=== PATIENT | female | born 1950 | race Caucasian/White ===

== ENCOUNTER 2023-08-03 07:52 | Outpatient (OUT) | payer OTHER, SELFPAY ==
--- NOTE | 2023-08-03 08:10 | NM_ITS ---
Patient Name: NELL RABAGO MR#: [id number] : 1950 Exam Date: 08/03/2023 Ordering Doctor: DR SHA ROBLEDO M.D. RADIOLOGY REPORT PROCEDURE: NM MANNY PERF SPECT REST STR COMPARISON: None. INDICATIONS: ABNORMAL EKG, PRE PROCEDURE CARDIOVASCULAR EXAM TECHNIQUE: Exam Description: Stress/Rest one day protocol gated SPECT Rest Imagin.9 mCi Tc-99m Cardiolite IV on 08/03/2023 Stress Imaging 29.6 mCi Tc-99m Cardiolite IV on 08/03/2023 Exercise Protocol: 0.4 mg Lexiscan given IV Heart Rate (bpm): Rest: 102 Max: 123 PMHR: 84 Blood Pressure: Rest: 148/82 Max: 162/80 Symptoms: Rest and peak stress ECG findings were normal and the exercise portion of the study was normal per attending physician Dr. Clayton . For more details please see separate cardiac stress test report. FINDINGS: QUALITY OF STUDY: Excellent. PERFUSION DEFECT: None. LOCATION: N/A SIZE: N/A. SEVERITY: N/A. TYPE: N/A. WALL MOTION: Normal. LV SIZE: Normal. 60 mL. TID / TCD: None; 0.8 LVEF: Normal. Calculated EF 76%. SUMMARY: Myocardial perfusion imaging study is NORMAL. CONCLUSION: 1. Normal nuclear medicine myocardial perfusion scan. Dictated by: Spencer Connelly M.D. on 08/04/2023 at 15:40 Approved by: Spencer Connelly M.D. on 08/04/2023 at 15:41
[2023-08-03] MEDS: REGADENOSON 0.4 MG/5 ML SYRINGE IV (10:04)
--- NOTE | 2023-08-03 17:17 | P.STRESS_ITS ---
Stress Test Stress Test Allergies Allergy/AdvReac Type Severity Reaction Status Date / Time lisinopril AdvReac Unknown Unverified 08/03/23 09:32 Requesting physician: SHA ROBLEDO Procedure: Lexiscan Cardiolite stress test General Information: Reason for Stress Test: Abnormal EKG Cardiac History and Risk Factors: Nothing listed Resting 12 - Lead Electrocardiogram: Rate & rhythm: Sinus tachycardia at a rate of 102. [place]: Trend towards left axis deviation T-waves: Flattened in III ST-segments: Slight downsloping in V3 Stress Test: Protocol: Lexiscan protocol was initiated with injection of 0.4mg Lexiscan IV push followed by Cardiolite. Blood pressure: Initial: 148/82, Maximum: 162/80 Rate & rhythm: Patient remained in Sinus rhythm during the exercise and recovery portions of the study.? The maximum heart rate was 123, which was 84% of the maximum predicted heart rate. ST-segments & T-waves: There were no T-wave changes and no ST-segment changes when compared to the baseline EKG. Patient response/symptoms: Patient was asymptomatic. Interpretation: Normal Lexiscan stress test without electrocardiographical evidence of ischemia. Asymptomatic. Cardiolite imaging interpretation will be reported separately. Clinical correlation required.?
== END 2023-08-03 07:53 | disposition home or self-care (01) ==
LOC: NM 07:53
PROVIDERS: PCP Family Medicine; Visit Provider Family Medicine
DX: R94.31 Abnormal electrocardiogram [ECG] [EKG] (principal)
CPT/HCPCS: 78452; 93017; A9500; J2785

== ENCOUNTER 2025-04-19 08:54 | Outpatient (OUT) | payer OTHER, SELFPAY ==
--- OUTSIDE RECORDS SUMMARY | 2025-04-10 12:00 | XMS_ITS | Encounter Summary ---
Author Organization [facility] Healthcare Address [address] [place] [address] Care Team Providers Care House Coordinator Name Role Phone Genna Cavazos MD Primary Care Provider [phone] Yulissa Marcus CHIPPER OPERATOR Unavailable [phone] Genna Cavazos MD Unavailable [phone] Ginette Felipe LPN Unavailable [phone] Reason for Referral * Medications - DeniedSpecialtyDiagnoses / ProceduresReferred By ContactReferred To Contact Diagnoses Bronchitis Wheezing Aishwarya Rizzo NP [address] [place] [address] Phone: tel: fax: Referral IDStatusReasonStart DateExpiration DateVisits RequestedVisits [id number] Reason for Visit * ReasonCommentsSore Throat Encounter Details DateTypeDepartmentCare Team (Latest Contact Info)Owevuoyoutw64/29/2025 1:00 PM EDTOffice Visit [facility] [address] [place] [address] Aishwarya Rizzo NP [address] [place] [address] Bronchitis (Primary Dx); Wheezing Social History Tobacco UseTypesPacks/DayYears UsedDateSmoking Tobacco: NeverSmokeless Tobacco: Never Tobacco Cessation:Counseling Given: Not Answered Alcohol UseStandard Drinks/WeekCommentsNot Currently0 (1 standard drink = 0.6 oz pure alcohol)caffeine intake: 1 cup [id number] Health LiteracyAnswerDate RecordedHow often do you need to have someone help you when you read instructions, pamphlets, or other written material from your doctor or pharmacy? Never03/09/2024Humiliation, Afraid, Rape, and Kick questionnaireAnswerDate RecordedWithin the last year, have you been afraid of your partner or ex-partner?No01/13/2023Within the last year, have you been humiliated or emotionally abused in other ways by your partner or ex-partner?No01/13/2023 Within the last year, have you been kicked, hit, slapped, or otherwise physically hurt by your partner or ex-partner?No01/13/2023Within the last year, have you been raped or forced to have any kind of sexual activity by your part ner or ex-partner?No01/13/2023Social Connection and Isolation PanelAnswerDate RecordedIn a typical week, how many times do you talk on the phone with family, friends, or neighbors?More than three times a week03/09/2024How often do you get together with friends or relatives?Patient dhojdjmk73/27/2024How often do you attend pentecostalism or buddhism services?Patient dijgutwp74/27/2024o you belong to any clubs or organizations such as pentecostalism groups, unions, fraternal or athletic groups, or school groups?No03/09/2024How often do you attend meetings of the clubs or organizations you belong to?Never03/09/2024re you , , , , never , or living with a partner?Lazpxwk8003/09/2024 AUDIT-CAnswerDate RecordedQ1: How often do you have a drink containing alcohol? Monthly or less03/09/2024Q2: How many drinks containing alcohol do you have on a typical day when you are drinking?1 or Q3: How often do you have six or more drinks on one occasion?Never03/09/2024Overall Financial Resource Strain (CARDIA)AnswerDate RecordedHow hard is it for you to pay for the very basics like food, housing, medical care, and heating?Patient yfwhecpy06/27/2024HQ-2 AnswerDate RecordedPatient Health Questionnaire-2 [facility]dahs726[facility] [place] of Occupational Health - Occupational Stress QuestionnaireAnswerDate RecordedDo you feel stress - tense, restless, nervous, or anxious, or unable to sleep at night because yourmind is troubled all the time - these days?Very much 03/09/2024Exercise Vital SignAnswerDate RecordedOn average, how many days per week do you engage in moderate to strenuous exercise (like a brisk walk)?Patient udcaxbgy59/27/2024On average, how many minutes do you engage in exercise at this level?Patient /27/2024Hunger Vital SignAnswerDate RecordedWithin the past 12 months, you worried that your food would run out before you got the money to buymore.Patient qowxpxhf62/27/2024Within the past 12 months, the food you bought just didn't last and you didn't have money to get more.Patient hsmjuvcx48/27/2024RAPARE - TransportationAnswerDate RecordedIn the past 12 months, has lack of transportation kept you from medical appointments or from getting medications?No03/09/2024In the past 12 months, has lack of transportation kept you from meetings, work, or from getting things needed for daily living?03/09/2024Housing Stability Vital SignAnswerDate RecordedIn the last 12 months, was there a time when you were not able to pay the mortgage or rent on time?No01/13/2023Number of Places Lived in the Last YearNot on file 01/13/2023Unstable Housing in the Last YearNot on file01/13/2023Housing Stability Vital SignAnswerDate RecordedIn the last 12 months, was there a time when you were not able to pay the mortgage or rent on time?No03/09/2024Number of Times Moved in the Last YearNot on file03/09/2024t any time in the past 12 months, were you homeless or living in a intermediate (including now)?No03/09/2024 CommentsUnknownSex and Gender InformationValueDate RecordedSex Assigned at QknyyQuijsf13/20/2023 7:48 PM EDTLegal VcsMtubmd78/15/2023 6:54 PM EDTGender XvxoqtofWigney81/20/2023 7:48 PM EDTSexual OrientationNot on filedocumented as of this encounter Last Filed Vital Signs Vital SignReadingTime TakenCommentsBlood Unbipbjr545/7404/10/2025 12:27 PM EDT Scqpi704004/10/2025 12:27 PM JAVQawsfpzdjup51.4 ??C (97.5 ??F)04/10/2025 12:27 PM EDTRespiratory Rate--Oxygen Unxbgahksr52%04/10/2025 12:27 PM EDTInhaled Oxygen Concentration--Zgkpyj64.1 kg (148 lb)04/10/2025 12:27 PM EDTHeight--Body Mass Index27.0707 2:03 PM EDTdocumented in this encounter Progress Notes * Aishwarya Burr, CHIPPER OPERATOR - 04/10/2025 1:00 PM EDT Subjective ?Quick Links Last Note in Specialty Snapshot Edit RFV/CC Edit Screenings Current Meds Patient ID: Karla Sheth is a 75 y.o. female who presents for Sore Throat. URI This is a new problem. The current episode started 1 to 4 weeks ago. The problem has been graduallyworsening. There has been no fever. Associated symptoms include congestion, coughing, a plugged earsensation, rhinorrhea, sinus pain, a sore throat and wheezing. Pertinent negatives include no chestpain. She has tried decongestant for the symptoms. The treatment provided mild relief. History of Present Illness ?Quick Review Review Full History Edit History Meds - Current Medications[1] --- PMH - History of hand surgery Hypertension MRSA infection Osteoporosis Personal history of other medical treatment Objective ?Quick Links Add Vitals Timeline (Adult) Labs Imaging Results Review Trend Vitals ?? Avoid pulling in long tables of results. Comment on relevant results to support your medical decision making. There were no vitals taken for this visit. Review of Systems Constitutional: Positive for fatigue. HENT: Positive for congestion, rhinorrhea, sinus pain and sore throat. Respiratory: Positive for cough and wheezing. Negative for shortness of breath. Cardiovascular: Negative for chest pain and palpitations. Gastrointestinal: Negative. Musculoskeletal: Negative. Skin: Negative. Neurological: Negative. Physical Exam Vitals and nursing note reviewed. Constitutional: Appearance: She is well-developed. HENT: Head: Normocephalic. Right Ear: Hearing normal. Left Ear: Hearing normal. Nose: Congestion and rhinorrhea present. Rhinorrhea is purulent. Mouth/Throat: Mouth: Mucous membranes are moist. Pharynx: Posterior oropharyngeal erythema present. No oropharyngeal exudate. Tonsils: No tonsillar exudate. Cardiovascular: Rate and Rhythm: Normal rate and regular rhythm. Heart sounds: Normal heart sounds. Pulmonary: Effort: Pulmonary effort is normal. Breath sounds: Examination of the right-upper field reveals decreased breath sounds. Examination ofthe left-upper field reveals decreased breath sounds. Examination of the right-lower field reveals wheezing. Examination of the left- lower field reveals wheezing. Decreased breath sounds and wheezingpresent. Abdominal: General: Abdomen is flat. There is no distension. Tenderness: There is no abdominal tenderness. Musculoskeletal: Cervical back: Neck supple. Lymphadenopathy: Cervical: Right cervical: No superficial cervical adenopathy. Left cervical: No superficial cervical adenopathy. Skin: General: Skin is warm. Capillary Refill: Capillary refill takes less than 2 seconds. Neurological: General: No focal deficit present. Mental Status: She is alert and oriented to person, place, and time. Physical Exam ?Quick Links Full Problem List Back Pain Cardiology Chronic Pain GI Headache Hypertension Assessment & Plan Bronchitis Orders: albuterol HFA 90 mcg/act inhaler; Inhale 2 puffs every 4 (four) hours if needed for wheezing amoxicillin-clavulanate (Augmentin) 500-125 MG tablet; Take 1 tablet (500 mg) by mouth in the morning and 1 tablet (500 mg) before bedtime. Do all this for 10 days. benzonatate (Tessalon Perles) 100 MG capsule; Take 1 capsule (100 mg) by mouth 3 (three) times a day as needed for cough for up to 7 days Do not crush or chew. Wheezing Orders: albuterol HFA 90 mcg/act inhaler; Inhale 2 puffs every 4 (four) hours if needed for wheezing Diagnoses and all orders for this visit: Bronchitis - albuterol HFA 90 mcg/act inhaler; Inhale 2 puffs every 4 (four) hours if needed for wheezing - amoxicillin-clavulanate (Augmentin) 500-125 MG tablet; Take 1 tablet (500 mg) by mouth in the morning and 1 tablet (500 mg) before bedtime. Do all this for 10 days. - benzonatate (Tessalon Perles) 100 MG capsule; Take 1 capsule (100 mg) by mouth 3 (three) times a day as needed for cough for up to 7 days Do not crush or chew. Wheezing - albuterol HFA 90 mcg/act inhaler; Inhale 2 puffs every 4 (four) hours if needed for wheezing Assessment & Plan [1] albuterol HFA 90 mcg/act inhaler alendronate (Fosamax) 70 MG tablet Alpha tocopherol (Vitamin E) 200 units capsule busPIRone (Buspar) 5 MG tablet celecoxib (CeleBREX) 200 MG capsule Cinnamon 500 MG tablet coenzyme Q-10 200 MG capsule fluticasone (Flonase) 50 MCG/ACT nasal spray LORazepam (Ativan) 0.5 MG tablet methylPREDNISolone (Medrol Dospak) 4 MG tablets Restasis 0.05 % ophthalmic emulsion sertraline (Zoloft) 100 MG tablet traZODone (Desyrel) 100 MG tablet verapamil (Calan) 80 MG tablet documented in this encounter Plan of Treatment DateTypeDepartmentCare Team (Latest Contact Info)Pmnvgutwrsn34/18/2025 10:00 AM ESTOffice Visit [facility] [address] [place] [address] Jr. Spencer Sandoval, [address] [facility] [address] [place] [address] 01/01/2026 9:45 AM EDTOffice Visit [facility] [address] [place] [address] Tequila Tang MD [address] [place] [address] documented as of this encounter Goals GoalPatient Goal TypeAssociated ProblemsRecent ProgressPatient-Stated?Author Help patient manage antidepressant medication Care PlanPatient on antidepressant monitoring planNoPena, Raqueldocumented as of this encounter Visit Diagnoses Diagnosis Bronchitis- Primary Bronchitis, not specified as acute or chronic Wheezing documented in this encounter Additional Health Concerns Active ProblemsNoted DateDiagnosed DatePatient on antidepressant monitoring plan 4AssessmentNoted TimePHQ-9 Depression Total Score: 9:58 AM EDTdocumented as of this encounter Care Teams Team MemberRelationshipSpecialtyStart DateEnd Genna Cavazos MD [address] [place] [address] PCP - GeneralFamily Medicine11/11/22 Genna Cavazos MD [address] [place] [address] PCP - Medical [place] [employer]06/13/1611 Yulissa Marcus NP [address] [place] [address] Nurse PractitionerFamily Medicine11/11/22 Ginette Fleipe LPN Licensed Practical NurseFamily Ijoisidg31/19/24documented as of this encounter
--- OUTSIDE RECORDS SUMMARY | 2025-04-17 13:00 | XMS_ITS | Encounter Summary ---
Author Organization [facility] Healthcare Address [address] [place] [address] Care Team Providers Care Boiler Attendant Name Role Phone Genna Cavazos MD Primary Care Provider Yulissa Marcus AS400 PROGRAMMER ANALYST Unavailable [phone] Genna Cavazos MD Unavailable [phone] Ginette Felipe LPN Unavailable [phone] Reason for Visit * ReasonCommentsCough Encounter Details DateTypeDepartmentCare Team (Latest Contact Info)Xpgakekibnx10/05/2025 1:00 PM ESTOffice Visit [facility] [address] [place] [address] Aishawrya Rizzo NP [address] [place] [address] Bronchitis Social History Tobacco UseTypesPacks/DayYears UsedDateSmoking Tobacco: NeverSmokeless Tobacco: Never Tobacco Cessation:Counseling Given: Not Answered Alcohol UseStandard Drinks/WeekCommentsNot Currently0 (1 standard drink = 0.6 oz pure alcohol)caffeine intake: 1 cup [id number] Health LiteracyAnswerDate RecordedHow often do you need to have someone help you when you read instructions, pamphlets, or other written material from your doctor or pharmacy? Never03/09/2024Humiliation, Afraid, Rape, and Kick questionnaireAnswerDate RecordedWithin the last year, have you been afraid of your partner or ex-partner?No08/03/2023Within the last year, have you been humiliated [...] you get together with friends or relatives?Patient klpiqfju67/27/2024How often do you attend scientology or yarsani services?Patient anqioxbx62/27/2024o you belong to any clubs or organizations such as scientology groups, unions, fraternal or athletic groups, or school groups?No03/09/2024How often do you attend meetings of the clubs or organizations you belong to?Never03/09/2024re you , , , , never , or living with a partner?Mmhetrl3903/09/2024 AUDIT-CAnswerDate RecordedQ1: How often do you have [...] like food, housing, medical care, and heating?Patient cfbozslc31/27/2024HQ-2 AnswerDate RecordedPatient Health Questionnaire-2 [facility]548[facility] [place] of Occupational Health - Occupational Stress QuestionnaireAnswerDate RecordedDo you feel stress - tense, restless, nervous, or anxious, or unable to sleep at night because yourmind is troubled all the time - these days?Very much 03/09/2024Exercise Vital SignAnswerDate RecordedOn average, how many days per week do you engage in moderate to strenuous exercise (like a brisk walk)?Patient brnkulmp60/27/2024On average, how many minutes do you engage in exercise at this level?Patient krodqfeb89/27/2024Hunger Vital SignAnswerDate RecordedWithin the past 12 months, you worried that your food would run out before you got the money to buymore.Patient hcjmvded32/27/2024Within the past 12 months, the food you bought just didn't last and you didn't have money to get more.Patient vdmsozbx38/27/2024RAPARE - TransportationAnswerDate RecordedIn the past 12 months, has lack of transportation kept you from medical appointments or from getting medications?No03/09/2024In the past 12 months, has lack of transportation kept you from meetings, work, or from getting things needed for daily living?No03/09/2024Housing Stability Vital SignAnswerDate RecordedIn the last 12 [...] were you homeless or living in a snf (including now)?No03/09/2024 CommentsUnknownSex and Gender InformationValueDate RecordedSex Assigned at UzgquRyoywm44/20/2023 7:48 PM EDTLegal VhrEmeyen79/15/2023 6:54 PM EDTGender SrbteeecUgijvi71/20/2023 7:48 PM EDTSexual OrientationNot on filedocumented as of this encounter Last Filed Vital Signs Vital SignReadingTime TakenCommentsBlood Juqadhim640/8011 12:38 PM EST Uakma9790 12:38 PM FDJMwtkuysjsvo70.3 ??C (97.3 ??F)04/17/2025 12:38 PM ESTRespiratory Rate--Oxygen Kfbazvwwvc79%04/17/2025 12:38 PM ESTInhaled Oxygen Concentration--Weight--Height--Body Mass Index--documented in this encounter Progress Notes * Aishwarya Rizzo NP - 04/17/2025 1:00 PM EST Subjective ?Quick Links Last Note in Specialty Snapshot Edit RFV/CC Edit Screenings Current Meds Patient ID: Karla Sheth is a 75 y.o. female who presents for Cough. HPI History of Present Illness The patient presents for evaluation of a persistent cough. She reports experiencing persistent cough She expresses concern about the potential worsening of her condition. Additionally, she notes that her phlegm is clear in color. She has been utilizing Vicksas a part of her treatment regimen. No shortness of breath. No fever or chills. No nausea or vomiting. ?Quick Review Review Full History Edit History [...] for this visit. Review of Systems Constitutional: Negative for chills, fatigue and fever. HENT: Positive for congestion. Negative for ear discharge, ear pain, rhinorrhea and sore throat. Eyes: Negative for pain and redness. Respiratory: Positive for cough. Negative for chest tightness, shortness of breath and wheezing. Cardiovascular: Negative for chest pain and palpitations. Gastrointestinal: Negative for abdominal distention and abdominal pain. Genitourinary: Negative for difficulty urinating and frequency. Musculoskeletal: Negative for arthralgias and gait problem. Skin: Negative. Neurological: Negative for dizziness and numbness. Endocrine: Negative. Allergic/Immunologic: Negative. Physical Exam Vitals reviewed. Cardiovascular: Rate and Rhythm: Normal rate and regular rhythm. Pulses: Normal pulses. Heart sounds: Normal heart sounds. Pulmonary: Effort: Pulmonary effort is normal. Breath sounds: Normal breath sounds. Musculoskeletal: General: Normal range of motion. Skin: General: Skin is warm and dry. Neurological: General: No focal deficit present. Mental Status: She is oriented to person, place, and time. Physical Exam Respiratory: Clear to auscultation, no wheezing, rales or rhonchi ?Quick Links Full Problem List Back Pain Cardiology Chronic Pain GI Headache Hypertension Assessment & Plan Bronchitis Orders: benzonatate (Tessalon Perles) 100 MG capsule; Take 1 capsule (100 mg) by mouth 3 (three) times a day as needed for cough for up to 7 days Do not crush or chew. Other orders Follow Up In Family Medicine; Future Assessment & Plan 1. Cough: - The patient reports soreness around the chest due to frequent coughing. - Lung sounds have improved with no current signs of pneumonia or wheezing. - Advised to continue using the inhaler every 4 hours as needed and to apply Vicks. Recommended to use a cool mist vaporizer in the room and to complete the current course of antibiotics. Encouraged to rest and stay hydrated. - A prescription for Tessalon Perles has been sent to the pharmacy. If the condition deteriorates or if phlegm changes color to green or yellow, the patient should contact the office for further evaluation and possible additional antibiotics. Diagnoses and all orders for this visit: Bronchitis - benzonatate (Tessalon Perles) 100 MG capsule; Take 1 capsule (100 mg) by mouth 3 (three) times a day as needed for cough for up to 7 days Do not crush or chew. Other orders - Follow Up In Family Medicine; Future [1] albuterol HFA 90 mcg/act inhaler Alpha tocopherol (Vitamin E) 200 units capsule busPIRone (Buspar) 5 MG tablet celecoxib (CeleBREX) 200 MG capsule Cinnamon 500 MG tablet coenzyme Q-10 200 MG capsule fluticasone (Flonase) 50 MCG/ACT nasal spray LORazepam (Ativan) 0.5 MG tablet Restasis 0.05 % ophthalmic emulsion sertraline (Zoloft) 100 MG tablet traZODone (Desyrel) 100 MG tablet verapamil (Calan) 80 MG tablet albuterol HFA 90 mcg/act inhaler alendronate (Fosamax) 70 MG tablet amoxicillin-clavulanate (Augmentin) 500-125 MG tablet benzonatate (Tessalon Perles) 100 MG capsule methylPREDNISolone (Medrol Dospak) 4 MG tablets documented in this encounter Plan of Treatment DateTypeDepartmentCare Team (Latest Contact Info)Svrxkedfgam77/18/2025 10:00 AM ESTOffice Visit [facility] [address] [place] [phone] Jr. Spencer Sandoval, [address] [place] [address] 01/01/2026 9:45 AM EDTOffice Visit [facility] [address] [place] [address] Tequila Tang MD [address] [place] [address] documented as of this encounter Goals GoalPatient Goal TypeAssociated ProblemsRecent ProgressPatient-Stated?Author Help patient manage antidepressant medication Care PlanPatient on antidepressant monitoring planNoPena, Raqueldocumented as of this encounter Visit Diagnoses Diagnosis Bronchitis Bronchitis, not specified as acute or chronic documented in this encounter Additional Health Concerns Active ProblemsNoted DateDiagnosed DatePatient on antidepressant monitoring plan 05/22/2024ssessmentNoted TimePHQ-9 Depression Total Score: 7011/20/2024 9:58 AM EDTdocumented as of this encounter Care Teams Team MemberRelationshipSpecialtyStart DateEnd Date Genna Cavazos MD [address] [place] [address] PCP - GeneralFamily Medicine11/11/22 Genna Cavazos MD [address] [place] [address] PCP - Medical [place] [employer]06/13/1611 Yulissa Marcus NP [address] [place] [address] Nurse PractitionerFamily Medicine11/11/22 Ginette Felipe LPN Licensed Practical NurseFamily Bygtmxnw22/19/24documented as of this encounter
--- OUTSIDE RECORDS SUMMARY | 2025-04-17 15:15 | XMS_ITS | Encounter Summary ---
Author Organization [facility] Address [address] [place] [address] Care Team Providers Care Overhead Door Technician Name Role Phone Genna Cavazos MD Primary Care Provider [phone] Yulissa Marcus CLINICAL APPEALS SPECIALIST Unavailable [phone] Genna Cavazos MD Unavailable [phone] Ginette Felipe LPN Unavailable [phone] Encounter Details DateTypeDepartmentCare Team (Latest Contact Info)Taodtetqwzm22/05/2025 3:15 PM ESTOffice Visit [facility] [address] [place] [address] Sensorineural hearing loss (SNHL) of both ears (Primary Dx) Social History Tobacco UseTypesPacks/DayYears UsedDateSmoking Tobacco: NeverSmokeless Tobacco: NeverAlcohol UseStandard Drinks/WeekCommentsNot Currently0 (1 standard drink = 0.6 oz pure alcohol)caffeine intake: 1 cup [id number] Health LiteracyAnswerDate RecordedHow often do you need [...] you get together with friends or relatives?Patient hojzzzfl57/27/2024How often do you attend orthodoxy or zoroastrianism services?Patient fprmkgmy81/27/2024o you belong to any clubs or organizations such as orthodoxy groups, unions, frarighTune or athletic groups, or school groups?No03/09/2024How often do you attend meetings of the clubs or organizations you belong to?Never03/09/2024re you , , , , never , or living with a partner?Knuaqcm2603/09/2024 AUDIT-CAnswerDate RecordedQ1: How often do you have [...] like food, housing, medical care, and heating?Patient jipcroky06/27/2024HQ-2 AnswerDate RecordedPatient Health Questionnaire-2 Izcle452Finst. [facility] [place] of Occupational Health - Occupational Stress QuestionnaireAnswerDate RecordedDo you feel stress - tense, restless, nervous, or anxious, or unable to sleep at night because yourmind is troubled all the time - these days?Very much 03/09/2024Exercise Vital SignAnswerDate RecordedOn average, how many days per week do you engage in moderate to strenuous exercise (like a brisk walk)?Patient lrczxocx78/27/2024On average, how many minutes do you engage in exercise at this level?Patient bmgvqqyt99/27/2024Hunger Vital SignAnswerDate RecordedWithin the past 12 months, you worried that your food would run out before you got the money to buymore.Patient neyaobad09/27/2024Within the past 12 months, the food you bought just didn't last and you didn't have money to get more.Patient btwirbne52/27/2024RAPARE - TransportationAnswerDate RecordedIn the past 12 months, [...] were you homeless or living in a jail (including now)?No03/09/2024 CommentsUnknownSex and Gender InformationValueDate RecordedSex Assigned at DstzkZxnieg47/20/2023 7:48 PM EDTLegal QfjBhaans63/15/2023 6:54 PM EDTGender CnytdhynNcxszd26/20/2023 7:48 PM EDTSexual OrientationNot on filedocumented as of this encounter Progress Notes * Vera Lechuga MA - 04/17/2025 3:15 PM EST Patient was in today for a two week follow up on new hearing aids. Patient notices the benefits andis pleased with the hearing aids. The only complaint that she had is other people complaining that background noise is so loud while she is streaming phone calls. I called [facility] and they suggested shortening the medical instructor wire for better placement of the microphone, overtuning more and reducing forloud sounds. All changes were made. Patient will let us know if the problem persists or is improved. documented in this encounter Plan of Treatment DateTypeDepartmentCare Team (Latest Contact Info)Gydmdkhghmr50/18/2025 10:00 AM ESTOffice Visit [facility] [address] [place] [phone] Jr. Spencer Sandoval, DO [address] [place] [address] 01/01/2026 9:45 AM EDTOffice Visit [facility] [address] [place] [address] Tequila Tang MD [address] [place] [address] documented as of this encounter Goals GoalPatient Goal TypeAssociated ProblemsRecent ProgressPatient-Stated?Author Help patient manage antidepressant medication Care PlanPatient on antidepressant monitoring planGeorgette Cashocumented as of this encounter Visit Diagnoses Diagnosis Sensorineural hearing loss (SNHL) of both ears- Primary documented in this encounter Additional Health Concerns Active ProblemsNoted DateDiagnosed DatePatient on antidepressant monitoring plan 4AssessmentNoted TimePHQ-9 Depression Total Score: 7011/20/2024 9:58 AM EDTdocumented as of this encounter Care Teams Team MemberRelationshipSpecialtyStart DateEnd Date Genna Cavazos MD [address] [place], [place] [phone] PCP - GeneralFamily Medicine11/11/22 Genna Cavazos MD [address] [place], [place] [phone] PCP - Medical [place] [employer]06/13/1611 Yulissa Marcus NP [address] [place] [address] Nurse PractitionerFamily Medicine11/11/22 Ginette Felipe LPN Licensed Practical NurseFamily Bcvwhlvg72/19/24documented as of this encounter
--- OUTSIDE RECORDS SUMMARY | 2025-04-19 08:57 | XMS_ITS | Clinical Summary ---
Author Organization [facility] Address [address] [facility] [place] [address] Care Team Providers Care Compass Operator Name Role Phone Genna Cavazos MD Primary Care Provider [phone] Yulissa Marcus PARTS WASHER Unavailable [phone] Genna Cavazos MD Unavailable [phone] Ginette Felipe LPN Unavailable [phone] Allergies Active AllergyReactionsCriticalityNoted PiwsHpocndwfTaihflbfikNgack55/01/2023 Medications MedicationSigDispense QuantityRefillsLast FilledStart DateEnd DateStatus albuterol HFA 90 mcg/act inhaler Inhale 1 puff every 6 (six) hours if dstfop0211/27/2021ctive Cinnamon 500 MG tablet Take 500 mg by mouth DailyActive coenzyme Q-10 200 MG capsule Take 200 mg by mouth 1 (one) time each day at the same timeActive Alpha tocopherol (Vitamin E) 200 units capsule Take 200 Units by mouth in the morning.Active Restasis 0.05 % ophthalmic emulsion 04/07/2023ctive fluticasone (Flonase) 50 MCG/ACT nasal spray Indications:Nasal congestionAdminister 1 spray into each nostril in the morning and 1 spray before bedtime. 16 g ctive sertraline (Zoloft) 100 MG tablet Indications:AnxietyTake 1.5 tablets (150 mg) by mouth Daily 90 tablet 5Active traZODone (Desyrel) 100 MG tablet Indications:Insomnia, unspecified typeTake 1.5 tablets (150 mg) by mouth at bedtime 135 tablet 5Active busPIRone (Buspar) 5 MG tablet Indications:AnxietyTake 1 tablet (5 mg) by mouth in the morning and 1 tablet (5 mg) before bedtime. 60 tablet 5Active LORazepam (Ativan) 0.5 MG tablet Indications:Anxiety,GriefTake 1 tablet (0.5 mg) by mouth every 8 (eight) hours if needed for anxiety 20 tablet 5Active verapamil (Calan) 80 MG tablet Indications:Benign essential HTNTAKE 1 TABLET BY MOUTH IN THE MORNING 90 tablet 5Active methylPREDNISolone (Medrol Dospak) 4 MG tablets Indications:Right hip painFollow schedule on package instructions 21 tablet 5Active albuterol HFA 90 mcg/act inhaler Indications:Bronchitis,WheezingInhale 2 puffs every 4 (four) hours if needed for wheezing 18 g ctive amoxicillin-clavulanate (Augmentin) 500-125 MG tablet Indications:BronchitisTake 1 tablet (500 mg) by mouth in the morning and 1 tablet (500 mg) before bedtime. Do all this for 10 days. 20 tablet /5Active alendronate (Fosamax) 70 MG tablet Indications:Osteoporosis of lumbar spineTake 1 tablet (70 mg) by mouth every 7 (seven) days Take in the morning with a full glass of water,on an empty stomach, and do not take anything else by mouth or lie down for the next 30 min. 12 tablet 5Active benzonatate (Tessalon Perles) 100 MG capsule Indications:BronchitisTake 1 capsule (100 mg) by mouth 3 (three) times a day as needed for cough for up to 7 days Do not crush or chew. 20 capsule 5Active alendronate (Fosamax) 70 MG tablet Indications:Osteoporosis of lumbar spineTAKE 1 TABLET BY MOUTH EVERY 7 DAYS IN THE MORNING ON AN EMPTY STOMACH WITH a full glass OF water ON AN EMPTY STOMACH and do not take anything else by mouth or lie down for the next 30 mins 12 tablet Discontinued(Reorder) celecoxib (CeleBREX) 200 MG capsule Indications:Iliotibial band syndrome of right sideTake 1 capsule (200 mg) by mouth Daily Take with food 30 capsule Expired benzonatate (Tessalon Perles) 100 MG capsule Indications:BronchitisTake 1 capsule (100 mg) by mouth 3 (three) times a day as needed for cough for up to 7 days Do not crush or chew. 20 capsule Discontinued(Reorder) Active Problems ProblemNoted DateDiagnosed DateLumbosacral spondylosis without myelopathy 06/14/2024Spinal stenosis of lumbar region with neurogenic claudication 04/24/2024cute right hip pain10/27/2023Status post right hip replacement 10/27/20230951Jeylqmo01/01/2023symptomatic microscopic yuihallss60/01/2023MI 28.0-28.9,adult11/11/2022hronic whxbccur37/01/2023History of total right knee dszplxuppuv74/01/5659Cgfrbqhvaos36/01/2023Osteoporosis of lumbar spine11/11/2022 Reactive airway zamtobv8711/11/2022Stricture of female bnulxtj5311/11/2022bnormal /08/2021rimary osteoarthritis of right hip06/30/2020hronic tension- type headache, not /26/2019History of total left knee replacement 10/06/2018Renal /27/2017Finding of above normal blood pressure 01/19/2017Other chronic pain12/15/2016 Resolved Problems ProblemNoted DateDiagnosed DateResolved UkvwXhvmhxv59/29/202108/hronic fatigue obmzctre70/08/2022Slow transit fuyxbagerugv78/26/2020 07/26/2023 Encounters DateTypeDepartmentCare VwzbTgrgmhvuhbb78/05/2025 3:15 PM ESTOffice Visit [facility] [address] [place] [address] Sensorineural hearing loss (SNHL) of both ears (Primary Dx)04/17/2025 1:00 PM ESTOffice Visit [facility] [address] [facility] [place] [phone] Aishwarya Rizzo NP Zemkkpaepp93/05/2025Telephone [facility] [address] [place] [address] Genna Cavazos MD 04/17/2025amboo flowsheet [facility] [address] [place] [phone] Aishwarya Rizzo NP 04/17/20255559Dvbffz72/30/2025Refill [facility] [address] [place] [phone] Genna Cavazos MD Osteoporosis of lumbar spine04/10/2025 1:00 PM EDTOffice Visit [facility] [address] [place] [place] [phone] Aishwarya Rizzo NP Bronchitis (Primary Dx); Jroprldx89/29/2025amboo flowsheet [facility] [address] [place] [phone] Aishwarya Rizzo NP 04/10/20250367Lshayl08/22/2025 10:15 AM EDTClinical Support [facility] [address] [place] [address] Janelle Giang CCC-A Sensorineural hearing loss (SNHL) of both ears (Primary Dx)04/03/2025amboo flowsheet [facility] [address] [place] [address] Janelle Giang CCC-A 03/19/2025 9:00 AM EDTOffice Visit [facility] [address] [place] [phone] Jr. Spencer Sandoval DO Iliotibial band syndrome of right side (Primary Dx)03/19/2025amboo flowsheet [facility] [address] [facility] [address] [place] [phone] Jr. Spencer Sandoval, 03/19/20251674Rlfmos73/25/2025Abstract [facility] [address] [place] [address] Janelle Giang A, CCC-A 02/27/2025 2:00 PM EDTOffice Visit [facility] [address] [place] [phone] Sensorineural hearing loss (SNHL) of both ears (Primary Dx)01/28/2025 9:00 AM EDTClinical Support [facility] [address] [place] [phone] Theresa Giangh A, CCC-A Sensorineural hearing loss (SNHL) of both ears (Primary Dx); Tinnitus, right5Bamboo flowsheet [facility] [address] [place] [address] Janelle Giang A, CCC-A 01/23/2025Patient Outreach [facility] [address] [place] [address] Ginette Felipe LPN 01/22/2025 8:30 AM EDTOffice Visit [facility] [address] [phone] Jr. Spencer Sandoval, Right hip pain (Primary Dx)5Bamboo flowsheet [facility] [address] [place] [address] Jr. Spencer Sandoval, 01/22/2025Travelfrom Last 3 Months Immunizations ImmunizationAdministration DatesNext OxeULM2308/25/2021Influenza, High Dose Seasonal, Preservative Free03/13/2024,03/13/2020,04/13/2016Influenza, High-dose Seasonal, Quadrivalent, Preservative Free03/02/2023,03/13/2021,03/13/2020 Influenza, Bxbsimossar79/13/2020Influenza, seasonal, injectable, preservative free03/13/2018,04/01/2017Influenza, seasonal, intradermal, preservative free 03/09/2012Pfizer Purple Cap SARS-CoV-2 Yoetxbyjftw99/17/2021Pneumococcal Conjugate PCV Pneumococcal Conjugate PCV 4Pneumococcal Polysaccharide OATJ482006/13/20161759Cxno44/03/2023,08/14/2012Zoster, Recombinant 03/29/2022,12/22/2021,12/06/2018,10/06/2018Zoster, live04/16/2015 Family History Medical HistoryRelationNameCommentsHeart diseaseFatherHeart failureFather DiabetesMotherDiabetesOtherHypertensionOtherstomach troublesOtherRelationName StatusCommentsDaughterAlive2 daughtersFatherDeceasedMotherDeceasedOtherSonAlive1 son Social History Tobacco UseTypesPacks/DayYears UsedDateSmoking Tobacco: NeverSmokeless Tobacco: Never Tobacco Cessation:Counseling Given: Not Answered Alcohol UseStandard Drinks/WeekCommentsNot Currently0 (1 standard drink = 0.6 oz pure alcohol)caffeine intake: 1 cup [id number] Health LiteracyAnswerDate RecordedHow often do you need [...] you get together with friends or relatives?Patient lwwwidku22/27/2024How often do you attend catholic or restorationist services?Patient qfujqkqo28/27/2024o you belong to any clubs or organizations such as catholic groups, unions, fraHubub or athletic groups, or school groups?No03/09/2024How often do you attend meetings of the clubs or organizations you belong to?Never03/09/2024re you , , , , never , or living with a partner?Hqlebnw1803/09/2024 AUDIT-CAnswerDate RecordedQ1: How often do you have [...] like food, housing, medical care, and heating?Patient agjcefzd63/27/2024HQ-2 AnswerDate RecordedPatient Health Questionnaire-2 Hiftz836Finst. [facility] [place] of Occupational Health - Occupational Stress QuestionnaireAnswerDate RecordedDo you feel stress - tense, restless, nervous, or anxious, or unable to sleep at night because yourmind is troubled all the time - these days?Very much 03/09/2024Exercise Vital SignAnswerDate RecordedOn average, how many days per week do you engage in moderate to strenuous exercise (like a brisk walk)?Patient wzkigtuo89/27/2024On average, how many minutes do you engage in exercise at this level?Patient lmdgypql17/27/2024Hunger Vital SignAnswerDate RecordedWithin the past 12 months, you worried that your food would run out before you got the money to buymore.Patient jlayhusk93/27/2024Within the past 12 months, the food you bought just didn't last and you didn't have money to get more.Patient zkcajhjq80/27/2024RAPARE - TransportationAnswerDate RecordedIn the past 12 months, [...] were you homeless or living in a fpc (including now)?No03/09/2024 CommentsUnknownSex and Gender InformationValueDate RecordedSex Assigned at RvikhJwiplr71/20/2023 7:48 PM EDTLegal ZkjZtcfhe15/15/2023 6:54 PM EDTGender QmqmmmipOpnzju43/20/2023 7:48 PM EDTSexual OrientationNot on file Last Filed Vital Signs Vital SignReadingTime TakenCommentsBlood Qkdtmqqw501/8011 12:38 PM EST Uvong138404/17/2025 12:38 PM EBSPkrhbvryhgh25.3 ??C (97.3 ??F)04/17/2025 12:38 PM ESTRespiratory Qrdb543007/29/2023 6:54 PM ESTOxygen Qvvlagnzwk11%04/17/2025 12:38 PM ESTInhaled Oxygen Concentration--Ykqfxd87.1 kg (148 lb)04/10/2025 12:27 PM HTYIrfrkt555.5 cm (5' 2 )01/01/2025 2:03 PM EDTBody Mass Index27.0701/01/2025 2:03 PM EDT Plan of Treatment DateTypeDepartmentCare Team (Latest Contact Info)Tkvdzxhjqkc19/18/2025 10:00 AM ESTOffice Visit [facility] [address] [place] [phone] Jr. Spencer Sandoval, [address] [place], [place] [phone] 01/01/2026 9:45 AM EDTOffice Visit [facility] [address] [place] [address] Tequila Tang MD [address] [place] [address] Health MaintenanceDue DateLast DoneCommentsCOVID-19 Vaccine ( season) , 09/15/2021, 03/30/2021, Additional history exists FlcjbcdrbumSlumyrmtqvom83/14/2021, 11/14/2020olorectal Cancer Screening KvbegbgtuwlwYuvwkllqgApozldfmodhx32/08/2024, 03/15/2023, 02/09/2022, Additional history existsPneumococcal Vaccine: 65+ MghleVyapzekiz07/07/2024, 04/13/2017, 03/11/2016Influenza NfhgpgrBsiuiwerf23/17/2025, 03/13/2024, 03/02/2023, Additional history existsCT ColonographyDiscontinuedFIT-DNADiscontinuedFIT DiscontinuedFOBTDiscontinuedSigmoidoscopyDiscontinued Goals GoalPatient Goal TypeAssociated ProblemsRecent ProgressPatient-Stated?Author Help patient manage antidepressant medication Care PlanPatient on antidepressant monitoring planNoPena, Sophia Procedures Procedure NamePriorityDate/TimeAssociated DiagnosisCommentsAUDITORY FUNCTION RGNDXBgdutfd17/18/2025 9:43 AM EDT BI MAMMOGRAM SCREENING TOMOSYNTHESIS PLKFKSLUQMpzmyqf78/08/2024 11:17 AM EDT Screening mammogram for breast cancer NRVPAQLWPKMWekxwzb01/04/2021 from Last 3 Months or Most Recently Relevant to Health Maintenance Results * Auditory function tests (01/28/2025 9:43 AM EDT) Narrative Janelle Giang, [facility] - 01/28/2025 9:43 AM EDT Bilateral Mild to moderate sensorineural hearing loss Authorizing ProviderResult TypeResult StatusDeraphaelmoise Marco A Giang [facility]AAUDIOLOGY SERVICES ORDERABLESFinal Result * Bilateral screening mammogram with tomosynthesis (03/20/2024 11:17 AM EDT) Anatomical RegionLateralityModalityBreastBilateralMammographySpecimen (Source) Anatomical Location / LateralityCollection Method / VolumeCollection Time Received Time03/21/2024 11:55 AM EDT Impressions 03/21/2024 12:03 PM EDT Impression: No specific evidence of malignancy seen in either breast. Breast Density: There are scattered areas of fibroglandular density BiRads: BIRADS 2 - Benign Recommended follow-up: Routine Screening Mamm ELECTRONICALLY SIGNED BY: Derrick Ngo M.D. Narrative 03/21/2024 12:03 PM EDT Examination: BI MAMMOGRAM SCREENING TOMOSYNTHESIS BILATERAL Clinical History: screening Technique: Screening digital mammography study of both breasts was performed with 2-D and 3-D tomosynthesis imaging. Study was compared to the prior exam dated 03/15/2023. Right breast ultrasound study dated 02/09/2022 was also available for comparison. Findings: There is no evidence of interval dominant spiculated mass, grouped microcalcifications, or skin thickening which would be suggestive of malignancy. Likely small cyst in the medial aspect of the right breast when correlated with the ultrasound study, decreased in size compared to the prior mammogram study. A few benign-appearing calcifications are seen on the right. Axillary lymph nodes are noted bilaterally. Procedure Note Derrick Ngo MD - 03/21/2024 Examination: BI MAMMOGRAM SCREENING TOMOSYNTHESIS BILATERAL Clinical History: screening Technique: Screening digital mammography study of both breasts wasperformed with 2-D and 3-D tomosynthesis imaging. Study was compared tothe prior exam dated 03/15/2023. Right breast ultrasound study dated02/09/2022 was also available for comparison. Findings: There is no evidence of interval dominant spiculated mass,grouped microcalcifications, or skin thickening which would be suggestiveof malignancy. Likely small cyst in the medial aspect of the right breast when correlatedwith the ultrasound study, decreased in size compared to the priormammogram study. A few benign-appearing calcifications are seen on theright. Axillary lymph nodes are noted bilaterally. IMPRESSION: Impression: No specific evidence of malignancy seen in either breast. Breast Density: There are scattered areas of fibroglandular density BiRads: BIRADS 2 - Benign Recommended follow-up: Routine Screening Mamm ELECTRONICALLY SIGNED BY: Derrick Ngo M.D. Authorizing ProviderResult TypeResult StatusSageorgie Elias NPIMG BI PROCEDURES Final Result * Colonoscopy (11/14/2020)Anatomical RegionLateralityModalityEndoscopySpecimen (Source)Anatomical Location / LateralityCollection Method / VolumeCollection TimeReceived Time11/14/2020 Narrative 11/14/2020 12:00 AM EDT PERFORMED AT [facility] LOCATION:[place] [address] Procedure Note CONVERSION, GENERIC - 10/28/2022 PERFORMED AT [facility] LOCATION:[place] [address] Authorizing ProviderResult TypeResult StatusGenna Cavazos MDENDOSCOPY PROCEDURE ORDERABLESFinal Result from Last 3 Months or Most Recently Relevant to Health Maintenance Additional Health Concerns Active ProblemsNoted DateDiagnosed DatePatient on antidepressant monitoring plan 05/22/2024 Insurance Care Teams Team MemberRelationshipSpecialtyStart Date Genna Cavazos MD [address] [place] [address] PCP - GeneralFamily Medicine11/11/22 Genna Cavazos MD [address] [place], [place] [phone] PCP - Medical [place] [employer]06/13/1611 Yulissa Marcus NP [address] [place] [address] Nurse PractitionerFamily Medicine11/11/22 Ginette Felipe LPN Licensed Practical Nursemily Pfregfrt28/19/24
--- OUTSIDE RECORDS SUMMARY | 2025-04-19 08:57 | XMS_ITS | Encounter Summary ---
Author Organization [facility] Address [address] [place] [address] Care Team Providers Care Juvenile Correctional Officer Name Role Phone Genna Cavazos MD Primary Care Provider [phone] Yulissa Marcus SHRIMP PEELING MACHINE OPERATOR Unavailable [phone] Genna Cavazos MD Unavailable [phone] Ginette Felipe LPN Unavailable [phone] Encounter Details DateTypeDepartmentCare Team (Latest Contact Info)Hxcmktdziiz75/29/2025Travel Social History Tobacco UseTypesPacks/DayYears UsedDateSmoking Tobacco: NeverSmokeless Tobacco: NeverAlcohol UseStandard Drinks/WeekCommentsNot Currently0 (1 standard drink = 0.6 oz pure alcohol)caffeine intake: 1 cup [id number] Health LiteracyAnswerDate RecordedHow often do you need [...] you get together with friends or relatives?Patient /27/2024How often do you attend jehovah's witness or tenriism services?Patient huguolsu31/27/2024o you belong to any clubs or organizations such as jehovah's witness groups, unions, fraSodaHead or athletic groups, or school groups?No03/09/2024How often do you attend meetings of the clubs or organizations you belong to?Never03/09/2024re you , , , , never , or living with a partner?Kosdeoh4503/09/2024 AUDIT-CAnswerDate RecordedQ1: How often do you have [...] like food, housing, medical care, and heating?Patient sbkqaxoy33/27/2024HQ-2 AnswerDate RecordedPatient Health Questionnaire-2 Btwgd089[facility] [place] [facility] - Occupational Stress QuestionnaireAnswerDate RecordedDo you feel stress - tense, restless, nervous, or anxious, or unable to sleep at night because yourmind is troubled all the time - these days?Very much 03/09/2024Exercise Vital SignAnswerDate RecordedOn average, how many days per week do you engage in moderate to strenuous exercise (like a brisk walk)?Patient uouovdcn43/27/2024On average, how many minutes do you engage in exercise at this level?Patient woyqhkuh04/27/2024Hunger Vital SignAnswerDate RecordedWithin the past 12 months, you worried that your food would run out before you got the money to buymore.Patient thypcuye51/27/2024Within the past 12 months, the food you bought just didn't last and you didn't have money to get more.Patient rtxwnagb33/27/2024RAPARE - TransportationAnswerDate RecordedIn the past 12 months, [...] were you homeless or living in a care home (including now)?No03/09/2024 CommentsUnknownSex and Gender InformationValueDate RecordedSex Assigned at SvhqyGxxcki73/20/2023 7:48 PM EDTLegal ZzpJqoahx25/15/2023 6:54 PM EDTGender JnxoydluYipykt95/20/2023 7:48 PM EDTSexual OrientationNot on filedocumented as of this encounter Plan of Treatment DateTypeDepartmentCare Team (Latest Contact Info)Rkjqoudwsgp86/18/2025 10:00 AM ESTOffice Visit [facility] [address] [place] [address] Jr. Spencer Sandoval, DO [address] [place] [address] 01/01/2026 9:45 AM EDTOffice Visit [facility] [address] [place] [address] Tequila Tang MD [address] [address] documented as of this encounter Goals GoalPatient Goal TypeAssociated ProblemsRecent ProgressPatient-Stated?Author Help patient manage antidepressant medication Care PlanPatient on antidepressant monitoring planNoPena, Raqueldocumented as of this encounter Visit Diagnoses Not on filedocumented in this encounter Additional Health Concerns Active ProblemsNoted DateDiagnosed DatePatient on antidepressant monitoring plan 4AssessmentNoted TimePHQ-9 Depression Total Score: 7011/20/2024 9:58 AM EDTdocumented as of this encounter Care Teams Team MemberRelationshipSpecialtyStart DateEnd Genna Cavazos MD [address] [place] [address] PCP - GeneralFamily Medicine11/11/22 Genna Cavazos MD [address] [place] [address] PCP - Medical [place] [employer]06/13/1611 Yulissa Marcus NP [address] [place] [address] Nurse PractitionerFamily Medicine11/11/22 Ginette Felipe LPN Licensed Practical NurseFamily Orwjerog00/19/24documented as of this encounter
--- OUTSIDE RECORDS SUMMARY | 2025-04-19 08:57 | XMS_ITS | Encounter Summary ---
Author Organization [facility] Address [address] [place] [address] Care Team Providers Care Unemployment Inspector Name Role Phone Genna Cavazos MD Primary Care Provider [phone] Yulissa Marcus LIFE SCIENCE TEACHER Unavailable [phone] Genna Cavazos MD Unavailable [phone] Ginette Felipe LPN Unavailable [phone] Encounter Details DateTypeDepartmentCare Team (Latest Contact Info)Svyeqrrhxaz34/29/2025amboo flowsheet [facility] [address] [place] [address] Aishwarya Rizzo NP [address] [place], [place] [id number] Social History Tobacco UseTypesPacks/DayYears UsedDateSmoking Tobacco: NeverSmokeless Tobacco: NeverAlcohol UseStandard Drinks/WeekCommentsNot Currently0 (1 standard drink = 0.6 oz pure alcohol)caffeine intake: 1 cup [id number] Health LiteracyAnswerDate RecordedHow often do you need [...] you get together with friends or relatives?Patient vpaayodd36/27/2024How often do you attend yazidi or advent services?Patient amfsovou79/27/2024o you belong to any clubs or organizations such as yazidi groups, unions, fraternal or athletic groups, or school groups?No03/09/2024How often do you attend meetings of the clubs or organizations you belong to?Never03/09/2024re you , , , , never , or living with a partner?Yoxzukh5903/09/2024 AUDIT-CAnswerDate RecordedQ1: How often do you have [...] like food, housing, medical care, and heating?Patient bgjmedph54/27/2024HQ-2 AnswerDate RecordedPatient Health Questionnaire-2 Fpktx316[facility] [place] of Occupational Health - Occupational Stress QuestionnaireAnswerDate RecordedDo you feel stress - tense, restless, nervous, or anxious, or unable to sleep at night because yourmind is troubled all the time - these days?Very much 03/09/2024Exercise Vital SignAnswerDate RecordedOn average, how many days per week do you engage in moderate to strenuous exercise (like a brisk walk)?Patient /27/2024On average, how many minutes do you engage in exercise at this level?Patient fmireukj58/27/2024Hunger Vital SignAnswerDate RecordedWithin the past 12 months, you worried that your food would run out before you got the money to buymore.Patient etodpmds92/27/2024Within the past 12 months, the food you bought just didn't last and you didn't have money to get more.Patient cmdvlled80/27/2024RAPARE - TransportationAnswerDate RecordedIn the past 12 months, [...] were you homeless or living in a alf (including now)?No03/09/2024 CommentsUnknownSex and Gender InformationValueDate RecordedSex Assigned at CtbbpBxoyiu88/20/2023 7:48 PM EDTLegal BdwTdqfim21/15/2023 6:54 PM EDTGender DlfhshfaLxtccu01/20/2023 7:48 PM EDTSexual OrientationNot on filedocumented as of this encounter Plan of Treatment DateTypeDepartmentCare Team (Latest Contact Info)Aqauywiikdb71/18/2025 10:00 AM ESTOffice Visit [facility] [address] [facility] [place] [address] Jr. Spencer Sandoval, DO [address] [place] [address] 01/01/2026 9:45 AM EDTOffice Visit [facility] [address] [place] [address] Tequila Tang MD [address] [place] [address] documented as of this encounter Goals GoalPatient [...] Team MemberRelationshipSpecialtyStart DateEnd Genna Cavazos MD [address] [place] [address] PCP - GeneralFamily Medicine11/11/22 Genna Cavazos MD [address] [place] [address] PCP - Medical [place] [employer]06/13/1611 Yulissa Marcus NP [address] [place] [address] Nurse PractitionerFamily Medicine11/11/22 Ginette Felipe LPN Licensed Practical NurseFamily Psbezjyw52/19/24documented as of this encounter
--- OUTSIDE RECORDS SUMMARY | 2025-04-19 08:57 | XMS_ITS | Encounter Summary ---
Author Organization [facility] Address [address] [place] [address] Care Team Providers Care Proof Clerk Name Role Phone Genna Robledo MD Primary Care Provider [phone] Yulissa Marcus HOSPICE DIRECTOR Unavailable [phone] Genna Robledo MD Unavailable [phone] Ginette Felipe LPN Unavailable [phone] Encounter Details DateTypeDepartmentCare Team (Latest Contact Info)Jigjjatpcvy04/22/2024Clinisync Result Encounter [facility] External Department Unsolicited Genna Robledo MD [address] [place] [address] Social History Tobacco UseTypesPacks/DayYears UsedDateSmoking Tobacco: NeverSmokeless Tobacco: NeverAlcohol UseStandard Drinks/WeekCommentsYes0 (1 standard drink = 0.6 oz pure alcohol)3-4 drinks, monthly or less. caffeine intake: 2-3 cups per day and 1 cup of tea [id number] Health LiteracyAnswerDate RecordedHow often do you need to have someone help you when you read instructions, pamphlets, or other written material from your doctor or pharmacy?Never03/09/2024Humiliation, Afraid, Rape, and Kick questionnaireAnswerDate RecordedWithin the last year, have you been afraid of your partner or ex-partner?No01/13/2023Within the last year, have you been humiliated or emotionally abused in other ways by your partner or ex-partner?No01/13/2023Within the last year, have you been kicked, hit, slapped, or otherwise physically hurt by your partner or ex-partner?No01/13/2023Within the last year, have you been raped or forced to have any kind of sexual activity by your partner or ex-partner?No01/13/2023Social Connection and Isolation Panel AnswerDate RecordedIn a typical week, how many times do you talk on the phone with family, friends, or neighbors?More than three times a week03/09/2024How often do you get together with friends or relatives?Patient srroorqg46/27/2024 How often do you attend yazidi or congregation services?Patient vcznotqf09/27/2024 Do you belong to any clubs or organizations such as yazidi groups, unions, fraWir3s or athletic groups, or school groups?No03/09/2024How often do you attend meetings of the clubs or organizations you belong to?Never03/09/2024re you , , , , never , or living with a partner?Fomrszn5503/09/2024UDIT-CAnswerDate RecordedQ1: How often do you have a drink containing alcohol?Monthly or less03/09/2024Q2: How many drinks containing alcohol do you have on a typical day when you are drinking?1 or Q3: How often do you have six or more drinks on one occasion?Never03/09/2024Overall Financial Resource Strain (CARDIA)AnswerDate RecordedHow hard is it for you to pay for the very basics like food, housing, medical care, and heating?Patient /27/2024HQ-2AnswerDate RecordedPatient Health Questionnaire-2 Score0 11/20/2024[facility] [place] of Occupational Health - Occupational Stress QuestionnaireAnswerDate RecordedDo you feel stress - tense, restless, nervous, or anxious, or unable to sleep at night because yourmind is troubled all the time - these days?Very much03/09/2024Exercise Vital SignAnswerDate RecordedOn average, how many days per week do you engage in moderate to strenuous exercise (like a brisk walk)?Patient ghfvyxho70/27/2024On average, how many minutes do you engage in exercise at this level?Patient ohacwmzk84/27/2024Hunger Vital Sign AnswerDate RecordedWithin the past 12 months, you worried that your food would run out before you got the money to buymore.Patient /27/2024Within the past 12 months, the food you bought just didn't last and you didn't have money to get more.Patient kiyesjmv90/27/2024RAPARE - TransportationAnswerDate RecordedIn the past 12 months, [...] time?No01/13/2023Number of Places Lived in the Last Year Not on file01/13/2023Unstable Housing in the Last YearNot on file01/13/2023 Housing Stability Vital SignAnswerDate RecordedIn the last 12 months, was there a time when you were not able to pay the mortgage or rent on time?No03/09/2024 Number of Times Moved in the Last YearNot on file03/09/2024t any time in the past 12 months, were you homeless or living in a fci (including now)?No 03/09/2024CommentsUnknownSex and Gender InformationValueDate RecordedSex Assigned at AgrmjZtncur92/20/2023 7:48 PM EDTLegal GhjIizcnr46/15/2023 6:54 PM EDTGender GzdftsuiXayijd01/20/2023 7:48 PM EDTSexual OrientationNot on file documented as of this encounter Functional Status * AUDIT-C ScoreAnswerDate of AuhajzlszwDngbqr656/27/2024 8:42 AM Jb, Generic * Q1: How often do you have a drink containing alcohol?AnswerDate of Assessment AuthorMonthly or less03/09/2024 8:42 AM Jb Generic * Q2: How many drinks containing alcohol do you have on a typical day when you are drinking?AnswerDate of AssessmentAuthor1 or 8:42 AM GORDO Mays, Generic * Q3: How often do you have six or more drinks on one occasion?AnswerDate of WbssyjehziStfdrpZxjfi50/27/2024 8:42 AM Jb Generic * Over the past 2 weeks, how often have you been bothered by any of the following problems?QuestionAnswerDate of AssessmentAuthorLittle interest or pleasure in doing thingsNot at all11/20/2024 9:58 AM Lois Dinh MA Feeling down, depressed, or hopelessNot at all11/20/2024 9:58 AM Lois Dinh MAPatient Health Questionnaire-2 Lzyme544 9:58 AM Lois Dinh MA * QuestionAnswerDate of AssessmentAuthorTrouble falling or staying asleep, or sleeping too muchNearly every day11/20/2024 9:58 AM Lois Dinh MA Feeling tired or having little energySeveral days11/20/2024 9:58 AM Lois Neumann MAPoor appetite or overeatingSeveral days11/20/2024 9:58 AM Lois Dinh MAFeeling bad about yourself - or that you are a failure or have let yourself or your family downNot at all11/20/2024 9:58 AM Lois Neumann MATrouble concentrating on things, such as reading the newspaper or watching televisionSeveral days11/20/2024 9:58 AM Lois Dinh MAMoving or speaking so slowly that other people could have noticed? Or the opposite - being so fidgety or restless that you have been moving around a lot more than usual.Several days11/20/2024 9:58 AM Lois Dinh MAThoughts that you would be better off or hurting yourself in some wayNot at all11/20/2024 9:58 AM EDTWilliams, Lois, MAPatient Health Questionnaire-9 Qokqz88611/20/2024 9:58 AM Lois Dinh MA * If you checked off any problems on this questionnaire so far,QuestionAnswer Date of AssessmentAuthorHow difficult have these problems made it for you to do your work, take care of things at home, or get along with other people?Not difficult at all11/20/2024 9:58 AM Lois Dinh MA * Over the last 2 weeks, how often have you been bothered by any of the following problems?QuestionAnswerDate of AssessmentAuthorFeeling nervous, anxious, or on otue128 9:00 AM Lois Dinh MANot being able to stop or control mluoidcs948/10/2025 9:00 AM Lois Dinh MAWorrying too much about different guksht124 9:00 AM Lois Dinh MA Trouble gvxbgonb802/10/2025 9:00 AM Lois Dinh MABeing so restless that it is hard to sit 9:00 AM Lois Dinh MA Becoming easily annoyed or maqsmxmzt921/10/2025 9:00 AM Lois Dinh MAFeeling afraid as if something awful might ydsoaj466 9:00 AM Lois Neumann MAGAD-7 Total Alppf3583/10/2025 9:00 AM Lois Dinh MA documented as of this encounter Plan of Treatment DateTypeDepartmentCare Team (Latest Contact Info)Ncvliyodwjn06/18/2025 10:00 AM ESTOffice Visit [facility] [address] [address] Jr. Spencer Sandoval, DO [address] [place] [address] 01/01/2026 9:45 AM EDTOffice Visit [facility] [address] [place] [address] Tequila Tang MD [address] [place] [address] documented as of this encounter Procedures Procedure NamePriorityDate/TimeAssociated DiagnosisCommentsNM FARHANA PERF SPECT REST STR08/04/2023 3:41 PM EST documented in this encounter Results * NM FARHANA PERF SPECT REST STR (08/04/2023 3:41 PM EST)Anatomical RegionLaterality ModalityOtherSpecimen (Source)Anatomical Location / LateralityCollection Method / VolumeCollection TimeReceived Time08/04/2023 3:41 PM EST Narrative 08/04/2023 3:42 PM EST [facility] ?[address] ? [place] [address] ?Nuclear Medicine Report ? Signed ? Patient: NELL RABAGO ?MR#: [id number] ?? : 1950 ?Acct:[id number] ?? Age/Sex: 73 / F ?ADM Date: 08/03/23 ?? Loc: NM ? Attending Dr: GENNA ROBLEDO ? Ordering Physician: GENNA ROBLEDO ?? Date of Service: 08/03/23 ?? Procedure(s): NM farhana perf SPECT rest ?? str ?? Accession Number(s): [id number] ? cc: GENNA ROBLEDO ? Patient Name: ? NELL RABAGO ? MR#: [id number] ? : 1950 ? Exam Date: 08/03/2023 ?? Ordering Doctor: DR GENNA ROBLEDO M.D. ? RADIOLOGY REPORT ? PROCEDURE: ? NM FARHANA PERF SPECT REST ?? STR ? COMPARISON: ? None. ? INDICATIONS: ? ABNORMAL EKG, PRE PROCEDURE CARDIOVASCULAR EXAM ? TECHNIQUE: ? Exam Description: ? Stress/Rest one day protocol gated SPECT ?? Rest Imaging: ?9.9 mCi Tc-99m Cardiolite IV on 08/03/2023 ?? Stress Imaging ? 29.6 mCi Tc-99m Cardiolite IV on 08/03/2023 ?? Exercise Protocol: ? 0.4 mg Lexiscan given IV ? Heart Rate (bpm): ? Rest: 102 ? Max: 123 ?PMHR: 84 ?? Blood Pressure: ? Rest: 148/82 ?Max: 162/80 ?? Symptoms: ? Rest and peak stress ECG findings were normal and the exercise portion of the ?? study was normal per attending physician Dr. Clayton . For more details please ?? see separate cardiac stress test report. ?? FINDINGS: ? QUALITY OF STUDY: ? Excellent. ?? PERFUSION DEFECT: ? None. ?LOCATION: ? N/A ?SIZE: ? N/A. ?SEVERITY: ?N/A. ?TYPE: ?N/A. ?? WALL MOTION: ? Normal. ?? LV SIZE: ? Normal. 60 mL. ?? TID / TCD: ? None; ??0.8 ?? LVEF: ? Normal. Calculated EF 76%. ? SUMMARY: ? Myocardial perfusion imaging study is NORMAL. ? CONCLUSION: ? 1. Normal nuclear medicine myocardial perfusion scan. ? Dictated by: Spencer Connelly M.D. on 08/04/2023 at 15:40 ? Approved by: Spencer Connelyl M.D. on 08/04/2023 at 15:41 ? Dictated By: ?Spencer Connelly M.D. ? Signed By: ?08/04/23 1542 ? DD/ 1541 ? TD/TT: ? Case Planner: Procedure Note Radiology, Radiologist, MD - 08/04/2023 [place] [address] Nuclear Medicine Report Signed Patient: NELL RABAGO LMR#: [id number] : 9Acct:[id number] Age/Sex: 73 / FADM Date: 08/03/23 Loc: [place] Attending Dr: GENNA ROBLEDO Ordering Physician: GENNA ROBLEDO Date of Service: 08/03/23 Procedure(s): NM farhana perf SPECT rest str Accession Number(s): [id number] cc: GNENA ROBLEDO Patient Name: NELL RABAGO MR#: [id number] : 1950 Exam Date: 08/03/2023 Ordering Doctor: DR GENNA ROBLEDO M.D. RADIOLOGY REPORT PROCEDURE: NM FARHANA PERF SPECT REST STR COMPARISON: None. INDICATIONS: ABNORMAL EKG, PRE PROCEDURE CARDIOVASCULAR EXAM TECHNIQUE: Exam Description: Stress/Rest one day protocol gated SPECT Rest Imagin.9 mCi Tc-99m Cardiolite IV on 08/03/2023 Stress Imaging 29.6 mCi Tc-99m Cardiolite IV on 08/03/2023 Exercise Protocol: 0.4 mg Lexiscan given IV Heart Rate (bpm): Rest: 102 Max: 123 PMHR: 84 Blood Pressure: Rest: 148/82 Max: 162/80 Symptoms: Rest and peak stress ECG findings were normal and the exercise portion ofthe study was normal per attending physician Dr. Clayton . For more detailsplease see separate cardiac stress test report. FINDINGS: QUALITY OF STUDY: Excellent. PERFUSION DEFECT: None. LOCATION: N/A SIZE: N/A. SEVERITY: N/A. TYPE: N/A. WALL MOTION: Normal. LV SIZE: Normal. 60 mL. TID / TCD: None; 0.8 LVEF: Normal. Calculated EF 76%. SUMMARY: Myocardial perfusion imaging study is NORMAL. CONCLUSION: 1. Normal nuclear medicine myocardial perfusion scan. Dictated by: Spencer Connelly M.D. on 08/04/2023 at 15:40 Approved by: Spencer Connelly M.D. on 08/04/2023 at 15:41 Dictated By: Spencer Connelly M.D. Signed By:08/04/23 1542 DD/ 1541 TD/TT: Case Planner: Authorizing ProviderResult TypeResult StatusJestephanie Robledo MDCLINISYNC IMAGING Final Result documented in this encounter Visit Diagnoses Not on filedocumented in this encounter Care Teams Team MemberRelationshipSpecialtyStart DateEnd Date Genna Robledo MD [address] [place] [address] PCP - GeneralFamily Medicine11/11/22 Genna Robledo MD [address] [place] [address] PCP - Medical [place] [employer]06/13/1611 Yulissa Marcus NP [address] [place] [address] Nurse PractitionerFamily Medicine11/11/22 Ginette Felipe LPN Licensed Practical NurseFamily Jhhkuifx59/19/24documented as of this encounter
--- OUTSIDE RECORDS SUMMARY | 2025-04-19 08:57 | XMS_ITS | Encounter Summary ---
Author Organization [facility] Healthcare Address [address] [place] [address] Care Team Providers Care Paperback Machine Operator Name Role Phone Genna Cavazos MD Primary Care Provider Yulissa Marcus ACCOUNT FINANCIAL MANAGER Unavailable [phone] Genna Cavazos MD Unavailable [phone] Ginette Felipe LPN Unavailable [phone] Encounter Details DateTypeDepartmentCare Team (Latest Contact Info)Jdtsgrawvvn81/30/2025Refill [facility] Family Medicine [address] [place] [address] Genna Cavazos MD [address] [place] [address] Osteoporosis of lumbar spine Social History Tobacco UseTypesPacks/DayYears UsedDateSmoking Tobacco: NeverSmokeless Tobacco: NeverAlcohol UseStandard Drinks/WeekCommentsNot Currently0 (1 standard drink = 0.6 oz pure alcohol)caffeine intake: 1 cup [id number] Health LiteracyAnswerDate RecordedHow often do you need [...] or relatives?Patient /27/2024How often do you attend faith or quaker services?Patient zepmwvgj16/27/2024o you belong to any clubs or organizations such as faith groups, unions, fraternal or athletic groups, or school groups?No03/09/2024How often do you attend meetings of the clubs or organizations you belong to?Never03/09/2024re you , , , , never , or living with a partner?Kmamuoy0003/09/2024 AUDIT-CAnswerDate RecordedQ1: How often do you have [...] like food, housing, medical care, and heating?Patient jjqplfny70/27/2024HQ-2 AnswerDate RecordedPatient Health Questionnaire-2 Lpjjn810Fincentral [facility] medical center [place] of Occupational Health - Occupational Stress QuestionnaireAnswerDate RecordedDo you feel stress - tense, restless, nervous, or anxious, or unable to sleep at night because yourmind is troubled all the time - these days?Very much 03/09/2024Exercise Vital SignAnswerDate RecordedOn average, how many days per week do you engage in moderate to strenuous exercise (like a brisk walk)?Patient acaspoun10/27/2024On average, how many minutes do you engage in exercise at this level?Patient zvomvasx12/27/2024Hunger Vital SignAnswerDate RecordedWithin the past 12 months, you worried that your food would run out before you got the money to buymore.Patient jkpbcitl85/27/2024Within the past 12 months, the food you bought just didn't last and you didn't have money to get more.Patient ahxivreh19/27/2024RAPARE - TransportationAnswerDate RecordedIn the past 12 months, [...] were you homeless or living in a skilled nursing (including now)?No03/09/2024 CommentsUnknownSex and Gender InformationValueDate RecordedSex Assigned at RdimdThexjm70/20/2023 7:48 PM EDTLegal QtcJejvwd19/15/2023 6:54 PM EDTGender BvwpbxaxTrdykz45/20/2023 7:48 PM EDTSexual OrientationNot on filedocumented as of this encounter Plan of Treatment DateTypeDepartmentCare Team (Latest Contact Info)Ysaxqyehsht19/18/2025 10:00 AM ESTOffice Visit [facility] [address] [facility] [place] [address] Jr. Spencer Sandoval, DO [address] [place] [address] 01/01/2026 9:45 AM EDTOffice Visit [facility] [address] [place] [address] Tequila Tang MD [address] [place] [address] documented as of this encounter Goals GoalPatient Goal TypeAssociated ProblemsRecent ProgressPatient-Stated?Author Help patient manage antidepressant medication Care PlanPatient on antidepressant monitoring planNoBenjia, Raqueldocumented as of this encounter Visit Diagnoses Diagnosis Osteoporosis of lumbar spine documented in this encounter Additional Health Concerns Active ProblemsNoted DateDiagnosed DatePatient on antidepressant monitoring plan 4AssessmentNoted TimePHQ-9 Depression Total Score: 7011/20/2024 9:58 AM EDTdocumented as of this encounter Care Teams Team MemberRelationshipSpecialtyStart DateEnd Genna Cavazos MD [address] [place] [address] PCP - GeneralFamily Medicine11/11/22 Genna Cavazos MD [address] [place] [address] PCP - Medical [place] [employer]06/13/1611 Yulissa Marcus NP [address] [place] [address] Nurse PractitionerFamily Medicine11/11/22 Ginette Felipe LPN Licensed Practical NurseFamily Actfehhh88/19/24documented as of this encounter
--- OUTSIDE RECORDS SUMMARY | 2025-04-19 08:57 | XMS_ITS | Encounter Summary ---
Author Organization [facility] Address [address] [facility] [place] [address] Care Team Providers Care Television Audio Engineer Name Role Phone Genna Cavazos MD Primary Care Provider [phone] Yulissa Marcus AWNING MAKER AND INSTALLER Unavailable [phone] Genna Cavazos MD Unavailable Ginette Felipe LPN Unavailable [phone] Encounter Details DateTypeDepartmentCare Team (Latest Contact Info)Rebepkvxzzs34/05/2025Travel Social History Tobacco UseTypesPacks/DayYears UsedDateSmoking Tobacco: NeverSmokeless Tobacco: NeverAlcohol UseStandard Drinks/WeekCommentsNot Currently0 (1 standard drink = 0.6 oz pure alcohol)caffeine intake: 1 cup [id number] Health LiteracyAnswerDate RecordedHow often do you need [...] or relatives?Patient /27/2024How often do you attend hoahaoism or holiness services?Patient nhcexllq57/27/2024o you belong to any clubs or organizations such as hoahaoism groups, unions, fraADOMIC (formerly [employer]) or athletic groups, or school groups?No03/09/2024How often do you attend meetings of the clubs or organizations you belong to?Never03/09/2024re you , , , , never , or living with a partner?Btxgptd0503/09/2024 AUDIT-CAnswerDate RecordedQ1: How often do you have [...] like food, housing, medical care, and heating?Patient nwpzvemh89/27/2024HQ-2 AnswerDate RecordedPatient Health Questionnaire-2 Xjjtq996Finbear [facility] [place] of Occupational Health - Occupational Stress QuestionnaireAnswerDate RecordedDo you feel stress - tense, restless, nervous, or anxious, or unable to sleep at night because yourmind is troubled all the time - these days?Very much 03/09/2024Exercise Vital SignAnswerDate RecordedOn average, how many days per week do you engage in moderate to strenuous exercise (like a brisk walk)?Patient ybjyiaks08/27/2024On average, how many minutes do you engage in exercise at this level?Patient efhzhegf17/27/2024Hunger Vital SignAnswerDate RecordedWithin the past 12 months, you worried that your food would run out before you got the money to buymore.Patient lcqevjqc09/27/2024Within the past 12 months, the food you bought just didn't last and you didn't have money to get more.Patient uprrpepq02/27/2024RAPARE - TransportationAnswerDate RecordedIn the past 12 months, [...] were you homeless or living in a assisted (including now)?No03/09/2024 CommentsUnknownSex and Gender InformationValueDate RecordedSex Assigned at AsnkvNrxwul90/20/2023 7:48 PM EDTLegal VwlQcfalg67/15/2023 6:54 PM EDTGender XlplnujbZykjmi95/20/2023 7:48 PM EDTSexual OrientationNot on filedocumented as of this encounter Plan of Treatment DateTypeDepartmentCare Team (Latest Contact Info)Cpwjpzzoypa21/18/2025 10:00 AM ESTOffice Visit [facility] [address] [place] [address] Jr. Spencer Sandoval, DO [address] [place] [address] 01/01/2026 9:45 AM EDTOffice Visit [facility] [address] [place] [address] Tequila Tang MD [address] [address] documented as of this encounter Goals GoalPatient [...] Team MemberRelationshipSpecialtyStart DateEnd Genna Cavazos MD [address] [place] [address] PCP - GeneralFamily Medicine11/11/22 Genna Cavazos MD [address] [place] [address] PCP - Medical [place] [employer]06/13/1611 Yulissa Marcus NP [address] [place] [address] Nurse PractitionerFamily Medicine11/11/22 Ginette Felipe LPN Licensed Practical NurseFamily Ggkvmpqt86/19/24documented as of this encounter
--- OUTSIDE RECORDS SUMMARY | 2025-04-19 08:57 | XMS_ITS | Encounter Summary ---
Author Organization [facility] Address [address] [place] [address] Care Team Providers Care Paint Supervisor Name Role Phone Genna Cavazos MD Primary Care Provider [phone] Yulissa Marcus METAL POLISHER AND BUFFER APPRENTICE Unavailable [phone] Genna Cavazos MD Unavailable [phone] Ginette Felipe LPN Unavailable [phone] Encounter Details DateTypeDepartmentCare Team (Latest Contact Info)Tcuireokmew04/05/2025amboo flowsheet [facility] Family Medicine [address] [place] [address] Aishwarya Rizzo NP [address] [place], [place] [address] Social History Tobacco UseTypesPacks/DayYears UsedDateSmoking Tobacco: NeverSmokeless Tobacco: NeverAlcohol UseStandard Drinks/WeekCommentsNot Currently0 (1 standard drink = 0.6 oz pure alcohol)caffeine intake: 1 cup [id number] Health LiteracyAnswerDate RecordedHow often do you need [...] you get together with friends or relatives?Patient comavxmd22/27/2024How often do you attend pentecostalism or mandaen services?Patient djciweol77/27/2024o you belong to any clubs or organizations such as pentecostalism groups, unions, fraternal or athletic groups, or school groups?No03/09/2024How often do you attend meetings of the clubs or organizations you belong to?Never03/09/2024re you , , , , never , or living with a partner?Zxmchqf8003/09/2024 AUDIT-CAnswerDate RecordedQ1: How often do you have [...] like food, housing, medical care, and heating?Patient qkicshhl40/27/2024HQ-2 AnswerDate RecordedPatient Health Questionnaire-2 Vuxds914Finsalt [facility] [place] of Occupational Health - Occupational Stress QuestionnaireAnswerDate RecordedDo you feel stress - tense, restless, nervous, or anxious, or unable to sleep at night because yourmind is troubled all the time - these days?Very much 03/09/2024Exercise Vital SignAnswerDate RecordedOn average, how many days per week do you engage in moderate to strenuous exercise (like a brisk walk)?Patient woshqpxj32/27/2024On average, how many minutes do you engage in exercise at this level?Patient tvbenspr84/27/2024Hunger Vital SignAnswerDate RecordedWithin the past 12 months, you worried that your food would run out before you got the money to buymore.Patient /27/2024Within the past 12 months, the food you bought just didn't last and you didn't have money to get more.Patient vszduucq45/27/2024RAPARE - TransportationAnswerDate RecordedIn the past 12 months, [...] homeless or living in a fci (including now)?No03/09/2024 CommentsUnknownSex and Gender InformationValueDate RecordedSex Assigned at TrjziBopbvj49/20/2023 7:48 PM EDTLegal HkeHqpaqy56/15/2023 6:54 PM EDTGender HckuxfliEcfzvb90/20/2023 7:48 PM EDTSexual OrientationNot on filedocumented as of this encounter Plan of Treatment DateTypeDepartmentCare Team (Latest Contact Info)Flbwzchopcv43/18/2025 10:00 AM ESTOffice Visit [facility] [address] [facility] [place] [address] Jr. Spencer Sandoval, DO [address] [place] [address] 01/01/2026 9:45 AM EDTOffice Visit [facility] [address] [place] [address] Tequila Tang MD [address] [place] [address] documented as of this encounter Goals GoalPatient [...] Team MemberRelationshipSpecialtyStart DateEnd Genna Cavazos MD [address] [place] [address] PCP - GeneralFamily Medicine11/11/22 Genna Cavazos MD [address] [place] [address] PCP - Medical [place] [employer]06/13/1611 Yulissa Marcus NP [address] [place] [address] Nurse PractitionerFamily Medicine11/11/22 Ginette Felipe LPN Licensed Practical NurseFamily Ymbdpmai17/19/24documented as of this encounter
--- OUTSIDE RECORDS SUMMARY | 2025-04-19 08:57 | XMS_ITS | Clinical Summary ---
Author Organization [facility] Address [address] [place] [address] Phone Care Team Providers Care Panel Machine Tender Name Role Phone Genna Cavazos MD Primary Care Provider [phone] Social History Tobacco UseTypesPacks/DayYears UsedDateSmoking Tobacco: Never Assessed CommentsUnknownSex and Gender InformationValueDate RecordedSex Assigned at Not on fileLegal RgkLiiryc64/25/2022 12:16 PM ESTGender IdentityNot on file Sexual OrientationNot on file Last Filed Vital Signs Vital SignReadingTime TakenCommentsBlood Fcdprjfe233/8107 6:43 PM EDT Czgsw738101/09/2018 6:43 PM EDTTemperature--Respiratory Rate--Oxygen Hcwtrqegfj68% 01/09/2018 6:43 PM EDTInhaled Oxygen Concentration--[place]91.2 kg (156 lb 15.5 oz)01/09/2018 3:50 PM CYRKuzjdk352.4 cm (5' 1.97 )01/09/2018 3:50 PM EDTBody Mass Index28.7401/09/2018 3:50 PM EDT Plan of Treatment Not on file Medical Devices ImplantedTypeAreaManufacturerDevice IdentifierShelf Expiration DateModel / Serial / LotCement, Bone, Simplex P, Radiopaque, Full Dose, 40 Gm Case [id number] Implanted:Qty: 1 on 01/09/2018 by Michael Anaya [employer] 04/12/[id number] / / [id number]:Converted from Care Acute. Please see archived information for full log information.Plate, Tibial Triath Janis Shiv Fxd Bplt # 2 Case [id number] Implanted:Qty: 1 on 01/09/2018 by Michael Anaya MDGiggzo [id number] / / [id number]:Converted from Care Acute. Please see archived information for full log information.Insert, Tibia Triath #2 Ps 9mm Case [id number] Implanted:Qty: 1 on 01/09/2018 by Michael Anaya MDJoKreyonic [id number] / / [id number]:Converted from Care Acute. Please see archived information for full log information.Fem Comp, Triath Shiv Ps # 3 Left Case [id number] Implanted:Qty: 1 on 01/09/2018 by Michael Anaya MDGiggzo [id number] / / [id number]:Converted from Care Acute. Please see archived information for full log information.Patella, Asymm Triath 32mm X 10mm Case [id number] Implanted:Qty: 1 on 01/09/2018 by Michael Anaya MDGiggzo [id number] / / [id number]:Converted from Care Acute. Please see archived information for full log information. Care Teams Team MemberRelationshipSpecialtyStart DateEnd Date Genna Cavazos MD [address] [place] [address] [facility] - General12/01/09
--- OUTSIDE RECORDS SUMMARY | 2025-04-19 08:57 | XMS_ITS | Clinical Summary ---
Author Organization [employer] tem Address [id number] [place] [address] Care Team Providers Care Clinical Team Lead Name Role Phone Genna Cavazos MD Primary Care Provider [phone] Allergies Active AllergyReactionsCriticalityNoted FnhpGpvrblqaRirlhoiqidWfvdc76/23/2024 Medications MedicationSigDispense QuantityRefillsLast FilledStart DateEnd DateStatus verapamiL (CALAN) 80 mg tablet Take 1 tablet (80 mg total) by mouth in the morning. pt states she takes this for headaches.Active multivitamin capsule Take 1 capsule by mouth in the morning.Active vitamin E 200 units capsule Take 1 capsule (200 Units total) by mouth in the morning.Active alendronate (FOSAMAX) 70 mg tablet Indications:postmenopausal osteoporosisTake 1 tablet (70 mg total) by mouth every 7 days Indications: decreased bone mass following menopause.05/07/2022 Active albuterol (PROVENTIL HFA;VENTOLIN HFA) 90 mcg/actuation inhaler Inhale 2 puffs every 6 (six) hours as needed for wheezing.Active cinnamon bark (CINNAMON) 500 mg capsule Take 1 capsule (500 mg total) by mouth in the morning.Active coenzyme Q10 30 mg capsule Take 1 capsule (30 mg total) by mouth in the morning.Active estradioL (ESTRACE) 0.01 % (0.1 mg/gram) vaginal cream Insert 2 g into the vagina in the morning.Active fluticasone propionate (FLONASE) 50 mcg/actuation nasal spray Administer 1 spray into each nostril as needed.Active iron ps complex/B12/folic acid (POLY-IRON 150 FORTE ORAL) Take by mouth in the morning.Active omeprazole (PriLOSEC) 40 mg capsule Take 1 capsule (40 mg total) by mouth in the morning and 1 capsule (40 mg total) before bedtime.Active cycloSPORINE (RESTASIS) 0.05 % ophthalmic emulsion 1 drop in the morning and 1 drop before bedtime.Active LORazepam (ATIVAN) 0.5 mg tablet Take 1 tablet (0.5 mg total) by mouth every 8 (eight) hours as needed.03/30/2024 Active sertraline (ZOLOFT) 100 mg tablet Take 1 tablet (100 mg total) by mouth in the morning.tive Active Problems ProblemNoted DateDiagnosed DateDisorder of dpofnc8103/12/2025Lumbosacral spondylosis without ytxahrvcuu32/02/2025Spinal stenosis of lumbar region with neurogenic ferujnxerlca74/12/2024cute right hip pain10/25/2023 Encounters DateTypeDepartmentCare QedzAutyvinyiic92/17/2025 10:49 AM EDT - 03/29/2025 10:57 AM [facility]TSurgery [facility] [address] [place] [address] Dionicio Ramos MD INJECTION BLOCK SACROILIAC JOINT [95362 (CPT??)]03/29/2025 10:13 AM EDT - 03/29/2025 11:59 PM EDTHospital Encounter [facility] [address] [place] [address] Dionicio Ramos MD Discharge Disposition: Home03/29/2025 8:55 AM EDT - 03/29/2025 10:12 AM EDT Hospital Encounter [facility] [address] [facility] [place] [address] Dionicio Ramos MD Disorder of sacrum Discharge Disposition: Home03/12/2025 9:15 AM EDTOffice Visit [facility] [address] [place] [place] [address] Mihcael Bruno PA Disorder of sacrum (Primary Dx)03/11/20253861Eibyix60/29/2025 9:32 AM EDT - 02/08/2025 9:43 AM EDTSurgery [facility] [address] [place] [address] Dionicio Ramos MD RADIOFREQUENCY ABLATION SPINAL: right L 45, 5 [87534 (CPT??)]02/08/2025 9:18 AM EDTAnesthesia Event [facility] [address] [address] Jt Rosenberg, Jose A Kumar, AUTOMATION ARCHITECT-PHOTOGRAPH RETOUCHER 02/08/2025 9:13 AM EDT - 02/08/2025 11:59 PM EDTHospital Encounter [facility] [address] [place] [address] Dionicio Ramos MD Lumbosacral spondylosis without myelopathy Discharge Disposition: Home02/08/2025 8:39 AM EDT - 02/08/2025 9:12 AM EDT Hospital Encounter [facility] [address] [address] Dionicio Rmaos MD Discharge Disposition: Home02/05/2025Telephone [facility] [address] [place] [address] Cindy Mcknight RN 01/17/2025 8:15 AM EDTOffice Visit [facility] [address] [place] [address] Michael Bruno PA Lumbosacral spondylosis without myelopathy (Primary Dx)01/17/2025Travelfrom Last 3 Months Family History Medical HistoryRelationNameCommentsHypertensionFatherDiabetesMotherHypertension MotherBreast cancerNeg HxRelationNameStatusCommentsFatherDeceasedMaternal GrandfatherDeceasedMaternal GrandmotherDeceasedMotherDeceasedPaternal GrandfatherDeceasedPaternal GrandmotherDeceased Social History Tobacco UseTypesPacks/DayYears UsedDateSmoking Tobacco: NeverSmokeless Tobacco: Never Tobacco Cessation:Counseling Given: Not Answered Alcohol UseStandard Drinks/WeekCommentsYes0 (1 standard drink = 0.6 oz pure alcohol)[facility] UtilitiesAnswerDate RecordedIn the past 12 months has the [employer], gas, oil, or water [employer] threatened to shut off services in your home?No4PRAPARE - TransportationAnswerDate RecordedIn the past 12 months, has lack of transportation kept you from medical appointments or from getting medications?No10/25/2023In the past 12 months, has lack of transportation kept you from meetings, work, or from getting things needed for daily living?No10/25/2023Housing InstabilityAnswerDate RecordedAre you worried or concerned that in the next two months you may not have stable housing that you own, rent or stay in as a part of a household?No4ChildcareAnswer Date UyvlazskPimbeokqoAygawyx61/12/2019EmploymentAnswerDate RecordedEmployment Tirwjgl6811/22/2018Hunger ScreeningAnswerDate RecordedWithin the past 12 months we worried whether our food would run out before we got money to buy more.Never True03/12/2025Within the past 12 months the food we bought just didn't last and we didn't have money to get more.Never True03/12/2025Purpose - LifeAnswerDate RecordedPurpose and direction in gqpxKzlrqmu44/11/2021CommentsNoSex and Gender InformationValueDate RecordedSex Assigned at BirthNot on fileLegal Sex Castar9001/16/2015 11:33 AM EDTGender IdentityNot on fileSexual OrientationNot on file Last Filed Vital Signs Vital SignReadingTime TakenCommentsBlood Nqfwgbhn732/6603/29/2025 10:55 AM EDT Suncm409603/29/2025 10:55 AM CUXGbiemxmdxnx15.2 ??C (97.2 ??F)03/29/2025 10:35 AM EDTRespiratory Gpup8659 10:55 AM EDTOxygen Gdmlwmbuoq99%03/29/2025 10:55 AM EDTInhaled Oxygen Concentration--Tfwgja59.6 kg (149 lb)03/12/2025 9:21 AM EDT Nlzxpn642.1 cm (5' 5 )03/12/2025 9:21 AM EDTBody Mass Index24.7903/12/2025 9:21 AM EDT Plan of Treatment DateTypeDepartmentCare Team (Latest Contact Info)Donhhneggka80/13/2025 2:15 PM ESTOffice Visit [facility] [address] [place] [phone] Michael Bruno, PA [address] [facility], 2nd [address] [place], [place] [address] 05/06/2025 1:45 PM ESTAppointment [facility] [address] [place] [address] Health MaintenanceDue DateLast DoneCommentsDepression Olgjxdasq35/28/1961Fall Risk Gpkiieoaw72/28/2014RSV ( or age 60+ yrs) (1 - 1-dose 75+ series) 2024OVID-19 Vaccine ( season)/02/2023, 11/24/2022, 03/02/2022, Additional history existsInfluenza Wqigxlv50/06/2023, 03/02/2023, 03/13/2021, Additional history existsTobacco Tfjhayaoh29/17/2026 03/29/2025DTaP,Tdap and Td Vaccines (4 - Td or Tdap), 08/25/2021, 08/14/20129205ZhobdymcvzcQyrnlpxgfdrh97/14/2021, 11/24/2020, 11/14/2020, Additional history existsZoster (Shingles) ByadilsIzfvvbguw30/17/2022, 12/22/2021, 12/06/2018, Additional history exists Medical Devices ImplantedTypeAreaManufacturerDevice IdentifierShelf Expiration DateModel / Serial / LotAcetabular Shell Sector 52mm Od Implanted:Qty: 1 on 10/25/2023 by Spencer Sandoval Jr., DO at [facility] ImplantRight: [facility] [id number]/28/2034 [id number] / N/A / [id number] Fem 150mm 12mm Crl Amt Ti - Sna - [id number] Implanted:Qty: 1 on 10/25/2023 by Spencer Sandoval Jr., DO at [facility] ImplantRight: Hip MDAIILDYFOZO36/28/2034 [id number] / NA / [id number] Actb 52mm 36mm Altrx Hip - Sna - [id number] Implanted:Qty: 1 on 10/25/2023 by Spencer Sandoval Jr., DO at [facility] ImplantRight: Hip MNBXIRXNVAHF01/31/2029 [id number] / NA / [id number] Fem 36mm -2mm 05/26 Tpr - Sna - [id number] Implanted:Qty: 1 on 10/25/2023 by Spencer Sandoval Jr., DO at [facility] ImplantRight: [facility] [id number]/28/2029 [id number] / NA / [id number] Hip Mop All Sz Construct Rpl 92681 - [id number] Implanted:Qty: 1 on 10/25/2023 by Spencer Sandoval Jr., DO at [facility] ImplantRight: HipJJ [id number] / / Screw Hip Canc Cnn Gription 30mm - Sn/A - [id number] Implanted:Qty: 1 on 10/25/2023 [facility] HipJJ [id number]/31/2033 [id number] / N/A / [id number] Procedures Procedure NamePriorityDate/TimeAssociated DiagnosisCommentsFL FLUOROSCOPY UP TO 1 WVBWZqtayne43/17/2025 10:54 AM EDT Disorder of sacrum [place] INJECTION,SACROILIAC JOINT03/29/2025 10:49 AM EDT Disorder of sacrum [place] FLUOROSCOPY UP TO 1 IZCQFxxexcm18/29/2025 9:25 AM EDT Lumbosacral spondylosis without myelopathy [place] DSTR NROLYTC AGNT PARVERTEB FCT SNGL LMBR/BSZOUU6902/08/2025 9:16 AM EDT Lumbosacral spondylosis without myelopathy Special Needs [employer]OVATION XLEMKSRZCKZLlthonz35/14/2021 8:14 AM EDT from Last 3 Months or Most Recently Relevant to Health Maintenance Results * Fluoroscopy less than one hour (03/29/2025 10:54 AM EDT) Only the most recent of2 resultswithin the time period is included. Specimen (Source)Anatomical Location / LateralityCollection Method / Volume Collection TimeReceived Time Narrative SYSTEMGENERATED, DOCUMENTATION - 03/29/2025 10:54 AM EDT No Reading Required. This procedure does not require a formal dictation. Non-Radiologist provider performed procedures can be reviewed under Post-Op, Procedure or Progress notes. For full report details, please reach out to your physician. ??Effective 10/28/2020 this image will be visible to you in [employer]. Authorizing ProviderResult TypeResult StatusDionicio Ramos MDIMPratik FLUOROSCOPY ORDERABLESFinal Result * Colonoscopy Report (11/24/2020 8:14 AM EDT)Specimen (Source)Anatomical Location / LateralityCollection Method / VolumeCollection TimeReceived Time Narrative SYSTEMGENERATED, DOCUMENTATION - 11/24/2020 8:14 AM EDT This order has been auto-finalized for image and report archival in PACs. *For full report details, please reach out to your physician. ??Effective 10/28/20 this image will be visible to you in MyChart.* Authorizing ProviderResult TypeResult StatusMichael E Grillis DOIMG OR IMG ORDERABLESFinal Result from Last 3 Months or Most Recently Relevant to Health Maintenance [place] [address] Advance Directives * Full Code (Latest Code Status on File) Date ActivatedDate InactivatedComments10/25/2023 2:41 PM10/26/2023 12:55 PM Care Teams Team MemberRelationshipSpecialtyStart DateEnd Date Genna Cavazos MD [address] [place] [address] PCP - [facility]Great [facility] Systemly Medicine02/12/22
--- OUTSIDE RECORDS SUMMARY | 2025-04-19 08:57 | XMS_ITS | Encounter Summary ---
Author Organization [facility] Healthcare Address [address] [place] [address] Care Team Providers Care Patrol Mother Name Role Phone Genna Cavazos MD Primary Care Provider [phone] Yulissa Marcus FURNITURE MOVER HELPER Unavailable [phone] Genna Cavazos MD Unavailable [phone] Ginette Felipe LPN Unavailable [phone] Encounter Details DateTypeDepartmentCare Team (Latest Contact Info)Uonzvswddrl44/05/2025Telephone [facility] Medicine [address] [place] [address] Genna Cavazos MD [address] [place] [address] Social History Tobacco UseTypesPacks/DayYears UsedDateSmoking Tobacco: NeverSmokeless Tobacco: NeverAlcohol UseStandard Drinks/WeekCommentsNot Currently0 (1 standard drink = 0.6 oz pure alcohol)caffeine intake: 1 cup adrflQ1178 Health LiteracyAnswerDate RecordedHow often do you need [...] you get together with friends or relatives?Patient oebsvqsb25/27/2024How often do you attend holiness or baptism services?Patient owjolyas12/27/2024o you belong to any clubs or organizations such as holiness groups, unions, fraQR Wild or athletic groups, or school groups?No03/09/2024How often do you attend meetings of the clubs or organizations you belong to?Never03/09/2024re you , , , , never , or living with a partner?Ghbqfdl4503/09/2024 AUDIT-CAnswerDate RecordedQ1: How often do you have [...] like food, housing, medical care, and heating?Patient kqbshyoe33/27/2024HQ-2 AnswerDate RecordedPatient Health Questionnaire-2 Nqyoi361[facility] [place] [facility] Occup[facility] - Occupational Stress QuestionnaireAnswerDate RecordedDo you feel stress - tense, restless, nervous, or anxious, or unable to sleep at night because yourmind is troubled all the time - these days?Very much 03/09/2024Exercise Vital SignAnswerDate RecordedOn average, how many days per week do you engage in moderate to strenuous exercise (like a brisk walk)?Patient quoridvb23/27/2024On average, how many minutes do you engage in exercise at this level?Patient pfahkcuw35/27/2024Hunger Vital SignAnswerDate RecordedWithin the past 12 months, you worried that your food would run out before you got the money to buymore.Patient /27/2024Within the past 12 months, the food you bought just didn't last and you didn't have money to get more.Patient gihzmfmz91/27/2024RAPARE - TransportationAnswerDate RecordedIn the past 12 months, [...] CommentsUnknownSex and Gender InformationValueDate RecordedSex Assigned at XrwwgYuwwse15/20/2023 7:48 PM EDTLegal PbzLqidmn48/15/2023 6:54 PM EDTGender CaborpzcVaibhd83/20/2023 7:48 PM EDTSexual OrientationNot on filedocumented as of this encounter Miscellaneous Notes * Telephone Encounter - Belkis Correia MA - 04/18/2025 12:25 PM EST Ordered, faxed, and patient notified via [employer]. * Addendum Note - Belkis Correia MA - 04/18/2025 12:23 PM ESTAddended by: BELKIS CORREIA on: 04/18/2025 12:23 PM Modules accepted: Orders * Telephone Encounter - Belkis Correia MA - 04/17/2025 3:13 PM EST Ok to order mammogram? * Telephone Encounter - Andre Veronica - 04/17/2025 1:52 PM EST [facility] Scheduling called - needs an order for Karla;s yearly mammogram faxed over please. documented in this encounter Plan of Treatment DateTypeDepartmentCare Team (Latest Contact Info)Saekuiyemvy57/18/2025 10:00 AM ESTOffice Visit [facility] [address] [place] [address] Jr. Spencer Sandoval DO [address] [facility] [address] [place] [address] 01/01/2026 9:45 AM EDTOffice Visit [facility] [address] [place] [address] Tequila Tang MD [address] [place] [address] NameTypePriorityAssociated DiagnosesOrder ScheduleBilateral screening mammogram with tomosynthesisImagingRoutine Screening mammogram for breast cancer Expected: 04/18/2025, Expires: 06/18/2026documented as of this encounter Goals GoalPatient Goal TypeAssociated ProblemsRecent ProgressPatient-Stated?Author Help patient manage antidepressant medication Care PlanPatient on antidepressant monitoring planNoPena, Raqueldocumented as of this encounter Visit Diagnoses Diagnosis Screening mammogram for breast cancer- Primary documented in this encounter Additional Health Concerns Active ProblemsNoted DateDiagnosed DatePatient on antidepressant monitoring plan 05/22/2024ssessmentNoted TimePHQ-9 Depression Total Score: 7011/20/2024 9:58 AM EDTdocumented as of this encounter Care Teams Team MemberRelationshipSpecialtyStart DateEnd Date Genna Cavazos MD [address] [place] [address] PCP - GeneralFamily Medicine11/11/22 Genna Cavazos MD [address] [place] [address] PCP - Medical [employer]06/13/1611 Yulissa Marcus NP [address] [place] [address] Nurse PractitionerFamily Medicine11/11/22 Ginette Felipe LPN Licensed Practical NurseFamily Nbohjjaj94/19/24documented as of this encounter
--- OUTSIDE RECORDS SUMMARY | 2025-04-19 08:57 | XMS_ITS | Clinical Summary ---
Author Organization [facility] Address [address], [address] [place] [address] Care Team Providers Care Software Quality Specialist Name Role Phone Genna Alfaro MD Primary Care Pr ovider Social History Tobacco UseTypesPacks/DayYears UsedDateSmoking Tobacco: Never Assessed CommentsUnknownSex and Gender InformationValueDate RecordedSex Assigned at Not on fileLegal YnlSjyvak73/10/2013 5:09 PM ESTGender IdentityNot on fileSexual OrientationNot on file Plan of Treatment Not on file Insurance Care Teams Team MemberRelationshipSpecialtyStart DateEnd Date Genna Alfaro MD PCP - GeneralFamily Medicine11/12/16
--- OUTSIDE RECORDS SUMMARY | 2025-04-19 08:59 | XMS_ITS | CCD ---
Author Organization [facility] ion [facility] Care Team Providers Care Fruit Rancher Name Role Phone JEFFERSON DORAN Unavailable Unavailable GENNA CALVO Unavailable Un available Cathy Anaya Unavailable Unavailable Genna Theodore Unavailable Unavailable Haleigh Shanks Unavailable Unavailable Genna Robledo Unavailable Unavailable Genna Robledo Unavailable Unavailable Unavailable David Rosenberg Unavailable Unavailable Unavailable MEENA, DR DALTON Primary Care Unavailable DONTE, DR PARRIS Driscoll Admitting Unavailable DONTE, DR PARRIS Driscoll Attending Unavailable DONTE, DR PARRIS Driscoll Consulting Unavailable JAIME, DR ELLISON Admitting Unavailable JAIME, DR ELLISON Attending Unavailable MEENA, DR DALTON Primary Care Unavailable JAIME, DR ELLISON Consulting Unavailable ZIEBMEEK, DR CRISTINA Driscoll Consulting Unavailable RENNY, JULIETTE Admitting Unavailable JULIETTE LAWSON Attending Unavailable MEENA, DR DALTON Primary Care Unavailable RENNY, JULIETTE Consulting Unavailable GENNA ROBLEDO Primary Care Physician [phone] MIK Pierre Attending Provider [phone] Wanda Pierre Unavailable Genna Robledo MD Primary Care Provider Renny HOUSER, Juliette A Unavailable Genna Robledo MD Unavailable Genna Robledo MD Unavailable Ginette Felipe LPN Unavailable Genna Robledo MD Primary Care Provider Scot Sandoval DO Attending Provider Scot Sandoval Jr Attending Unavailable Scot Sandoval Jr Admitting Unavailable Renny DIGITAL BUSINESS ANALYST, Juliette Marco A Unavailable CATHY ROBERSON Attending Unavailable GENNA ROBLEDO Referring Unavailable GENNA ROBLEDO Primary Care Unavailable DIONICIO RAMOS Attending Unavailable DIONICIO RAMOS Referring Unavailable GENNA ROBLEDO Primary Care Unavailable DIONICIO RAMOS Admitting Unavailable DIONICIO RAMOS Attending Unavailable GENNA ROBLEDO Referring Unavailable GENNA ROBLEDO Primary Care Unavailable CATHY ROBERSON Attending Unavailable EGNNA ROBLEDO Referring Unavailable GENNA ROBLEDO Primary Care Unavailable DIONICIO RAMOS Attending Unavailable DIONICIO RAMOS Referring Unavailable GENNA ROBLEDO Primary Care Unavailable DIONICIO RAMOS Admitting Unavailable DIONICIO RAMOS Attending Unavailable GENNA ROBLEDO Referring Unavailable GENNA ROBLEDO Primary Care Unavailable CATHY ROBERSON Attending Unavailable GENNA ROBLEDO Referring Unavailable GENNA ROBLEDO Primary Care Unavailable DIONICIO RAMOS Admitting Unavailable DIONICIO RAMOS Attending Unavailable GENNA ROBLEDO Referring Unavailable GENNA ROBLEDO Primary Care Unavailable DIONICOI RAMOS Attending Unavailable DIONICIO RAMOS Referring Unavailable GENNA ROBLEDO Primary Care Unavailable CATHY ROBERSON Attending Unavailable GENNA ROBLEDO Referring Unavailable GENNA ROBLEDO Primary Care Unavailable DIONICIO RAMOS Admitting Unavailable DIONICIO RAMOS Attending Unavailable GENNA ROBLEDO Referring Unavailable GENNA ROBLEDO Primary Care Unavailable DIONICIO RAMOS Attending Unavailable DIONICIO RAMOS Referring Unavailable GENNA ROBLEDO Primary Care Unavailable CATHY ROBERSON Attending Unavailable GENNA ROBLEDO Referring Unavailable GENNA ROBLEDO Primary Care Unavailable DIONICIO RAMOS Attending Unavailable DIONICIO RAMOS Referring Unavailable GENNA ROBLEDO Primary Care Unavailable DIONICIO RAMOS Admitting Unavailable DIONICIO RAMOS Attending Unavailable GENNA ROBLEDO Referring Unavailable GENNA ROBLEDO Primary Care Unavailable GENNA ROBLEDO Primary Care Physician [phone] Regino PUCKETT Attending Unavailable RAMAKRISHNA ROWELL Attending Unavailable HACKFEMI, JULIETTE Strickland Attending Unavailab RAMAKRISHNA Londono Attending Unavailable MEENA, GENNA Attending Unavailable RAMAKRISHNA ROWELL Attending Unavailable CATHY MORA Attending Unavailable CATHY MORA Referring Unavailable MEENA, GENNA Attending Unavailable MEENA, GENNA Attending Unavailable MORGAN, CATHY Garcia Attending Unavailable PETBAYLEE GUPTA Attending Unavailable MEENA, GENNA Attending Unavailable JR. JAIME, SCOT Tijerina Attending Unavaila meet DEAN, JANELLE Strickland Attending Unavailable MEENA, GENNA Attending Unavailable MEENA, GENNA Attending Unavailable CATHY MORA Attending Unavailable CATHY MORA Referring Unavailable HAOC, JULIETTE Strickland Attending Unavailab michelle LAWSON, JULIETTE Strickland Attending Unavailab michelle LAWSON, JULIETTE Strickland Referring Unavailab michelle SANDOVAL JR., SCOT Tijerina Attending Unavaila meet SANDOVAL JR., SCOT Tijerina Referring Unavaila meet MORA, CATHY Garcia Attending Unavailable GENNA ROBLEDO Referring Unavailable JR. JAIME, SCOT Tijerina Attending Unavaila meet DEAN, JANELLE Strickland Attending Unavailable ANUJ, AISHWARYA Strickland Attending Unavailab michelle RIZZO, AISHWARYA Strickland Attending Unavailab le Allergies Allergy ClassificationReported Allergen(s)Allergy TypeDate of OnsetReaction(s) Facility (3 sources)Amino Acids; Translations: [LISINOPRIL]Drug Poacddf87-74-5186[facility] (20 sources)LisinoprilAllergy to ghyxnsffg98-33-9393[facility] (7 sources)Lisinopril; Translations: [lisinopril]Drug Jpmevgi52-78-7835Oqeya, Cough (finding)[facility] (1 source)No Known Medication Allergies; Translations: [No Known Medication Allergies]Propensity to adverse reactions (disorder)[facility] Repository Medications Current Medications MedicationDrug Class(es)DatesSig (Normalized)Sig (Original)acetaminophen 325 mg / HYDROcodone bitartrate 5 mg oral tablet (1 source)Opioid AgonistStart: 07-18-2024 End: 49-02-9938kxli 1 tablet by mouth every six hours for painHYDROcodone- acetaminophen ([place]) 5-325 MG tablet Indications: Cyst of joint of left hand Take 1 tablet by mouth every 6 (six) hours if needed for severe pain for up to 3 days 12 tablet 07/18/2024 07/21/2024 [id number] 200 actuat albuterol 0.09 mg/actuat metered dose inhaler (20 sources)beta2-Adrenergic AgonistStart: 04-10-2025 End: 40-95-1567pcua 2 puff(s) by inhalation every four hours for wheezing albuterol HFA 90 mcg/act inhaler Indications: Bronchitis , Wheezing Inhale 2 puffs every 4 (four) hours if needed for wheezing 18 g 04/10/2025 04/10/2026 ActiveStart: 90-71-6780thht 1 puff(s) by inhalation every six hoursalbuterol HFA 90 mcg/act inhaler Inhale 1 puff every 6 (six) hours if needed 11/27/2021 Active take 2 puff(s) by inhalation every six hours as needed for wheezingalbuterol (PROVENTIL HFA;VENTOLIN HFA) 90 mcg/actuation inhaler Inhale 2 puffs every 6 (six) hours as needed for wheezing. Activealendronic acid 70 mg oral tablet (20 sources)BisphosphonateStart: 10-24-2024 End: 44-95-2906ayzq 1 tablet by mouth in the morningalendronate (Fosamax) 70 MG tablet Indications: Osteoporosis of lumbar spine Take 1 tablet (70 mg) by mouth every 7 (seven) days Take in the morning with a full glass of water, on an empty stomach, and do not take anything else by mouth or lie down for the next 30 min. 12 tablet 1 04/11/2025 ActiveStart: 05-07-2022 End: 02-91-8501ixkc 1 tablet by mouth in the morningalendronate (Fosamax) 70 MG tablet Indications: Osteoporosis of lumbar spine TAKE 1 TABLET BY MOUTHEVERY 7 DAYS IN THE MORNING ON AN EMPTY STOMACH WITH a full glass OF water ON AN EMPTY STOMACH and do not take anything else by mouth or lie down for the next 30 mins 12 tablet 1 10/24/2024 ActiveStart: 04-16-2022 End: 67-92-3177wfpg 1 tablet by mouth every week 30 minutes before breakfast alendronate (Fosamax) 70 MG tablet Indications: Osteoporosis of lumbar spine (CMS/HCC) take 1 tablet by mouth every week 30 MINUTES before breakfast with PLAIN WATER 12 tablet 1 08/22/2023 04/13/2024iscontinued (Reorder)Start: 85-83-6676Nblbykdxbiz Sodium 70 MG Oral Tablet Quantity: 4 Refills: 0 Ordered: 03-Nov-2017 DO Start : 03-Nov-2017 ActiveStart: 40-81-1678Wetvfzlkvzr Sodium 70 MG Oral Tablet Quantity: 4 Refills: 0 DO Start : 03-Nov-2017 Activeamoxicillin 500 mg / clavulanate 125 mg oral tablet (16 sources)Penicillin-class AntibacterialStart: 49-86-1866bgzxilxfzon- clavulanate 500 mg-125 mg Tab 1 tab(s), Refill(s) 0 Start Date: 04/15/25 Status: OrderedMedication Dispense Status: Completed Total Allowed Fills: 1 Fills Dispensed: 0Start: 04-10-2025 End: 55-24-2517pfkc 1 tablet by mouth in the morningamoxicillin-clavulanate (Augmentin) 500-125 MG tablet Indications: Bronchitis Take 1 tablet (500 mg) by mouth in the morning and 1 tablet (500 mg) before bedtime. Do all this for 10 days. 20 tablet 04/10/2025 04/20/2025 ActiveStart: 05-31-2024 End: 74-25-9218xfmk 1 tablet by mouth in the morningamoxicillin-clavulanate (Augmentin) 500-125 MG tablet Indications: Acute non-recurrent pansinusitisTake 1 tablet (500 mg) by mouth in the morning and 1 tablet (500 mg) before bedtime. Do all this for 7 days. 14 tablet 05/31/2024 06/07/2024 Activebenzonatate 100 mg oral capsule (14 sources)Non-narcotic AntitussiveStart: 04-10-2025 End: 20-19-0131hmbc 1 capsule by mouth three times daily as needed for cough benzonatate (Tessalon Perles) 100 MG capsule Indications: Bronchitis Take 1 capsule (100 mg) by mouth 3 (three) times a day as needed for cough for up to 7 days Do not crush or chew. 20 capsule 04/17/2025 04/24/2025 ActiveStart: 06-01-2024 End: 68-06-5371cmoz 1 capsule by mouth three times daily as needed for cough benzonatate (Tessalon Perles) 100 MG capsule Indications: Acute cough Take 1 capsule (100 mg) by mouth 3 (three) times a day as needed for cough for up to 7 days Do not crush or chew. 20 capsule 06/01/2024 06/08/2024 ActivebusPIRone hydrochloride 5 mg oral tablet (20 sources)Start: 10-19-2024 End: 41-00-3287bcnv 1 tablet by mouth in the morningbusPIRone (Buspar) 5 MG tablet Indications: Anxiety Take 1 tablet (5 mg) by mouth in the morning and 1 tablet (5 mg) before bedtime. 60 tablet 1 11/20/2024 Activecelecoxib 200 mg oral capsule (20 sources)Nonsteroidal Anti-inflammatory DrugStart: 03-19-2025 End: 04-49-7568qeoo 1 capsule by mouth once daily at mealtimecelecoxib (CeleBREX) 200 MG capsule Indications: Iliotibial band syndrome of right side Take 1 capsule (200 mg) by mouth Daily Take with food 30 capsule 03/19/2025 04/18/2025 ActiveStart: 10-10-2024 End: 72-11-6538ivct 1 capsule by mouth once daily at mealtimecelecoxib (CeleBREX) 200 MG capsule Indications: Lumbar radiculopathy, right Take 1 capsule (200 mg) by mouth Daily Take with food 30 capsule 11/23/2024 12/23/2024 ActiveCetirizine (1 source)Histamine-1 Receptor AntagonistCetirizine HCl Activecinnamon bark 500 mg oral capsule (6 sources)take 1 capsule by mouth in the morningcinnamon bark (CINNAMON) 500 mg capsule Take 1 capsule (500 mg total) by mouth in the morning. Activecinnamon preparation 500 mg oral tablet (20 sources)Non-Standardized Food Allergenic Extracttake 1 tablet by mouth once dailyCinnamon 500 MG tablet Take 500 mg by mouth Daily Activetake 1 tablet by mouth in the morningCinnamon 500 MG tablet Take 500 mg by mouth in the morning. Activetake 1 tablet by mouth in the morningCinnamon 500 MG tablet Take 500 mg by mouth in the morning. 0 ActiveCinnamon ActiveCitracal Plus (2 sources)Citracal Plus ActivecycloSPORINE 0.5 mg/ml ophthalmic suspension (20 sources)Calcineurin Inhibitor ImmunosuppressantStart: 84-72-1916Pxyyjmsj 0.05 % ophthalmic emulsion 04/07/2023 ActiveStart: 79-18-4788hiey 1 drop(s) into the eye(s) every twelve hoursRestasis 1 drop(s), Eye-Both, q12hr, Refill(s) 0 Start Date: 03/14/19 Status: Ordered Medication Dispense Status: Completed Total Allowed Fills: 1 Fills Dispensed: 0Start: 07-70-1309sgtw 1 drop(s) into the eye(s) every twelve hoursRestasis 1 drop(s), Eye-Both, q12hr, Refill(s) 0 Start Date: 03/14/19 Status: OrderedStart: 63-09-5379Ejppvcjg 0.05 % Ophthalmic Emulsion Quantity: 180 Refills: 0 Ordered: 01-Feb-2016 DO Start : 01-Feb-2016 ActiveStart: 69-93-8236Gpeztuba 0.05 % Ophthalmic Emulsion Quantity: 180 Refills: 0 DO Start : 01-Feb-2016 ActivecycloSPORINE (RESTASIS) 0.05 % ophthalmic emulsion (6 sources)take 1 drop(s) into the eye(s) in the morningcycloSPORINE (RESTASIS) 0.05 % ophthalmic emulsion 1 drop in the morning and 1 drop before bedtime. Activedextromethorphan hydrobromide 30 mg / pyrilamine maleate 30 mg oral tablet (20 sources)Uncompetitive E-oahxye-W-aspartate Receptor Antagonist, Sigma-1 AgonistStart: 06-02-2024 End: 65-70-4841zaig 1 tablet by mouth every six hours as needed for cough and coughDextromethorphan-Pyrilamine (Kensal DMT) 30-30 MG tablet Indications: Cough, unspecified type Take 1 tablet by mouth every 6 (six) hours if needed (cough) 20 tablet 06/02/2024 08/14/2024 Discontinued(Therapy completed) Disability Placard (9 sources)Start: 04-16-2022 End: 29-23-1291Bhijbpvcpe Placard DISABILITY PLACARD NEEDED FOR PERMANENT LIFETIME ORTHOPAEDIC DISABILITY. Quantity: 1 Refills: 0 Ordered: 16-Apr-2022 Cathy Anaya MD Start : 16-Apr-2022 End : 13-Oct-2036 ActiveStart: 03-30-2022 Disability Placard DISABILITY PLACARD NEEDED FOR PERMANENT LIFETIME ORTHOPAEDIC DISABILITY. Quantity: 1 Refills: 0 Ordered: 30-Mar-2022 Cathy Anaya MD Start : 30-Mar-2022 ActiveStart: 33-45-6500Sqjokmsehy Placard Disability Placard 5 years Quantity: 1 Refills: 0 Ordered: 27-Mar-2022 Haleigh Shanks PA-C Start : 23-Oct-2019 ActiveStart: 34-76-4508Alxzeyjjvp Placard valid 06/13/2017 thru 2022. DX M17.0 Quantity: 1 Refills: 0 Ordered: 23-Oct-2019 Cathy Anaya MD Start : 23-Oct-2019 Activeestradiol 0.1 mg/ml vaginal cream (20 sources)EstrogenStart: 04-15-2025 End: 83-65-4046Wlaldll 0.1 mg/g Cream 1 gram, Vaginal, MonFri for 90 day(s), 26 gm, Refill(s) 3, 0.5gm 2x/week, [facility], 157, cm, 04/15/25 9:59:00 EST, Height/Length Dosing, 67, kg, 04/15/25 9:59:00 EST, Weight Dosing Start Date: 04/15/25 Stop Date: 04/10/26 Status: Ordered Medication Disp ense Status: Completed Quantity: 26.0 Unit: g Total Allowed Fills: 4 Fills Dispensed: 0Start: 57-31-6064Fztumhl 0.1 mg/g Cream 1 gram, Vaginal, MonFri, 42.5 gram, Refill(s) 5, 0.5gm 2x/week, [facility], 157, cm, 04/18/23 9:19:00 EST, Height/Length Dosing, 71.3, kg, 04/18/23 9:19:00 EST, Weight Dosing Start Date: 04/18/23 Status: OrderedStart: 04-16-2022 End: 80-87-5338rcejbuynj (Estrace) 0.1 MG/GM vaginal cream Insert 1 g into the vagina in the morning. 04/16/2022 04/13/2024 Discontinued (Med list cleanup) Start: 35-11-6697Nwtuvyq 0.1 mg/g Cream 1 gram, Vaginal, MonFri, 42.5 gram, Refill(s) 4, 0.5gm 2x/week, [facility], 157, cm, 04/16/22 9:01:00 EDT, Height/Length Dosing, 71, kg, 04/16/22 9:01:00EDT, Weight Dosing Start Date: 04/16/22 Status: OrderedStart: 70-48-5845Kiehwla 0.1 MG/GM Vaginal Cream Quantity: 42 Refills: 0 Ordered: 11-Jul-2015 DO Start : 01-Ahs-6060Xexwtl estradioL (ESTRACE) 0.01 % (0.1 mg/gram) vaginal cream Insert 2 g into the vagina in the morning. ActiveEstrace 0.1 MG/GM as directed Vaginal twice a week ActiveFLUoxetine (1 source)Serotonin Reuptake InhibitorFluoxetine Activefluticasone propionate 0.05 mg/actuat metered dose nasal spray (20 sources)CorticosteroidStart: 09-10-2022 End: 68-19-4631idrn 1 spray(s) nasal route in the morningfluticasone (Flonase) 50 MCG/ACT nasal spray Indications: Nasal congestion Administer 1 spray into e ach nostril in the morning and 1 spray before bedtime. 16 g 1 06/01/2024 Active fluticasone propionate (FLONASE) 50 mcg/actuation nasal spray Administer 1 spray into each nostril as needed. Activefolic acid 1 mg / polysaccharide iron complex 150 mg / vitamin b12 0.025 mg oral capsule (4 sources)Vitamin D21Mrflb: 07-18-2023 End: 99-80-4620jihu 1 tablet by mouth in the morningIron Polysacch Axtou-L90-CU (Poly-Iron 150 Forte) 150-0.025-1 MG capsule Indications: Preop examination , Arthritis of right hip Take 1 tablet by mouth in the morning. 30 capsule 1 07/18/2023 08/17/2023 Activeiron ps complex/B12/folic acid (POLY-IRON 150 FORTE ORAL) (6 sources)iron ps complex/B12/folic acid (POLY-IRON 150 FORTE ORAL) Take by mouth in the morning. Activeiron ps complex/B12/folic acid (POLY-IRON 150 FORTE ORAL) Take by mouth daily. ActiveLORazepam 0.5 mg oral tablet (20 sources)BenzodiazepineStart: 03-02-2024 End: 69-33-9390gkcx 1 tablet by mouth every eight hours for anxietyLORazepam (Ativan) 0.5 MG tablet Indications: Anxiety , Grief Take 1 tablet (0.5 mg) by mouth every8 (eight) hours if needed for anxiety 20 tablet 11/20/2024 Active Start: 02-27-2024 End: 49-71-8920earl 1 tablet by mouth twice daily as needed for anxietyLORazepam (Ativan) 0.5 MG tablet Indications: Anxiety , Grief (CMS/HCC) Take 1 tablet (0.5 mg) by mouth 2 (two) times a day as needed for anxiety for up to 3 days 6 tablet 02/27/2024 03/02/2024 Discontinued (Reorder)methylPREDNISolone (20 sources)CorticosteroidStart: 92-43-8236ltxaycPSBWKPAtepld (Medrol Dospak) 4 MG tablets Indications: Right hip pain Follow schedule on package instructions 21 tablet 01/22/2025 ActiveStart: 04-03-2024 End: 50-37-3023lwbtfrNIKGRFAofdpc acetate (DEPO-Medrol) injection 40 mgStart: 04-03-2024 End: 73-25-627623 mg, Intra-articular, Once PRN Procedure, Starting on Tue04/03/24 at 1159, For 1 doseStart: 02-15-2024 End: 92-28-0369mnyllwIMMTCDXjhnup (Medrol Dospak) 4 MG tablets Indications: S/P total right hip arthroplasty Follow schedule on package instructions 21 tablet 02/15/2024 03/13/2024 Discontinued (Therapy completed)Start: 02-15-2024 methylPREDNISolone (Medrol Dospak) 4 MG tablets Indications: S/P total right hip arthroplasty Follow schedule on package instructions 21 tablet 02/15/2024 Active Start: 02-09-2024 End: 50-67-2272fwkqjaVRJTLLAyouux (Medrol Dospak) 4 MG tablets Indications: S/P total right hip arthroplasty Follow schedule on package instructions 21 tablet 02/09/2024 02/15/2024 Discontinued (Reorder)Start: 48-43-9706rjaahyXJDHWAElesqx (Medrol Dospak) 4 MG tablets Indications: S/P total right hip arthroplasty Follow schedule on package instructions 21 tablet 02/09/2024 ActiveStart: 11-80-7693zmubthLDQMTKYszydi 4 MG Oral Tablet Therapy Pack Take as directed Quantity: 1 Refills: 0 Cathy Anaya Start : 17-Aug-2018 Active 21 Tablet Pack Multi Vitamin Daily (2 sources)Multi Vitamin Daily ActiveMulti Vitamin+ (4 sources)Start: 37-33-0876Meykz Vitamin+ Daily, Refill(s) 0 Start Date: 03/14/19 Status: Ordered Medication Dispense Status: Completed Total Allowed Fills: 1 Fills Dispensed: 0Start: 14-44-5086Nvglj Vitamin+ Daily, Refill(s) 0 Start Date: 03/14/19 Status: Orderedmultivitamin capsule (6 sources)take 1 capsule by mouth in the morningmultivitamin capsule Take 1 capsule by mouth in the morning. ActivepredniSONE 20 mg oral tablet (7 sources)Start: 10-10-2024 End: 32-63-9118xyuu 2 tablets by mouth once daily, then take 1 tablet by mouth once daily at mealtimepredniSONE (Deltasone) 20 MG tablet Indications: Right hip pain , Iliotibial band syndrome of rightside Take 2 tablets (40 mg) by mouth Daily for 5 days, THEN 1 tablet (20 mg) Daily for 5 days. Takewith food. 15 tablet 10/10/2024 10/20/2024 Activesertraline 100 mg oral tablet (20 sources)Serotonin Reuptake InhibitorStart: 08-14-2024 End: 85-74-7018vxvu 1.5 tablets by mouth once dailysertraline (Zoloft) 100 MG tablet Indications: Anxiety Take 1.5 tablets (150 mg) by mouth Daily 90 tablet 1 11/20/2024 ActiveStart: 04-19-2024 End: 11-25-8180yteu 1 tablet by mouth in the morningsertraline (ZOLOFT) 100 mg tablet Take 1 tablet (100 mg total) by mouth in the morning. 04/19/2024 1 06/19/2024 ActiveStart: 03-13-2024 End: 04-04-3006qacy 1 tablet by mouth once dailysertraline (Zoloft) 50 MG tablet Indications: Anxiety Take 1 tablet (50 mg) by mouth Daily 30 tablet 1 03/13/2024 04/19/2024 DiscontinuedtraZODone hydrochloride 100 mg oral tablet (20 sources)Serotonin Reuptake InhibitorStart: 08-14-2024 End: 63-99-2659jbrr 1.5 tablets by mouth at bedtimetraZODone (Desyrel) 100 MG tablet Indications: Insomnia, unspecified type Take 1.5 tablets (150 mg)by mouth at bedtime 135 tablet 11/20/2024 ActiveStart: 04-19-2024 End: 54-84-8715pmrg 1 tablet by mouth at bedtimetraZODone (Desyrel) 100 MG tablet Indications: Insomnia, unspecified type Take 1 tablet (100 mg) bymouth at bedtime 30 tablet 1 07/05/2024 08/14/2024 Discontinued (Reorder)Start: 03-13-2024 End: 46-55-1289ayyd 1 tablet by mouth at bedtimetraZODone (Desyrel) 50 MG tablet Indications: Anxiety Take 1 tablet (50 mg) by mouth at bedtime 30 tablet 03/13/2024 04/19/2024 Discontinuedubidecarenone 200 mg oral capsule (20 sources)take 1 capsule by mouth once dailycoenzyme Q-10 200 MG capsule Take 200 mg by mouth 1 (one) time each day at the same time Activetake 1 capsule by mouth once in the morningcoenzyme Q10 30 mg capsule Take 1 capsule (30 mg total) by mouth in the morning. Activeverapamil hydrochloride 80 mg oral tablet (20 sources)Calcium Channel BlockerStart: 79-51-4789uihl 1 tablet by mouth in the morningverapamil (Calan) 80 MG tablet Indications: Benign essential HTN TAKE 1 TABLET BY MOUTH IN THE MORNING 90 tablet 1 12/21/2024 ActiveStart: 10-27-2017 End: 66-06-9148cxle 1 tablet by mouth in the morningverapamil (Calan) 80 MG tablet Indications: Benign essential HTN TAKE 1 TABLET BY MOUTH IN THE MORNING 90 tablet 1 12/21/2024 ActiveVerapamil HCl Activevitamin B12 (2 sources)Vitamin Z10Kmxhyqr B 12 Activedl-alpha tocopheryl acetate 200 unt oral capsule (20 sources)take 1 capsule by mouth in the morningAlpha tocopherol (Vitamin E) 200 units capsule Take 200 Units by mouth in the morning. Activetake 1 capsule by mouth in the morningvitamin E 200 units capsule Take 1 capsule (200 Units total) by mouth in the morning. ActiveVitamin E Active Completed/Discontinued Medications MedicationDrug Class(es)DatesSig (Normalized)Sig (Original)acetaminophen 325 mg / oxyCODONE hydrochloride 5 mg oral tablet (8 sources)Opioid AgonistStart: 00-20-2063ptuDCCAOP-Acetaminophen 5-325 MG Oral Tablet Quantity: 56 Refills: 0 Ordered: 10-Jan-2018 DO Start : 10-Jan-2018 Activeamoxicillin 500 mg oral tablet (8 sources)Penicillin-class AntibacterialStart: 74-08-7704Bcpvcpachhk 500 MG Oral Tablet TAKE 4 TABLETS 1 HOUR BEFORE DENTAL APPOINTMENT. Quantity: 12 Refills: 1 Ordered: 25-Aug-2022 Haleigh Shanks PA-C Start : 19-Apr-2018 Activeaspirin 81 mg delayed release oral tablet (8 sources)Platelet Aggregation Inhibitor, Nonsteroidal Anti-inflammatory Drug Start: 15-48-0195ueep 1 tablet by mouth twice dailyRA Aspirin EC 81 MG Oral Tablet Delayed Release take 1 tablet by mouth twice a day for 28 DAYS Quantity: 56 Refills: 0 Ordered: 10-Jan-2018 DO Start : 09-Jan-2018 Activechlorhexidine gluconate 40 mg/ml medicated liquid soap (8 sources)Start: 19-46-8969Gdresmbub 4 % External Liquid Use as directed for preoperative shower. Quantity: 1 Refills: 0 Ordered: 27-Dec-2017 Genna Liz Start : 27-Dec-2017 ActiveStart: 04-17-1347Ojttvbzxv 4 % External Liquid Use as directed for preoperative shower. Quantity: 1 Refills: 0 Genna Nichols Start : 27-Dec-2017 Active 118 ML Bottleciprofloxacin 500 mg oral tablet (1 source)Quinolone AntimicrobialStart: 31-28-1821Rrgnz 500 mg Tab 500 mg = 1 tab(s), Oral, As Directed, Take one tab the day before the procedure. Then take the 2nd tab after the procedure has been completed., # 2 tab(s), Refills(s) 0, Pharmacy: [id number], 157, cm, 04/15/25 9:59:00 EST, Height/Length Dosing, 67, kg, 04/15/25 9:59:00 EST, Weight Dosing Start Date: 04/15/25 Status: Ordered Medication Dispense Status: Completed Quantity: 2.0 Unit: tab(s) Total Allowed Fills: 1 Fills Dispensed: 0cyclobenzaprine hydrochloride 5 mg oral tablet (8 sources)Muscle RelaxantStart: 70-28-8150Hwmfuhzxkjjuryp HCl - 5 MG Oral Tablet Quantity: 10 Refills: 0 Ordered: 03-Jan-2018 DO Start : 03-Jan-2018 ActiveStart: 98-02-0613Uqrdbuvlhvlxksc HCl - 5 MG Oral Tablet Quantity: 10 Refills: 0 DO Start : 03-Jan-2018 Activecyproheptadine hydrochloride 4 mg oral tablet (8 sources)Start: 88-13-1563Mqmqdemwswqiev HCl - 4 MG Oral Tablet Quantity: 60 Refills: 0 Ordered: 20-Jan-2016 DO Start : 20-Jan-2016 ActiveStart: 01-20-2016 Cyproheptadine HCl - 4 MG Oral Tablet Quantity: 60 Refills: 0 DO Start : 20-Jan-2016 Activedenosumab 60 mg/ml injectable solution (8 sources)RANK Ligand InhibitorStart: 84-47-7457Azujfl 60 MG/ML Subcutaneous Solution Quantity: 1 Refills: 0 Ordered: 19-Aug-2015 DO Start : 19-Aug-2015 Active docusate sodium 100 mg oral capsule (8 sources)Start: 59-31-1149vjfw 1 capsule by mouth twice daily for constipation RA Col-Rite 100 MG Oral Capsule take 1 capsule by mouth twice a day for constipation Quantity: 60 Refills: 0 Ordered: 10-Jan-2018 DO Start : 09-Jan-2018 ActivelevoFLOXacin 500 mg oral tablet (8 sources)Quinolone AntimicrobialStart: 02-58-5127cpxkIUCMunkd 500 MG Oral Tablet Quantity: 7 Refills: 0 Ordered: 22-Jan-2016 DO Start : 22-Jan-2016 Active Start: 93-78-0228nfcjVSNIrmnn 500 MG Oral Tablet Quantity: 7 Refills: 0 DO Start : 22-Jan-2016 Activeloratadine 10 mg oral tablet (8 sources)Start: 93-25-0620RW Loratadine 10 MG Oral Tablet Quantity: 30 Refills: 0 Ordered: 23-Dec-2015 DO Start : 92-Izq-2951IoctawSmdcq: 28-18-2119LD Loratadine 10 MG Oral Tablet Quantity: 30 Refills: 0 DO Start : 23-Dec-2015 ActivemethylPREDNISolone 4 MG Oral Tablet Therapy Pack (6 sources)Start: 78-09-0226zpozlrUSLBWNMwmmvc 4 MG Oral Tablet Therapy Pack Take as directed Quantity: 1 Refills: 0 Ordered: 17-Aug-2018 Cathy Anaya MD Start : 17-Aug-2018 Activemupirocin 0.02 mg/mg topical ointment (8 sources)RNA Synthetase Inhibitor AntibacterialStart: 82-46-2975Xnwbyzbwb 2 % External Ointment Apply intranasal twice daily for three days prior to surgery. Quantity: 1 Refills: 0 Ordered: 27-Dec-2017 Genna Liz Start : 27-Dec-2017 ActiveStart: 72-09-8287Dqgzvpnim 2 % External Ointment Apply intranasal twice daily for three days prior to surgery. Quantity: 1 Refills: 0 Genna Liz Start : 27-Dec-2017 Active 22 GM Tubeomeprazole 40 mg delayed release oral capsule (20 sources)Proton Pump InhibitorStart: 11-25-2021 End: 80-09-4828iivt 1 capsule by mouth in the morningomeprazole (PriLOSEC) [address] capsule Take 40 mg by mouth in the morning and 40 mg in the evening.Take before meals. 11/25/2021 03/13/2024 Discontinued (Therapy completed)ondansetron 4 mg disintegrating oral tablet (8 sources)Serotonin-3 Receptor AntagonistStart: 83-21-4338Htktthfpjwr 4 MG Oral Tablet Disintegrating Quantity: 45 Refills: 0 Ordered: 10-Jan-2018 DO Start : 10-Jan-2018 ActiveStart: 74-06-9293Ankwejfdfff 4 MG Oral Tablet Disintegrating Quantity: 45 Refills: 0 DO Start : 10-Jan-2018 ActiveToradol 30 mg/ml (1 source)Start: 51-80-5824Avgqghz 30 mg/ml May, 60 mgtraMADol hydrochloride 50 mg oral tablet (8 sources)Opioid AgonistStart: 87-07-2366sszm 1 tablet by mouth every six hours as needed for paintraMADol HCl - 50 MG Oral Tablet TAKE 1 TABLET EVERY 6 HOURS NEEDED FOR BREAKTHROUGH PAIN. Quantity: 28 Refills: 0 Ordered: 02-Feb-2018 Haeligh Shanks PA-C Start : 02-Feb-2018 Active Problems Active Problems Problem ClassificationProblemDateDocumented DateEpisodic/ChronicAbdominal pain (4 sources)Flank pain; Translations: [Unspecified abdominal pain]Episodic Adjustment disorders (13 sources)Grief finding; Translations: [Adjustment disorder with depressed mood]83-23-9720JncfkguHgwofpm disorders (20 sources)Anxiety; Translations: [Anxiety disorder, unspecified]Onset: 250393-69-4279QhlinxoGrqgww (20 sources)Reactive airway disease; Translations: [Unspecified asthma, uncomplicated]Onset: 115007-05-3390UjstwigNknjqcw obstructive pulmonary disease and bronchiectasis (6 sources)Bronchitis; Translations: [Bronchitis, not specified as acute or chronic]62-19-4434IpgqfgbgQpaekrwrw hypertension (20 sources)Benign essential hypertension; Translations: [Essential (primary) hypertension]Onset: 182682-00-5128CnbrrsiPdoyxwas; including migraine (20 sources)Chronic tension-type headache; Translations: [Chronic tension-type headache, not intractable]Onset: 695348-56-2786YuxntjaSxbvzgcrukupw and screening for infectious disease (5 sources)Encounter for immunization; Translations: [Patient encounter status] Onset: 585764-12-9325HtyfepzxUsqloxp and fatigue (20 sources)Chronic fatigue syndrome; Translations: [Chronic fatigue syndrome] Onset: 01-08-2021 Resolved: 506849-25-5813QcgkwjuPuvsjdknqcbelo (20 sources)Osteoarthritis of left knee joint; Translations: [Osteoarthrosis, localized, primary, lower leg]Onset: 83-30-0395HgeymkvJkzqrcilwste (20 sources)Osteoporosis; Translations: [Age-related osteoporosis without current pathological fracture]Onset: 302591-46-2959NwazjziLkfxe aftercare (6 sources)Patient encounter status; Translations: [Aftercare following joint replacement]ChronicOther aftercare (6 sources)Surgical follow-up; Translations: [Encounter for follow-up examination after completed treatment for conditions other than malignant neoplasm]58-57-9233SevlgjefImesj and unspecified benign neoplasm (2 sources)Skin lesion; Translations: [Hemangioma of skin and subcutaneous tissue]84-76-2590XhwwhgplWqmaa connective tissue disease (20 sources)History of left total knee replacement; Translations: [Presence of left artificial knee joint]Onset: 236947-44-3110OrtccouIumam connective tissue disease (20 sources)History of right total knee replacement; Translations: [Presence of right artificial knee joint]Onset: 299411-73-0986LjzzezeQsuhf connective tissue disease (20 sources)History of repair of hip joint; Translations: [Presence of right artificial hip joint]Onset: 432764-39-0169UfnjsguDatxg connective tissue disease (6 sources)History of total hip arthroplasty; Translations: [Presence of right artificial hip joint]91-91-9687GtpwguqTicub connective tissue disease (4 sources)History of total replacement of right hip joint; Translations: [Presence of right artificial hip joint]98-77-9129RvntdsfXjfrq connective tissue disease (6 sources)Trochanteric bursitis of right hip; Translations: [Trochanteric bursitis, right hip]39-17-7755RqcfwioxPsknt connective tissue disease (4 sources)Pain in left thumb; Translations: [Pain in left finger(s)]05-22-2024 EpisodicOther connective tissue disease (4 sources)Mass of hand; Translations: [Other specified soft tissue disorders] 99-45-7897KdrxxqliYosvr connective tissue disease (1 source)Ganglion, left hand; Translations: [Ganglion, left hand]Onset: 42-83-9748FsljizpiMtxfr connective tissue disease (4 sources)Iliotibial band friction syndrome of right knee; Translations: [Iliotibial band syndrome, right leg]08-75-3411OskljnjdLpylx ear and sense organ disorders (6 sources)Sensorineural hearing loss, bilateral; Translations: [Sensorineural hearing loss, bilateral]61-52-5824YvenchqJlgwo ear and sense organ disorders (1 source)Tinnitus of right ear; Translations: [Tinnitus, right ear]01-28-2025 EpisodicOther gastrointestinal disorders (2 sources)Constipation; Translations: [Constipation, unspecified]EpisodicOther gastrointestinal disorders (2 sources)Disorder of intestine; Translations: [Disease of intestine, unspecified]Onset: 58-69-9107EmynppfdPxwup gastrointestinal disorders (4 sources)Bowel -80-0901IyymjxoxSqugw lower respiratory disease (3 sources)Cough; Translations: [Cough, unspecified type]87-36-2801GjiszfrsPnfge lower respiratory disease (1 source)Cough; Translations: [Acute cough]62-17-9881FyiyvayoJvjtw lower respiratory disease (4 sources)Wheezing; Translations: [Wheezing]95-05-2292KukynnczErckw nervous system disorders (20 sources)Chronic pain; Translations: [Other chronic pain]Onset: 12-15-2016 52-26-4356KvvwavuFsjcv non-traumatic joint disorders (6 sources)Pain in right knee; Translations: [Right knee pain]EpisodicOther non- traumatic joint disorders (9 sources)Other specified joint disorders, left hand; Translations: [Other specified disorders of joint, hand]16-57-4565TdiwhgzjDzvpz nutritional; endocrine; and metabolic disorders (4 sources)Body mass index 25-29 - itrvdhpxee46-49-9042RdjngptgQqokm skin disorders (2 sources)Lentiginosis; Translations: [Other melanin hyperpigmentation] 74-14-1341MhbjyjamCnryv skin disorders (2 sources)Seborrheic keratosis; Translations: [Other seborrheic keratosis] 91-67-8416IwwzbkyfHmtwr skin disorders (2 sources)Milia; Translations: [Epidermal cyst]99-63-2221RjtrjsqbDonzy skin disorders (2 sources)Actinic keratosis; Translations: [Actinic keratosis]01-01-2025 EpisodicOther skin disorders (2 sources)Papule of skin; Translations: [Other skin changes]57-87-9829Kwhixjay Other upper respiratory disease (1 source)Nasal congestion; Translations: [Nasal congestion]40-11-3194Ezdkxlab Other upper respiratory infections (4 sources)Viral upper respiratory tract infection; Translations: [Acute upper respiratory infection, unspecified]90-09-0032KiqgfrsaGalckmwx codes; unclassified (20 sources)Hypersomnia; Translations: [Hypersomnia, unspecified]Onset: 139813-03-2191GkzpzhaDqeqgatk codes; unclassified (6 sources)Antibiotic prophylaxis indicated; Translations: [Antibiotic prophylaxis for dental procedure indicated due to prior joint replacement] EpisodicResidual codes; unclassified (6 sources)Insomnia; Translations: [Insomnia, unspecified]40-15-9675Gsbkxulb Residual codes; unclassified (2 sources)Flushing; Translations: [Flushing]75-40-0145YdamjgguLobzogfyghp; intervertebral disc disorders; other back problems (20 sources)Lumbosacral spondylosis without myelopathy; Translations: [Spondylosis without myelopathy or radiculopathy, lumbosacral region]Onset: 281679-85-9025RmjbsxdVpthoxevnuog (2 sources)CONTACT W/AND (SUSP) EXPOS COVID-19; Translations: [CONTACT W/AND (SUSP) EXPOS COVID-19]Onset: 24-75-5431Yzzcbmnmpuas (1 source)COUGH, UNSPECIFIED; Translations: [COUGH, UNSPECIFIED]Onset: 77-29-5083Vkmvrhpinpwb (4 sources)Asymptomatic microscopic wetsdssun25-93-3185Uckgvhzahaxj (20 sources)Patient on antidepressant monitoring planOnset: 904880-78-5675 Unclassified (1 source)Spinal stenosis of lumbar region with neurogenic claudication [M48.062]Onset: 71-22-3553Aiytcjv tract infections (20 sources)Chronic cystitis; Translations: [Other chronic cystitis without hematuria]Onset: 65-93-4878TxettznWlqmb infection (1 source)COVID-19; Translations: [COVID-19]Onset: 06-24-2021 Past or Other Problems Problem ClassificationProblemDateDocumented DateEpisodic/ChronicCalculus of urinary tract (20 sources)Kidney stone; Translations: [Calculus of kidney]Onset: 05-09-2017 64-00-3963CnqgflofE Codes: Fall (1 source)Fall on same level from slipping, tripping and stumbling with subsequent striking against unspecified object, initial encounter; Translations: [FALL SAME LVL SLIP STRK UNS OBJ INT]Onset: 78-09-8431VsuxthfiYufoowjekjddp symptoms and ill-defined conditions (20 sources)Microscopic hematuria; Translations: [Asymptomatic microscopic hematuria]Onset: 01-71-4405EspqoszuBkqa disorders (20 sources)Mood disordersOnset: 03-13-2024 Resolved: Open wounds of head; neck; and trunk (4 sources)Laceration without foreign body of other part of head, initial encounter; Translations: [LAC W/O FBOTH PART HEAD INIT ENC]Onset: 08-25-2021 EpisodicOsteoarthritis (2 sources)Osteoarthritis of left knee joint; Translations: [Primary osteoarthritis of left knee]Other circulatory disease (20 sources)Elevated blood pressure; Translations: [Elevated blood-pressure reading, without diagnosis of hypertension]Onset: 169567-39-8333Mfpbkzig Other diseases of bladder and urethra (20 sources)Urethral stricture; Translations: [Unspecified urethral stricture, female]Onset: 80-76-1148RutigqowGtkev gastrointestinal disorders (1 source)Constipation, unspecifiedOnset: 07-27-2021 Resolved: 99-18-2994SgsmlfshXeqey gastrointestinal disorders (20 sources)Slow transit constipation; Translations: [Slow transit constipation] Onset: 02-06-2020 Resolved: 477560-78-6063FqyerjopSmgqi non-traumatic joint disorders (20 sources)Hip pain; Translations: [Pain in joint, pelvic region and thigh] Onset: 648168-89-9307BrrsczlyUqoxa non-traumatic joint disorders (2 sources)Knee pain; Translations: [Right knee pain]EpisodicOther nutritional; endocrine; and metabolic disorders (20 sources)Overweight in adulthood with body mass index of 25 or more but less than 30; Translations: [Body mass index (BMI) 28.0-28.9, adult]Onset: 11-11-2022 54-64-5300OjeortskRjhoz screening for suspected conditions (not mental disorders or infectious disease) (20 sources)Mammography abnormal; Translations: [Other abnormal and inconclusive findings on diagnostic imagingof breast]Onset: 837926-12-7123Mltvqqkr Residual codes; unclassified (20 sources)Amnesia; Translations: [Other amnesia]Onset: 01-08-2021 Resolved: 132740-31-4613PxrwxprsVtmucxfz codes; unclassified (2 sources)Antibiotic prophylaxis indicated; Translations: [Antibiotic prophylaxis for dental procedure indicated due to prior joint replacement] Spondylosis; intervertebral disc disorders; other back problems (20 sources)Cervicalgia; Translations: [Backache]Onset: EpisodicUnclassified (2 sources)Patient encounter status; Translations: [Aftercare following left knee joint replacement surgery]Unclassified (1 source)CONTACT W/AND (SUSP) EXPOS COVID-19; Translations: [CONTACT W/AND (SUSP) EXPOS COVID-19]Onset: 45-39-5877Sqspuldiascz (1 source)Low back pain, unspecified M54.50Unclassified (2 sources)Cyst of joint of left sgzd45-96-9703RJZRQQC: Highlighted row has not occurred!Residual codes; unclassified (10 sources)DiseaseEpisodic Results Test NameValueInterpretationReference RangeFacilityAmbulatory Visit Summaryon 42-35-2380Cimujhbngs Visit SummaryAmbulatory Visit Summary KARLA RABAGO :1950 Visit Date:04/15/2025 Ambulatory Visit Instructions Your Diagnosis Chronic cystitis Asymptomatic microscopic hematuria Tests Performed US Renal -- Results Pending -- Please visit your patient portal for your results or contact your primary care physician. Your Care Team Attending Physician - ITALO RENTERIA, Regino Driscoll Primary Care Physician - MEENA RENTERIA, GENNA Christie This Is Your Medications List ciprofloxacin (Cipro 500 mg Tab) estradiol topical (Estrace 0.1 mg/g Cream) Contact prescribing physician if questions or concerns alendronate (Fosamax 70 mg Tab) amoxicillin-clavulanate (amoxicillin-clavulanate 500 mg-125 mg Tab) cycloSPORINE ophthalmic (Restasis) multivitamin (Multi Vitamin+) verapamil (verapamil 80 mg Tab) Procedures Performed Cystourethroscopy with dilation of urethral stricture (10/15/2013), Knee replacement (2009), section, Knee replacement, Rotator cuff repair. Discharge Vitals Temperature (Temporal Artery) 37 ???C Heart Rate (Peripheral) 71 Respiratory Rate 16 Blood Pressure 130/70 Height 157 cm Height 62 in Weight 67 kg Weight 147.71 lb BMI 27.18 What to do next You Need to Schedule the Following Appointments Follow Up with ITALO RENTERIA, NIKOLAS Kelly When: Where: [facility] [address], [place] [address]- Medications What How Much When Instructions New ciprofloxacin (Cipro 500 mg Tab) 1 Tablets By Mouth As Directed Take one tab the day before theprocedure. Then take the 2nd tab after the procedure has been completed. Pickup at [facility] Changed estradiol topical (Estrace 0.1 mg/ g Cream) 1 Gram Vaginal Tuesday & Tuesday Duration: 90Days 0.5gm 2x/ week Pickup at [facility] Unchanged alendronate (Fosamax 70 mg Tab) By Mouth Every week Contact prescribing physician if questions or concerns Unchanged amoxicillin-clavulanate (amoxicillin-clavulanate 500 mg-125 mg Tab) 1 Tablets Contact prescribing physician if questions or concerns Unchanged cycloSPORINE ophthalmic (Restasis) 1 Drops Both eyes Every 12 hours Contact prescribing physician if questions or concerns Unchanged multivitamin (Multi Vitamin+) Every day Contact prescribing physician if questions or concerns Unchanged verapamil (verapamil 80 mg Tab) 1 Tablets By Mouth Every day Contact prescribing physician if questions or concerns Pharmacy Information [facility] [address] [facility] [place] [phone] [facility]: [address] [place] [id number] [phone] Allergies lisinopril (Cough) Problems Ongoing - Any problem that you are currently receiving treatment for. Asymptomatic microscopic hematuria BMI 28.0-28.9,adult Bowel trouble Chronic cystitis Stricture of female urethra Historical - Any problem that you are no longer receiving treatment for. Back pain Microscopic hematuria Osteoporosis Urinary frequency Urinary urgency Patient Survey You may receive a survey via text or e-mail asking about your office visit. Please share your experience with us by completing your survey. We appreciate your feedback and thank you for choosing us for your care. Education Materials Cystoscopy Cystoscopy is a procedure that is used to help diagnose and sometimes treat conditions that affect the lower urinary tract. The lower urinary tract includes the bladder and the urethra. The urethra is the tube that drains urine from the bladder. Cystoscopy is done using a thin, tube-shaped instrument with a light and camera at the end (cystoscope). The cystoscope may be hard or flexible, depending on the goal of the procedure. The cystoscope is inserted through the urethra, into the bladder. Cystoscopy may be recommended if you have: ??? Urinary tract infections that keep coming back. ??? Blood in the urine (hematuria). ??? An inability to control when you urinate (urinary incontinence) or an overactive bladder. ??? Unusual cells found in a urine sample. ??? A blockage in the urethra, such as a urinary stone. ??? Painful urination. ??? An abnormality in the bladder found during an intravenous pyelogram (IVP) or CT scan. Cystoscopy may also be done to remove a sample of tissue to be examined under a microscope (biopsy). Tell a health care provider about: ??? Any allergies you have. ??? All medicines you are taking, including vitamins, herbs, eye drops, creams, and vicd-avv-mrbrlce medicines. ??? Any problems you or family members have had with anesthetic medicines. ??? Any blood disorders you have. ??? Any surgeries you have had. ??? Any medical conditions you have. ??? Whether you are or may be . What are the risks? Generally, this is a safe procedure. However, problems may occur, including: ??? (more content not included)...[facility] Office/Clinic Noteon 62-54-4080Pcolrfn Office/Clinic NoteUrology Office/Clinic Note Chief Complaint 2 year f/u HPI Staff Pt is a 75 year old female here for a 2 year follow up Previous DX: chronic cystitis, stricture of female urethra, asymptomatic microscopic hematuria, bowel trouble *estrace cream 0.5 gm 2x weekly S/P cysto/UD 10/2013 Pt denies all urinary concerns at this time. History of Present Illness Tests reviewed: UA I have reviewed the previous health record information and history for this patient from Dr. Puckett. I have reviewed and verified the staff HPI to be accurate for this encounter. Review of Systems PHQ Score Initial Depression Screen Score: 0 SCORE ROS - Provider Constitutional: denies weight loss, denies hot flashes. Eyes: denies eye problems. Gastrointestinal: denies nausea, denies vomiting. Cardiovascular: denies chest pain or angina. Integumentary: no dryness Musculoskeletal: denies musculoskeletal symptoms. ENMT: denies otolaryngeal symptoms. Respiratory: no shortness of breath. Heme/Lymph: denies easy bleeding tendency, denies easy bruising tendency. Psychiatric: no confusion, no anxiety. Genitourinary: See HPI. Physical Exam Vitals & Measurements T: 37 ???C(Temporal Artery) HR: 71(Peripheral) RR: 16 BP: 130/70 HT: 157 cm HT: 62 in WT: 67 kg WT: 147.71 lb BMI: 27.18 General Appearance: alert, no distress, well nourished, well developed adult. Assessment/Plan 1. Chronic cystitis (N30.20: Other chronic cystitis without hematuria) Hx of. Using Estrace cream, around a blueberry size, 2/wk, applying vaginally. Recommended cont estrogen cream as No UTIs since prior OV. Recently started on Augmentin for cold. -Cont estrace cream, refill sent to [facility] 2. Asymptomatic microscopic hematuria (R31.21: Asymptomatic microscopic hematuria) UA shows moderate blood wo signs of infection. Denies gross hematuria. Hx of cysto/UD, CT in 2013 (per [facility]). Since it has been over a decade. Recommended repeating hematuria workup with cysto forlower tract visualization and UMA for upper urinary tract evaluation. Pt agreeable. Does not feel she will need dilated. -Schedule UMA -Will schedule cysto, possible UD. The risks and benefits for cystoscopy have been discussed. The risks include bleeding, infection, and irritation of the bladder and urinary channel, among others. The patient, after being informed of procedural details and after questions have been answered, wishes to proceed. Full informed consent has been obtained. Will order Local anesthesia. Prophylactic abxsent to DM. Follow-up With When Contact Information ITALO RENTERIA, Regino Driscoll, URL [facility] [address], [place] [address]- Additional Instructions: -Schedule UMA -Will schedule cysto, possible UD Patient Education Cystoscopy I, Rita Mercer, personally scribed for Dr. Puckett on 04/15/2025 10:14:03. . Documentation recorded by the scribe, Rita Mercer, accurately reflects the services(s) I performed and decisions made by me. Authenticated by Dr. Puckett on 04/15/2025 10:15:43. Problem List/Past Medical History Ongoing Asymptomatic microscopic hematuria BMI 28.0-28.9,adult Bowel trouble Chronic cystitis Stricture of female urethra Historical Back pain Microscopic hematuria Osteoporosis Urinary frequency Urinary urgency Procedure/Surgical History Cystourethroscopy with dilation of urethral stricture (10/15/2013), Knee replacement (2009), section, Knee replacement, Rotator cuff repair. Medications amoxicillin-clavulanate 500 mg-125 mg Tab, 1 tab(s) Estrace 0.1 mg/g Cream, 1 gm, Vaginal, MonFri, 5 refills Fosamax 70 mg Tab, Oral, qWeek Multi Vitamin+, Daily Restasis, 1 drop(s), Eye-Both, q12hr verapamil 80 mg Tab, 80 mg= 1 tab(s), Oral, Daily Allergies lisinopril (Cough) Social History Alcohol Never., 04/14/2025 Substance Abuse - Denies Substance Abuse, 03/14/2019 Never., 04/14/2025 Tobacco - Denies Tobacco Use, 03/23/2019 Never (less than 100 in lifetime) Tobacco Use:., 04/14/2025 Never (less than 100 in lifetime) Tobacco Use:., 03/14/2019 Family History Dementia: Mother. Diabetes mellitus type 2: Mother. Heart failure: Father. Immunizations Vaccine Date Status SARS-CoV-2 (COVID-19) mRNA BNT-162b2 vax 08/28/2020 Recorded SARS-CoV-2 (COVID-19) mRNA BNT-162b2 vax 08/07/2020 Recorded influenza virus vaccine, inactivated 03/25/2020 Recorded Lab Results Ambulatory Point of Care Results Bilirubin Urine Dipstick: Negative (04/15/25 09:52:00) Blood Urine Dipstick: 2+ Moderate (04/15/25 09:52:00) Glucose Urine Dipstick: Negative (04/15/25 09:52:00) Ketones Urine Dipstick: Trace - 5 mg/dl (04/15/25 09:52:00) Leukocytes Urine Dipstick: Negative (04/15/25 09:52:00) Nitrite Urine Dipstick: Negative (04/15/25 09:52:00) Protein Urine Dipstick: Negative (04/15/25 09:52:00) Specific Loop Urine Dipstick: >=1.030 (04/15/25 09:52: (more content not included)...[facility] HospitalComment on above:Result Comment: Electronically Signed By: Regino PUCKETT MD\.br\Date and Time Signed: 04/15/25 10:15 EST\.br\Electronically Co-Signed By: Rita Mercer\.br\Date and Time Co-Signed: 04/15/25 10:14 ESTAuditory function testson 01-28-2025 Bilateral Mild to moderate sensorineural hearing loss [facility] Panel Informationon [id number] HealthcareXR Hip - right 3 Viewson [id number] Result: AP and Lateral Right hip: AP and lateral of right hip showed acceptable position and alignment of right total hip arthroplasty. There was no evidence of loosening of the acetabular cup or femoral stem. Femoral head was well centered in the acetabular liner without evidence of asymmetric or accelerated wear. There was no gross evidence of fracture and/or dislocation. Impression: Unremarkable right total hip arthroplasty. [facility] HealthcareRadiology Study observation (narrative)[facility] HospitalUrinalysis macro (dipstick) panel (U)on [id number], UA NegativeNegative - 4(70) +++ mg/dLNOKS HealthcareBlood, UAPositiveNegative - 50 Asher/mcLNOKS HealthcareClarity, UAClearNOMS HealthcareColor, UAYellowNOMS HealthcareGlucose, UANegativeNegative - 2000(110) ++++ mg/dLMOUNTAINSTAR HEALTHCARE Healthcare Interpretation and review of laboratory resultsAbnormalNOMS HealthcareKetones, UANegativeNegative - 160(16) ++++ mg/dLNOMS HealthcareLeukocytes, UAPositive Negative - 500+++ Chester/mcLNOMS HealthcareNitrite, UANegativeNegative - Positive NOMS HealthcarepH, UA75 - 9NOMS HealthcareProtein, UAPositiveNegative - 2000(20) ++++ mg/dLNOMS HealthcareSpec Grav, UA1.011 - 1.03NOMS HealthcareUrobilinogen, UA1.00.2 - 12 mg/dLNOMS HealthcareNOMS HealthcareLon 07-19-2024 Specimen: [id number] Received: 07/20/24 Status: RICK Chase Num: [id number] Spec Type: Surgical Subm Dr: Scot Sandoval Jr, DO Tissues: A Skin Cyst (GANGLION CYST) Procedures: Inder MCCARTHY/Brendan L3 Age/ Patient Sex Location Account Attending Physician Karla Rabago 74/Alon ALVARADO [id number] Scot Sandoval Jr, DO SPEC NUM: [id number] RECD: 07/20/24 STATUS: RICK CHASE NUM: [id number] RAVEN: 07/19/[address]: Scot Sandoval Jr, DO ENTERED: 07/20/[address] [facility] [address]: SPEC TYPE: Surgical DEPT: S ORDERED: HE, Gross/Micro L3 ORDERED: HE, Gross/Micro L3 Pathological Diagnosis Ganglion cyst/mass, left thumb: ? Ganglion cyst. Clinical Information Ganglion cyst/mass left thumb carpometacarpal Gross Description A. Received in formalin labeled with the patient's name, date of and ganglion cyst mass left thumb carpometacarpal is a 0.7 x 0.6 x 0.2 cm pale-penny membranous tissue fragment. The specimen is bisected and entirely submitted in A1. TW CPT Codes 74109 Specimen: [id number] Received: 07/20/24 Status: RICK Chsae Num: [id number] Spec Type: Surgical Subm Dr: Scot Sandoval Jr, DO Tissues: A Skin Cyst (GANGLION CYST) Procedures: HE, Gross/Micro L3 Patient: Karla Rabago [id number] (Continued) Signed (signature on file) Scot Garsia MD 07/23/24 1606 NormalThe [facility]hrmc Physician GroupXR Finger - left 2 Viewson 38-44-1231Xlqqfwu Result: Multiple views of left thumb showed significant degenerative erosive arthritis to the CMC joint of the left thumb with near complete obliteration of the normal anatomy. There was no acute bony process including but not limited to fracture and/or dislocation. Impression: Severe degenerative joint disease CMC joint left thumbKindred Hospital - GreensboroRadiology Study observation (narrative)[facility] HospitalXR CHEST 2 VIEWS on 34-82-9616UT CHEST 2 VIEWSExam: XR CHEST 2 VIEWS Reason for study: Cough for two weeks Comparison: None FINDINGS: Cardiomediastinal silhouette is normal. There are coarse thickened bronchial markings in the perihilar region bilaterally. No consolidation or pleural effusion. Osseous thorax is grossly intact. IMPRESSION: Perihilar bronchitis. Dictated on: 06/15/2024 7:52 AM This report has been electronically signed and approved by the interpreting Radiologist.NormalNot AvailableLaboratory - Microbiology and Antimicrobial susceptibilityon 59-25-3931ZTMH-CoV-2 (COVID-19) RNA AIDAN+probe Ql (Unsp spec) NegativeKindred Hospital Panel Informationon 42-58-9585IJW ANegativeNOMS HealthcareFLU BNegativeNOKS HealthcareInterpretation and review of laboratory resultsNormalEdgerton Hospital and Health Services Panel Informationon 04-03-2024 GUANAKO Carrera 04/03/2024 12:12 PM L Inj/Asp: R greater trochanteric bursa on 04/03/2024 11:59 AM Indications: pain Details: 21 G needle, lateral approach Medications: 40 mg methylPREDNISolone acetate 40 MG/ML Outcome: tolerated well, no immediate complications UTILIZING ASEPTIC TECHNIQUE PT GIVEN INJECTION IN RIGHT HIP BURSA NEUROVASC INTACT S/P INJ, TOLERATED WELL Procedure, treatment alternatives, risks and benefits explained, specific risks discussed. Consent was given by the patient. Patient was prepped and draped in the usual sterile fashion. [facility] - GreensboroRadiology Study observation (narrative)[facility] Hip - right 3 Viewson [id number] Result: AP and Lateral Right hip: AP and lateral of right hip showed acceptable position and alignment of right total hip arthroplasty. There was no evidence of loosening of the acetabular cup or femoral stem. Femoral head was well centered in the acetabular liner without evidence of asymmetric or accelerated wear. There was no gross evidence of fracture and/or dislocation. Mild degenerative changes to SI joint and visualized portion of lower lumbar spine Impression: Unremarkable right total hip arthroplasty. [facility] Lumbar spine 2 or 3 Viewson [id number] HealthcareImaging Result: AP and Lateral Lumbar spine: Minimal degenerative changes with preserved disc spaces through lumbar vertebrae. Mod sclerotic changes at facet joint L4 and L5. Preservation of lumbar lordosis and alignment. No acute fracture. Impression: minimal degenerative changes lumbar spineSt. Joseph's [facility] [place] MANNY PERF SPECT REST STRon 63-43-6762[place] [id number] Nuclear Medicine Report Signed Patient: KARLA RABAGO MR#: [id number] : 1950 Acct:[id number] Age/Sex: 73 / F ADM Date: 08/03/23 Loc: [place] Attending Dr: GENNA ROBLEDO Ordering Physician: GENNA ROBLEDO Date of Service: 08/03/23 Procedure(s): NM manny perf SPECT rest str Accession Number(s): [id number] cc: GENNA ROBLEDO Patient Name: KARLA RABAGO MR#: [id number] : 1950 Exam Date: 08/03/2023 Ordering Doctor: DR GENNA ROBLEDO M.D. RADIOLOGY REPORT PROCEDURE: NM MANNY PERF SPECT REST STR COMPARISON: None. INDICATIONS: [...] normal and the exercise portion of the study was normal per attending physician Dr. Clayton . For more details please see separate cardiac stress test report. FINDINGS: QUALITY OF STUDY: Excellent. PERFUSION DEFECT: None. LOCATION: N/A SIZE: N/A. SEVERITY: N/A. TYPE: N/A. WALL MOTION: Normal. LV SIZE: Normal. 60 mL. TID / TCD: None; 0.8 LVEF: Normal. Calculated EF 76%. SUMMARY: Myocardial perfusion imaging study is NORMAL. CONCLUSION: 1. Normal nuclear medicine myocardial perfusion scan. Dictated by: Cristina Spear M.D. on 08/04/2023 at 15:40 Approved by: Cristina Spear M.D. on 08/04/2023 at 15:41 Dictated By: Cristina Spear M.D. Signed By: 08/04/23 1542 DD/ 1541 TD/TT: Crystallography Teacher:TBHRadiology, Radiologist, - 08/04/2023 [place] [address] Nuclear Medicine Report Signed Patient: KARLA RABAGO MR#: [id number] : 1950 Acct:[id number] Age/Sex: 73 / F ADM Date: 08/03/23 Loc: [place] Attending Dr: GENNA ROBLEDO Ordering Physician: GENNA ROBLEDO Date of Service: 08/03/23 Procedure(s): NM manny perf SPECT rest str Accession Number(s): [id number] cc: GENNA ROBLEDO Patient Name: KARLA RABAGO MR#: [id number] : 1950 Exam Date: 08/03/2023 Ordering Doctor: DR GENNA ROBLEDO M.D. RADIOLOGY REPORT PROCEDURE: NM MANNY PERF SPECT REST STR COMPARISON: None. INDICATIONS: [...] normal and the exercise portion of the study was normal per attending physician Dr. Clayton . For more details please see separate cardiac stress test report. FINDINGS: QUALITY OF STUDY: Excellent. PERFUSION DEFECT: None. LOCATION: N/A SIZE: N/A. SEVERITY: N/A. TYPE: N/A. WALL MOTION: Normal. LV SIZE: Normal. 60 mL. TID / TCD: None; 0.8 LVEF: Normal. Calculated EF 76%. SUMMARY: Myocardial perfusion imaging study is NORMAL. CONCLUSION: 1. Normal nuclear medicine myocardial perfusion scan. Dictated by: Cristina Spear M.D. on 08/04/2023 at 15:40 Approved by: Cristina Spear M.D. on 08/04/2023 at 15:41 Dictated By: Cristina Spear M.D. Signed By: 08/04/23 1542 DD/ 1541 TD/TT: Crystallography Teacher: MAYO Flower HospitalRadiology Study observation (narrative)[facility] MANNY PERF SPECT REST STROrdered By: Radiologist Radiology on 62-97-6385EMNTBates County Memorial Hospital Work Phone: PT Coag (Bld) [Time]on 14-34-6508AHI Coag (PPP) [Relative time]1.0 {INR}0.8 - 1.1NOMS HealthcareComment on above:PERFORMED AT [address] [place], [place] [address]RL Coag (PPP) [Time]11.9 sNOMS HealthcareComment on above:NEW REFERENCE RANGEBates County Memorial Hospital Urinalysis - AUTOMATEDon 17-38-1719Mtitwkbykt (U)clearStageBloc [employer] Other Bilirubin Ql (U)Expedit.usStageBloc [employer] Other Color (U)yellowLeachville [employer] Other Glucose Ql (U)Expedit.usLeachville [employer] Other Hemoglobin Ql (U)moderateLeachville [employer] Other Ketones Ql (U)Expedit.usLeachville [employer] Other Leukocyte esterase Test strip Ql (U)Expedit.usStageBloc [employer] Other Nitrite Ql (U)Expedit.usLeachville [employer] Other pH (U)5.5 [pH][place] [employer] Other Protein Ql (U)Expedit.usStageBloc [employer] Other Specific gravity (U) [Rel density]1.025Nocedar county memorial hospital [employer] Other Urobilinogen (U) [Mass/Vol]0.2 mg/dLLeachville [employer] Other Urinalysis - AUTOMATEDLeachville [employer] Other XR Tookitaki 52-06-0056RQ [facility] [employer] Other XR [facility] [employer] Other XR RenéSim [facility] [place]eg[place] Other xr [place] [address]Ejxsp [employer] Other xr KUBXRay [facility] [place]eg[place] Other xr KUBSUniversity of Missouri Health Care [employer] Other xr KUBPatient: Karla Rabago MR#: [id number] [employer] Other xr GFX28Srelm [employer] Other xr KUBDOB: 1950 Acct:[id number] [employer] Other xr KUBAge/Sex: 73 / F ADM Date: 05/14/23[place] [employer] Other xr KUBLoc: XDUCLY Room: Type: [facility] [employer] Other xr KUBAttending Dr: Wanda Pierre [facility] [employer] Other xr KUBCopies to: Wanda Pierre [employer] Other xr KUBOrdering Provider: Wanda Pierre Joosy Other xr KUBDate of Service: 05/14/23[place] [employer] Other xr KUBAccession #: ([id number]) XR/XR KUB: Flank pain [place] [employer] Other xr KUBKUB:[email or web address] Other xr KUBCOMPARISON: 09/20/2018[place] [employer] Other xr KUBCLINICAL DATA: Low back pain and urinary tract symptoms.[email or web address] Other xr KUBSupine view of the abdomen and pelvis was obtained. There is air within the stomach. There is [employer] Other xr KUBand stool within the colon. No dilated small bowel is identified. The kidneys are partiallyNocedar county memorial hospital [employer] Other xr KUBobscured. There are no obvious radiopaque renal or ureteral stones. There are stable pelvicSaint Louis University Health Science CenterInfobionics Other xr KUBcalcifications, possibly vascular. There are degenerative changes at the spine, SI joints and hips.[email or web address] Other xr KUBORDER #: [id number] XR/XR KUSaint Mary's Health Center [employer] Other xr KUBIMPRESSION:[email or web address] Other xr KUBNO ACUTE FINDINGS.[email or web address] Other xr KUBImpression dictated by: Rosalva Zuniga M.D.05/14/2023 12:51 PMNdeaconess incarnate word health system [employer] Other xr KUBDictation Location: [id number]-[place]-91[place]waah [employer] Other xr KUBTranscribed By: MADYSON 05/14/23 [facility] HospitalOcuCure Therapeutics Other xr KUBDictated By: Rosalva Zuniga MD 05/14/23 1249 [email or web address] Other xr KUBSigned By:[email or web address] Other xr KUB107/15/22 [facility] Memorial HospitalOcuCure Therapeutics Other xr HIP RT INJon 48-14-4454YF HIP RT INJEXAMINATION: XR HIP RT INJ HISTORY: Osteoarthritis COMPARISON: No relevant comparison available. FLUOROSCOPY TIME: Fluoro time measures 0.5 minutes and 4 images were obtained. TECHNIQUE: A joint injection was performed in the usual sterile manner after obtaining informed consent. Standard level fluoroscopic mode of operation utilized. FINDINGS: JOINT: Right hip. NEEDLE: 22 gauge, 3.5 spinal needle. MEDICATION: 2cc buffered 1% lidocaine for subcutaneous anesthesia 2cc Omnipaque-300 iodinated contrast to visualize the joint space Mixture of Kenalog 40 mg, 0.5% Bupivacaine 2 mL and Omnipaque 300 7mL was injected into the joint space. TECHNIQUE: Anterior approach with prior localization of the femoral artery. A single stick was successful in gaining access to the joint space. CLINICAL: Decreased right hip pain following the injection (7/10 preinjection; 4/10 post injection). COMPLICATIONS: None. OTHER: Negative. IMPRESSION: 1. Successful right hip injection with decrease in patient's pain following the injection. Electronically authenticated by: CRISTINA SPEAR Date: 2022-03-29 15:04[facility] Private HospitalXR Foot Complete Left*on 91-94-7590QT Foot Complete Left* HISTORY: Heel pain x 1 week FINDINGS: Mild hallux valgus status post bunionectomy. No acute fracture or active erosive changes. No cortical or stress fracture. Mild 1st MTP arthritis. Small plantar calcaneal spur. Unremarkable subtalar joint and Bohler's angle given suboptimal positioning. IMPRESSION: 1. Small plantar calcaneal spur, no fracture. Report reported and signed by Marcus Sheth on 03/16/2022 1442NormalNorthonorhealth scottsdale shea medical centern [facility] SpecialistDiagnostic Mammogram, Unilateral Right w/Carrillo (3D)on 83-99-3880Xnznfmkszz Mammogram, Unilateral Right w/Carrillo (3D)COMPARISON: Dating back to February 03, 2022. TECHNIQUE: 2D and 3D Tomosynthesis of the right breast was performed. FINDINGS: On these spot compression views well circumscribed equal density masses consistent with the several cysts identified on ultrasound persists. Well defined margins, no significant parenchymal distortion. IMPRESSION: BI-RADS 2- Benign Mammogram EXAM: RIGHT BREAST ULTRASOUND FINDINGS: Sonographic evaluation of the right breast performed on the same day of right breast mammogram and previous mammogram of February 03, 2022. Three simple cysts likely account for the mammogram findings, two located 6.0 cm from the nipple, 11-12 o'clock, 5 x 5 x 4 mm, 8 x 7 x 3 mm. One is located within the periareolar region, 12 o'clock, 1.0 cm from the nipple 14 x 17 x 9 mm. No suspicious nodule or mass. IMPRESSION: BI-RADS 2- Benign Board Certified Radiologist. Accredited by the ACR and FDA. MAMMOGRAPHY IS VERY IMPORTANT TO YOUR HEALTH. THE CURRENT [employer] AND N[employer] COMPREHENSIVE CANC[employer] NETWORK GUIDELINES RECOMMENDS ANNUAL MAMMOGRAPHY BEGINNING AT AGE 40 THIS FACILITY USES A REMINDER SYSTEM TO ENSURE ALL PATIENTS RECEIVE REMINDER NOTIFICATIONS AT THE APPROPRIATE TIME BASED ON THE RECOMMENDATIONS OF THIS EXAM. Report reported and signed by Marcus Sheth on 02/09/2022 1117NormalUcla Medical Center, Santa Monican Waterbury HospitalUS Breast Limited, Righton 85-68-9310IY Breast Limited, RightPlease see right breast mammography report. Report reported and signed by Marcus Sheth on 02/09/2022 1118NormalOhiohealth Pickerington Methodist HospitalXR Bone Density (DEXA)on 04-42-4566TI Bone Density (DEXA) EXAM: Dual Femur Bone Density FINDINGS: Dual Femur bone density obtained with a [employer] whole body system: DqfyaoLJQThbbr-InxsnXdq-Cfyjmpf Total(g/cm2)(%)T-Score(%)Z-Score Mean0.84580-8.22371.7 Impression: The mean BMD and corresponding T-score indicated above indicate Low Bone Mass (Osteopenia) and places the patient at a mild to moderate increased risk for fracture. There may be a future risk of developing osteoporosis. EXAM: AP Spine Bone Density FINDINGS: AP Spine bone density obtained with a [employer] whole body system: HcedbhTIZXvvvy-AsnsxKgl-Acvtmsu Total(g/cm2)(%)T-Score(%)Z-Score L1-L40.15369-1.485-1.1 Impression: The mean BMD and corresponding T-score indicated above indicate Osteoporosis and thus places the patient at a significantly increased risk for fracture. Comment: The T-score is the primary focus of the interpretation of a patient???s bone mineral density measurement. The T-score is the number of standard deviations an individual is above or below the mean value for a young female having normal bone mass. The WHO defines osteoporosis based on the T-score value??? +1.0 to ???0.9: Normal bone mass -1.0 to -2.5: Osteopenia and thus may be at future risk of fracture -2.6 to ???5: Osteoporosis and ???at significantly increased risk of fracture??? A Z-Score of -2.0 or lower is defined as ???below the expected range for age??? and a Z-Score above -2.0 is ???within the expected range for age.??? Osteoporosis cannot be diagnosed in men under the age of 50 on the basis of BMD alone. Per 2019 ISCD guidelines, Z-Scores (not T-Scores) are preferred when reporting data in premenopausal females and males less than 50 years of age. Report reported and signed by Marcus Sheth on 02/09/2022 1012NoKettering Health Behavioral Medical CenterCREENING MAMMOGRAM W/CARRILLO, BILATERAL*on 02-03-2022 SCREENING MAMMOGRAM W/CARRILLO, BILATERAL*COMPARISON: December 17, 2020 (mammogram), December 18, 2020 (right breast ultrasound) TECHNIQUE: 2D and 3D Tomosynthesis of the right and left breasts was performed. FINDINGS: Breast composition demonstrates scattered fibroglandular densities. LEFT BREAST: Stable, unremarkable. Less conspicuous central nodular fibroglandular tissue, presumed prior cyst formation. No suspicious microcalcifications, asymmetry, architectural distortion, or associated features are present. RIGHT BREAST: Increased size central inner breast equal density mass, 1.5 x 1.5 cm mid depth 5.5 cm from the nipple, probable increased size of cyst aggregate seen on the prior right breast ultrasound. Recommend ultrasound to confirm this finding. New 5 x 12 mm upper outer quadrant focal asymmetry, 6 cm from the nipple. No additional suspicious microcalcifications or mass. No significant axillary lymphadenopathy. IMPRESSION: BIRADS 0: Additional imaging evaluation needed. Recommend breast ultrasound central, upper outer quadrants mid depth for further characterization, probable cyst formation, and spot compression views if benign cyst formation does not account for these findings. Board Certified Radiologist. Accredited by the ACR and FDA. MAMMOGRAPHY IS VERY IMPORTANT TO YOUR HEALTH. THE CURRENT [employer] AND N[employer] COMPREHENSIVE CANCER NETWORK GUIDELINES RECOMMENDS ANNUAL MAMMOGRAPHY BEGINNING AT AGE 40 THIS FACILITY USES A REMINDER SYSTEM TO ENSURE ALL PATIENTS RECEIVE REMINDER NOTIFICATIONS AT THE APPROPRIATE TIME BASED ON THE RECOMMENDATIONS OF THIS EXAM. Report reported and signed by Marcus Sheth on 02/03/2022 1059NoParkview Health Montpelier HospitalBILATERAL KNEE; 1 OR 2 VIEWSon 29-87-3793CPXECREGP KNEE; 1 OR 2 VIEWSMRN: [id number] Patient Name: KARLA RABAGO STUDY: Bilateral knees, 3 views each. INDICATION: AP LAT STD MERCHANT M25.561: Right knee pain M17.12: Primary osteoarthritis of left knee. COMPARISON: Right knee radiographs 02/12/2016 and left knee radiographs 05/31/2019. ACCESSION NUMBER(S): [id number] ORDERING CLINICIAN: CATHY ANAYA FINDINGS: Status post bilateral total knee arthroplasties. Hardware is intact without perihardware fractures or lucencies. No acute fracture or malalignment. No significant knee joint effusion bilaterally. IMPRESSION: 1. Bilateral total knee arthroplasties without hardware complication. Electronically signed by: Yg GRAVESFormerly Southeastern Regional Medical CenterInitial Visit (Orthopaedic Surgery)on 05-65-4997Wvkruik Visit (Orthopaedic Surgery)Diagnoses/Problems Assessed Aftercare following left knee joint replacement surgery (V54.81,V43.65) (Z47.1,Z96.652) Provider Impressions Patient comes in the office today. She is here for follow-up evaluation of her left knee. I replaced her left knee 4 years ago. Right knee was replaced 12 years ago. Patient has chronic complaints ofvague pain over her knees. She seems to be having more spinal stenosis symptoms currently. Her legsget tired and fatigue when she walks. She has to stop doing what she is doing when this occurs. Knee exam demonstrates full extension flexion 115-120. Both knees are normally aligned ligament stability intact. X-rays demonstrate well-positioned well fixed components no signs of any problems whatsoever. I have previously recommended topical analgesics or anti-inflammatories. Patient states that she has done this without benefit. We recommended pain management which she has not done. She would like to get into pain management locally. She should talk to her primary care physician about someone for her to see. I offered to get an MRI of her back. I will defer to whoever she sees from pain management. Chief Complaint NPV BILAT KNEE PAIN Active Problems Problems Aftercare following left knee joint replacement surgery (V54.81,V43.65) (Z47.1,Z96.652) Antibiotic prophylaxis for dental procedure indicated due to prior joint replacement Left hip pain (719.45) (M25.552) Primary osteoarthritis of left knee (715.16) (M17.12) Right hip pain (719.45) (M25.551) Right knee pain (719.46) (M25.561) Family History Multiple Family Members Family history of diabetes mellitus (V18.0) (Z83.3) Family history of hypertension (V17.49) (Z82.49) Social History Problems Never a smoker Occasional alcohol use Allergies No Known Drug Allergies Recorded By: Faiza Kidd; 10/27/2017 2:01:49 PM Current Meds Medication NameInstruction Alendronate Sodium 70 MG Oral Tablet Amoxicillin 500 MG Oral TabletTAKE 4 TABLETS 1 HOUR BEFORE DENTAL APPOINTMENT. Cyclobenzaprine HCl - 5 MG Oral Tablet Cyproheptadine HCl - 4 MG Oral Tablet Disability Placardvalid 06/13/2017 thru 2022. DX M17.0 Estrace 0.1 MG/GM Vaginal Cream Hibiclens 4 % External LiquidUse as directed for preoperative shower. levoFLOXacin 500 MG Oral Tablet methylPREDNISolone 4 MG Oral Tablet Therapy PackTake as directed Mupirocin 2 % External OintmentApply intranasal twice daily for three days prior to surgery. Ondansetron 4 MG Oral Tablet Disintegrating oxyCODONE-Acetaminophen 5-325 MG Oral Tablet Prolia 60 MG/ML Subcutaneous Solution RA Aspirin EC 81 MG Oral Tablet Delayed Releasetake 1 tablet by mouth twice a day for 28 DAYS RA Col-Rite 100 MG Oral Capsuletake 1 capsule by mouth twice a day for constipation RA Loratadine 10 MG Oral Tablet Restasis 0.05 % Ophthalmic Emulsion traMADol HCl - 50 MG Oral TabletTAKE 1 TABLET EVERY 6 HOURS NEEDED FOR BREAKTHROUGH PAIN. Verapamil HCl - 80 MG Oral TabletTake 1 tablet daily Signatures Electronically signed by : Cathy Anaya MD; Nov 11 2021 12:45PM EST (Author) [facility] TouchworksXR Chest 2 Views*on 92-34-0870QB Chest 2 Views*HISTORY: Dry cough FINDINGS: No acute cardiac or pulmonary disease is identified. Small hilar calcifications are present suggesting old granulomatous disease. No worrisome mass lesions or infiltrates are seen. No pulmonary edema or pneumothorax is present. Cardiac silhouette size is normal. Skeletal structures are unremarkable. Mild thoracolumbar scoliosis. IMPRESSION: No acute disease. Report reported and signed by Marcus Sheth on 11/11/2021 1546NormalNorthonorhealth scottsdale shea medical centern [place] [facility] SpecialistXray Bilateral Knee, 1 or 2 viewson 67-63-4529TT Knee - bilateral 2 EdyhxUfnpzeRU-Unsucgbifbaw-Csqbgt 210 Work Phone: [phone]-75 PCR (CVDWESTBOROUGH BEH[facility])on 31-27-5288XCPC-CoV-2 (COVID- 19) RNA AIDAN+probe Ql (Unsp spec)DetectedCritically abnormalNOT DETECTEDThe Martin Memorial HospitalComment on above:Result Comment: This test is not yet approved or cleared by the [place] FDA. When there are no FDA-approved or cleared tests available, and other criteria are met, FDA can make tests available under an emergency access mechanism called an Emergency Use Authorization (EUA). The EUA for this test is supported by the [place] of Health and Human Service's (HHS's) declaration that circumstances exist to justify the emergency use of in vitro diagnostics for the detection and/or diagnosis of the virus that causes COVID-19. This EUA will remain in effect (meaning this test can be used) for the duration of the COVID-19 declaration justifying emergency of IVDs, unless it is terminated or revoked by FDA (after which the test may no longer be used). Performed By: #### CVDTB #### [facility] [address] [place] [address] Dr. Devyn Ramon 50-40-0862ZN Knee 3 viewsInterpreted by: LUCIANO GARCIA11/18/18 09:06MRN: [id number] Name: RABAOG KARLA STUDY: KNEE, 3 VIEWS; 11/16/2018 2:31 pm INDICATION:pain. COMPARISON:February 16, 2018 ORDERING CLINICIAN:CATHY ANAYA FINDINGS:Left total knee arthroplasty without fracture, malalignment, orsuspicious lucency. IMPRESSION:Satisfactory appearance left total knee arthroplasty.Electronically signed by: LUCIANO GARCIA 11/18/18 09:90QesylsXK-Rnclvlsthpaa-Kohtii Work Phone: XR Knee 3 viewsPlease click on the link to view the study ivplniNbqwqaSZ-Hjectaychhwn-Keujpfrg Work Phone: XR CERVICAL SPINE LIMITEDon [id number] CERVICAL SPINE LIMITEDRadiology exam is complete. No Radiologist dictation. Please follow up with ordering provider. Final resultNoSelect Medical Specialty Hospital - [facility] Vital Signs Date TimeVital SignValuePerforming BrxjsbwkhKoxuaizm31-37-1816 12:38-0500Body oaixyqplztf68.3 [degF]Aishwarya Rizzo DIGITAL BUSINESS ANALYST Work Phone: 1(057)[address] [place] [address]-05-2025 12:38-0500Diastolic blood uvxzmoym57 mm[Hg]Aishwarya Rizzo DIGITAL BUSINESS ANALYST Work Phone: 1(341)[address] [place] [address]-05-2025 12:38-0500Heart rate81 /min Aishwarya Rizzo DIGITAL BUSINESS ANALYST Work Phone: 1(879)[address] [place] [address]-05-2025 12:38-5778SlS8% (BldA) [Mass fraction]96 %Aishwarya Rizzo DIGITAL BUSINESS ANALYST Work Phone: 1(867)[address] [place] [address]-05-2025 12:38-0500Systolic blood xavitwmg199 mm[Hg]Aishwarya Rizzo DIGITAL BUSINESS ANALYST Work Phone: 1(542)[facility] [place] [address]-29-2025 12:27-0400Body mass index (BMI) [Ratio]27.07 kg/n4Aeozpsmsalina CastellanosBurr DIGITAL BUSINESS ANALYST Work Phone: 1(239)[facility] [place] [address]-29-2025 12:27-0400Body temperature 97.5 [degF]Aishwarya Burr DIGITAL BUSINESS ANALYST Work Phone: 1(550)[address] [place] [address]-29-2025 12:27-0400Body krsbtu15.13 kgChsalina MercadoBurr DIGITAL BUSINESS ANALYST Work Phone: 1(101)[facility] [place] [address]-29-2025 12:27-0400Diastolic blood iqsczghy89 mm[Hg]Aishwarya Burr DIGITAL BUSINESS ANALYST Work Phone: 1(048)[facility] [place] [address]-29-2025 12:27-0400Heart rate74 /min Aishwarya Burr DIGITAL BUSINESS ANALYST Work Phone: 1(439)[facility] [place] [address]-29-2025 12:27-9282JiZ2% (BldA) [Mass fraction]98 %Aishwarya Mercadozpatrick DIGITAL BUSINESS ANALYST Work Phone: [facility] HospitalBmcamygbpe53-32-9387 12:27-0400Systolic blood vrrkmpus439 mm[Hg]Aishwarya Mercadozpatrick DIGITAL BUSINESS ANALYST Work Phone: [facility] HospitalWkobukavgi09-33-4719 09:21-0400Body .1 cmMatthew Nienberg PA Work Phone: [facility]09-30-2025 09:21-0400Body mass index (BMI) [Ratio]24.79 kg/q7Dnvghbf Nienberg PA Work Phone: [facility] [employer] Osdwad30-43-0827 09:21-0400Body zhapqa60.59 kgMatthew Nienberg PA Work Phone: [facility]09-30-2025 09:21-0400Diastolic blood mevtfrjm46 mm[Hg]Cathy Roberson PA Work Phone: [facility]09-30-2025 09:21-0400Heart rate 70 /minMatthew Nienberg PA Work Phone: [facility] [employer] Jskhdq29-48-6039 09:21-0400 Respiratory rate14 /minMatthew Nienberg PA Work Phone: [facility]09-30-2025 09:21-2636FcU7% (BldA) [Mass fraction]98 %Cathy Roberson PA Work Phone: [facility]09-30-2025 09:21-0400Systolic blood kzrznisv320 mm[Hg]Cathy Roberson PA Work Phone: [facility]08-07-2025 08:17-0400Body vufdsd637.1 cmMatthew Nienberg PA Work Phone: [facility]08-07-2025 08:17-0400Body mass index (BMI) [Ratio]24.46 kg/m4Lyngenf Nienberg PA Work Phone: [facility]08-07-2025 08:17-0400Body mnviyr34.68 kgMatthew Nienberg PA Work Phone: [facility]08-07-2025 08:17-0400Diastolic blood voyrqnax90 mm[Hg]Cathy Roberson PA Work Phone: [facility]08-07-2025 08:17-0400Heart rate 84 /minMatthew Nienberg PA Work Phone: [facility]08-07-2025 08:17-0400 Respiratory rate18 /minMatthew Nienberg PA Work Phone: [facility]08-07-2025 08:17-4376NlW6% (BldA) [Mass fraction]99 %Cathy Roberson PA Work Phone: [facility]08-07-2025 08:17-0400Systolic blood qmbvhazo112 mm[Hg]Cathy Roberson PA Work Phone: [facility]07-22-2025 14:03-0400Body .5 cmGenna Robledo MD Work Phone: [facility] HospitalXasbsdkydp59-92-4727 14:03-0400Body mass index (BMI) [Ratio]27.47 kg/r7ZmxboshjGenna Robledo MD Work Phone: [facility] HospitalIqacwamobz67-53-4063 14:03-0400Body jvpdqi91.13 kgGenna Robledo MD Work Phone: [facility] HospitalHfbtpjerui88-76-2423 14:03-0400Diastolic blood gmlobpxq56 mm[Hg]Genna Robledo MD Work Phone: [facility] HospitalOnojadhamt18-14-1979 14:03-0400Heart rate79 /min Genna Robledo MD Work Phone: [facility] HospitalNwnjxdnugb36-76-1275 14:03-0143HaL0% (BldA) [Mass fraction]97 %Genna Rboledo MD Work Phone: [facility] HospitalVdfgetvpcv88-46-8695 14:03-0400Systolic blood mm[Hg]Genna Robledo MD Work Phone: [facility] HospitalLqfdjcqwvx14-82-4340 07:55-0400Body mass index (BMI) [Ratio]25.13 kg/c6Kdtyubb Nienberg PA Work Phone: [facility]06-26-2025 07:55-0400Body lricyc42.49 kgMatthew Nienberg PA Work Phone: [facility]06-26-2025 07:55-0400Diastolic blood dsuksbpq25 mm[Hg]Cathy Roberson PA Work Phone: [facility]06-26-2025 07:55-0400Heart rate 84 /minMatthew Nienberg PA Work Phone: [phone]06-26-2025 07:55-0400 Respiratory rate16 /minMatthew Nienberg PA Work Phone: [facility]06-26-2025 07:55-0598RyO4% (BldA) [Mass fraction]98 %Cathy Roberson PA Work Phone: [facility]06-26-2025 07:55-0400Systolic blood odjnhepe709 mm[Hg]Cathy Roberson PA Work Phone: [facility]06-10-2025 09:55-0400Body dcoeno131.5 cmGenna Robledo MD Work Phone: [facility] HospitalFzstmytstk67-96-9629 09:55-0400Body mass index (BMI) [Ratio]27.69 kg/t8KrtpxkygGenna Robledo MD Work Phone: [facility] HospitalSmogjdfhcl28-76-4120 09:55-0400Body sivaru53.67 kgGenna Robledo MD Work Phone: [facility] HospitalGabakhfhqq21-52-4064 09:55-0400Diastolic blood islsitfo48 mm[Hg]Genna Robledo MD Work Phone: 1(436)[address]06-10-2025 09:55-0400Heart rate67 /min Genna Robledo MD Work Phone: 1(187)[address] [place], [place] 7301806-10-2025 09:55-1441QkR1% (BldA) [Mass fraction]97 %Genna Robledo MD Work Phone: 1(369)[address] [place], [place] 7301806-10-2025 09:55-0400Systolic blood aaltnxhb430 mm[Hg]Genna Robledo MD Work Phone: 1(019)[address] [place], [place] 7301805-09-2025 09:49-0400Body zokorm670.5 cmGenna Robledo MD Work Phone: 1(649)[address] [place], [place] 7301805-09-2025 09:49-0400Body mass index (BMI) [Ratio]28.31 kg/u5AllnxwjqGenna Robledo MD Work Phone: 1(639)[address] [place], [place] 7301805-09-2025 09:49-0400Body congzk97.22 kgGenna Robledo MD Work Phone: 1(343)[facility] [place], [place] [address]Kznzdzpgya06-72-6401 09:49-0400Diastolic blood cutqqyzo21 mm[Hg]Genna Robledo MD Work Phone: 1(726)[address] [place], [place] 7301805-09-2025 09:49-0400Heart rate69 /min Genna Robledo MD Work Phone: 1(899)[facility] [place], [place] [address]Meldpqgglr34-88-2924 09:49-5895QcC4% (BldA) [Mass fraction]96 %Genan Robledo MD Work Phone: 1(544)[address] [place], [place] 7301805-09-2025 09:49-0400Systolic blood zntsviuj460 mm[Hg]Genna Robledo MD Work Phone: 1(634)[address] [place], [place] 7301803-28-2025 08:51-0400Body mass index (BMI) [Ratio]28.06 kg/q0IhnfzjkpGenna Robledo MD Work Phone: 1(803)[address] [place], [place] 7301803-28-2025 08:51-0400Body temperature 97.3 [degF]Genna Robledo MD Work Phone: 1(834)987-[address] [place], [place] [address]Bltxdspdnx71-02-6071 08:51-0400Body aagghl42.58 kgGenna Robledo MD Work Phone: 1(456)899-13[facility] HospitalPcrbpfftsr47-98-9498 08:51-0400Diastolic blood ueyuniyf20 mm[Hg]Genna Robledo MD Work Phone: 1(321)456-[address] [place] [address]-28-2025 08:51-0400Heart rate67 /min Genna Robledo MD Work Phone: 1(710)[address] [place] [address]-28-2025 08:51-5643IiM6% (BldA) [Mass fraction]98 %Genna Robledo MD Work Phone: 1(294)757-[address] [place], [place] [address]Qgpvygdqye18-11-9677 08:51-0400Systolic blood krdhtwba549 mm[Hg]Genna Robledo MD Work Phone: 1(841)554-[address] [place], [place] [address]Ciklnzgpec29-60-9029 12:52-0500Body mass index (BMI) [Ratio]27.84 kg/d9JotlrjutJuliette Lawson DIGITAL BUSINESS ANALYST Work Phone: 1(031)[address] [place], [place] [address]Iqctoyjzsz79-88-0428 12:52-0500Body temperature 96.91 [degF]Juliette Laswon DIGITAL BUSINESS ANALYST Work Phone: 1(095)244-76[facility] HospitalCcvwqsctaw41-44-0023 12:52-0500Body yhvcun59.04 kgJuliette Lawson DIGITAL BUSINESS ANALYST Work Phone: 1(088)132-[address] [place] [address]-04-2025 12:52-0500Diastolic blood lbnbrvfa68 mm[Hg]Juliette Lawson DIGITAL BUSINESS ANALYST Work Phone: 1(041)434-[address] [place], [place] [address]Sbrynbgkdq34-98-8551 12:52-0500Heart rate79 /min Juliette Lawson DIGITAL BUSINESS ANALYST Work Phone: 1(834)567-51[facility] HospitalHwkjoifbeu43-63-8321 12:52-7493UjS4% (BldA) [Mass fraction]97 %Juliette Lawson DIGITAL BUSINESS ANALYST Work Phone: [facility] HospitalUlylarmiel58-81-0191 12:52-0500Systolic blood otrtevmd774 mm[Hg]Juliette Hyltonoc DIGITAL BUSINESS ANALYST Work Phone: [facility] HospitalPcoqdnnsik80-53-6952 11:57-0500Body hyzqjm544.1 cmMatthew Nienberg PA Work Phone: [facility]01-02-2025 11:57-0500Body mass index (BMI) [Ratio]25.96 kg/y0Yjuabmy Nienberg PA Work Phone: [facility]01-02-2025 11:57-0500Body .76 kgMatthew Nienberg PA Work Phone: [facility]01-02-2025 11:57-0500Diastolic blood ggviqdsf45 mm[Hg]Cathy Roberson PA Work Phone: [facility]01-02-2025 11:57-0500Heart rate 78 /minMatthew Nienberg PA Work Phone: [facility]01-02-2025 11:57-0500 Respiratory rate18 /minMatthew Nienberg PA Work Phone: [facility]01-02-2025 11:57-1206XhN1% (BldA) [Mass fraction]100 %Cathy Roberson PA Work Phone: [facility]01-02-2025 11:57-0500Systolic blood xlgdlfep662 mm[Hg]Cathy Roberson PA Work Phone: [facility]12-19-2024 13:04-0500Body nnzvor110.5 Brendajl Renny DIGITAL BUSINESS ANALYST Work Phone: [facility] HospitalCogewpltkf82-53-9956 13:04-0500Body mass index (BMI) [Ratio]29.26 kg/m5QjirecnnJuliette Lawson DIGITAL BUSINESS ANALYST Work Phone: [facility] HospitalQvlhondsko96-69-1606 13:04-0500Body sbtxom09.58 kgJuliette Lawson DIGITAL BUSINESS ANALYST Work Phone: [place] [address]Gghfzcchuz86-80-9927 13:04-0500Diastolic blood geugrhjy06 mm[Hg]Juliette Lawson DIGITAL BUSINESS ANALYST Work Phone: [place] [address]Hhvtafugep94-56-3178 13:04-0500Heart rate86 /min Julitete Lawson DIGITAL BUSINESS ANALYST Work Phone: [place] [address]Wwsshfqckk41-19-2943 13:04-5536ZzQ0% (BldA) [Mass fraction]97 %Juliette Lawson DIGITAL BUSINESS ANALYST Work Phone: [place] [address]Vaeemfyipe50-12-2203 13:04-0500Systolic blood tuhicakn226 mm[Hg]Juliette Lawson DIGITAL BUSINESS ANALYST Work Phone: [place] [address]Xvwnwegtrj50-54-8929 18:54-0500Body nmhsha964.5 Amandaatricjl Lawson DIGITAL BUSINESS ANALYST Work Phone: [place] [address]Zlzqqecqjm58-48-8745 18:54-0500Body mass index (BMI) [Ratio]29.26 kg/j9DesjkidqJuliette Lawson DIGITAL BUSINESS ANALYST Work Phone: [place] [address]Ewiuhaamyr14-80-3329 18:54-0500Body lmdapp25.58 kgJuliette Lawson DIGITAL BUSINESS ANALYST Work Phone: [place] [address]Jfgabnsizy18-01-4207 18:54-0500Diastolic blood iniasoeb14 mm[Hg]Juliette Lawson DIGITAL BUSINESS ANALYST Work Phone: [place] [address]Ylymyzofub12-87-7161 18:54-0500Heart rate78 /min Juliette Lawson DIGITAL BUSINESS ANALYST Work Phone: [place] [address]Ztkwjjsnvb52-34-4734 18:54-0500Respiratory rate18 /minJuliette Lawson DIGITAL BUSINESS ANALYST Work Phone: [place] [address]Eysubodqaq95-41-8891 18:54-1189EwJ2% (BldA) [Mass fraction]98 %Juliette Lawson DIGITAL BUSINESS ANALYST Work Phone: 1(419)355-[address] [place], [place] [address]Kfwpufhmvc85-60-4170 18:54-0500Systolic blood rrdecuth953 mm[Hg]Juliette Lawson MIK Work Phone: 1(628)571-[address] [place] [address]-26-2024 14:27-0500Body vcevam482.5 cmGenna Robledo MD Work Phone: 1(171)253-[address] [place] [address]-26-2024 14:27-0500Body mass index (BMI) [Ratio]29.52 kg/e6LyigwekoGenna Robledo MD Work Phone: 1(472)610-[address] [place] [address]-26-2024 14:27-0500Body .21 kgGenna Robledo MD Work Phone: 1(145)103[place] [address]-26-2024 14:27-0500Diastolic blood syvtgfkp37 mm[Hg]Genna Robledo MD Work Phone: 1(931)296-[address] [place] [address]-26-2024 14:27-0500Heart rate74 /min Genna Robledo MD Work Phone: 1(052)[address] [place] [address]-26-2024 14:27-1922LjN3% (BldA) [Mass fraction]94 %Genna Robledo MD Work Phone: 1(269)[address] [place] [address]-26-2024 14:27-0500Systolic blood cplfwuxy354 mm[Hg]Genna Robledo MD Work Phone: 1(253)005-[address] [place] [address]-07-2024 13:19-0500Body kirepp178.5 Na Robledo MD Work Phone: 1(328)900[place] [address]-07-2024 13:19-0500Body mass index (BMI) [Ratio]29.63 kg/b9JboqsytiGenna Robledo MD Work Phone: 1(866)[address] [place] [address]-07-2024 13:19-0500Body duvegy51.48 kgGenna Robledo MD Work Phone: 1(289)422[place] [address]-07-2024 13:19-0500Diastolic blood zuswawuz20 mm[Hg]Genna Robledo MD Work Phone: 1(580)912-[address] [place], [place] [address]Dauxtkqgdd23-29-4905 13:19-0500Heart rate70 /min Genna Robledo MD Work Phone: 1(543)[address] [place], [place] 7301811-07-2024 13:19-6140YcN5% (BldA) [Mass fraction]98 %Genna Robledo MD Work Phone: 1(426)[address] [place], [place] 7301811-07-2024 13:19-0500Systolic blood rmisbhkm618 mm[Hg]Genna Robledo MD Work Phone: 1(083)[address] [place], [place] 7301810-01-2024 15:31-0400Body mass index (BMI) [Ratio]29.89 kg/l2GlvlzgfmGenna Robledo MD Work Phone: 1(136)[address] [place], [place] 7301810-01-2024 15:31-0400Body temperature 97.11 [degF]Genna Robledo MD Work Phone: 1(072)[address] [place], [place] 7301810-01-2024 15:31-0400Body ohbqed47.12 kgGenna Robledo MD Work Phone: 1(983)[address] [place], [place] 7301810-01-2024 15:31-0400Diastolic blood jlndwcoa73 mm[Hg]Genna Robledo MD Work Phone: 1(550)[address] [place], [place] 7301810-01-2024 15:31-0400Heart rate83 /min Genna Robledo MD Work Phone: 1(183)[address] [place], [place] 7301810-01-2024 15:31-4945WbN3% (BldA) [Mass fraction]99 %Genna Robledo MD Work Phone: 1(291)[address] [place], [place] 7301810-01-2024 15:31-0400Systolic blood ugbkqtfq490 mm[Hg]Genna Robledo MD Work Phone: 1(601)[address] [place], [place] 7301802-13-2024 11:32-0500Body .8 cmGenna Robledo MD Work Phone: 1(036)[address] [place], [place] 7301802-13-2024 11:32-0500Body mass index (BMI) [Ratio]29.23 kg/r7MbozsureGenna Robledo MD Work Phone: [facility] HospitalGzpqcwecre04-11-4064 11:32-0500Body qimdzw61.66 kgGenna Robledo MD Work Phone: [facility] HospitalVgtpxfyafp50-31-6742 11:32-0500Diastolic blood wdisaqgt13 mm[Hg]Genna Robledo MD Work Phone: [facility] HospitalJhacdruqha15-01-0513 11:32-0500Heart rate80 /min Genna Robledo MD Work Phone: [facility] HospitalNruaxqqkle87-99-3845 11:32-7721BiJ8% (BldA) [Mass fraction]95 %Genna Robledo MD Work Phone: [facility] HospitalIwqokrdkom11-66-3773 11:32-0500Systolic blood rukeovqa886 mm[Hg]Genna Robledo MD Work Phone: [facility] HospitalVcksfiimpz57-35-7538 11:40-0500Body .75 cmPeggy Pierre Other [email or web address] Other 12-02-2023 11:40-0500Body mass index (BMI) [Ratio] 28.79 kg/o0Fxlhd Pierre Other [email or web address] Other 12-02-2023 11:40-0500Body dbevzdxcdex65.9 [degF]Wanda Pierre Other [email or web address] Other 12-02-2023 11:40-0500Body ejadtl51.58 kgPeggy Pierre Other [email or web address] Other 12-02-2023 11:40-0500Diastolic blood wsoouiug24 mm[Hg] Wanda Pierre Other [email or web address] Other 12-02-2023 11:40-0500Respiratory rate18 /minPeggy Pierre Other [email or web address] Other 12-02-2023 11:40-0709EoE3% (BldA) [Mass fraction]98 % Wanda Pierre Other [employer] Other 12-02-2023 11:40-0500Systolic blood wfkuyjvk071 mm[Hg] Wanda Pierre Other [employer] Other 11-06-2023 09:09-0500Blood Pressure LocationPaSaySwap [facility]11-06-2023 09:09-0500Diastolic blood mm[Hg]Regino PUCKETT [facility]11-06-2023 09:09-0500Heart rate74 /minPaCompass Quality [employer].k Law[employer] [facility]11-06-2023 09:09-0500Respiratory rate16 /minPatrick PUCKETT [facility]11-06-2023 09:09-0500Systolic blood qtchtijs444 mm[Hg]Regino PUCKETT [facility]11-04-2022 08:48-0400Blood Pressure LocationPaSaySwap [facility]11-04-2022 08:48-0400Diastolic blood hzqkaclo21 mm[Hg]Regino PUCKETT [facility]11-04-2022 08:48-0400Heart rate68 /Rafia PUCKETT [facility]11-04-2022 08:48-0400Respiratory rate16 /Rafia PUCKETT [facility]11-04-2022 08:48-0400Systolic blood opchnsou928 mm[Hg]Regino PUCKETT [facility]02-14-2022 14:30-0500Body yoaooq955.75 cmCirlandaon Marygabrielay Other [email or web address] Other 02-14-2022 14:30-0500Body mass index (BMI) [Ratio] 28.25 kg/d7Knydrfo Ditty Other [email or web address] Other 02-14-2022 14:30-0500Body cwscbo79.22 kgCameron Ditty Other [email or web address] Other 02-14-2022 14:30-0500Diastolic blood mm[Hg] David Ditty Other [email or web address] Other 02-14-2022 14:30-0500Systolic blood chsdmsho727 mm[Hg] David Ditty Other [email or web address] Other Encounters Encounter DateEncounter TypeCare ProviderFacilityStart: 04-17-2025 End: 71-53-9300Hrfbuqb encounter procedureNoms [facility] - [facility] Pitts AudiologyComment on above:Sensorineural hearing loss (SNHL) of both ears (Primary Dx)Start: 04-17-2025 End: 05-35-6369vairjwxqqgMCXVR OLSENNot AvailableStart: 04-17-2025 End: 07-93-0418Voglqk flowsalanaChsalina Rizzo DIGITAL BUSINESS ANALYST Work Phone: [facility] MedicineStart: 04-17-2025 End: 39-73-2401Buocdw flowsheetChsalina Rizzo DIGITAL BUSINESS ANALYST Work Phone: [facility] MedicineStart: 04-17-2025 End: 34-90-5258Noxslbbjo encounterGenna Robledo MD Work Phone: [facility] MedicineStart: 04-17-2025 End: 01-55-1227Ygsnhn outpatient visit 15 minutesChrismikaela Rizzo DIGITAL BUSINESS ANALYST Work Phone: [facility] MedicineComment on above: BronchitisStart: 04-17-2025 End: 35-50-2560hfjqwmmepoNQMMOEC A PAWLIKOWSKINot AvailableStart: 04-15-2025 End: 89-26-7823tpraqfdxsdBfptnyw R WATERSFacility:EU BellevueStart: 04-15-2025 End: 63-83-9085Kfizipz encounter procedurePaann PUCKETT [facility] start: 04-11-2025 End: 30-13-4786VkxfavSpczdmvu Hohman MD Work Phone: [facility] MedicineComment on above: Osteoporosis of lumbar spineStart: 04-10-2025 End: 58-73-3615Nsiuvf flowsheetChrismikaela Burr DIGITAL BUSINESS ANALYST Work Phone: [facility] MedicineStart: 04-10-2025 End: 50-37-6721Gzpmzt flowsheetChrismikaela Burr DIGITAL BUSINESS ANALYST Work Phone: [facility] MedicineStart: 04-10-2025 End: 01-37-2704Blwhly outpatient visit 25 minutesChsalina Burr NP Work Phone: noMission Valley Medical CenterComment on above: Bronchitis (Primary Dx); WheezingStart: 04-10-2025 End: 95-14-2151cmgglfywevOBTIQKW A BILLYOLANDAot AvailableStart: 04-03-2025 End: 36-28-7147Oylwiw flowsheetDeswedish medical center ballard Marco A [facility]-A Work Phone: noms [facility] AudiologyStart: 04-03-2025 End: 84-55-4856Shrzfw flowsheetPal[facility]ades [facility] Marco A [facility]-A Work Phone: noms [facility] AudiologyStart: 04-03-2025 End: 93-34-6130Jlnbegfk SupportDeswedish medical center ballard Marco A [facility]-A Work Phone: noms [facility] AudiologyComment on above:Sensorineural hearing loss (SNHL) of both ears (Primary Dx)Start: 03-29-2025 End: 96-25-7364hlhigreahySFRPAIC Lee RAMOSProMedica Mariposa HospitalStart: 03-19-2025 End: 02-77-4463Zzvenz flowsheetJr. Scot Sandoval DO Work Phone: [facility]opaedicsStart: 03-19-2025 End: 83-73-2467Iwswit flowsheetJr. Scot Sandoval DO Work Phone: no[facility] OrthopaedicsStart: 03-19-2025 End: 56-90-2181Wvuisk outpatient visit 25 minutesJr. Scot Sandoval DO Work Phone: noms [facility] OrthopaedicsComment on above:Iliotibial band syndrome of right side (Primary Dx)Start: 03-19-2025 End: 63-51-0403skanmasokaNK., SCOT SANDOVALNot AvailableStart: 03-12-2025 End: 34-69-9781Yzgdmb outpatient visit 25 minutesMabrianna MUJICA Work Phone: [facility] - Pain Management ClinicComment on above:Disorder of sacrum (Primary Dx)Start: 03-12-2025 End: 65-69-6099tvjuegvbjcATHOQBR S NICONSTANCESouthwest General Health Center HospitalStart: 02-27-2025 End: 26-83-9712Ucrcpqf encounter procedureNoms Aud Audiology Aid - [facility] AudiologyComment on above:Sensorineural hearing loss (SNHL) of both ears (Primary Dx)Start: 02-27-2025 End: 38-05-7064joobeluistXMLIH OLSENNot AvailableStart: 02-08-2025 End: 73-78-4825lgidszsbhdBUBOTIC Lee [facility] WAURIKAQIANSouthwest General Health Center HospitalStart: 02-05-2025 End: 78-85-8494Lqzqijxkk encounterSRegency [facility] - Pain Management ClinicStart: 01-28-2025 End: 92-76-9387Irrnoa flowsheetPalisades Medical Center Marco A [facility]-A Work Phone: [facility] Hong AudiologyStart: 01-28-2025 End: 77-16-8264Ugmkmw flowsheetAtlantiCare Regional [facility]-A Work Phone: noMS Hong AudiologyStart: 01-28-2025 End: 69-60-3889Jqziohru SupportDeswedish medical center ballard Marco A [facility]-A Work Phone: [facility] Hong AudiologyComment on above:Sensorineural hearing loss (SNHL) of both ears (Primary Dx); Tinnitus, rightStart: 01-22-2025 End: 24-92-3818Gvclxq flowsheetJr. Scot Sandoval DO Work Phone: NOAnt[facility] Hospital OrthopaedicsStart: 01-22-2025 End: 71-65-1178Dcyvrc flowsheetJr. Scot Sandoval DO Work Phone: NOAntelope [facility] Hospital OrthopaedicsStart: 01-22-2025 End: 34-33-7300Yepyao outpatient visit 25 minutesJr. Scot Sandoval DO Work Phone: NO[facility] OrthopaedicsComment on above:Right hip pain (Primary Dx)Start: 01-22-2025 End: 13-01-0243zcenuxslumPH., SCOT SANDOVALNot AvailableStart: 01-17-2025 End: 29-72-1591Uqnumr outpatient visit 25 minutesCl[facility] Shanique MUJICA Work Phone: [facility] ClinicComment on above:Lumbosacral spondylosis without myelopathy (Primary Dx) Start: 01-17-2025 End: 46-32-9938kelqclqmfyACHLQUY S NICONSTANCESouth[facility] HospitalStart: 01-08-2025 End: 80-61-1681Hdysyhpvi Natanael Robledo MD Work Phone: [facility] MedicineStart: 01-04-2025 End: 10-49-0422lxcrohasdcFIRWTNM E [facility] HospitalStart: 01-01-2025 End: 74-38-4336Yumnew flowsheetEmálvaro Tang MD Work Phone: [facility] DERMStart: 01-01-2025 End: 05-14-8125Fgdyza flowsheetEmálvaro Tang MD Work Phone: [facility] DERMStart: 01-01-2025 End: 43-09-1194ysfyoqefudEUNETXXW HOHMANNot AvailableStart: 01-01-2025 End: 10-75-6918[place] outpatient visit 15 minutesEmálvaro Tang MD Work Phone: [facility] DERMComment on above:Seborrheic keratosis (Primary Dx); Lentigines; Milia; Angioma of skin; Actinic keratosis; Inflammatory papuleHot flashes (Primary Dx)Start: 01-01-2025 End: 79-03-8061nwkqphmzhjVUUEP A PETITTINot AvailableStart: 12-06-2024 End: 86-67-3260Xzcqmr outpatient visit 15 minutesCathy MUJICA Work Phone: [facility] ClinicComment on above:Lumbosacral spondylosis without myelopathy (Primary Dx) Start: 12-06-2024 End: 59-91-6609eelyqokoqgUEBZZBN S NISac[facility] HospitalStart: 11-23-2024 End: 01-48-1458Zwjkvpleh encounterCathy MUJICA Work Phone: [facility] FB ORTHOPAEDICSComment on above:CelebrexStart: 11-21-2024 End: 70-11-8378M[place] outpatient visit 15 minutesCathy MUJICA Work Phone: noms FB ORTHOPAEDICSComment on above:History of total hip replacement, right (Primary Dx); Right hip painStart: 11-21-2024 End: 98-79-0553bzxqzpivnnKMMSNUG J MEYERNot AvailableStart: 11-20-2024 End: 08-67-4374Bnhita flowsSudeep Robledo MD Work Phone: noms FNR FMStart: 11-20-2024 End: 37-58-1897Yepdwe Rashid Robledo MD Work Phone: noMS FNR FMStart: 11-20-2024 End: 01-84-1534Rpmezxrwf encounterGenna Robledo MD Work Phone: NOMS FNR FMStart: 11-20-2024 End: 99-65-5248Fijxgh outpatient visit 15 minutesGenna Robledo MD Work Phone: noms FNR FMComment on above:Anxiety; Insomnia, unspecified type; Grief (CMS/HCC)Start: 11-20-2024 End: 59-07-7461bpewmkhozzZEBJLHYF HOHMANNot AvailableStart: 10-24-2024 End: 75-97-8251Dumlrropb encounterGenna Robledo MD Work Phone: NOBZ FNR FMStart: 10-19-2024 End: 25-90-3167Bcsbkk flowsSudeep Robledo MD Work Phone: NOEX FNR FMStart: 10-19-2024 End: 07-63-4635Iateho flowsSudeep Robledo MD Work Phone: NOVJ FNR FMStart: 10-19-2024 End: 57-15-9774Ukuccskcw encounterGenna Robledo MD Work Phone: noms FNR FMStart: 10-19-2024 End: 86-71-8778Hgmxby outpatient visit 15 minutesGenna Robledo MD Work Phone: noms FNR FMComment on above:Anxiety (Primary Dx); Grief (CMS/HCC)Start: 10-19-2024 End: 63-28-8535hwialuedlbJJOQGJIL HOHMANNot AvailableStart: 10-15-2024 End: 68-51-2167IycedlGqgslowk Hohman MD Work Phone: noms FNR FMComment on above:Anxiety; Grief (CMS/HCC)Start: 10-10-2024 End: 22-72-2344Rzvmsp Bela MUJICA Work Phone: noms FB ORTHOPAEDICSStart: 10-10-2024 End: 91-22-5911Kwvnnq Bela MUJICA Work Phone: noms FB ORTHOPAEDICSStart: 10-10-2024 End: 24-38-6211Sewsxg outpatient visit 25 minutesMattson MUJICA Work Phone: noms FB ORTHOPAEDICSComment on above:History of total hip replacement, right (Primary Dx); Right hip pain; Iliotibial band syndrome of right sideStart: 10-10-2024 End: 13-41-2760doyvxuwtzfGOOTBTJ J MEYERNot AvailableStart: 09-20-2024 End: 48-38-6269Kxqdwf flowsPattie Rowell DIGITAL BUSINESS ANALYST Work Phone: NOMS FB ORTHOPAEDICSStart: 09-20-2024 End: 87-21-2830Gquajq flowsPattie Rowell DIGITAL BUSINESS ANALYST Work Phone: NOMS FB ORTHOPAEDICSStart: 09-20-2024 End: 83-56-5070Gcmvjl follow up visit related to original Pepe Rowell DIGITAL BUSINESS ANALYST Work Phone: NOMS FB ORTHOPAEDICSComment on above:Status post orthopedic surgery, follow-up exam (Primary Dx); Arthritis of carpometacarpal (CMC) joint of left thumbStart: 09-20-2024 End: 39-46-5021dafrhtrraeGFCFR Doretha OLSENNot AvailableStart: 09-07-2024 End: 80-05-7331Jghflv Rashid Robledo MD Work Phone: NOMS FNR FMStart: 09-07-2024 End: 64-69-2840Msyoyw Rashid Robledo MD Work Phone: NOMS FNR FMStart: 09-07-2024 End: 90-81-0452Bjznxr outpatient visit 15 minutesGenna Robledo MD Work Phone: NOMS FNR FMComment on above:Flank pain (Primary Dx) Start: 09-07-2024 End: 61-62-3099bbkvwnngvyEEGDNKNT HOHMANNot AvailableStart: 09-06-2024 End: 67-74-2528Jrwfzt follow up visit related to original Pepe Rowell DIGITAL BUSINESS ANALYST Work Phone: NOMS FB ORTHOPAEDICSComment on above:Status post orthopedic surgery, follow-up exam (Primary Dx); Cyst of joint of left handStart: 09-06-2024 End: 99-49-6409ydgkvxfvvyRHPEC T OLSENNot AvailableStart: 08-16-2024 End: 38-13-1952Rruqwwako encounterPatricia Marco A Lawson DIGITAL BUSINESS ANALYST Work Phone: NOMS FNR FMStart: 08-14-2024 End: 77-87-3189Nbljtx flowsheetJuliette Lawson DIGITAL BUSINESS ANALYST Work Phone: NOMS FNR FMStart: 08-14-2024 End: 72-45-3975Pfbxlc flowsheetGuanakotricjl Lawson DIGITAL BUSINESS ANALYST Work Phone: NOYY FNR FMStart: 08-14-2024 End: 10-18-7151Bzsqoheov encounterGenna Robledo MD Work Phone: NOGR FNR FMStart: 08-14-2024 End: 68-49-1899Ospjcw outpatient visit 25 minutesPasheila Lawson DIGITAL BUSINESS ANALYST Work Phone: NOYQ FNR FMComment on above:Generalized anxiety disorder (CMS/HCC) (Primary Dx); Anxiety; Benign hypertension (CMS/HCC)Start: 08-14-2024 End: 42-88-3165usannoahxkWAQMBTTR A HACKENBURGNot AvailableStart: 08-02-2024 End: 11-20-3141Pbztrd flowsPattie Rowell DIGITAL BUSINESS ANALYST Work Phone: NOLF FB ORTHOPAEDICSStart: 08-02-2024 End: 02-99-3469Mvlqbt Bahman Rowell DIGITAL BUSINESS ANALYST Work Phone: NOMS FB ORTHOPAEDICSStart: 08-02-2024 End: 35-49-5384yyawrdppphKZAXP T OLSENNot AvailableStart: 08-02-2024 End: 75-94-8932Fxrzyz follow up visit related to original Pepe Rowell DIGITAL BUSINESS ANALYST Work Phone: NOLD FB ORTHOPAEDICSComment on above:Status post orthopedic surgery, follow-up exam (Primary Dx); Cyst of joint of left handStart: 07-19-2024 End: 33-26-2542zishnvnwmbRbfxjq Stepanic [facility] Work Phone: Start: 07-19-2024 End: 05-32-6990Lcgkifka ReferredGeorge Stepanic DO Work Phone: [facility] [place] Work Phone: Start: 07-18-2024 End: 59-64-1532UzybzyVvgfu T Olsen NP Work Phone: noms FB ORTHOPAEDICSComment on above:Cyst of joint of left hand (Primary Dx)Start: 07-12-2024 End: 70-98-2124IicmqnVzbxbjbl Hohman MD Work Phone: noms FNR FMComment on above:Osteoporosis of lumbar spine (CMS/HCC)Start: 07-06-2024 End: 30-07-3575jikfkaxolsRCSJEEO E HOGANProMedica Children's Hospital of San Diegotart: 07-05-2024 End: 79-95-2767OaqximTzepsxyd Hohman MD Work Phone: noms FNR FMComment on above:Insomnia, unspecified type; AnxietyStart: 07-04-2024 End: 02-80-3535BdqvxuIxmkkeds Hohman MD Work Phone: noms FNR FMComment on above:AnxietyBenign essential HTN (CMS/HCC)Start: 06-26-2024 End: 24-24-3267nfkmfpilwaDGODPCE J MEYERNot AvailableStart: 06-26-2024 End: 13-48-8880Bgswovh encounter procedureMabrianna MUJICA Work Phone: noms FB ORTHOPAEDICSComment on above:Pre-op examination (Primary Dx); Cyst of joint of left handStart: 06-26-2024 End: 90-11-4565Qrgckdrqktwru examination doneMabrianna MUJICA Work Phone: [facility] Work Phone: Start: 06-26-2024 End: 65-20-6368Phltcm flowsheetCathy MUJICA Work Phone: noms FB ORTHOPAEDICSStart: 06-26-2024 End: 42-94-4855Drfkqe flowsheetCathy MUJICA Work Phone: noms FB ORTHOPAEDICSStart: 06-19-2024 End: 44-54-5895Odieyh flowsheetJr. Scot Tijerina Jaime DO Work Phone: noms FB ORTHOPAEDICSStart: 06-19-2024 End: 88-93-0541Fxtwnc flowsheetJr. Scot Sandoval DO Work Phone: noms FB ORTHOPAEDICSStart: 06-19-2024 End: 41-91-5022rcpatdwvmeKG., SCOT SANDOVALNot AvailableStart: 06-19-2024 End: 91-83-2581Cjvxzn outpatient visit 25 minutesJr. Scot Morrissaida DO Work Phone: noms FB ORTHOPAEDICSComment on above:Mass of soft tissue of hand (Primary Dx); Pain of left thumbStart: 06-14-2024 End: 08-18-8147Xxweps outpatient visit 15 minutesOhbrianna MUJICA Work Phone: [facility] ClinicComment on above:Lumbosacral spondylosis without myelopathy (Primary Dx) Start: 06-14-2024 End: 93-99-8816fronmlrajiPTVSZNQ S NIENBERGSelect Medical TriHealth Rehabilitation Hospitaltart: 06-11-2024 End: 33-77-9463Ikiesvyev encounterCathy MUJICA Work Phone: noms CI ORTHOPAEDICSComment on above:Anxiety; Grief (CMS/HCC)Start: 06-02-2024 End: 22-74-6054Tqxboi OnlyJuliette Lawson NP Work Phone: NORK FNR FMComment on above:Cough, unspecified type (Primary Dx)Start: 06-01-2024 End: 73-25-0686Murmmcdjg encounterGenna Robledo MD Work Phone: noms FNR FMComment on above:Acute cough (Primary Dx) Nasal congestion (Primary Dx)Start: 05-31-2024 End: 54-26-5626Bfzxda outpatient visit 15 minutesPatricia A Habrooklynenburg DIGITAL BUSINESS ANALYST Work Phone: noms FNR FMComment on above:Acute non-recurrent pansinusitis (Primary Dx); Grief (CMS/HCC)Start: 05-31-2024 End: 11-24-3978mywetdnwaeWRFJRICF A HABROOKLYNENBURGNot AvailableStart: 05-28-2024 End: 86-10-2445Fdcfko outpatient visit 15 minutesPatricia A [place] DIGITAL BUSINESS ANALYST Work Phone: noms FNR FMComment on above:Viral URI (Primary Dx); Cough, unspecified typeStart: 05-28-2024 End: 95-05-9669ihzwhzxtfpOUVUVPYM A HABROOKLYNENBURGNot AvailableStart: 05-28-2024 End: 09-67-8949Jnykfs flowsheetPatricia A Habrooklynenburg DIGITAL BUSINESS ANALYST Work Phone: noms FNR FMStart: 05-28-2024 End: 43-30-3890Egujuq flowsheetPatricia A Habrooklynenburg DIGITAL BUSINESS ANALYST Work Phone: noms FNR FMStart: 05-25-2024 End: 71-32-8668hpaguujfneUDXHUXD E HOGANProMedica Mariposa HospitalStart: 05-22-2024 End: 38-41-9140Wlruhy flowsParish MUJICA Work Phone: noms FB ORTHOPAEDICSStart: 05-22-2024 End: 37-03-1810Uqvzda flowsParish MUJICA Work Phone: noms FB ORTHOPAEDICSStart: 05-22-2024 End: 97-84-7211Ksputx outpatient visit 15 minutesCathy MUJICA Work Phone: noms FB ORTHOPAEDICSComment on above:Pain of left thumb (Primary Dx); Mass of soft tissue of handStart: 05-22-2024 End: 12-67-2998DbermkCxkurdjq Hohman MD Work Phone: NOMS FNR FMComment on above:Insomnia, unspecified type Start: 05-08-2024 End: 86-00-4743Blhrxl outpatient visit 10 minutesGenna Robledo MD Work Phone: NOXN FNR FMComment on above:Cyst of joint of left hand (Primary Dx)Start: 05-08-2024 End: 92-43-6698zcmzzljdyqFGVCNSRF HOHMANNot AvailableStart: 05-08-2024 End: 31-17-5753Nwovmglorrie Robledo MD Work Phone: NOHW FNR FMStart: 05-08-2024 End: 98-32-4278Nptyqslorrie Robledo MD Work Phone: NODI FNR FMStart: 04-24-2024 End: 87-84-7191akrwftatcgMMUCAYABrentwood Hospital HospitalStart: 04-19-2024 End: 93-74-7358Fepgmjlorrie Robledo MD Work Phone: noms FNR FMStart: 04-19-2024 End: 13-06-9124Oucjoglorrie Robledo MD Work Phone: noms FNR FMStart: 04-19-2024 End: 23-83-8317Pthdhmm encounter statusGenna Robledo MD Work Phone: noms HealthcareStart: 04-19-2024 End: 17-37-6031Zuqojfpt preventive med est patient 65yrs& olderGenna Robledo MD Work Phone: NONS FNR FMComment on above:Wellness examination (Primary Dx); Encounter for immunization; Chronic tension-type headache, not intractable; Benign hypertension (CMS/HCC); Anxiety; History of total left knee replacement; History of total right knee replacement; Status post right hip replacement; Insomnia, unspecified typeStart: 04-19-2024 End: 76-74-1725vgqsngdppyZWSTPVKX HOHMANNot AvailableStart: 04-13-2024 End: 73-85-3142Oyupmr outpatient visit 15 minutesCathy MUJICA Work Phone: noms FB ORTHOPAEDICSComment on above:Lumbar radiculopathy, right (Primary Dx)Start: 04-12-2024 End: 13-80-6368Vgajulqpq encounterCathy MUJICA Work Phone: noms CI ORTHOPAEDICSStart: 04-06-2024 End: 13-81-0428GzjjidTltumfg A Burr DIGITAL BUSINESS ANALYST Work Phone: noms FNR FMComment on above:Benign essential HTN (CMS/HCC)Start: 04-03-2024 End: 41-28-4189Udvcuy flowsParish MUJICA Work Phone: noms FB ORTHOPAEDICSStart: 04-03-2024 End: 67-76-1414Lfeumv Bela MUJICA Work Phone: noms FB ORTHOPAEDICSStart: 04-03-2024 End: 58-47-6978Punmgs outpatient visit 25 minutesImanibrianna MUJICA Work Phone: noms FB ORTHOPAEDICSComment on above:S/P total right hip arthroplasty (Primary Dx); Acute right hip pain; Lumbar radiculopathy, right; Trochanteric bursitis of right hipStart: 03-30-2024 End: 47-31-5395Fpskfnwbn encounterGenna Robledo MD Work Phone: NOUR FNR FMComment on above:Anxiety; Grief (CMS/HCC)Start: 03-13-2024 End: 62-26-4571Pqogna outpatient visit 25 minutesGenna Robledo MD Work Phone: NOMW FNR FMComment on above:Encounter for immunization (Primary Dx); Anxiety; Grief (CMS/HCC)Start: 03-13-2024 End: 18-14-3533Qqfabe flowsSudeep Robledo MD Work Phone: NONB FNR FMStart: 03-13-2024 End: 03-26-7018Yxtbra flowsSudeep Robledo MD Work Phone: NOMS FNR FMStart: 03-08-2024 End: 70-62-3515Pigrlrepj encounterGenna Robledo MD Work Phone: NOMG FNR FMStart: 03-07-2024 End: 21-90-8003Drtguxywa encounterGenna Robledo MD Work Phone: NOMS FNR FMStart: 03-06-2024 End: 25-02-0317Oomnbpvym encounterGenna Robledo MD Work Phone: NOYL FNR FMComment on above:Anxiety; Grief (CMS/HCC)Start: 03-02-2024 End: 52-04-4794KpkpriRtjnaczb Hohman MD Work Phone: NOMS FNR FMComment on above:Anxiety; Grief (CMS/HCC)Start: 02-27-2024 End: 55-75-9360Ewxuaskxj encounterGenna Robledo MD Work Phone: NOHS FNR FMStart: 02-15-2024 End: 11-05-8310Kahhkc flowsPattie Rowell NP Work Phone: NOMS FB ORTHOPAEDICSStart: 02-15-2024 End: 98-25-5427Xnicdh Bahman Rowell NP Work Phone: NOMS FB ORTHOPAEDICSStart: 02-15-2024 End: 31-48-2918Kislwn outpatient visit 15 minutesRamakrishna Rowell NP Work Phone: NOMS FB ORTHOPAEDICSComment on above:Trochanteric bursitis of right hip (Primary Dx); S/P total right hip arthroplastyStart: 02-09-2024 End: 58-18-5699Bavzhp flowsheetCathy MUJICA Work Phone: noms SWS ORTHOStart: 02-09-2024 End: 01-64-9733Wjzaoe flowsParish MUJICA Work Phone: noms SWS ORTHOStart: 02-09-2024 End: 61-36-4589Jhfgcu outpatient visit 25 minutesCathy MUJICA Work Phone: noms SWS ORTHOComment on above:S/P total right hip arthroplasty (Primary Dx)Start: 08-04-2023 End: 51-00-7665Himwweicm Result EncounterGenna Robledo MD Work Phone: noms External Department UnsolicitedStart: 08-04-2023 End: 19-36-3403Wybscaeto Result EncounterGenna Robledo MD Work Phone: noms External Department UnsolicitedStart: 07-26-2023 Bamboo Rashid Robledo MD Work Phone: noms FNR FMStart: 18-85-9482Eebyki Rashid Robledo MD Work Phone: noms FNR FMStart: 07-26-2023 End: 13-86-9582Dlwhhe outpatient visit 25 minutesGenna oRbledo MD Work Phone: noms FNR FMComment on above:Primary osteoarthritis of right hip (Primary Dx); Abnormal EKG; Preoperative clearanceStart: 07-26-2023 End: 95-53-7784Spthierwkmjb stateGenna Robledo MD Work Phone: noms HealthcareStart: 59-38-6675Vdfuzhjc Result EncounterMabrianna MUJICA Work Phone: noms External Department UnsolicitedStart: 07-22-2023 External Result EncounterMabrianna MUJICA Work Phone: noms External Department UnsolicitedStart: 05-16-2023 End: 51-89-5357Rqjbikf encounter procedurePaann PUCKETT [facility] start: 92-60-3549Rvmpxg outpatient visit 25 minutes Wanda HartFPG Urgent Care ClydeStart: 05-14-2023 End: 59-54-0613Sxhrucw encounter procedureNP Wanda Pierre Work Phone: [facility] [place] Work Phone: Start: 05-14-2023 End: 53-39-5083ojsgokutxlWS Wanda Pierre Work Phone: [facility] Work Phone: Start: 05-14-2023 End: 27-99-2210Mlnutkic ReferredNP Wanda Pierre Work Phone: [facility] [place] Work Phone: Start: 04-18-2023 End: 36-47-7776Dyhvnsg encounter procedureRegino PUCKETT [facility] start: 44-39-1991Eeqio Denilson MUJICA Work Phone: [facility] ORTHOPAEDICSStart: 13-57-7753SBFFIAfagnpsj R Hohman Work Phone: [phone]-Dczsjvbkeacb-[address] Work Phone: Start: 04-16-2022 End: 47-55-0395Llycfqz encounter procedureRegino PUCKETT [facility] start: 70-39-1683ZVRFXSnxiodvj R Hohman Work Phone: [phone]-Tlnwzeyumwtx-[address] Work Phone: Start: 03-29-2022 End: 00-32-0245thcengpsptCO SCOT STEPANICFacility:B6Vafyk: 54-02-6859SZFIG Jennifer R Meena Work Phone: [phone]-Pjkvxasalgga-[address] Work Phone: Start: 77-90-7228Rqila ShaunaGenna Robledo Work Phone: [phone]-Bvazsevgcxrl-[address] Work Phone: Start: 73-20-7441Rujxcu outpatient visit 15 minutes Genna Yamila Robledo Work Phone: [phone]-Poozkkyjqhkp-[address] Work Phone: Start: 53-95-9192TFLIGUbqhyzyl R Hohman Work Phone: [phone]-Jobukxcapkbd-[facility] Work Phone: Start: 08-25-2021 End: 82-26-8242pekvbqabfeYT GENNA JOANNEMELCHORQIANFacility:I6Owjjh: 07-27-2021 End: 84-43-7605cuhxkizmqfBpmbocs Marygabrielatootie Other [facility] [employer] Other Start: 86-46-4733NQJY visit [facility] patientDavid Rosenberg [facility] GastroenterologyStart: 06-18-2021 End: 58-65-1331cmvliocskrTSZLFMLX RENNYFacility:U2Bbosi: 00-58-6051Viperxk encounter procedureMatthew XfggtCY-Mrdvhtdxvote-Lyinobra Work Phone: Start: 63-03-0962Voqeyio encounter procedureMatthew BwwhqQP-Wzsdtuqrlegl-Bzrozfcp Work Phone: Start: 21-90-0837Xizoxtg encounter procedureMatthew HpuziCH-Wiqzrgdkvbng-Conarqxk Work Phone: Start: 70-64-8807Cfoeakd encounter procedureMatthew UjxeoRH-Goudrdfyedbw-Ditbmslx Work Phone: Start: 70-36-1436Kanmkzg encounter procedureMatthew WusefZJ-Dvhfpaggdobq-Ovbryams Work Phone: Start: 12-17-2016 End: 99-86-4491HsugcrdrebFBSWQY [facility]ha [facility] Procedures DateProcedureProcedure DetailPerforming ClinicianStart: 68-51-8789FZXAKGBD FUNCTION TESTSDearthur Dean CCC-A Work Phone: start: 22-65-4057DCQENLGAJFO SKIN LESIONEmálvaro Tang MD Work Phone: Start: 84-16-2505Hipiz hip unilateral with pelvis 2-3 viewsMabrianna MUJICA Work Phone: Start: 26-81-7988Chesg dip stick/tablet rgnt non-auto w/o micrscpGenna Robledo MD Work Phone: Start: 09-11-5524Jhdmr fingr minimum 2 viewsJr. Scot Tijerina Stepanic DO Work Phone: Start: 99-71-5263LYLPVR COVID-19/FLUPatricia Marco A Lawson DIGITAL BUSINESS ANALYST Work Phone: Start: 79-13-6279Ujmgzkckckclgw aspir&/inj major jt/bursa w/o usCathy MUJICA Work Phone: Start: 04-03-2024 End: 25-26-7674Mjwji spine lumbosacral 2/3 viewsMabrianna MUJICA Work Phone: Start: 19-97-0038DmqoedpbutxHowoeyrk Hohman MD Work Phone: Start: 71-61-2598AA MANNY PERF SPECT REST STRGenna Robledo MD Work Phone: Start: 55-94-2469Wumkmqdcfzh timeMabrianna MUJICA Work Phone: Start: 95-79-8372Scrawkcpqf radiography of abdomen [facility] Work Phone: Start: 93-08-6797BoxkqzkgqqcYvmbhru Meyer PA Work Phone: Start: 46-36-7615JriutjppygjPcneerhy Hohman MD Work Phone: Start: 47-12-8685ViwboxixdjoJxvuqwf Meyer PA Work Phone: Start: 75-52-0632Cdqis spine cervical 2 or 3 views JEFFERSON BUCIOTIStart: 83-85-8449Nexvjqqefexdqrygu with dilation of urethral stricturePatrick PUCKETT Start: 46-71-5342Cnyoaudnrcxc of kneePatrick PUCKETT arthroplasty of kneePatrick PUCKETT Cesarean sectionPatrick PUCKETT Repair of musculotendinous cuff of shoulderPatrick PUCKETT Plan of Treatment DateCare ActivityDetailAuthorStart: 82-73-7728IKdO,Tdap and Td Vaccines (4 - Td or Tdap)DTaP,Tdap and Td Vaccines (4 - Td or Tdap)[facility] SystemStart: 95-14-4555KGtF/Tdap/Td Vaccines (4 - Td or Tdap)DTaP/Tdap/Td Vaccines (4 - Td or Tdap)[facility] HealthcareStart: 15-63-4471Tctkemxzh for malignant neoplasm of colon [facility] HealthcareStart: 13-46-8489Eoabmqpkq for malignant neoplasm of colonNOMS HealthcareStart: 48-91-8296Huzpffn ScreeningTobacco ScreeningProMedica Health SystemStart: 37-25-9885Gmzigsa ScreeningTobacco ScreeningProMedica Health System Start: 33-74-4822Gsoueoq ScreeningTobacco ScreeningProMedica Health SystemStart: 01-01-2026 End: 02-15-3210Wpmatfv encounter procedureNOMS SWS DERMStart: 11-83-4948Mndpptl ScreeningTobacco ScreeningProMedica Health SystemStart: 48-47-5358Xibtdds ScreeningTobacco ScreeningProMedica Health SystemStart: 04-30-2025 End: 21-53-2303Aejnwpy encounter delhkkvcr73/18/2025 10:00 AM EST [facility] [address] [facility] [place] [phone] Jr. Scot Sandoval, DO [address] [place] [address] [facility] OrthopaedicsStart: 04-25-2025 End: 43-31-4492Wgerquf encounter eccstfvgw44/13/2025 2:15 PM EST Office Visit [facility] [address] [place] [phone] Cathy Roberson PA [address] [place] [address] [facility] ClinicStart: 04-17-2025 End: 31-50-2581Upnfdmd encounter /05/2025 3:15 PM EST Office Visit [facility] [address] [place] [phone] [facility]iologyStart: 04-17-2025 End: 49-54-6024Zygxfpzb SupportNOMS [place] AudiologyComment on above:Arrived Start: 04-10-2025 End: 66-66-7302Djxnqpm encounter mjcevshcf93/29/2025 1:00 PM EDT Office Visit [facility] [address] [place] [phone] Aishwarya Burr NP [address] [place] [address] ArrivedNOMission Valley Medical CenterComment on above: ArrivedStart: 04-03-2025 End: 65-41-0099Vmqrgkx encounter procedureNOMS Pitts AudiologyComment on above: ArrivedStart: 03-29-2025 End: 60-67-6735Svtcxuykl to same day surgery szftfi8203/29/2025 10:49 AM EDT - 03/29/2025 10:56 AM EDT Surgery [facility] [address] [place] [address] Dionicio Ramos MD [address] [place] [address] INJECTION BLOCK NERVE SACROILIAC [51497 (CPT )][facility] Pain ProceduresComment on above:INJECTION BLOCK NERVE SACROILIAC [04072 (CPT )]Start: 03-29-2025 End: 44-94-5987Focpfc si joint arthrgrphy&/anes/steroid w/imaINJECTION BLOCK NERVE SACROILIAC Disorder of sacrum 03/29/2025 10:49 AM EDTFREMONT PAINStart: 77-45-2001Xjihspqthy hospital visit by dsxihvnps52/17/2025 10:49 AM EDT Hospital Encounter [facility] [address] [place] [address] Dionicio Ramos MD [address] [place] [phone] [facility] Pain ProceduresStart: 29-60-4875Spcmckxkr for malignant neoplasm of breastMaogramMOUNTAINSTAR HEALTHCARE HealthcareStart: 03-20-2025 End: 04-86-6515Fhbmpnln Kltbnsx6503/20/2025 11:00 AM EDT Clinical Support [facility] [place] [facility] [address] [place] [phone] Janelle Dean, [facility] [address] [place] [address] [facility] [place] AudiologyStart: 03-19-2025 End: 78-26-2789Ujzgbrx encounter procedureNOAntelope Memorial Hospital OrthopaedicsComment on above:ArrivedStart: 03-12-2025 End: 23-00-2000Ykjqoqz encounter gariebnws94/30/2025 9:15 AM EDT Office Visit [facility] [address] [place] [phone] Cathy Roberson PA [address] [place] [address] [facility] ClinicStart: 02-27-2025 End: 07-55-3589Poxakgo encounter adnipddzy56/17/2025 2:00 PM EDT Office Visit [facility] [address] [place] [address] [phone] [place] AudiologyStart: 55-20-7547ILKPE-19 Vaccine ( season)COVID-19 Vaccine ( season)[facility] HealthcareStart: 02-11-2025 COVID-19 Vaccine ( season)COVID-19 Vaccine ( season) [facility] SystemStart: 90-16-7243Yxdhlyzsl vaccinationSentara Albemarle Medical Centertart: 02-08-2025 End: 08-27-9390Cdhwgnpql to same day surgery [facility] - Pain ProceduresComment on above:RADIOFREQUENCY ABLATION SPINAL: right L45 51rfa [91154 (CPT )]RADIOFREQUENCY ABLATION SPINAL: right L 4/5, 5/1 [60636 (CPT )]Start: 02-08-2025 End: 01-34-6238Mxzn nrolytc agnt parverteb fct sngl lmbr/sacralRADIOFREQUENCY ABLATION SPINAL Lumbosacral spondylosis without myelopathy 02/08/2025 12:00 PM [facility]TF[place] PAINStart: 58-87-2093Rpqafkhfve hospital visit by qkeczlldr49/29/2025 12:00 PM EDT Hospital Encounter [facility] - Pain Procedures [address] [place] [address] Dionicio Ramos MD [address] [place] [address] [facility] - Pain ProceduresStart: 01-28-2025 End: 06-22-0068Sttvspym SupportNOMS CI AUDComment on above:ArrivedStart: 01-22-2025 End: 81-62-7034Qahsxfa encounter procedureNOMS FB ORTHOPAEDICSComment on above: ArrivedStart: 01-17-2025 End: 22-85-6047Kpfcogi encounter cowdzxbrz48/07/2025 8:15 AM EDT Office Visit [facility] [address] [place] [id number] Cathy Roberson PA [address] [place], [place] [id number] [facility] - Pain Management ClinicStart: 01-04-2025 End: 56-23-0060Weoziftgr to same day surgery bynlkk0401/04/2025 8:07 AM EDT - 01/04/2025 8:14 AM EDT Surgery [facility] - Pain P rocedures [address] [place] [id number] Dionicio Ramos MD [address] [place] [address] INJECTION BLOCK NERVE MEDIAL BRANCH: right L 4/5, 5/1 [60176 (CPT )][facility] - Pain ProceduresComment on above:INJECTION BLOCK NERVE MEDIAL BRANCH: right L 4/5, 5/1 [32127 (CPT )]Start: 01-04-2025 End: 86-96-2278Xsj dx/ther agt pvrt facet jt lmbr/sac 1 levelINJECTION BLOCK NERVE MEDIAL BRANCH Lumbosacral spondylosis without myelopathy 01/04/2025 8:07 AM EDTFREMONT PAINStart: 12-53-5064Pqfeszxbli hospital visit by physician 01/04/2025 8:07 AM EDT Hospital Encounter [facility] [address] [place] [address] Dionicio Ramos MD [address] [place] [address] [facility] ProceduresStart: 01-02-2025 End: 85-27-0656Inixbhm encounter /23/2025 1:45 PM EDT Office Visit [facility] [address] [place] [address] Cathy Mora PA [address] [place] [address] [facility]OPAEDICSStart: 01-01-2025 End: 02-15-0430Budwz metabolic 1998 panel - Serum or PlasmaBasic metabolic panel Lab Routine Hot flashes Expected: 01/01/2025 (Approximate), Expires: 01/01/2026 [facility] HealthcareComment on above:Expected: 01/01/2025 (Approximate), Expires: 01/01/2026Start: 01-01-2025 End: 42-25-2777AVW panel - Blood by Automated countCBC Lab Routine Hot flashes Expected: 01/01/2025 (Approximate), Expires: 01/01/2026NOMS HealthcareComment on above:Expected: 01/01/2025 (Approximate), Expires: 01/01/2026Start: 01-01-2025 End: 96-40-0447Kduagrsesxf sedimentation rateSedimentation rate, automated Lab Routine Hot flashes Expected: 01/01/2025 (Approximate), Expires: 01/01/2026NOMS HealthcareComment on above:Expected: 01/01/2025 (Approximate), Expires: 01/01/2026Start: 01-01-2025 End: 13-74-4988III W/REFLEX TO FT4TSH W/REFLEX TO FT4 Lab Routine Hot flashes Expected: 01/01/2025 (Approximate), Expires: 01/01/2026[facility] Work Phone: Comment on above:Expected: 01/01/2025 (Approximate), Expires: 01/01/2026Start: 01-01-2025 End: 14-78-4766Hokzhfv encounter procedureNOMS SWS DERMComment on above:Arrived Start: 12-25-2024 End: 95-47-3912Mjmuevv encounter vzqjemgjc80/15/2025 8:35 AM EDT Office Visit [facility] [address] [place] [address] Baylee Tang MD [address] [place], [place] [address] [facility] DERMStart: 11-21-2024 End: 02-75-2158Xetvhkr encounter gaotpeptn47/11/2025 8:00 AM EDT Office Visit [facility] [address] [place] [address] Cathy Mora PA [address] [facility] [address] [place] [address] [facility]OPAEDICSStart: 11-20-2024 End: 85-48-4721Ofoxhzt encounter procedureNOMS FNR FMComment on above:Arrived Start: 10-19-2024 End: 40-07-6931Bltuuhm encounter iurvkbufz06/09/2025 10:00 AM EDT Office Visit [facility] [address] [place] [address] Genna Robledo MD [address] [facility] [place], [place] [address] ArrivedNOMS FNR FMComment on above:ArrivedStart: 10-10-2024 End: 00-42-1539Gffpagu encounter rzabvyhpn51/30/2025 8:15 AM EDT Office Visit [facility] [address] [facility] [place] [address] Cathy Mora PA [address] [facility] [address] [place] [address] Acute right hip pain (Primary Dx); History of total hip replacement, rightNOMS FB ORTHOPAEDICSComment on above:Acute right hip pain (Primary Dx); History of total hip replacement, rightStart: 09-20-2024 End: 71-33-3668Lardhtw encounter procedureNOMS FB ORTHOPAEDICSComment on above: ArrivedStart: 09-07-2024 End: 33-93-3460Kusxfwle identified in Urine by CultureUrine culture (clean catch) Microbiology Routine Flank pain Expected: 09/07/2024 (Approximate), Expi res: 09/07/2025[facility] Work Phone: Comment on above:Expected: 09/07/2024 (Approximate), Expires: 09/07/2025Start: 09-07-2024 End: 77-67-3737Tpitxej encounter procedureNOMS FNR FMComment on above:Arrived Start: 08-14-2024 End: 98-09-5647Kpeglcb encounter tqoimiqjf46/04/2025 1:00 PM EST Office Visit [facility] [address] [place] [address] [phone] Lawson NP [address] [place], [place] [address] ArrivedNOMS FNR FMComment on above:ArrivedStart: 08-02-2024 End: 76-59-5117Bxmfybc encounter mwpyefttb84/20/2025 9:45 AM EST Office Visit [facility] [address] [place] [address] Ramakrishna Rowell NP [address] [facility] [place], [place] [address] [facility] ORTHOPAEDICSStart: 07-24-2024 End: 22-92-1221Ddtiyan encounter procedureC[facility] ClinicStart: 07-06-2024 End: 85-65-9659Kqycjbeiy to same day surgery nsbnyw7407/06/2024 8:53 AM EST - 07/06/2024 8:59 AM EST Surgery [facility] P rocedures [address] [place] [address] Dionicio Ramos MD [address] [facility] [place] [address] INJECTION BLOCK NERVE MEDIAL BRANCH: right L45 51 [04296 (CPT )][facility] ProceduresComment on above:INJECTION BLOCK NERVE MEDIAL BRANCH: right L45 51 [75632 (CPT )]Start: 07-06-2024 End: 76-89-3865Ikg dx/ther agt pvrt facet jt lmbr/sac 1 levelINJECTION BLOCK NERVE MEDIAL BRANCH Lumbosacral spondylosis without myelopathy 07/06/2024 8:53 AM ESTFREMONT PAINStart: 08-19-8200Ujxqefhail hospital visit by physician 07/06/2024 8:53 AM EST Hospital Encounter [facility] [address] [place] [address] Dionicio Ramos MD [address] [place] [address] [facility] ProceduresStart: 06-19-2024 End: 00-79-4907Jaxvcla encounter utgqqpbko68/07/2025 9:00 AM EST Office Visit [facility] [address] [place] [address] Jr. Scot Sandoval, DO [address] [address] [facility] FB ORTHOPAEDICSStart: 05-28-2024 End: 25-69-6052Npydutl encounter jzzrkybxz97/16/2024 7:00 PM EST Office Visit [facility] [address] [place] [address] [phone] Lawson NP [address] [place], [place] [address] ArrivedNOKS FNR FMComment on above:ArrivedStart: 05-22-2024 End: 43-99-9707Wnaahzm encounter asiffongm58/10/2024 8:30 AM EST Office Visit [facility] [address] [place] [address] Cathy Mora PA [address] [facility] [address] [place] [address] Lumbar radiculopathy, rightNOMS FB ORTHOPAEDICSComment on above:Lumbar radiculopathy, rightStart: 04-24-2024 End: 98-47-2135Ffibauj encounter uhspzihac40/12/2024 9:30 AM EST Office Visit [facility] [address] [place] [address] Cathy Mora PA [address] [facility] [address] [place] [address] [facility] ORTHOPAEDICSStart: 04-19-2024 End: 50-35-1817Iawecxfbyykzo metabolic 2000 panel - Serum or PlasmaComprehensive metabolic panel Lab Routine Wellness examination Benign hypertension (CMS/HCC) Expected: 04/19/2024 (Approximate), Expires: 04/19/2025NOKS HealthcareComment on above:Expected: 04/19/2024 (Approximate), Expires: 04/19/2025Start: 04-19-2024 End: 78-55-0021Mmmwu 1996 panel - Serum or PlasmaLipid panel Lab Routine Wellness examination Benign hypertension (CMS/HCC) Expected: 04/19/2024 (Serge roximate), Expires: 04/19/2025[facility] Work Phone: Comment on above:Expected: 04/19/2024 (Approximate), Expires: 04/19/2025Start: 04-19-2024 End: 99-11-1818Xcmgndr encounter jqljbjfha39/07/2024 1:30 PM EST Office Visit [facility] [address] [place] [address] Genna Robledo MD [address] [place] [address] ArrivedNOMS FNR FMComment on above:ArrivedStart: 04-17-2024 End: 88-36-4829Vrhlkje encounter ofrefcqcz28/05/2024 2:00 PM EST Office Visit [facility] [address] [place] [address] Genna Robledo MD [address] [place] [address] [facility] FNR FMStart: 04-13-2024 End: 74-86-5062Djcvsis encounter tzjvojipr34/01/2024 10:30 AM EDT Office Visit [facility] [address] [place] [address] Cathy Mora, GUANAKO [address] [facility] [address] [place] [address] [facility] FB ORTHOPAEDICSStart: 04-12-2024 End: 34-02-1408Onqbdgydnjei / ancillary services /31/2024 8:30 AM EDT Ancillary Procedure [facility] [address] [facility] [address] [place] [address] [facility] FNR MRStart: 04-11-2024 End: 83-61-7960Yxviqwp encounter ckgdknguq06/30/2024 9:45 AM EDT Office Visit [facility] [address] [place] [address] Cathy Mora PA [address] [facility] [address] [place] [address] [facility] FB ORTHOPAEDICSStart: 04-03-2024 End: 40-21-3293OV Lumbar spine WO contrastMR lumbar spine wo contrast Imaging Routine Lumbar radiculopathy, right Expected: 04/03/2024 (Approximate), Expires: 10/02/2024[facility] Work Phone: Comment on above:Expected: 04/03/2024 (Approximate), Expires: 10/02/2024Start: 04-03-2024 End: 71-45-2025Rsyyfnm encounter procedureNOMS FB ORTHOPAEDICSComment on above: S/P total right hip arthroplasty (Primary Dx)Start: 03-20-2024 End: 95-14-6915Ddzlycubrvyy / ancillary services ixpgxcvtnn39/08/2024 11:00 AM EDT [facility] [address] [address] XKWJ [facility] IMAGINGStart: 03-16-2024 End: 51-67-9063Qimueoq encounter zytqgsvzh89/04/2024 11:00 AM EDT Office Visit [facility] [address] [place] [address] Genna Robledo MD [address] [place] [address] [facility] FNR FMStart: 23-25-7535Vmzttbugh for malignant neoplasm of breast MammogramNOKS HealthcareStart: 03-13-2024 End: 85-90-8869Pazhxtm encounter procedureNOMS FNR FMComment on above:Arrived Start: 02-15-2024 End: 05-58-6567Nqakgce encounter procedureNOMS FB ORTHOPAEDICSComment on above: ArrivedStart: 41-43-5964OWIFD-19 Vaccine ( season)COVID-19 Vaccine ( season)[facility] SystemStart: 97-89-6069Eflyikhxp vaccination Influenza Vaccine (#1)[facility] HealthcareStart: 12-22-2023 End: 51-85-0463Kvfvofs encounter xlyaalqrc22/11/2024 8:35 AM EDT Office Visit [facility] [address] [place] [address] Baylee Tang MD [address] [place] [address] [facility] SWS DERMStart: 08-19-2023 End: 80-66-3368Wviawbz encounter zqzimtaft18/08/2024 10:00 AM EST Office Visit [facility] [address] [place] [address] Cathy Mora PA [address] [place] [address] [facility] CI ORTHOPAEDICSStart: 08-05-2023 End: 08-53-1387Tbvddyh encounter cgrzjzqtu87/23/2024 11:15 AM EST Procedure Visit [facility] EXT DEP Jr. Scot Sandoval, DO [address] [place] [address] [facility] EXT DEPStart: 08-01-2023 End: 40-27-5828cgpenbifsx45/19/2024 4:30 PM EST Evaluation [facility] [address] [place] [address] Thuan King, PT [address] [place] [address] [facility] CI PTStart: 07-26-2023 End: 89-31-8256SP Heart Perfusion W single state of exerciseStress test with myocardial perfusion Cardiac Nuclear Medicine Routine Abnormal EKG Expected: 07/26/2023 (Approximate), Expires: 07/26/2025[facility] Work Phone: Comment on above:Expected: 07/26/2023 (Approximate), Expires: 07/26/2025Start: 07-26-2023 End: 65-08-0603Fbcyokw encounter procedureNOMS FNR FMComment on above:Arrived Start: 07-18-2023 End: 05-74-4349Nrmtcty encounter dnmhqhreu74/05/2024 10:00 AM EST Consult [facility] [address] [facility] [address] [place] [address] Cathy Mora PA [address] [facility] [address] [place] [address] [facility] CI ORTHOPAEDICSStart: 73-17-9063Ehzfdsxl identified in Urine by CultureFostoria City Hospitaltart: 11-11-2021 NPV, Provider: Cathy Anaya, Status: Pen, Time: 11:00 AMNPV, Provider: Cathy Anaya, Status: Pen, Time: 11:00 EKUZ-Zwgjjtvtwvto-Siupsiv 5107 Work Phone: Start: 26-37-0816Kzco Risk ScreeningFall Risk ScreeningProMorrow County Hospitaltart: 66-70-0989Yaalvdflfx ScreeningDepression ScreeningKettering Health Hamilton SystemStart: 64-37-0792Hhnhguffs for malignant neoplasm of colonBates County Memorial Hospital Immunizations Immunization DateImmunizationNotesCare YgyhrfudFmovvbxe99-10-8279Jgyvbgclezmm Conjugate PCV 20Genna Robledo MD Work Phone: [facility] HospitalHjlgokqlzs67-33-3520zedrjaotq, high dose seasonal, preservative-freeGenna Robledo MD Work Phone: [facility] HospitalZsrtwhabxi38-51-3117hxjhixrsy virus vaccine, unspecified formulationCathy MUJICA Work Phone: [facility] HospitalTucljc79-56-1206Qmkdbtjls, High-dose Seasonal, Quadrivalent, Preservative FreeCathy MUJICA Work Phone: [facility] HospitalKudqnkjhrf64-53-8490niensukbw virus vaccine, unspecified formulationCathy MUJICA Work Phone: [facility] HospitalGfpnrzzcwk08-99-0291osdheqt toxoid, reduced diphtheria toxoid, and acellular pertussis vaccine, adsorbedMabrianna MUJICA Work Phone: [facility] HospitalLghvjtkkzk49-16-6297adzyja vaccine recombinant Cathy MUJICA Work Phone: [facility] HospitalHxidfeylrd87-03-6601jrfssm vaccine recombinant Cathy MUJICA Work Phone: [facility] HospitalFdtdxejzvo59-73-1429Gyshkbywv 30 MCG/0.3ML Intramuscular SuspensionGenna Robledo Work Phone: [phone]-Qezlqkdgqfim-[address] Work Phone: [phone], tetanus toxoids and pertussis vaccineJejarredifer Yamila Robledo Work Phone: mg676-5218TF-Yurggooqdxuc-[address] Work Phone: [phone]-CguRFlsf COVID-19 Vacc 30 MCG/0.3ML Intramuscular SuspensionJestephanie Robledo Work Phone: mg130-6838DU-Ezqpwjdypcch-[address] Work Phone: [phone]cxkc High-Dose Quadrivalent 0.7 ML Intramuscular Suspension Prefilled SyringeJestephanie Robledo Work Phone: [phone]-Dosqpuotmvrj-[address] Work Phone: [phone]-AzfGRjrq COVID-19 Vacc 30 MCG/0.3ML Intramuscular SuspensionGenna Robledo Work Phone: [facility]03-17-2021Pfizer Purple Cap SARS-CoV-2 VaccinationMabrianna MUJICA Work Phone: [facility] HospitalQqttgiaewe10-23-0101Sdhxrm-JliNOcef COVID-19 Vacc 30 MCG/0.3ML Intramuscular SuspensionCeliifer Yamila Robledo Work Phone: [facility]10-13-2020influenza virus vaccine, unspecified formulationPaann PUCKETT [facility]10-01-2020influenza, high dose seasonal, preservative-freeCeliifer R Meena Work Phone: mg893-6523YB-Apcpsaksnxlh-[address] Work Phone: [phone]oeqtzlle, High-dose Seasonal, Quadrivalent, Preservative FreeMattson Morgan MUJICA Work Phone: [facility] HospitalVjyjirvpso75-49-3254psqjlx vaccine recombinant Genna Robledo Work Phone: [facility] HospitalUcgfcrxrwr16-80-6998ostgnf vaccine recombinant Genna Yamila Robledo Work Phone: [facility] HospitalUgbjfluxxd92-78-4412dyrouqxre, seasonal, injectable, preservative freeCeliifer R Meena Work Phone: NG-Bzyhdvehlzjs-[address] Work Phone: [phone]ejpdasgl polysaccharide vaccine, 23 valentGenna R Meena Work Phone: [facility] HospitalZcpobpmdss78-63-0448etmlxgzoe, seasonal, injectable, preservative freeCeliifer R Meena Work Phone: QB-Nkkzwgkbkmax-[address] Work Phone: [phone]afmwps, high dose seasonal, preservative-freeCeliifer R Meena Work Phone: XM-Joalowgopsub-[address] Work Phone: [phone]tafqylasz conjugate vaccine, 13 valent Genna Robledo Work Phone: MY-Dzgkjdxqlxoq-[address] Work Phone: [phone]xdhfy vaccine, liveCeliifer R Meena Work Phone: BD-Zruxsrebevnr-[address] Work Phone: [phone]ggwrd toxoid, reduced diphtheria toxoid, and acellular pertussis vaccine, adsorbedCeliifer R Meena Work Phone: [facility] HospitalVaonwaejsu10-54-8067mevhbyra influenza, intradermal, preservative Mendez MUJICA Work Phone: [facility] Payers DatePayer CategoryPayerPolicy [id number] 2025Self-pay [id number] Health InsuranceMEDICAL MUTUAL [id number] Managed Care Other (unspecified)[employer] [id number] 81-31-1025Lnymgws7514517 .1.626047.3.579.2.19605-48-9314Pjnvgpg0964587 .1.342248.3.57[id number] 2.16.840.1.500862.3.579.2.[id number] 2.16.840.1.097248.3.579.2.258898-01-6937Pvbrzwy642261612 2.16.840.1.858530.3.579.2.725929-34-0765Qgbxkfl844493841 2.16.840.1.787560.3.579.2.690743-77-2303Eynjrdv288091983 2.16.840.1.860062.3.579.2.821246-68-4614Gsppcpm345932017 2.16.840.1.143667.3.579.2.111128-55-2155Ahmvijo381966602 2.16840.1.772943.3.579.2.639627-75-7173Xuaoyub155366782 2.16.840.1.015615.3.579.2.614746-82-6495Dqlmllg837743174 2.16.840.1.224520.3.579.2.801266-99-5053Zudynfz721793377 2.16.840.1.541198.3.579.2.999266-74-7593Igwwwex101115785 2.16.840.1.212512.3.579.2.070091-54-4953Ybkdbgn436144885 2.16.840.1.252676.3.579.2.229415-73-8324Lpffmbx460357669 2.16.840.1.532665.3.579.2.792656-31-6356Tonadme25960909 2.16.840.1.935309.3.579.2.316881-30-6555Bckspdu54342490 2.16840.1.390124.3.579.2.634479-55-0071Tnikcrp77165352 2.16840.1.748874.3.579.2.151156-70-7778Ulbzmsa05001600 2.16.840.1.475303.3.579.2.22947-14-4680Kemwycw65492257 2.16840.1.210822.3.579.2.706184-81-0296Phojann35571769 2.16840.1.042953.3.579.2.540687-19-8788Ehyspla36468993 2.16840.1.268450.3.579.2.037719-06-2205Pajhgzb14854925 2.840.1.305524.3.579.2.657127-89-2684Tgewpcp15621105 2.16840.1.422166.3.579.2.526188-91-5548Jchwhig94275482 2.840.1.015273.3.579.2.102284-02-5668Fmdnkht10457655 2.840.1.051629.3.579.2.952522-20-6400Xehhrcf56595387 2.16840.1.812286.3.579.2.652339-75-3079Ukpqifv76909799 2.16840.1.917441.3.579.2.209825-96-6663Iksbszp36003306 2.16840.1.061395.3.579.2.922014-75-8235Agckqrn06061473 2.16840.1.837286.3.579.2.829763-39-8172Axetbfu48836756 2.16.840.1.566750.3.579.2.796108-04-9751Esppfer5079168 2.16.840.1.903616.3.579.2.473943-86-7265Edbckgc9518261 2.16.840.1.251872.3.579.2.630632-16-0296Obymzrq2084869 2.16.840.1.384647.3.579.2.669750-45-9161Zvhnhes2727709 2.16.840.1.109538.3.579.2.165232-48-2585Mmlqzzz3886136 2.16.840.1.677305.3.579.2.365946-39-3928Cpbmpvf1220850 2.16.840.1.378501.3.579.2.621105-95-5601Rdtzcir6002758 2.16.840.1.818546.3.579.2.257819-02-1783Erbatan7786652 2.16.840.1.514217.3.579.2.319209-57-0173Ugbfqin7715493 2.16.840.1.309765.3.579.2.638952-56-7075Paphqnh6902065 2.16.840.1.043980.3.579.2.789994-59-4768Kfwhjqb9887983 2.16.840.1.391453.3.579.2.281983-03-3767Rqdfppw5188023 2.16.840.1.072842.3.579.2.908304-00-6537Hhtuslz2711496 2.16.840.1.353482.3.579.2.559462-52-7007Iitojml1046992 2.16.840.1.132289.3.579.2.355575-91-4563Fyibuhj6006752 2.0.1.670072.3.579.2.706274-74-2869Eoakowt7117367 2.840.1.156191.3.579.2.537914-30-5256Hxghmtw6585164 2.0.1.157965.3.579.2.2591Kstyagy50085198 2.840.1.292037.3.579.2.531 Social History DateTypeDetailFacilityStart: 01-13-2023 End: 16-18-6951Jkedjvfjxg alcohol useOccasional alcohol useNOMS HealthcareStart: 01-13-2023 End: 47-64-9834Pmo Assigned At Centervilletart: 03-28-2020 End: 41-40-1999Jcsnnxk smoking statusNever smoked tobacco (finding)[facility] Centertart: 32-97-8850Wqrecoz smoking statusNeverAvita Health System Bucyrus [facility] CenterStart: 07-26-3882Fma Assigned At [facility] Hospitaltart: 05-17-2022 End: 18-71-9924Mbwojnx use and exposureSmokeless tobacco non-userNOMS Healthcare Start: 11-19-2022 End: 37-10-1738Ansiqsd intakeCurrent drinker of alcohol (finding)[facility] Within the last year, have you been afraid of your partner or ex-partner?NoNOMS HealthcareAre you now , , , , never or living with a partner?MarriedNOMS HealthcareHow often to you have a drink containing alcohol?Monthly or lessNOMS HealthcareHow many standard drinks containing alcohol do you have on a typical day?1 or 2NOMS HealthcareHow often do you have 6 or more drinks on 1 occasion?NeverNOMS HealthcareDo you feel stress - tense, restless, nervous, or anxious, or unable to sleep at night because yourmind is troubled all the time - these days [OSQ]To some extentNOKS Healthcare(I/We) worried whether (my/our) food would run out before (I/we) got money to buy more.Never trueNOMS HealthcareStart: 84-00-6240Mydprzc Comment3-4 drinks, monthly or less. caffeine intake: 2-3 cups per day.[facility] HealthcareStart: 08-84-7877Rgvizp identityIdentifies as female gender (finding)[facility] Start: 11-04-2022 End: 81-87-6394Dlcadcyr to SARS-CoV-2 (event)Not sureNOMS HealthcareStart: 57-85-2306Jtqzehc Comment3-4 drinks, monthly or less. caffeine intake: 2-3 cups per day and 1 cup of tea dailyNOMS HealthcareAre you now , , , , never or living with a partner?WidowedNOMS HealthcareDo you feel stress - tense, restless, nervous, or anxious, or unable to sleep at night because yourmind is troubled all the time - these days [OSQ] Very muchNOMS HealthcareStart: 49-40-2188Bfrocel Comment3-4 drinks, monthly or less. caffeine intake: 1 cup dailyNOKS HealthcareStart: 81-07-7547Upvfjjn Commentcaffeine intake: 1 cup dailyNOKS HealthcareStart: 28-38-0692Pzqufbi CommentsocialFayette County Memorial Hospital SystemStart: 54-58-7101Ehc assigned at birthNot on fileKettering Health Hamilton SystemStart: 01-16-2015 End: 01-67-8118GriBhefzv (finding)[facility] SystemStart: 08-14-2024 End: 25-22-0582Xjnnaigif beverage intakeEx-drinker (finding)[facility] Start: 55-49-5673Zfnbwbv Commentcaffeine intake: 1 cup dailyNOKS Healthcare Sexual OrientationExecutive [facility]rology of [facility] NEGATED: Highlighted row--CV-Paovfzhmdnhe-Swtllkhh Work Phone: Medical Equipment Procedure CodeEquipment CodeEquipment Original TextEquipment IdentifierDates Acetabular Shell Sector 52mm [id number]: 88-05-8213Obeu Fem 150mm 12mm Crl Amt Ti - Sna - [id number]: 32-08-3066Hgpuk Actb 52mm 36mm Altrx Hip - Sna - [id number]: 35-39-4035Kclt Fem 36mm -2mm 05/26 Tpr - Sna - [id number]: 87-12-7408Dpxxrvx Hip Mop All Sz Construct Rpl 50720 - [id number]: 77-19-6089Cdisv Hip Canc Cnn Gription 30mm - Sn/A - [id number])[id number])N/A, [id number] FDAStart: 10-25-2023 Goals DatePatient GoalDesired Activity/StatePersonal health goal Functional Status OyojAbjnokhahbKaagmaShwhahow03-69-7807Uwxynse Health Questionnaire 2 item (PHQ- 2) [Reported][facility] HospitalHpyonvlxiq53-15-2675UEV-7 quick depression assessment panel [Reported.PHQ][facility] HospitalQojrugxmct24-25-7887Einliignicx anxiety disorder 7 item (ADAMA-7)[facility] HospitalHzawvasacu40-30-2486Sgelyem Health Questionnaire 2 item (PHQ-2) [Reported][facility] HospitalVwtmzpgdob58-62-6447HVE-4 quick depression assessment panel [Reported.PHQ][facility] HospitalXgxinkxgbh45-86-3799Ibyxfnlrtnv anxiety disorder 7 item (ADAMA-7)[facility] HospitalFkulhitoyf51-68-8837EZQ-8 quick depression assessment panel [Reported.PHQ][facility] HospitalUyxdihqhln48-23-6707Hfklcojjcwh anxiety disorder 7 item (ADAMA-7)[facility] HospitalYomnuwqqbt51-81-3874Vglij score [AUDIT-C]1 03/09/2024 8:42 AM EDT Tabatha GenericNOMS Vjfywveqgv82-74-2666Xhg often do you have a drink containing alcohol?Monthly or less 03/09/2024 8:42 AM EDT Mycaddist, Generic Monthly or lessNOSt. Louis VA Medical CenterKkwvwtiekq78-85-5951Eqi many standard drinks containing alcohol do you have on a typical day?1 or 2 03/09/2024 8:42 AM EDT Mychart, Generic 1 or 2NOMS Sxgtmisnth28-02-9470Esg often do you have 6 or more drinks on 1 occasion?Never 03/09/2024 8:42 AM EDT Mychart, Generic NeverBates [facility] Hospital 41-71-6598Jqxoowu Health Questionnaire 2 item (PHQ-2) [Reported][facility] 06-99-4955Exzvbozmav StatusN/AExecutive [facility]rology of [facility]11-04-2022Functional StatusN/AExecutive Urology of Berger HospitalNEGATED: Highlighted rowFunctional performanceFunctional status health issues are not documented Disease LO-Borqbifxuheb-Wbhugkix Work Phone: Mental Status DateAssessmentResultFacilityNEGATED: Highlighted rowCognitive function [Interpretation]Cognitive status health issues are not documented Disease GQ-Vtvrvmdctxjj-Sqhsqrzw Work Phone: Clinical Notes 07-27-2021 to 04-17-2025 Note Date & WwtmCvpzHcpauata19-99-6805 History of Present illness Narrative* Vera Lechuga MA - 04/17/2025 3:15 PM EST Patient was in today for a two week follow up on new hearing aids. Patient notices the benefits andis pleased with the hearing aids. The only complaint that she had is other people complaining that background noise is so loud while she is streaming phone calls. I called raeann and they suggested shortening the lcsw wire for better placement of the microphone, overtuning more and reducing forloud sounds. All changes were made. Patient will let us know if the problem persists or is improved. documented in this encounterBates County Memorial [id number] Telephone encounter Note* Telephone Encounter - Belkis Salmon MA - 04/17/2025 3:13 PM EST Ok to order mammogram? [facility] [id number] Miscellaneous Notes* Telephone Encounter - Belkis Salmon MA - 04/17/2025 3:13 PM EST Ok to order mammogram? * Telephone Encounter - Andre Veronica - 04/17/2025 1:52 PM EST [facility] Scheduling called - needs an order for Carmen yearly mammogram faxed over please. documented in this encounterBates County Memorial [id number] Telephone encounter Note* Telephone Encounter - Andre Veronica - 04/17/2025 1:52 PM EST [facility] Scheduling called - needs an order for Carmen yearly mammogram faxed over please. [facility] [id number] History of Present illness Narrative* Aishwarya Rizzo NP - 04/17/2025 1:00 PM EST Subjective ?Quick Links Last Note in Specialty Snapshot Edit RFV/CC Edit Screenings Current Meds Patient ID: Karla Rabago is a 75 y.o. female who presents [...] Dospak) 4 MG tablets documented in this encounterBates County Memorial [id number] Hospital Discharge instructions Patient Education 04/15/2025 10:13:37 Cystoscopy Cystoscopy Cystoscopy is a procedure that is used to help diagnose and sometimes treat conditions that affect the lower urinary tract. The lower urinary tract includes the bladder and the urethra. The urethra is the tube that drains urine from the bladder. Cystoscopy is done using a thin, tube-shaped instrument with a light and camera at the end (cystoscope). The cystoscope may be hard or flexible, depending on the goal of the procedure. The cystoscope is inserted through the urethra, into the bladder. Cystoscopy may be recommended if you have: Urinary tract infections that keep coming back. Blood in the urine (hematuria). An inability to control when you urinate (urinary incontinence) or an overactive bladder. Unusual cells found in a urine sample. A blockage in the urethra, such as a urinary stone. Painful urination. An abnormality in the bladder found during an intravenous pyelogram (IVP) or CT scan. Cystoscopy may also be done to remove a sample of tissue to be examined under a microscope (biopsy). Tell a health care provider about: Any allergies you have. All medicines you are taking, including vitamins, herbs, eye drops, creams, and xfmf-bhp-rhoshnz medicines. Any problems you or family members have had with anesthetic medicines. Any blood disorders you have. Any surgeries you have had. Any medical conditions you have. Whether you are or may be . What are the risks? Generally, this is a safe procedure. However, problems may occur, including: Infection. Bleeding. Allergic reactions to medicines. Damage to other structures or organs. What happens before the procedure? Medicines Ask your health care provider about: Changing or stopping your regular medicines. This is especially important if you are taking diabetes medicines or blood thinners. Taking medicines such as aspirin and ibuprofen. These medicines can thin your blood. Do not take these medicines unless your health care provider tells you to take them. Taking hkru-qhd-cufpsfh medicines, vitamins, herbs, and supplements. Tests You may have an exam or testing, such as: X-rays of the bladder, urethra, or kidneys. CT scan of the abdomen or pelvis. Urine tests to check for signs of infection. General instructions Follow instructions from your health care provider about eating or drinking restrictions. Ask your health care provider what steps will be taken to help prevent infection. These steps may include: ?Washing skin with a germ-killing soap. ?Taking antibiotic medicine. Plan to have a responsible adult take you home from the hospital or clinic. What happens during the procedure? You will be given one or more of the following: ?A medicine to help you relax (sedative). ?A medicine to numb the area (local anesthetic). The area around the opening of your urethra will be cleaned. The cystoscope will be passed through your urethra into your bladder. Germ-free (sterile) fluid will flow through the cystoscope to fill your bladder. The fluid will stretch your bladder so that your health care provider can clearly examine your bladder thurman. Your doctor will look at the urethra and bladder. Your doctor may take a biopsy or remove stones. The cystoscope will be removed, and your bladder will be emptied. The procedure may vary among health care providers and hospitals. What can I expect after the procedure? After the procedure, it is common to have: Some soreness or pain in your abdomen and urethra. Urinary symptoms. These include: ?Mild pain or burning when you urinate. Pain should stop within a few minutes after you urinate. This may last for up to 1 week. ?A small amount of blood in your urine for several days. ?Feeling like you need to urinate but producing only a small amount of urine. Follow these instructions at home: Medicines Take tfcq-got-ccunwtn and prescription medicines only as told by your health care provider. If you were prescribed an antibiotic medicine, take it as told by your health care provider. Do notstop taking the antibiotic even if you start to feel better. General instructions Return to your normal activities as told by your health care provider. Ask your health care provider what activities are safe for you. If you were given a sedative during the procedure, it can affect you for several hours. Do not drive or operate machinery until your health care provider says that it is safe. Watch for any blood in your urine. If the amount of blood in your urine increases, call your healthcare provider. Follow instructions from your health care provider about eating or drinking restrictions. If a tissue sample was removed for testing (biopsy) during your procedure, it is up to you to get your test results. Ask your health care provider, or the department that is doing the test, when yourresults will be ready. Drink enough fluid to keep your urine pale yellow. Keep all follow-up visits. This is important. Contact a health care provider if: You have pain that gets worse or does not get better with medicine, especially pain when you urinate. You have trouble urinating. You have more blood in your urine. Get help right away if: You have blood clots in your urine. You have abdominal pain. You have a fever or chills. You are unable to urinate. Summary Cystoscopy is a procedure that is used to help diagnose and sometimes treat conditions that affect the lower urinary tract. Cystoscopy is done using a thin, tube-shaped instrument with a light and camera at the end. After the procedure, it is common to have some soreness or pain in your abdomen and urethra. Watch for any blood in your urine. If the amount of blood in your urine increases, call your healthcare provider. If you were prescribed an antibiotic medicine, take it as told by your health care provider. Do notstop taking the antibiotic even if you start to feel better. This information is not intended to replace advice given to you by your health care provider. Make sure you discuss any questions you have with your health care provider. Document Revised: 02/10/2022 Document Reviewed: 01/09/2021 [employer] Patient Education 2023 [employer]IQ. Follow Up Care 06/19/2024 15:33:44 With:ITALO RENTERIA, Regino Driscoll, URL Address: [facility] [address], [place] [address]- When: Unknown [facility] NotePatient Education Urology Cystoscopy Cystoscopy is a procedure that is used to help diagnose and sometimes treat conditions that affect the lower urinary tract. The lower urinary tract includes the bladder and the urethra. The urethra is the tube that drains urine from the bladder. Cystoscopy is done using a thin, tube-shaped instrument with a light and camera at the end (cystoscope). The cystoscope may be hard or flexible, depending on the goal of the procedure. The cystoscope is inserted through the urethra, into the bladder. Cystoscopy may be recommended if you have: ??? Urinary tract infections that keep coming back. ??? Blood in the urine (hematuria). ??? An inability to control when you urinate (urinary incontinence) or an overactive bladder. ??? Unusual cells found in a urine sample. ??? A blockage in the urethra, such as a urinary stone. ??? Painful urination. ??? An abnormality in the bladder found during an intravenous pyelogram (IVP) or CT scan. Cystoscopy may also be done to remove a sample of tissue to be examined under a microscope (biopsy). Tell a health care provider about: ??? Any allergies you have. ??? All medicines you are taking, including vitamins, herbs, eye drops, creams, and ncru-xnx-mwgyflx medicines. ??? Any problems you or family members have had with anesthetic medicines. ??? Any blood disorders you have. ??? Any surgeries you have had. ??? Any medical conditions you have. ??? Whether you are or may be . What are the risks? Generally, this is a safe procedure. However, problems may occur, including: ??? Infection. ??? Bleeding. ??? Allergic reactions to medicines. ??? Damage to other structures or organs. What happens before the procedure? Medicines Ask your health care provider about: ??? Changing or stopping your regular medicines. This is especially important if you are taking diabetes medicines or blood thinners. ??? Taking medicines such as aspirin and ibuprofen. These medicines can thin your blood. Do not take these medicines unless your health care provider tells you to take them. ??? Taking qtso-gjs-fyyemxb medicines, vitamins, herbs, and supplements. Tests You may have an exam or testing, such as: ??? X-rays of the bladder, urethra, or kidneys. ??? CT scan of the abdomen or pelvis. ??? Urine tests to check for signs of infection. General instructions ??? Follow instructions from your health care provider about eating or drinking restrictions. ??? Ask your health care provider what steps will be taken to help prevent infection. These steps may include: ? Washing skin with a germ-killing soap. ? Taking antibiotic medicine. ??? Plan to have a responsible adult take you home from the hospital or clinic. What happens during the procedure? You will be given one or more of the following: ? A medicine to help you relax (sedative). ? A medicine to numb the area (local anesthetic). ??? The area around the opening of your urethra will be cleaned. ??? The cystoscope will be passed through your urethra into your bladder. ??? Germ-free (sterile) fluid will flow through the cystoscope to fill your bladder. The fluid willstretch your bladder so that your health care provider can clearly examine your bladder thurman. ??? Your doctor will look at the urethra and bladder. Your doctor may take a biopsy or remove stones. ??? The cystoscope will be removed, and your bladder will be emptied. The procedure may vary among health care providers and hospitals. What can I expect after the procedure? After the procedure, it is common to have: ??? Some soreness or pain in your abdomen and urethra. ??? Urinary symptoms. These include: ? Mild pain or burning when you urinate. Pain should stop within a few minutes after you urinate. This may last for up to 1 week. ? A small amount of blood in your urine for several days. ? Feeling like you need to urinate but producing only a small amount of urine. Follow these instructions at home: Medicines ??? Take jspv-kqd-fthtvfa and prescription medicines only as told by your health care provider. ??? If you were prescribed an antibiotic medicine, take it as told by your health care provider. Donot stop taking the antibiotic even if you start to feel better. General instructions ??? Return to your normal activities as told by your health care provider. Ask your health care provider what activities are safe for you. ??? If you were given a sedative during the procedure, it can affect you for several hours. Do not drive or operate machinery until your health care provider says that it is safe. ??? Watch for any blood in your urine. If the amount of blood in your urine increases, call your health care provider. ??? Follow instructions from your health care provider about eating or drinking restrictions. ??? If a tissue sample was removed for testing (biopsy) during your (more content not included)...[facility]10-22-2025 History of Present illness Narrative* Janelle Dean CCC-Marco A - 04/03/2025 10:15 AM EDT Hearing Aid Fitting: Pt is here today for new hearing aid fitting. She was fit with [employer] Infinio 70-R ROLAND aids, size 2M receivers and small vented domes. Pt is an experienced user. Fit is good with no audible feedback. Pt is able to insert and remove the aid without difficulty. Pt taught basic function of customer solutions specialist and rocker switch. Pt has several additional programs that can be accessed only through the [employer] serge. Pt also taught how to perform basic cleaning/maintenance including changing filters and domes. Aids paired to phone and streaming verified with a phone call. Pt was also shown basic features of the University Teacher's serge. Pt is pleased and will return in 2-3 weeks for follow up documented in this encounterBates County Memorial [id number] History of Present illness Narrative* Jr. Scot Sandoval DO - 03/19/2025 9:00 AM EDT HISTORY OF PRESENT ILLNESS: EST PT Karla Rabago is an 74 y.o. @ female. EST PT RECHECK S/P (R) WINNIE 10/25/23 (~1YR 3MO)- S/P MDP 01/22/25; SLIGHT TEMP RELIEF PT HAD RADIOFREQUENCY ABLATION 02/08/25 PER PAIN MANAGEMENT; GOOD TEMP RELIEF - F/U APPT 03/29/25 XRAY RT HIP EPIC 10/10/24 MRI L-SPINE 04/12/24 EPIC XRAY RT HIP/LUMBAR SPINE 04/03/24, 01/22/25 XRAYS, 12/06/23 IN EPIC MDP 02/09/2024, 02/15/24, 01/22/25 NO BONE SCAN NO RECENT LABS FINISHED PHYSICAL THERAPY @ [facility] [place] PREDNISONE 10/10/24 CELEBREX 10/10/24 PAIN MANAGEMENT [facility] RIGHT L4/L5/5/1 FACET INJ 01/04/25, RADIOFREQUENCY ABLATION 02/08/25 PAIN IS LATERAL HIP- PAIN CAN BE AT REST- SYMPTOMS ARE WORSE WITH WB- INCREASE PAIN WITH LIFTING- GOOD ROM- DENIES WAKE HS- +TYLENOL ALLERGIES: Allergies Allergen Reactions Lisinopril Cough HOME MEDICATIONS: Current Outpatient Medications Medication Instructions albuterol HFA 90 mcg/act inhaler 1 puff, Every 6 hours PRN alendronate (Fosamax) 70 MG tablet TAKE 1 TABLET BY MOUTH EVERY 7 DAYS IN THE MORNING ON AN EMPTY STOMACH WITH a full glass OF water ON AN EMPTY STOMACH and do not take anything else by mouth or lie down for the next 30 mins Alpha tocopherol (VITAMIN E) 200 Units, Daily RT busPIRone (BUSPAR) 5 mg, Oral, 2 times daily celecoxib (CELEBREX) 200 mg, Oral, Daily, Take with food Cinnamon 500 mg, Daily coenzyme Q-10 200 mg, Every 24 hours fluticasone (Flonase) 50 MCG/ACT nasal spray 1 spray, Each Nostril, 2 times daily LORazepam (ATIVAN) 0.5 mg, Oral, Every 8 hours PRN methylPREDNISolone (Medrol Dospak) 4 MG tablets Follow schedule on package instructions Restasis 0.05 % ophthalmic emulsion sertraline (ZOLOFT) 150 mg, Oral, Daily traZODone (DESYREL) 150 mg, Oral, Nightly verapamil (CALAN) 80 mg, Oral, Every morning PHYSICAL EXAM: Hip Musculoskeletal Exam Gait Gait is normal. Limp: right Inspection Leg length disparity: no discrepancy Right Erythema: none Ecchymosis: none Edema: none Deformity: none Previous incision: anterolateral Incision: well-healed Palpation Right Right hip palpation is normal. Increased warmth: none Tenderness: present (denies pain to hip bursa today.) Greater trochanteric region pain: mild Range of Motion Right Right hip range of motion is within functional limits. Active ROM: normal and no pain. Passive ROM: normal and no pain. Strength Right Right hip strength is normal. Extension: 5/5. Flexion: 5/5. Internal rotation: 5/5. External rotation: 5/5. Adduction: 5/5. Abduction: 5/5. Strength additional comments: No focal weakness SLR is negaitve today seated. Constant Mild discomfort in L5 dermatome. Denies calf pain Neg clonus. Neurovascular Right Right hip neurovascular exam is normal. Pulses - PT: normal Posterior tibial: 2+ Special Tests Right Log roll test: negative General Constitutional: appears stated age Labored breathing: no Psychiatric: normal mood and affect Neurological: alert and oriented x3 Skin: intact Lymphadenopathy: none Vitals: There is no height or weight on file to calculate BMI. Tobacco Use: Low Risk (03/19/2025) Patient History Smoking Tobacco Use: Never Smokeless Tobacco Use: Never Passive Exposure: Not on file Alcohol Use: Not At Risk (03/09/2024) AUDIT-C Frequency of Alcohol Consumption: Monthly or less Average Number of Drinks: 1 or 2 Frequency of Binge Drinking: Never IMAGING: Procedures No orders of the defined types were placed in this encounter. ASSESSMENT: ICD-10-CM 1. Iliotibial band syndrome of right side M76.31 celecoxib (CeleBREX) 200 MG capsule PLAN: We have discussed her case today. We will defer a cortisone injection at this time secondary to recent hip replacement within the last year. We have recommended a prescription for Celebrex sig 1 by mouth daily for a month and we'll see her back in 6 weeks. She will continue with pain management in the interim. If her symptoms persist or worsen we may recommend a cortisone injection at that time. Questions answered in laymen terms at the bedside. The diagnosis, home exercise plan and any ongoing restrictions/ recommendations reviewed. If unable to be reached in office, I recommend evaluation at nearest Emergency Room if any symptoms worsened or new symptoms develop for requiring urgent evaluation. documented in this encounterBates County Memorial [id number] History of Present illness Narrative* Aishwarya Strickland Leno, DIGITAL BUSINESS ANALYST - 04/10/2025 1:00 PM EDT Subjective ?Quick Links Last Note in Specialty Snapshot Edit RFV/CC Edit Screenings Current Meds Patient ID: Karla Rabago is a 75 y.o. female who presents [...] (Calan) 80 MG tablet documented in this encounterBates County Memorial [id number] History of Present illness Narrative* Aishwarya Burr NP - 04/10/2025 1:00 PM EDT Subjective ?Quick Links Last Note in Specialty Snapshot Edit RFV/CC Edit Screenings Current Meds Patient ID: Karla Rabago is a 75 y.o. female who presents [...] (Calan) 80 MG tablet documented in this [facility]09-30-2025 History of Present illness Narrative* GUANAKO Joe - 03/12/2025 9:15 AM EDT [facility] [address] [place] [address] Patient: Karla Rabago Sex: female : 1950 Age: 74 y.o. PCP: Genna Robledo MD 03/12/2025 Karla Rabago is here for a(n) post procedure follow up 02/08/2025 right L4/5 L5/1 radiofrequency ablation with less than 50% relief. Patient continues to have pain to right hip that intermittently radiates down lateral aspect of RLE into foot. Date of onset of pain: October 2023 , pain has lasted greater than 3 months. Pain scale before treatment: 10/10 Pre-op pain score: 8/10 Post-op pain score: 0/10 Percentage and duration of relief after treatment: see above Pain scale after treatment: 11/20 Chief Complaint Patient presents with Back Pain HPI: PT after right hip replacement [facility] [place]/Hip 05/25/24 Right L5, S1 with 50% relief for 1 week and then back to baseline. right 4/4 L5/S1 medial branch block 07/06/2024 with 80% relief that lasted 2 months. 01/04/2025 Right L 4/5, 5/1 Medial Brach Block with 100% relief x 1 hour and 90% relief for the restof the day. 0% relief today. Pre-op pain score: 6/10 Post-op pain score: 2/10 2 hour post-op pain score: 2/10 4 hour post-op pain score: 1/10 for 24 hours Back Pain The current episode started more than 1 year ago (after right hip replacement October 2023). The problem occurs constantly. The problem has been gradually improving (right hip) since onset. The pain is present in the lumbar spine, gluteal and sacro-iliac (right side back and right hip). The quality of the pain is described as aching (constant). Radiates to: right hip down RLE laterally to foot at times. The pain is at a severity of 6/10 (up to 10/10 after work). The pain is moderate. The pain is The same all the time. Exacerbated by: twisting, transitioning, walking, stairs, bending. Stiffness ispresent: sitting to standing. Associated symptoms include leg pain (RLE to foot) and weakness (RLE). Pertinent negatives include no bladder incontinence, bowel incontinence, fever, numbness or tingling. Risk factors include sedentary lifestyle and lack of exercise. Treatments tried: PT, ice, salonpas, biofreeze, Ibuprofen, tylenol with mild relief. Hip Pain The incident occurred more than 1 week ago. There was no injury mechanism (pain started after righthip replacement october 2023). The pain is present in the right hip, right leg, right thigh, right knee, right ankle, right heel and right foot. The quality of the pain is described as aching (constant).The pain is at a severity of 6/10 (up to 10/10). The pain is moderate. The pain has been Worsening since onset. Pertinent negatives include no numbness or tingling. Associated symptoms comments: . She reports no foreign bodies present. The symptoms are aggravated by movement. Treatments tried: PT, ice, salonpas, biofreeze, Ibuprofen, tylenol with mild relief. The treatment provided mild relief. The effect of pain on patient's ADLS: Moderate Impairment. Past Medical History: Diagnosis Date Arthritis DJD right hip Chronic pain disorder HL (hearing loss) Hypertension Low back pain MRSA (methicillin resistant Staphylococcus aureus) Osteoporosis Urinary frequency Visual impairment Past Surgical History: Procedure Laterality Date SECTION COLONOSCOPY COLONOSCOPY N/A 11/24/2020 Performed by Obi Menendez DO at [facility] ESOPHAGOGASTRODUODENOSCOPY N/A 11/24/2020 Performed by Obi Menendez DO [facility] INJECTION BLOCK NERVE MEDIAL BRANCH: right L 4/5, 5/1 Right 01/04/2025 Performed by Dionicio Ramos MD at [facility] INJECTION BLOCK NERVE MEDIAL BRANCH: right L 4/5, 5/1 Right 07/06/2024 Performed by Dionicio Ramos MD [facility] INJECTION SPINE TRANSFORAMINAL: right L 5,1 Nroot Right 05/25/2024 Performed by Dionicio Ramos MD at [facility] JOINT REPLACEMENT Bilateral knees KNEE SURGERY RADIOFREQUENCY ABLATION SPINAL: right L 4/5, 5/1 Right 02/08/2025 Performed by Dionicio Ramos MD at [facility] REPLACEMENT TOTAL JOINT HIP Right 10/25/2023 Performed by Scot Sandoval Jr., DO at [facility] ROTATOR CUFF REPAIR Left Lateral Allergies Allergen Reactions Lisinopril Cough Family History Problem Relation Age of Onset Hypertension Mother Diabetes Mother Hypertension Father Breast cancer Neg Hx Social History Socioeconomic History Marital status: Spouse name: Not on file Number of children: Not on file Years of education: Not on file Highest education level: Not on file Occupational History Not on file Tobacco Use Smoking status: Never Smokeless tobacco: Never Vaping Use Vaping status: Never Used Substance and Sexual Activity Alcohol use: Yes Comment: socially Drug use: No Sexual activity: Defer Partners: Male Other Topics Concern Not on file Social History Narrative Not on file Social Drivers of Health Financial Resource Strain: Patient Declined (03/09/2024) [facility] Overall Financial Resource Strain (CARDIA) Difficulty of Paying Living Expenses: Patient declined Food Insecurity: No Food Insecurity (03/12/2025) Hunger Screening Food Insecurity - Worry: Never True Food Insecurity - Inability: Never True Transportation Needs: No Transportation Needs (03/09/2024) Received from [facility] PRAPARE - Transportation Lack of Transportation (Medical): No Lack of Transportation (Non-Medical): No Physical Activity: Patient Declined (03/09/2024) Received from [facility] Exercise Vital Sign Days of Exercise per Week: Patient declined Minutes of Exercise per Session: Patient declined Stress: Stress Concern Present (03/09/2024) Received from [facility] [employer] - Occupational Stress Questionnaire Feeling of Stress : Very much Social Connections: Unknown (03/09/2024) Received from [facility] Social Connection and Isolation Panel [NHANES] Frequency of Communication with Friends and Family: More than three times a week Frequency of Social Gatherings with Friends and Family: Patient declined Attends Shinto Services: Patient declined Active Member of Clubs or Organizations: No Attends Club or Organization Meetings: Never Marital Status: Interpersonal Safety: Not At Risk (10/25/2023) Humiliation, Afraid, Rape, and Kick questionnaire Fear of Current or Ex-Partner: No Emotionally Abused: No Physically Abused: No Sexually Abused: No Housing Instability: Unknown (03/09/2024) Received from [facility] Housing Stability Vital Sign Unable to Pay for Housing in the Last Year: No Number of Times Moved in the Last Year: Not on file Homeless in the Last Year: No Review of Systems Constitutional: Negative for fever. HENT: Negative. Respiratory: Negative for cough and shortness of breath. Cardiovascular: Negative. Gastrointestinal: Negative for bowel incontinence, constipation and diarrhea. Genitourinary: Negative. Negative for bladder incontinence. Musculoskeletal: Positive for back pain. Right hip pain Skin: Negative. Neurological: Positive for weakness (RLE). Negative for tingling and numbness. Psychiatric/Behavioral: Negative. Vital Signs: BP 125/62 Pulse 70 Resp 14 Ht 165.1 cm (5' 5 ) Wt 67.6 kg (149 lb) SpO2 98% BMI 24.79 kg/m Physical Exam: GENERAL - Healthy patient that appears stated age. HEENT - Normocephalic / Atraumatic, Extraoccular movements intact, trachea midline, thyroid within normal limits. CV - pulse regular, Warm extremities with appropriate color of nailbeds. RESP - No obvious wheezing, No Shortness of Breath, No overexertion response to exam maneuvers. COORDINATION - remains intact. PSYCH - Alert and Oriented x4, Attentive and appropriate, constitutionally normal, displays normal mood and affect per situation, answered questions appropriately during examination, demonstrated appropriate attention during discussion, demonstrated appropriate cognitive reasoning and understandingof the medical condition by asking appropriate questions regarding the diagnosis and risks/benefits/alternatives of treatment modalities. No obvious deficits in memory, reasoning, or intellect. Lumbar: SKIN - No rashes or bruising in the area of the patient s pain. LYMPH NODES - demonstrate no obvious enlargement. EXTREMITIES - Lower extremities are warm, with minimal edema and palpable pulses. No significant tenderness to palpation noted in the lumbar spine and paraspinal musculature. Mild pain is elicited with flexion, extension, and lateral rotation of the lumbar spine. Range of motion is not diminished with these motions. Facet palpation is negative for significant pain and facet loading maneuvers elicit only mild pain that is not concordant with the patient s normal pain complaints. STRENGTH - noted to be 5 out of 5 all muscle groups bilateral lower extremities including muscles involving hip flexion and abduction, knee flexion and extension, as well as foot dorsiflexion and plantarflexion. No notable atrophy, fasciculations or spasm. SENSORY - No notable sensory deficits in the bilateral lower extremities to touch or pinprick in all dermatomal distributions. Straight Leg Raise is negative bilaterally. Gait is normal. Tenderness to palpation is noted over the Right SacroIliac Joint: Fabere sign (Regino's Test) is significantly positive, as is compression and distraction of the sacroiliac joints, which is consistent with some of the patient's normal pain. Assessment/Treatment Plan: Karla was seen today for back pain. Diagnoses and all orders for this visit: Disorder of sacrum - Case request operating room: INJECTION BLOCK NERVE SACROILIAC RIGHT Sacroiliac Joint Injection - under fluoroscopy with the use of contrast dye (unless contraindicated) It is hopeful that the described procedure will provide symptomatic pain relief. It is felt to be medically necessary noting that the patient has tried and failed more conservative modalities of therapy and this is the next most appropriate step. The procedure was described in detail to the patientas well as the potential benefits of pain reduction alongside risks of the procedure and alternatives. Risks were described as including, but not limited to bleeding, infection, nerve damage, spinal cord injury, paralysis, stroke, dural puncture headache, and medication reaction. The patient expressed understanding regarding the risks and benefits and wishes to proceed. SI injections should provide information to confirm that the noted SI Joint arthropathy is the patient's most significant pain generator. Follow up 2 weeks after procedure. The medications I have prescribed have been reviewed for medication interactions/contraindications and/or for upcoming procedures: continue current medication regimen without any changes. DISCUSSION: Treatment options discussed with patient and all questions answered to patient's satisfaction. Discussed the rules and regulations surrounding prescription of opioids and compliance at length. Failure to follow the rules and regulation will result in tapering and discontinuation of medications if applicable. Prescribed medication that requires intensive monitoring for toxicity: We do not currently prescribe any controlled substance from this practice. The spine model was demonstrated and MRI was reviewed and used to explain the condition. OARRS: Reviewed. Follow up 2 weeks after procedure. Scribe Statement: IKeiko RN, scribed for and in the presence of GUANAKO JOE who performed the above service. Keiko Mcpherson RN 03/12/25 [id number] GUANAKO Joe 03/12/25 [id number] documented in this encounterSumma Health Wadsworth - Rittman Medical CenterCitiLogics [id number] Instructions* Patient Instructions* Keiko Mcpherson RN - 03/12/2025 9:15 AM EDT Facet Injection / Medial Branch Block (MBB) / Sacroiliac (SI) Joint Injection / Cluneal NB A facet injection, sacroiliac joint injection, and cluneal nerve block (NB) are injections of localanesthetic and steroid into a joint in the spine. A medial branch block is similar, but the medication is placed outside the joint space near the nerve that supplies the joint called the medial branch (steroid may or may not be used). You may require multiple injections depending upon how many joints are involved. How Long Will This Procedure Last? The extent and duration of pain relief may depend on the amount of inflammation and how many areas are involved. Other coexisting factors may be responsible for your pain. If your pain goes away for a short time, but then returns, you may be a candidate for radiofrequency ablation (RFA). Activity Be active. Attempt activities and movements that typically cause pain to see if it feels better while doing them. We will give you a pain diary. Please fill this out as directed by your nurse in pre-op. This will help your doctor determine the effectiveness of the injection, and how to proceed. Bring the pain diary with you to your follow-up appointment. Medications You should not take your pain medications for 4-6 hours before or after the injection in order to properly diagnose if the injection provides adequate relief. Resume your routine medications after your procedure. You may resume blood thinners per your regular schedule after the procedure. If you received sedation: If you received sedation for your procedure, you may feel sleepy or not yourself for several hours today. For the next 24 hours avoid activities that requires alertness or coordination. This includes: Driving or operating heavy machinery Using power tools Consuming alcohol Do not make important or complex decisions or sign legal documents in the next 24 hours. Other Instructions: If you feel severe pain at the injection site with swelling and redness, increased leg weakness, a fever of 101 or higher, headache (or worsening headache), changes in vision or urinary retention: Please call the office at , or have someone take you to the nearest emergency room. Tellthe emergency room staff that you recently had a spine injection. A doctor must evaluate you for bleeding and injection complications. If you lose control over bowel, bladder, or legs: Go to the nearest emergency room. documented in this encounterOhio[facility]09-17-2025 History of Present illness Narrative* Vera Lechuga MA - 02/27/2025 2:00 PM EDT Patient was in today to discuss hearing aid options. Patient is a current hearing aid wearer and has Phonak ROLAND hearing aids from 5 to 7 years ago. Patient did ask about custom aids but decided she would stick with the ROLAND style that she has currently. Patient was told that according to my check she does not have hearing aid benefits. Patient states that she is a member of [employer] and has a benefit. Patient does not have a card as this is a [employer] benefit. I advised patient that itis probably a reimbursement plan and we will collect the amount due on the day of fitting. Patient would like to proceed with Phonak Infinio Advanced hearing aids in [facility] (P4) with size 2 receivers. Patient is aware of the $5200 due at fitting. Patient was scheduled for a fitting in several weeks and she was also scheduled for a two week follow up. Cosigned by EMILE Izquierdo at 02/27/2025 4:17 PM EDT documented in this encounterBates County Memorial [id number] Miscellaneous Notes* Telephone Encounter - Cindy Mcknight RN - 02/05/2025 9:09 AM EDT Patient called c/o leg pain being worse, has utilized tylenol 1 time yesterday and some heat. Educated on OTC medications and to read labels and utilized tylenol and motrin as well as topical OTC since we are seeing her Tuesday for procedure (RFA lumbar). Instructed to call if pain gets worse or changes, and that I would call her if provider has other instructions. * Telephone Encounter - GUANAKO Joe - 02/05/2025 9:09 AM EDT Nothing further documented in this encounterOhioHealth Berger Hospital08-26-2025 Telephone encounter Note* Telephone Encounter - Cindy Mcknight RN - 02/05/2025 9:09 AM EDT Patient called c/o leg pain being worse, has utilized tylenol 1 time yesterday and some heat. Educated on OTC medications and to read labels and utilized tylenol and motrin as well as topical OTC since we are seeing her Tuesday for procedure (RFA lumbar). Instructed to call if pain gets worse or changes, and that I would call her if provider has other instructions. [facility]08-26-[facility] Telephone encounter Note* Telephone Encounter - GUANAKO Joe - 02/05/2025 9:09 AM EDT Nothing further [facility]08-18-[facility] History of Present illness Narrative* EMILE Izquierdo - 01/28/2025 9:00 AM EDT History: Pt was referred to Audiology because of hearing loss. Pt reports history of bilateral hearing loss and was fit in 2018 with hearing aids from [employer] (Phonak RICs). She also reports right tinnitus. Ptdenies excessive noise exposure, otalgia, and frequent ear infections. Otoscopic Exam: Right Ear: Cerumen Left Ear: Ear canal clear and TM intact Pure Tone Audiometry Right Ear: Mild to moderate sensorineural hearing loss Left Ear: Mild to moderate sensorineural hearing loss Speech Audiometry Right SRT = 40 dB and word discrimination score at 65 dBHL (masked) = 92% Left SRT = 35 dB and word discrimination score at 65 dBHL (masked) = 92% Tympanometry Right Ear: Type A tympanogram Left Ear: Type A tympanogram Impressions: Bilateral mild to moderate sensorineural hearing loss, slightly worse in the right ear. Pt's current aids are 7 years old. Pt is good candidate for new aids and made an appointment for a hearing aid discussion. Pt may have hearing aid benefits through her insurance but she plans to retire in February. She is aware we may be unable to fit her in time to use her insurance. documented in this encounterBates County Memorial [id number] History of Present illness Narrative* Jr. Scot Sandoval DO - 01/22/2025 8:30 AM EDT Images from the original note were not included. HISTORY OF PRESENT ILLNESS: EST PT Karla Rabago is an 74 y.o. @ female. EST PT; MOST RECENT VISIT WITH [facility]- S/P (R) WINNIE 10/25/23 (~1YR 3MO)- S/P PAIN MANAGEMENT [facility]; RIGHTL4/L5/5/1 FACET INJ 01/04/25; GOOD RELIEF ~2WKS- PT IS SCHEDULED FOR RADIOFREQUENCY ABLATION 02/08/25 XRAY RT HIP EPIC 10/10/24 MRI L-SPINE 04/12/24 EPIC XRAY RT HIP/LUMBAR SPINE 04/03/24 XRAYS, 12/06/23 IN EPIC MDP 02/09/2024, 02/15/24 NO BONE SCAN NO RECENT LABS FINISHED PHYSICAL THERAPY @ [facility] PREDNISONE 10/10/24 CELEBREX 10/10/24 PAIN MANAGEMENT [facility] RIGHT L4/L5/5/1 FACET INJ 01/04/25 PAIN LATERAL HIP- PT IS CONSTANT- SYMPTOMS WORSE WITH WB ACTIVITY- GOOD ROM- DENIES [facility] HS- +TYLENOL ALLERGIES: Allergies Allergen Reactions Lisinopril Cough HOME MEDICATIONS: Current Outpatient Medications Medication Instructions albuterol HFA 90 mcg/act inhaler 1 puff, Every 6 hours PRN alendronate (Fosamax) 70 MG tablet TAKE 1 TABLET BY MOUTH EVERY 7 DAYS IN THE MORNING ON AN EMPTY STOMACH WITH a full glass OF water ON AN EMPTY STOMACH and do not take anything else by mouth or lie down for the next 30 mins Alpha tocopherol (VITAMIN E) 200 Units, Daily RT busPIRone (BUSPAR) 5 mg, Oral, 2 times daily Cinnamon 500 mg, Daily coenzyme Q-10 200 mg, Every 24 hours fluticasone (Flonase) 50 MCG/ACT nasal spray 1 spray, Each Nostril, 2 times daily LORazepam (ATIVAN) 0.5 mg, Oral, Every 8 hours PRN methylPREDNISolone (Medrol Dospak) 4 MG tablets Follow schedule on package instructions Restasis 0.05 % ophthalmic emulsion sertraline (ZOLOFT) 150 mg, Oral, Daily traZODone (DESYREL) 150 mg, Oral, Nightly verapamil (CALAN) 80 mg, Oral, Every morning PHYSICAL EXAM: Hip Musculoskeletal Exam Gait Gait is normal. Limp: right Inspection Leg length disparity: no discrepancy Right Erythema: none Ecchymosis: none Edema: none Deformity: none Previous incision: anterolateral Incision: well-healed Palpation Right Right hip palpation is normal. Increased warmth: none Tenderness: none (denies pain to hip bursa today.) Range of Motion Right Right hip range of motion is within functional limits. Active ROM: normal and no pain. Passive ROM: normal and no pain. Strength Right Right hip strength is normal. Extension: 5/5. Flexion: 5/5. Internal rotation: 5/5. External rotation: 5/5. Adduction: 5/5. Abduction: 5/5. Strength additional comments: No focal weakness SLR is negaitve today seated. Constant Mild discomfort in L5 dermatome. Denies calf pain Neg clonus. Neurovascular Right Right hip neurovascular exam is normal. Pulses - PT: normal Posterior tibial: 2+ Special Tests Right Log roll test: negative General Constitutional: appears stated age Labored breathing: no Psychiatric: normal mood and affect Neurological: alert and oriented x3 Skin: intact Lymphadenopathy: none Vitals: There is no height or weight on file to calculate BMI. Tobacco Use: Low Risk (01/22/2025) Patient History Smoking Tobacco Use: Never Smokeless Tobacco Use: Never Passive Exposure: Not on file Alcohol Use: Not At Risk (03/09/2024) AUDIT-C Frequency of Alcohol Consumption: Monthly or less Average Number of Drinks: 1 or 2 Frequency of Binge Drinking: Never IMAGING: Procedures No orders of the defined types were placed in this encounter. ASSESSMENT: ICD-10-CM 1. Right hip pain M25.551 methylPREDNISolone (Medrol Dospak) 4 MG tablets PLAN: We have discussed her symptoms, physical exam, and x-rays today at length. We have recommended a Medrol Dosepak for chronic inflammation iliotibial band/greater trochanteric bursa. We'll see her backin 8 weeks. If her symptoms persist or worsen we may recommend a cortisone injection. She will continue with pain management in the interim. Questions answered in laymen terms at the bedside. The diagnosis, home exercise plan and any ongoing restrictions/ recommendations reviewed. If unable to be reached in office, I recommend evaluation at nearest Emergency Room if any symptoms worsened or new symptoms develop for requiring urgent evaluation. documented in this encounterBates County Memorial [id number] History of Present illness Narrative* GUANAKO Joe - 01/17/2025 8:15 AM EDT [facility] [address] [place] [address] Patient: Karla Rabago Sex: female : 1950 Age: 74 y.o. PCP: Genna Robledo MD 01/17/2025 Karla Rabago is here for a(n) post procedure follow up 01/04/2025 Right L 4/5, 5/1 Medial Brach Block with 100% relief x 1 hour and 90% relief for the rest of the day. 0% relief today. . Date of onset of pain: 2023 , pain has lasted greater than 3 months. Pain scale before treatment: 9/10 Pre-op pain score: 6/10 Post-op pain score: 2/10 2 hour post-op pain score: 2/10 4 hour post-op pain score: 1/10 Percentage and duration of relief after treatment: 100% relief x 1 hour, 90% relief x 1 day and 0%relief currently Pain scale after treatment: 12/20 Chief Complaint Patient presents with Back Pain HPI: PT after right hip replacement [facility] in [place] Back/Hip 05/25/24 Right L5, S1 with 50% relief for 1 week and then back to baseline. right 4/4 L5/S1 medial branch block 07/06/2024 with 80% relief that lasted 2 months. 01/04/2025 Right L 4/5, 5/1 Medial Brach Block with 100% relief x 1 hour and 90% relief for the restof the day. 0% relief today. Pre-op pain score: 6/10 Post-op pain score: 2/10 2 hour post-op pain score: 2/10 4 hour post-op pain score: 1/10 for 24 hours Back Pain The current episode started more than 1 year ago (after right hip replacement October 2023). The problem occurs constantly. The problem is unchanged (right hip). The pain is present in the lumbar spine, gluteal and sacro-iliac (right side back and right hip). The quality of the pain is described as aching (constant). Radiates to: right hip down RLE laterally to foot at times. The pain is at a severity of 10/10 (pain can reach 10/10). The pain is severe. The pain is The same all the time. Exacerbated by: twisting, transitioning, walking, stairs, bending. Stiffness is present: sitting to standing. Associated symptoms include leg pain (RLE to foot) and weakness (RLE). Pertinent negatives include no bladder incontinence, bowel incontinence, fever, numbness or tingling. Risk factors include sedentary lifestyle and lack of exercise. Treatments tried: PT, ice, salonpas, biofreeze, Ibuprofen, tylenol with mild relief. Hip Pain The incident occurred more than 1 week ago. There was no injury mechanism (pain started after righthip replacement october 2023). The pain is present in the right hip, right leg, right thigh, right knee, right ankle, right heel and right foot. The quality of the pain is described as aching (constant).The pain is at a severity of 9/10. The pain is severe. The pain has been Worsening since onset. Pertinent negatives include no numbness or tingling. Associated symptoms comments: Intermittent right groin pain . She reports no foreign bodies present. The symptoms are aggravated by movement. Treatments tried: PT, ice, salonpas, biofreeze, Ibuprofen, tylenol with mild relief. The treatment provided mild relief. The effect of pain on patient's ADLS: Moderate Impairment. Past Medical History: Diagnosis Date Arthritis DJD right hip Chronic pain disorder HL (hearing loss) Hypertension Low back pain MRSA (methicillin resistant Staphylococcus aureus) Osteoporosis Urinary frequency Visual impairment Past Surgical History: Procedure Laterality Date SECTION COLONOSCOPY COLONOSCOPY N/A 11/24/2020 Performed by Obi Menendez DO at [facility] ESOPHAGOGASTRODUODENOSCOPY N/A 11/24/2020 Performed by Obi Menendez DO at [facility] INJECTION BLOCK NERVE MEDIAL BRANCH: right L 4/5, 5/1 Right 01/04/2025 Performed by Dionicio Ramos MD at [facility] INJECTION BLOCK NERVE MEDIAL BRANCH: right L 4/5, 5/1 Right 07/06/2024 Performed by Dionicio Ramos MD at [facility] INJECTION SPINE TRANSFORAMINAL: right L 5,1 Nroot Right 05/25/2024 Performed by Dionicio Ramos MD at [facility] JOINT REPLACEMENT Bilateral knees KNEE SURGERY REPLACEMENT TOTAL JOINT HIP Right 10/25/2023 Performed by Scot Sandoval Jr., DO at [facility] ROTATOR CUFF REPAIR Left Lateral Allergies Allergen Reactions Lisinopril Cough Family History Problem Relation Age of Onset Hypertension Mother Diabetes Mother Hypertension Father Breast cancer Neg Hx Social History Socioeconomic History Marital status: Spouse name: Not on file Number of children: Not on file Years of education: Not on file Highest education level: Not on file Occupational History Not on file Tobacco Use Smoking status: Never Smokeless tobacco: Never Vaping Use Vaping status: Never Used Substance and Sexual Activity Alcohol use: Yes Comment: socially Drug use: No Sexual activity: Defer Partners: Male Other Topics Concern Not on file Social History Narrative Not on file Social Drivers of Health Financial Resource Strain: Patient Declined (03/09/2024) Received from [facility] Overall Financial Resource Strain (CARDIA) Difficulty of Paying Living Expenses: Patient declined Food Insecurity: No Food Insecurity (01/17/2025) Hunger Screening Food Insecurity - Worry: Never True Food Insecurity - Inability: Never True Transportation Needs: No Transportation Needs (03/09/2024) Received from [facility] PRAPARE - Transportation Lack of Transportation (Medical): No Lack of Transportation (Non-Medical): No Physical Activity: Patient Declined (03/09/2024) Received from [facility] Exercise Vital Sign Days of Exercise per Week: Patient declined Minutes of Exercise per Session: Patient declined Stress: Stress Concern Present (03/09/2024) Received from [facility] [employer] - Occupational Stress Questionnaire Feeling of Stress : Very much Social Connections: Unknown (03/09/2024) Received from [facility] Social Connection and Isolation Panel [NHANES] Frequency of Communication with Friends and Family: More than three times a week Frequency of Social Gatherings with Friends and Family: Patient declined Attends Shinto Services: Patient declined Active Member of Clubs or Organizations: No Attends Club or Organization Meetings: Never Marital Status: Interpersonal Safety: Not At Risk (10/25/2023) Humiliation, Afraid, Rape, and Kick questionnaire Fear of Current or Ex-Partner: No Emotionally Abused: No Physically Abused: No Sexually Abused: No Housing Instability: Unknown (03/09/2024) Received from [facility] Housing Stability Vital Sign Unable to Pay for Housing in the Last Year: No Number of Times Moved in the Last Year: Not on file Homeless in the Last Year: No Review of Systems Constitutional: Negative. Negative for fever. HENT: Negative. Eyes: Negative. Respiratory: Negative. Cardiovascular: Negative. Gastrointestinal: Negative. Negative for bowel incontinence. Endocrine: Negative. Genitourinary: Negative. Negative for bladder incontinence. Musculoskeletal: Positive for back pain. Skin: Negative. Neurological: Positive for weakness (RLE). Negative for tingling and numbness. Vital Signs: BP 129/73 (BP Site: Left Arm, BP Postition: Sitting) Pulse 84 Resp 18 Ht 165.1 cm (5' 5 ) Wt 66.7 kg (147 lb) SpO2 99% BMI 24.46 kg/m Physical Exam: GENERAL - Healthy patient that appears stated age. HEENT - Normocephalic / Atraumatic, Extraoccular movements intact, trachea midline, thyroid within normal limits. CV - pulse regular, Warm extremities with appropriate color of nailbeds. RESP - No obvious wheezing, No Shortness of Breath, No overexertion response to exam maneuvers. COORDINATION - remains intact. PSYCH - Alert and Oriented x4, Attentive and appropriate, constitutionally normal, displays normal mood and affect per situation, answered questions appropriately during examination, demonstrated appropriate attention during discussion, demonstrated appropriate cognitive reasoning and understandingof the medical condition by asking appropriate questions regarding the diagnosis and risks/benefits/alternatives of treatment modalities. No obvious deficits in memory, reasoning, or intellect. Lumbar: SKIN - No rashes or bruising in the area of the patient s pain. LYMPH NODES - demonstrate no obvious enlargement. EXTREMITIES - Lower extremities are warm, with minimal edema and palpable pulses. Tenderness to palpation noted in the right lumbar spine and paraspinal musculature. Pain is elicited with flexion, extension, and lateral rotation of the right lumbar spine. Range of motion is diminished with these motions due to pain. Facet palpation is noted to be painful and facet loading maneuvers elicit pain that is concordant with the patient s normal pain complaints. Some muscle spasm is noted in the overlying musculature. STRENGTH - noted to be 5 out of 5 all muscle groups bilateral lower extremities including muscles involving hip flexion and abduction, knee flexion and extension, as well as foot dorsiflexion and plantarflexion. No notable atrophy, fasciculations or spasm. SENSORY - No notable sensory deficits in the bilateral lower extremities to touch or pinprick in all dermatomal distributions. Straight Leg Raise is negative bilaterally. Gait is normal. Assessment/Treatment Plan: Karla was seen today for back pain. Diagnoses and all orders for this visit: Lumbosacral spondylosis without myelopathy - Case request operating room: RADIOFREQUENCY ABLATION SPINAL: right L45 51rfa Right L4/5, 5/1 Facet Radiofrequency Ablation - under fluoroscopy It is hopeful that the described procedure will provide symptomatic pain relief. It is felt to be medically necessary noting that the patient has tried and failed more conservative modalities of therapy and this is the next most appropriate step. The procedure was described in detail to the patientas well as the potential benefits of pain reduction alongside risks of the procedure and alternatives. Risks were described as including, but not limited to bleeding, infection, nerve damage, spinal cord injury, paralysis, stroke, dural puncture headache, and medication reaction. The patient expressed understanding regarding the risks and benefits and wishes to proceed. The patient has undergone diagnostic injections targeting the above mentioned facet joints. There was significant improvement in the patient s pain and functionality for the duration of the local anesthetic (approximately 2 hours) with return of the original symptoms after that time. For this reason, it is felt that the patient is a good candidate to undergo thermal Radio Frequency Lesioning of the Medial Branch Nerves at 80 degrees celsius for 90 seconds. This will effectively denervate the arthritic facet joints previously targeted with the diagnostic injection. It is noted that the procedure often requires 3-4 weeks to provide benefit, but the benefit usually lasts for approximately 1 year and can then be repeated if necessary. Patients undergoing this procedure often have mild post-procedural pain for 3-4 days which is generally relieved with application of heat and over the counterpain relievers. Follow up 2 weeks after procedure The medications prescribed have been reviewed for medication interactions/contraindications and/or for upcoming procedures: continue current medication regimen without any changes. DISCUSSION: Treatment options discussed with patient and all questions answered to patient's satisfaction. Discussed the rules and regulations surrounding prescription of opioids and compliance at length. Failure to follow the rules and regulation will result in tapering and discontinuation of medications if applicable. Prescribed medication that requires intensive monitoring for toxicity We do not currently prescribeany controlled substance from this practice. The spine model was demonstrated and MRI was reviewed and used to explain the condition. OARRS: Reviewed. Scribe Statement: Colleen Robles CNA, scribed for and in the presence of GUANAKO JOE who performed the above service. Colleen Foley CNA 01/17/25 0851 GUANAKO Joe 01/17/25 0900 documented in this encounterOhio[facility]08-07-2025 Instructions* Patient Instructions* Colleen STEF Foley - 01/17/2025 8:15 AM EDT Radiofrequency Ablation (RFA) Radiofrequency ablation (or RFA) is a procedure used to reduce pain. An electrical current producedby a radio wave is used to heat up a small area of nerve tissue, thereby decreasing pain signals from that specific area. Which Conditions Are Treated With Radiofrequency Ablation? RFA can be used to help patients with chronic (long-lasting) back and neck pain and pain related tothe degeneration of joints from arthritis. How Long Does Pain Relief from Radiofrequency Ablation Last? The degree of pain relief varies, depending on the cause and location of the pain. Pain relief fromRFA can last from six to 12 months and in some cases, relief can last for years. More than 70% of patients treated with RFA experience pain relief. Is Radiofrequency Ablation Safe? RFA has proven to be a safe and effective way to treat some forms of pain. It also is generally well-tolerated, with very few associated complications. There is a slight risk of infection and bleeding at the insertion site. Your doctor can advise you about your particular risk. Can I Resume My Normal Activities After Radiofrequency Ablation? You will have a few restrictions immediately following radiofrequency ablation: If you had sedation, do not drive or operate machinery for at least 24 hours after the procedure. You may resume your normal diet and prescribed medications (including blood thinners) when you get home. Do not engage in any strenuous activity for the first 24 hours after the procedure. You may remove any bandages in the evening before going to bed. You may experience the following effects after RFA: Extremity numbness: If you have any leg numbness, walk only with assistance. This should only last a few hours and is due to the local anesthesia given during the procedure. Mild back discomfort: This may occur when the local anesthetic wears off and usually lasts two or three days. Apply heat to the area the day of the procedure and the day after the procedure. You may also use your usual pain medications and NSAID medications such as ibuprofen, naproxen, Aleve, Motrin, etc. if you are able. Expectations: Results will be gradual. It may take 3-4 weeks for full relief. If you feel severe pain at the injection site with swelling and redness, increased leg weakness, a fever of 101 or higher, headache (or worsening headache), changes in vision or urinary retention: Please call the office at , or have someone take you to the nearest emergency room. Tellthe emergency room staff that you just had RFA. A doctor must evaluate you for bleeding and injection complications. If you lose control over bowel, bladder, or legs: Go to the nearest emergency room. If you are diabetic, the steroids used in this procedure can increase your blood sugar. If your blood sugar is 250mg/dL or higher, contact your primary care physician, or the doctor who manages your diabetes, to discuss how to get it back to normal. documented in this encounterOhioHealth [facility] Hospital07-29-2025 Telephone encounter Note* Telephone Encounter - Andre Veronica - 01/08/2025 4:30 PM EDT Karla thought it was discussed at her appt that her Buspar changed from dosage she was given - as well as Trazadone Was it to change to 1 tab at bedtime? Also making sure the Zoloft is correct - Please give her a call at [phone] [facility] [id number] Miscellaneous Notes* Telephone Encounter - Andre Veronica - 01/08/2025 4:30 PM EDT Karla thought it was discussed at her appt that her Buspar changed from dosage she was given - as well as Trazadone Was it to change to 1 tab at bedtime? Also making sure the Zoloft is correct - Please give her a call at [phone] documented in this encounterBates County [facility] [id number] Miscellaneous Notes* Telephone Encounter - Christa Alatorre RN - 01/08/2025 8:51 AM EDT Patient called office 01/07/2025 and stated that she didn't get much relief from right L4/5 L5/1 MBBperformed 01/04/2025. Reinforced that MBB was diagnostic and that the relief may only last hour(s) after the procedure. She also reports tenderness at injection site. Fruit Press Operator explained to her that temporary injection site tenderness is expected. * Telephone Encounter - GUANAKO Joe - 01/08/2025 8:51 AM EDT Noted. Can discuss further at f/u * Telephone Encounter - Keiko Mcpherson RN - 01/08/2025 8:51 AM EDT Called to provide response, called [phone] no answer. Unable to LM. LM on other phone [phone] * Telephone Encounter - Christa Alatorre RN - 01/08/2025 8:51 AM EDT Patient's follow up is scheduled 01/17/2025. documented in this encounterOhio[facility]07-29-2025 Telephone encounter Note* Telephone Encounter - Christa Alatorre RN - 01/08/2025 8:51 AM EDT Patient called office 01/07/2025 and stated that she didn't get much relief from right L4/5 L5/1 MBBperformed 01/04/2025. Reinforced that MBB was diagnostic and that the relief may only last hour(s) after the procedure. She also reports tenderness at injection site. Fruit Press Operator explained to her that temporary injection site tenderness is expected. [facility] Telephone encounter Note* Telephone Encounter - GUANAKO Joe - 01/08/2025 8:51 AM EDT Noted. Can discuss further at f/u [facility]07-[facility] Telephone encounter Note* Telephone Encounter - Keiko Mcpherson RN - 01/08/2025 8:51 AM EDT Called to provide response, called [phone] no answer. Unable to LM. LM on other phone [phone] [facility]07-29-[facility] Telephone encounter Note* Telephone Encounter - Christa Alatorre RN - 01/08/2025 8:51 AM EDT Patient's follow up is scheduled 01/17/2025. [facility]07-[facility] History of Present illness Narrative* Genna Robledo MD - 01/01/2025 2:00 PM EDT Subjective Patient ID: Karla Rabago is a 74 y.o. female who presents for Hot Flashes. HPI History of Present Illness The patient presents for hot and cold sweats. She reports experiencing both hot and cold sweats, which are not necessarily linked to her feelingsof anxiety. These episodes can occur at home, with the temperature varying from feeling warm to cold. She also experiences these sweats at night, although less frequently, about once a week. The sweats can be either hot or cold, or sometimes a combination of both. She has not had her thyroid levelschecked recently. She reports no symptoms of infection, pain, or burning during urination, and is not aware of any inflammation or swelling in her joints. Additionally, she mentions experiencing dry mouth during a recent dental visit, which was attributed to her medication. Alcohol: She occasionally consumes alcohol. Coffee/Tea/Caffeine-containing Drinks: She drinks tea in the morning. Objective BP 132/84 Pulse 79 Ht 5' 2 Wt 150 lb 3.2 oz SpO2 97% BMI 27.47 kg/m Physical Exam Physical Exam General Appearance: Normal. Vital signs: Within normal limits. Respiratory: Clear to auscultation, no wheezing, rales or rhonchi. Cardiovascular: regular rate and rhythm with no murmur. Extremities: no edema, palpable pulses. Skin: Warm and dry, no rash. Neurological: Normal. Psychiatric: Normal. Assessment & Plan Hot flashes Orders: TSH W/REFLEX TO FT4; Future CBC; Future Basic metabolic panel; Future Sedimentation rate, automated; Future Assessment & Plan 1. Hot and cold sweats. - Symptoms include hot and cold flashes, which vary in intensity and frequency, sometimes occurringat night. - Physical exam findings show no signs of infection or inflammation; thyroid function has not been previously checked. - Discussion includes potential side effects of Zoloft and trazodone, and the need to assess thyroid function and rule out infection with a CBC. - Thyroid test and CBC ordered; patient advised to continue current medications until lab results are available. If thyroid function is normal, Zoloft dosage may be reduced by half to monitor changesin temperature regulation and mental health. documented in this encounterBates County [facility] [id number] History of Present illness Narrative* Baylee Tang MD - 01/01/2025 10:10 AM EDT Skin Check Location: Patient requests a full body skin examination Dermatologic history: no history of skin cancer, no history of atypical moles Last visit: 1 year ago Lesions: Location: left posterior thigh Duration: about 2 weeks Quality: itchy Associated symptoms: like a pimple Treatments: none All pertinent medical history, medications, and allergies were reviewed. General Exam: alert , oriented to person, place, and time , normal affect, well appearing Scalp, Examined , exam limited by hair Right leg Examined Head, Face, examined. Patient kept makeup on Left leg Examined Neck Examined Right foot Not examined , patient kept socks on Chest Examined Left foot Not examined Back Examined Buttocks Examined Abdomen Examined Digits,nails: Examined Right arm Examined Denies dark streaks under finger nails, Denies dark streaks on toenails Left arm Examined Lymphatics: Not examined Hands Examined Skin Exam 1. LENTIGINES Generalized Scattered penny macules in sun-exposed areas. The patient was informed that lentigines are benign pigmented lesions that occur on sun-exposed andsun-damaged skin. No treatment is necessary. Recommended regular use of broad spectrum sunscreen SPF 30 or higher 2. SEBORRHEIC KERATOSIS Generalized Stuck on verrucous, penny-brown papules and plaques. Patient was counseled regarding these benign growths. Removal is normally not necessary, but they may be removed if they are symptomatic or for cosmetic reasons. 3. MILIA Left Buccal Cheek Small white or yellow papule. Reassure, benign. Discussed milia may self resolve or they can be removed for a cosmetic fee. 4. ANGIOMA OF SKIN Generalized Scattered ramirez-red papule(s). The patient was informed that angiomas are benign growths on the the skin. No treatment is necessary. 5. ACTINIC KERATOSIS Right Buccal Cheek Erythematous scaly papules Patient was counseled regarding these sun-induced growths that can develop into squamous cell carcinoma if left untreated. Discussed treatment with cryotherapy. It was emphasized that any treated lesions that fail to resolve should be re- evaluated. Cryotherapy performed today; see procedure note Diagnosis: Actinic keratosis Indication: Precancerous Location: see skin exam Consent: Verbal consent was obtained and risks were discussed, including, but not limited to risks of scarring, darker or bereavement coordinator pigmentary changes, recurrence, incomplete removal and infection. Method: Liquid nitrogen was used to treat the lesion(s) with two 5-10 second freeze-thaw cycles. Number of lesions treated: 1 Post-procedure instructions: Instructions were given orally and in writing. The office will be contacted if the lesion fails to resolve despite treatment, or if a side effect develops such as abnormal crusting, scabbing, redness or tenderness Cryotherapy, skin lesion - Right Buccal Cheek 6. INFLAMMATORY PAPULE Left Thigh - Posterior [place] papule Favoring benign lesion. Will give lesion 3-4 weeks to resolve. Patient instructed to call in 3-4 weeks if lesion has not resolved for a biopsy. Next Visit: 1 year documented in this encounterB[facility] [id number] History of Present illness Narrative* Cathy Bay Kiana, GUANAKO - 12/06/2024 7:45 AM EDT [facility] [address] [place] [address] Patient: Karla Rabago Sex: female : 1950 Age: 74 y.o. PCP: Genna Robledo MD 12/06/2024 Karla Rabago is here for a(n) follow up due increased right sided lumbar pain. Patient had right 4/4 L5/S1 medial branch block 07/06/2024 with 80% relief that lasted 2 months. Patient reports that after the two months of 80% relief, the pain gradually returned to baseline. Chief Complaint Patient presents with Back Pain HPI: PT after right hip replacement [facility] in [place] Back/Hip 05/25/24 Right L5, S1 with 50% relief for 1 week and then back to baseline. right 4/4 L5/S1 medial branch block 07/06/2024 with 80% relief that lasted 2 months. Back Pain The current episode started more than 1 year ago (after right hip replacement October 2023). The problem occurs constantly. The problem has been gradually worsening (right hip) since onset. The pain is present in the lumbar spine (right side back and right hip). The quality of the pain is described as aching (constant). Radiates to: right hip lateral to mid calf (intermittent shooting), intermittently into right groin. The pain is at a severity of 9/10. The pain is severe. The pain is The same all the time. Exacerbated by: twisting, transitioning, walking, stairs, bending. Stiffness is present: sitting to standing. Associated symptoms include leg pain (right hip lateral to mid calf) and weakness (RLE). Pertinent negatives include no bladder incontinence, bowel incontinence, fever, numbness ortingling. Risk factors include sedentary lifestyle and lack of exercise. Treatments tried: PT, ice,salonpas, biofreeze, Ibuprofen, tylenol with mild relief. Hip Pain The incident occurred more than 1 week ago. There was no injury mechanism (pain started after righthip replacement october 2023). The pain is present in the right hip and right leg. The quality of the pain is described as aching (constant). The pain is at a severity of 9/10. The pain is severe. The pain has been Worsening since onset. Pertinent negatives include no numbness or tingling. Associated symptoms comments: Intermittent right groin pain . She reports no foreign bodies present. The symptoms are aggravated by movement. Treatments tried: PT, ice, salonpas, biofreeze, Ibuprofen, tylenol with mild relief. The treatment provided mild relief. The effect of pain on patient's ADLS: Moderate Impairment. Past Medical History: Diagnosis Date Arthritis DJD right hip Chronic pain disorder HL (hearing loss) Hypertension Low back pain MRSA (methicillin resistant Staphylococcus aureus) Osteoporosis Urinary frequency Visual impairment Past Surgical History: Procedure Laterality Date SECTION COLONOSCOPY COLONOSCOPY N/A 11/24/2020 Performed by Obi Menendez DO at [facility] ESOPHAGOGASTRODUODENOSCOPY N/A 11/24/2020 Performed by Obi Menendez DO at [facility] INJECTION BLOCK NERVE MEDIAL BRANCH: right L 4/5, 5/ Right 07/06/2024 Performed by Dionicio Ramos MD at [facility] INJECTION SPINE TRANSFORAMINAL: right L 5,1 Nroot Right 05/25/2024 Performed by Dionicio Ramos MD at [facility] JOINT REPLACEMENT Bilateral knees KNEE SURGERY REPLACEMENT TOTAL JOINT HIP Right 10/25/2023 Performed by Scot Sandoval Jr., DO at [facility] ROTATOR CUFF REPAIR Left Lateral Allergies Allergen Reactions Lisinopril Cough Family History Problem Relation Age of Onset Hypertension Mother Diabetes Mother Hypertension Father Breast cancer Neg Hx Social History Socioeconomic History Marital status: Spouse name: Not on file Number of children: Not on file Years of education: Not on file Highest education level: Not on file Occupational History Not on file Tobacco Use Smoking status: Never Smokeless tobacco: Never Vaping Use Vaping status: Never Used Substance and Sexual Activity Alcohol use: Yes Comment: socially Drug use: No Sexual activity: Defer Partners: Male Other Topics Concern Not on file Social History Narrative Not on file Social Drivers of Health Financial Resource Strain: Patient Declined (03/09/2024) [facility] Overall Financial Resource Strain (CARDIA) Difficulty of Paying Living Expenses: Patient declined Food Insecurity: No Food Insecurity (12/06/2024) Hunger Screening Food Insecurity - Worry: Never True Food Insecurity - Inability: Never True Transportation Needs: No Transportation Needs (03/09/2024) Re[facility] from [facility] PRAPARE - Transportation Lack of Transportation (Medical): No Lack of Transportation (Non-Medical): No Physical Activity: Patient Declined (03/09/2024) Re[facility] from [facility] Exercise Vital Sign Days of Exercise per Week: Patient declined Minutes of Exercise per Session: Patient declined Stress: Stress Concern Present (03/09/2024) Received from [facility] [place] [facility] - Occupational Stress Questionnaire Feeling of Stress : Very much Social Connections: Unknown (03/09/2024) Received from [facility] Social Connection and Isolation Panel [NHANES] Frequency of Communication with Friends and Family: More than three times a week Frequency of Social Gatherings with Friends and Family: Patient declined Attends Shinto Services: Patient declined Active Member of Clubs or Organizations: No Attends Club or Organization Meetings: Never Marital Status: Interpersonal Safety: Not At Risk (10/25/2023) Humiliation, Afraid, Rape, and Kick questionnaire Fear of Current or Ex-Partner: No Emotionally Abused: No Physically Abused: No Sexually Abused: No Housing Instability: Unknown (03/09/2024) Re[facility] from [facility] Housing Stability Vital Sign Unable to Pay for Housing in the Last Year: No Number of Times Moved in the Last Year: Not on file Homeless in the Last Year: No Review of Systems Constitutional: Negative for fever. HENT: Negative. Respiratory: Negative for cough and shortness of breath. Cardiovascular: Negative. Gastrointestinal: Negative for bowel incontinence, constipation and diarrhea. Genitourinary: Negative. Negative for bladder incontinence. Musculoskeletal: Positive for back pain. Right hip pain Skin: Negative. Neurological: Positive for weakness (RLE). Negative for tingling and numbness. Psychiatric/Behavioral: Negative. Vital Signs: BP 128/74 Pulse 84 Resp 16 Wt 68.5 kg (151 lb) SpO2 98% BMI 25.13 kg/m Physical Exam: GENERAL - Healthy patient that appears stated age. HEENT - Normocephalic / Atraumatic, Extraoccular movements intact, trachea midline, thyroid within normal limits. CV - pulse regular, Warm extremities with appropriate color of nailbeds. RESP - No obvious wheezing, No Shortness of Breath, No overexertion response to exam maneuvers. COORDINATION - remains intact. PSYCH - Alert and Oriented x4, Attentive and appropriate, constitutionally normal, displays normal mood and affect per situation, answered questions appropriately during examination, demonstrated appropriate attention during discussion, demonstrated appropriate cognitive reasoning and understandingof the medical condition by asking appropriate questions regarding the diagnosis and risks/benefits/alternatives of treatment modalities. No obvious deficits in memory, reasoning, or intellect. Lumbar: SKIN - No rashes or bruising in the area of the patient s pain. LYMPH NODES - demonstrate no obvious enlargement. EXTREMITIES - Lower extremities are warm, with minimal edema and palpable pulses. Tenderness to palpation noted in the right lumbar spine and paraspinal musculature. Pain is elicited with flexion, extension, and lateral rotation of the right lumbar spine. Range of motion is diminished with these motions due to pain. Facet palpation is noted to be painful and facet loading maneuvers elicit pain that is concordant with the patient s normal pain complaints. Some muscle spasm is noted in the overlying musculature. STRENGTH - noted to be 5 out of 5 all muscle groups bilateral lower extremities including muscles involving hip flexion and abduction, knee flexion and extension, as well as foot dorsiflexion and plantarflexion. No notable atrophy, fasciculations or spasm. SENSORY - No notable sensory deficits in the bilateral lower extremities to touch or pinprick in all dermatomal distributions. Straight Leg Raise is negative bilaterally. Gait is normal. Assessment/Treatment Plan: Karla was seen today for back pain. Diagnoses and all orders for this visit: Lumbosacral spondylosis without myelopathy - Case request operating room: INJECTION BLOCK NERVE MEDIAL BRANCH: right L45 51 Right L4/5, 5/1 Facet Injection/Medial Branch Block - under fluoroscopy It is hopeful that the described procedure will provide symptomatic pain relief. It is felt to be medically necessary noting that the patient has tried and failed more conservative modalities of therapy and this is the next most appropriate step. The procedure was described in detail to the patientas well as the potential benefits of pain reduction alongside risks of the procedure and alternatives. Risks were described as including, but not limited to bleeding, infection, nerve damage, spinal cord injury, paralysis, stroke, dural puncture headache, and medication reaction. The patient expressed understanding regarding the risks and benefits and wishes to proceed. Diagnostic facet injections and medial branch blocks should provide information to confirm that thenoted facet arthropathy is the patient s most significant pain generator. If this provides significant but only temporary pain relief, the patient may in the future be a candidate for radiofrequency denervation of the facet joints to provide pain relief for approximately 1 year. Follow up 2 weeks after procedure The medications prescribed have been reviewed for medication interactions/contraindications and/or for upcoming procedures: continue current medication regimen without any changes. DISCUSSION: Treatment options discussed with patient and all questions answered to patient's satisfaction. Discussed the rules and regulations surrounding prescription of opioids and compliance at length. Failure to follow the rules and regulation will result in tapering and discontinuation of medications if applicable. Prescribed medication that requires intensive monitoring for toxicity We do not currently prescribeany controlled substance from this practice. Treatment plans discussed but not opted for at this time: Lumbar RFA. Patient would like to proceed with the current outlined treatment plan before moving forward with any other options. It is noted that the patient did have good response from the previously performed procedure. It is felt that the patient would benefit from an additional procedure of the same nature in that the samesymptoms have returned. It is hopeful that this additional injection will provide additional benefit and duration when combined with the previous injection. The spine model was demonstrated and MRI was reviewed and used to explain the condition. OARRS: Reviewed. Scribe Statement: IColleen CNA, scribed for and in the presence of GUANAKO JOE who performed the above service. Colleen Foley CNA 12/06/24 0824 GUANAKO Joe 12/06/24 1001 documented in this encounterSumma Health Wadsworth - [facility]ittman Medical CenterCitiLogics [id number] Instructions* Patient Instructions* Colleen Foley CNA - 12/06/2024 7:45 AM EDT Facet Injection / Medial Branch Block (MBB) / Sacroiliac (SI) Joint Injection / Cluneal NB A facet injection and sacroiliac joint injection are injections of local anesthetic and steroid into a joint in the spine. A medial branch block is similar, but the medication is placed outside the joint space near the nerve that supplies the joint called the medial branch (steroid may or may not be used). You may require multiple injections depending upon how many joints are involved. How Long Will This Procedure Last? The extent and duration of pain relief may depend on the amount of inflammation and how many areas are involved. Other coexisting factors may be responsible for your pain. If your pain goes away for a short time, but then returns, you may be a candidate for radiofrequency ablation (RFA). Activity Be active. Attempt activities and movements that typically cause pain to see if it feels better while doing them. We will give you a pain diary. Please fill this out as directed by your nurse in pre-op. This will help your doctor determine the effectiveness of the injection, and how to proceed. Bring the pain diary with you to your follow-up appointment. Medications You should not take your pain medications for 4-6 hours before or after the injection in order to properly diagnose if the injection provides adequate relief. Resume your routine medications after your procedure. You may resume blood thinners per your regular schedule after the procedure. If you received sedation: If you received sedation for your procedure, you may feel sleepy or not yourself for several hours today. For the next 24 hours avoid activities that requires alertness or coordination. This includes: Driving or operating heavy machinery Using power tools Consuming alcohol Do not make important or complex decisions or sign legal documents in the next 24 hours. Other Instructions: If you feel severe pain at the injection site with swelling and redness, increased leg weakness, a fever of 101 or higher, headache (or worsening headache), changes in vision or urinary retention: Please call the office at , or have someone take you to the nearest emergency room. Tellthe emergency room staff that you recently had a spine injection. A doctor must evaluate you for bleeding and injection complications. If you lose control over bowel, bladder, or legs: Go to the nearest emergency room. documented in this encounterSumma Health Wadsworth - Rittman Medical CenterCitiLogics [id number] Telephone encounter Note* Telephone Encounter - GUANAKO Carrera - 11/23/2024 2:02 PM EDT Rx for celebrex sent to pharmacy. Pt should be contacting pain management for eval . [facility] [id number] Miscellaneous Notes* Telephone Encounter - GUANAKO Carrera - 11/23/2024 2:02 PM EDT Rx for celebrex sent to pharmacy. Pt should be contacting pain management for eval . * Telephone Encounter - Neena Estrella - 11/23/2024 10:17 AM EDT Karla was seem 11/22/24 said that she didn't get any pain medication at the time but today that her she is having a lot of pain wanted to know if we can call in celebrex is what she had before. Pleaseadvise documented in this encounterBates County Memorial [id number] Telephone encounter Note* Telephone Encounter - Neena Estrella - 11/23/2024 10:17 AM EDT Karla was seem 11/22/24 said that she didn't get any pain medication at the time but today that her she is having a lot of pain wanted to know if we can call in celebrex is what she had before. Pleaseadvise [facility] [id number] History of Present illness Narrative* GUANAKO Carrera - 11/21/2024 8:00 AM EDT Images from the original note were not included. Orthopedic Office note: NAME: Karla Rabago : 1950 EST PT S/P (R) WINNIE 10/25/23 (~1YR)- NOTES PAIN OFF AND ON SINCE SURGERY- PT STATES IT IS BECOMING MORE CONSTANT - S/P [place] - TOOK PREDNISONE AND CELEBREX ; MINIMAL RELIEF XRAY RT HIP EPIC 10/10/24 MRI L-SPINE 04/12/24 EPIC XRAY RT HIP/LUMBAR SPINE 04/03/24 XRAYS, 12/06/23 IN EPIC MDP 02/09/2024, 02/15/24 NO BONE SCAN NO RECENT LABS FINISHED PHYSICAL THERAPY @ [facility] PREDNISONE 10/10/24 CELEBREX 10/10/24 CONTINUES TO HAVE PAIN LATERAL HIP- OCCASIONAL GROIN PAIN WITH SOME TINGLING - +WAKES HS- INCREASEPAIN WITH PROLONG WALKING- USES SALON PAS; MINIMAL RELIEF- +TYLENOL Hip Musculoskeletal Exam Gait Gait is normal. Inspection Leg length disparity: no discrepancy Right Erythema: none Ecchymosis: none Edema: none Deformity: none Previous incision: anterolateral Incision: well-healed Palpation Right Right hip palpation is normal. Increased warmth: none Tenderness: none (denies pain to hip bursa today.) Range of Motion Right Right hip range of motion is within functional limits. Active ROM: normal and no pain. Passive ROM: normal and no pain. Strength Right Right hip strength is normal. Extension: 5/5. Flexion: 5/5. Internal rotation: 5/5. External rotation: 5/5. Adduction: 5/5. Abduction: 5/5. Strength additional comments: No focal weakness SLR is negaitve today seated. Constant Mild discomfort in L5 dermatome. Denies calf pain Neg clonus. Neurovascular Right Right hip neurovascular exam is normal. Pulses - PT: normal Posterior tibial: 2+ Special Tests Right Log roll test: negative General Constitutional: appears stated age Labored breathing: no Psychiatric: normal mood and affect Neurological: alert and oriented x3 Skin: intact Lymphadenopathy: none No orders of the defined types were placed in this encounter. Procedures Results MRI 04/12/24 L/s spine pertintnet for L5-S1: Small broad-based disc bulge. Moderate to severe rightand moderate left facet osteoarthrosis. Ligamentum flavum hypertrophy. Mild bilateral neural foraminal and spinal canal stenosis. ICD-10-CM 1. History of total hip replacement, right Z96.641 2. Right hip pain M25.551 F/U Dr. Sandoval s/p return visit to pain management for lumbar radiculopathy to discuss need for possible: Labs/ Bonescan if pain localizes to hip. Vs neurosurgery consult. Exam today favors L5 radiculopathy, no hip bursa tenderness following Celebrex and return from [place] with increased activity. Pt had bouts of back pain and radicular symptoms before her hip surgery. Surgical and non surgical tx options discussed with conservative measures reviewed. Recommend ICE/ ELEVATION, continued activity modification in interim. Pt would consider surgical intervention to possibly improve symptoms. Assessment & Plan Right hip pain Exam today noted for right lumbar radiculopathy in the L5 dermatome. Her symptoms are exacerbated by prolonged standing and also manifest during periods of sitting. The pain is constantly noted in the lateral hip, extending into the lateral leg and lateral anterior cheney. She reports no focal weakness. She recently returned from a trip to [place], during which she was able to participate in all activities. She mentions an occasional twinge in her groin, but it is not persistent. She does notrecall seeing pain management, but was there in 06/2024. She reports that Celebrex has not alleviated her radicular symptoms. A follow-up with pain management for reevaluation of her lumbar radiculopathy was discussed. She was provided with the contact information of the clinic for scheduling her follow-up. Diagnostic plan: Follow-up with pain management for reevaluation of her lumbar radiculopathy. Treatment plan: Provided with the contact information of the clinic for scheduling her follow-up. Follow-up: Her hip will be reassessed in 2 months with attending. Questions answered in laymen terms at the bedside. The diagnosis, home exercise plan and any ongoing restrictions/ recommendations reviewed. If unable to be reached in office, I recommend evaluation at nearest Emergency Room if any symptoms worsened or new symptoms develop for requiring urgent evaluation. Visit was preformed using [employer] speech recognition. documented in this encounterBates County Memorial [id number] Telephone encounter Note* Telephone Encounter - Andre Veronica - 11/20/2024 10:42 AM EDT Karla called - she forgot to mention at her appt today that she wanted a referral to see an ENT fora check on her hearing . She does wear hearing aides and just wanted it checked by a Dr MOODY ' (Last hearing check was at [facility]) [facility] [id number] Miscellaneous Notes* Telephone Encounter - Andre Veronica - 11/20/2024 10:42 AM EDT Karla called - she forgot to mention at her appt today that she wanted a referral to see an ENT fora check on her hearing . She does wear hearing aides and just wanted it checked by a Dr MOODY ' (Last hearing check was at [facility]) documented in this encounterBates County Memorial [id number] History of Present illness Narrative* Genna Robledo MD - 11/20/2024 10:00 AM EDT Images from the original note were not included. Karla Rabago is a 74 y.o. female presents with chief complaint of anxiety follow up HPI: Over the past 2 weeks, how often have you been bothered by any of the following problems? Little interest or pleasure in doing things: Not at all Feeling down, depressed, or hopeless: Not at all Trouble falling or staying asleep, or sleeping too much: Nearly every day Feeling tired or having little energy: Several days Poor appetite or overeating: Several days Feeling bad about yourself - or that you are a failure or have let yourself or your family down: Not at all Trouble concentrating on things, such as reading the newspaper or watching television: Several days Moving or speaking so slowly that other people could have noticed? Or the opposite - being so fidgety or restless that you have been moving around a lot more than usual.: Several days Thoughts that you would be better off or hurting yourself in some way: Not at all Patient Health Questionnaire-9 Score: 7 Over the last 2 weeks, how often have you been bothered by any of the following problems? Feeling nervous, anxious, or on edge: Nearly every day Not being able to stop or control worrying: Nearly every day Worrying too much about different things: Nearly every day Trouble relaxing: Several days Being so restless that it is hard to sit still: Not at all Becoming easily annoyed or irritable: Not at all Feeling afraid as if something awful might happen: Not at all ADAMA-7 Total Score: 10 History of Present Illness The patient presents for evaluation of anxiety, sleep disturbance, and gastrointestinal upset. She reports experiencing severe anxiety, which she attributes to a series of stressful events, including the of her sister. She also mentions that certain days are more anxiety-inducing than others, but she is able to manage these episodes. She has been taking lorazepam as needed for her anxiety. She does not recall filling her prescription for buspirone, which was started in October. Her sleep has been disrupted, characterized by restlessness and difficulty returning to sleep upon awakening. She is currently on trazodone for sleep management. She has been experiencing gastrointestinal upset following the consumption of certain foods, leading to immediate bowel movements. This issue has been ongoing for a couple of months but is not constant. She does not experience any associated stomach pain. The problem is most noticeable on weekends when she consumes sausage, biscuits, and bananas for breakfast, whereas during the week she only eats oatmeal and tea without any issues. She is uncertain if this could be indicative of an ulcer. She is taking Celebrex for her body pains and has an appointment with her doctor tomorrow to discuss her hip pain. SUBJECTIVE: MEDICATIONS: Current Outpatient Medications Medication Instructions albuterol HFA 90 mcg/act inhaler 1 puff, Every 6 hours PRN alendronate (Fosamax) 70 MG tablet TAKE 1 TABLET BY MOUTH EVERY 7 DAYS IN THE MORNING ON AN EMPTY STOMACH WITH a full glass OF water ON AN EMPTY STOMACH and do not take anything else by mouth or lie down for the next 30 mins Alpha tocopherol (VITAMIN E) 200 Units, Daily RT busPIRone (BUSPAR) 5 mg, Oral, 2 times daily celecoxib (CELEBREX) 200 mg, Oral, Daily, Take with food Cinnamon 500 mg, Daily coenzyme Q-10 200 mg, Every 24 hours fluticasone (Flonase) 50 MCG/ACT nasal spray 1 spray, Each Nostril, 2 times daily LORazepam (ATIVAN) 0.5 mg, Oral, Every 8 hours PRN Restasis 0.05 % ophthalmic emulsion sertraline (ZOLOFT) 150 mg, Oral, Daily traZODone (DESYREL) 150 mg, Oral, Nightly verapamil (CALAN) 80 mg, Oral, Every morning I have reviewed and reconciled the history and medication list with the patient today. REVIEW OF SYMPTOMS: Review of Systems OBJECTIVE: Visit Vitals BP 106/66 Pulse 67 Ht 5' 2 Wt 151 lb 6.4 oz SpO2 97% BMI 27.69 kg/m Smoking Status Never BSA 1.73 m Physical Exam Vitals and nursing note reviewed. Constitutional: Appearance: Normal appearance. Skin: General: Skin is warm and dry. Neurological: General: No focal deficit present. Mental Status: She is alert. Psychiatric: Mood and Affect: Mood normal. ASSESSMENT AND PLAN: Assessment & Plan 1. Anxiety. - Severe anxiety persists, potentially due to not filling the buspirone prescription started in 10/2024. - Sertraline and trazodone are being continued as previously prescribed. - Buspirone prescription will be provided, starting at a low dose with room for adjustment if necessary. - Refills for all medications have been provided. 2. Sleep disturbance. - Sleep disturbances may be linked to anxiety. - Improved anxiety management with buspirone may help improve sleep. - Trazodone for sleep is being continued as previously prescribed. - Refills for trazodone have been provided. 3. Gastrointestinal upset. - Reports gastrointestinal upset likely related to certain foods consumed during breakfast on weekends. - An elimination diet is recommended, starting with the removal of sausage and biscuits from weekend breakfast. - Monitor symptoms and identify specific foods contributing to gastrointestinal upset. - Further evaluation may be necessary if symptoms persist. 4. Pain management. - Currently taking Celebrex for body pains. - Has an appointment with her doctor tomorrow to discuss hip pain and whether to continue Celebrex. - Celebrex refill will be considered based on tomorrow's appointment. - Refills for other medications have been provided. Assessment/Plan documented in this encounterBates County Memorial [id number] Telephone encounter Note* Telephone Encounter - Sophia Cottrell - 10/24/2024 9:02 AM EDT Pt is requesting Alenodronate sodium 70mg 1 per mouth every 7 days, She is leaving on vacation tomorrow and is out at this time. She is requesting a [facility] [place] She took her last pill last and is now due. [facility] [id number] Miscellaneous Notes* Telephone Encounter - Sophia Cottrell - 10/24/2024 9:02 AM EDT Pt is requesting Alenodronate sodium 70mg 1 per mouth every 7 days, She is leaving on vacation tomorrow and is out at this time. She is requesting a [facility] [place] She took her last pill last and is now due. documented in this [facility]05-09-2025 Telephone encounter Note* Telephone Encounter - Andre Veronica - 10/19/2024 4:42 PM EDT Karla meant to let you know that she has been spitting thick saliva in the mornings . Is thirsty in the morning ty Any questions can call Karla at [phone] [facility] HospitalEvlhpjbalu49-23-2837 Miscellaneous Notes* Telephone Encounter - Andre Veronica - 10/19/2024 4:42 PM EDT Karla meant to let you know that she has been spitting thick saliva in the mornings . Is thirsty in the morning ty Any questions can call Karla at [phone] documented in this [facility]05-09-2025 History of Present illness Narrative* Genna Robledo MD - 10/19/2024 10:00 AM EDT Images from the original note were not included. Karla Rabago is a 74 y.o. female presents with chief complaint of discussing different anxiety medications. HPI: Over the past 2 weeks, how often have you been bothered by any of the following problems? Little interest or pleasure in doing things: Several days Feeling down, depressed, or hopeless: Not at all Trouble falling or staying asleep, or sleeping too much: Several days Feeling tired or having little energy: Several days Poor appetite or overeating: Nearly every day Feeling bad about yourself - or that you are a failure or have let yourself or your family down: Not at all Trouble concentrating on things, such as reading the newspaper or watching television: Several days Moving or speaking so slowly that other people could have noticed? Or the opposite - being so fidgety or restless that you have been moving around a lot more than usual.: Several days Thoughts that you would be better off or hurting yourself in some way: Not at all Patient Health Questionnaire-9 Score: 8 Over the last 2 weeks, how often have you been bothered by any of the following problems? Feeling nervous, anxious, or on edge: Nearly every day Not being able to stop or control worrying: Nearly every day Worrying too much about different things: Nearly every day Trouble relaxing: Nearly every day Being so restless that it is hard to sit still: Several days Becoming easily annoyed or irritable: Not at all Feeling afraid as if something awful might happen: Not at all ADAMA-7 Total Score: 13 History of Present Illness The patient presents for evaluation of anxiety. She reports experiencing intermittent episodes of anxiety, which she attributes to significant lifeevents such as anniversaries and birthdays. Despite these challenges, she maintains a robust support network. Recently, she went on a family trip, which she initially hesitated to attend but ultimately enjoyed. She is planning another trip to [place] to meet her great niece and great nephew grace first time. She expresses uncertainty about how this trip will affect her anxiety, as it involves activities her late enjoyed. She is currently taking sertraline 150 mg daily and trazodone at bedtime. [facility]. Additionally, she has been dealing with various household issues, such as a flooded basement and garage door problems, which have contributed to her an xiety. She mentions her son had a severe skiing accident requiring multiple surgeries, adding to her stress. SUBJECTIVE: MEDICATIONS: Current Outpatient Medications Medication Instructions albuterol HFA 90 mcg/act inhaler 1 puff, Every 6 hours PRN Alpha tocopherol (VITAMIN E) 200 Units, Daily RT celecoxib (CELEBREX) 200 mg, Oral, Daily, Take with food Cinnamon 500 mg, Daily coenzyme Q-10 200 mg, Every 24 hours fluticasone (Flonase) 50 MCG/ACT nasal spray 1 spray, Each Nostril, 2 times daily LORazepam (ATIVAN) 0.5 mg, Oral, Every 8 hours PRN predniSONE (Deltasone) 20 MG tablet Take 2 tablets (40 mg) by mouth Daily for 5 days, THEN 1 tablet(20 mg) Daily for 5 days. Take with food. Restasis 0.05 % ophthalmic emulsion sertraline (ZOLOFT) 150 mg, Oral, Daily traZODone (DESYREL) 150 mg, Oral, Nightly verapamil (CALAN) 80 mg, Oral, Every morning I have reviewed and reconciled the history and medication list with the patient today. REVIEW OF SYMPTOMS: Review of Systems OBJECTIVE: Visit Vitals BP 138/86 Pulse 69 Ht 5' 2 Wt 154 lb 12.8 oz SpO2 96% BMI 28.31 kg/m Smoking Status Never BSA 1.75 m Physical Exam Vitals and nursing note reviewed. Psychiatric: Attention and Perception: Attention normal. Mood and Affect: Affect is tearful. ASSESSMENT AND PLAN: Assessment & Plan 1. Anxiety. - Her symptoms appear to be predominantly anxiety-related. - A low-dose regimen of buspirone will be initiated, with the potential to increase the dosage to 10 mg twice daily if necessary. - She is advised to continue her current medications, sertraline 150 mg daily and trazodone at bedtime. The ultimate goal is to gradually reduce her medication intake. - A prescription for a 30-day supply of buspirone, along with a refill, will be sent to the pharmacy. She is encouraged to contact the office should any issues arise with the medication. If the initial dose of buspirone proves effective but there is room for improvement, the dosage will be increased. If buspirone does not help or causes other problems, alternative treatments will be considered. Follow-up - The patient will follow up in 4 to 6 weeks. Assessment/Plan Problem List Items Addressed This Visit Anxiety - Primary Relevant Medications busPIRone (Buspar) 5 MG tablet Other Visit Diagnoses Grief (CMS/HCC) documented in this encounterBates County Memorial [id number] History of Present illness Narrative* GUANAKO Carrera - 10/10/2024 8:15 AM EDT Images from the original note were not included. Orthopedic Office note: NAME: Karla Rabago : 1950 EST PT S/P (R) WINNIE 10/25/23 (~1YR)- NOTE PAIN OFF AND ON SINCE SURGERY- PT STATES IT IS BECOMING MORE CONSTANT XRAY RT HIP TODAY EPIC 10/11/23 MRI L-SPINE 04/12/24 EPIC XRAY RT HIP/LUMBAR SPINE 04/03/24 XRAYS, 12/06/23 IN EPIC MDP 02/09/2024, 02/15/24 NO BONE SCAN NO RECENT LABS FINISHED PHYSICAL THERAPY @ [facility] PAIN LATERAL HIP- GOOD ROM- PT STATES PAIN CAN BE WORSE WITH AMBULATING/WB- DIFFICULTY WITH STAIRS-SOME STIFFNESS WITH PROLONG SITTING- OCCASIONAL TINGLING DOWN LEG- +TYLENOL; MINIMAL RELIEF Physical Exam General Appearance: Normal Respiratory: No acute distress Musculoskeletal: Mild pain on direct palpation of the greater trochanter. Positive straight leg raise. Calves are soft, nontender. Negative Homans. Skin: Warm and dry, no rash. Neurological: Symmetric reflexes Other observations: No signs or symptoms of infection. Hip Musculoskeletal Exam Gait Gait is normal. Inspection Leg length disparity: no discrepancy Right Erythema: none Ecchymosis: none Edema: none Deformity: none Previous incision: anterolateral Incision: well-healed Palpation Right Right hip palpation is normal. Increased warmth: none Tenderness: present Greater trochanteric region pain: mild Lower lumbar region pain: mild Palpation additional comments: + SLR for radiculopathy. Range of Motion Right Right hip range of motion is within functional limits. Active ROM: normal. Passive ROM: normal. Strength Right Right hip strength is normal. Extension: 5/5. Flexion: 5/5. Internal rotation: 5/5. External rotation: 5/5. Adduction: 5/5. Abduction: 5/5. Neurovascular Right Right hip neurovascular exam is normal. Pulses - PT: normal Posterior tibial: 2+ Neurovascular additional comments: Reflexs 2 + patella and achilles, neg clonus. Special Tests Right Log roll test: negative General Constitutional: appears stated age Labored breathing: no Psychiatric: normal mood and affect Neurological: alert and oriented x3 Skin: intact Lymphadenopathy: none Orders Placed This Encounter Procedures XR hip right 2 or 3 views Reason for exam:: PAIN Procedures Results ICD-10-CM 1. History of total hip replacement, right Z96.641 2. Right hip pain M25.551 XR hip right 2 or 3 views celecoxib (CeleBREX) 200 MG capsule predniSONE (Deltasone) 20 MG tablet 3. Iliotibial band syndrome of right side M76.31 celecoxib (CeleBREX) 200 MG capsule predniSONE (Deltasone) 20 MG tablet Assessment & Plan Right lateral hip pain. Differential diagnosis includes greater trochanteric hip bursitis, IT band syndrome, or lumbar radiculopathy. She has mild pain on direct palpation of the greater trochanter. There are no signs or symptoms of infection. She recently increased walking during a trip to [place] and had thumb ganglion cyst surgery. She is not currently taking any anti-inflammatories. Treatment plan: IT band massage and starting Celebrex were discussed. She will get a prednisone prescription filled to take with her to [place] for 2 weeks in case symptoms flare. She understandsnot to take Celebrex and prednisone together and that prednisone is a backup medication. Clinical decision making: Risks and benefits explained. Lumbar radicular issues can not be ruled out as she has a positive straight leg raise today but symmetric reflexes and a history of knee replacements. If symptoms do not improve, there is concern for lumbar radiculopathy in an L5-S1 distribution. If symptoms acutely worsen, she will need reevaluation. No focal deficit today. Pain worse with prolonged standing and relief with sitting. Questions answered in laymen terms at the bedside. The diagnosis, home exercise plan and any ongoing restrictions/ recommendations reviewed. If unable to be reached in office, I recommend evaluation at nearest Emergency Room if any symptoms worsened or new symptoms develop for requiring urgent evaluation. Visit was preformed using [employer] pilot speech recognition. documented in this encounterBates County Memorial [id number] History of Present illness Narrative* Ramakrishna Rowell NP - 09/20/2024 8:30 AM EDT Images from the original note were not included. HISTORY OF PRESENT ILLNESS: EST PT Karla Rabago is an 74 y.o. @ female. (EST PT) PO 9 WKS S/P LT THUMB GANGLION EXC @ [facility] 07/19/24. OCCAS HURTS AT HS. +TYL PRN. +SWELLING. INTERMITTENT TINGLING. +BIOFREEZE. DENIES WARM COMPRESSES. DENIES ISSUES WITH INCISION. GOOD ROM. ALLERGIES: Allergies Allergen Reactions Lisinopril Cough HOME MEDICATIONS: Current Outpatient Medications Medication Instructions albuterol HFA 90 mcg/act inhaler 1 puff, Every 6 hours PRN Alpha tocopherol (VITAMIN E) 200 Units, Daily RT Cinnamon 500 mg, Daily coenzyme Q-10 200 mg, Every 24 hours fluticasone (Flonase) 50 MCG/ACT nasal spray 1 spray, Each Nostril, 2 times daily LORazepam (ATIVAN) 0.5 mg, Oral, Every 8 hours PRN Restasis 0.05 % ophthalmic emulsion sertraline (ZOLOFT) 150 mg, Oral, Daily traZODone (DESYREL) 150 mg, Oral, Nightly verapamil (CALAN) 80 mg, Oral, Every morning PHYSICAL EXAM: Left Hand Exam Tenderness Left hand tenderness location: CMC. Muscle Strength Library Monitor: 4/5 Other Erythema: absent Scars: present Sensation: normal Pulse: present Comments: Incision is well healing. No erythema, drainage or signs of infection. Patient has full ROM of thumb. +CMC grind test Vitals: There is no height or weight on file to calculate BMI. Tobacco Use: Low Risk (09/20/2024) Patient History Smoking Tobacco Use: Never Smokeless Tobacco Use: Never Passive Exposure: Not on file Alcohol Use: Not At Risk (03/09/2024) AUDIT-C Frequency of Alcohol Consumption: Monthly or less Average Number of Drinks: 1 or 2 Frequency of Binge Drinking: Never IMAGING: Procedures No orders of the defined types were placed in this encounter. ASSESSMENT: ICD-10-CM 1. Status post orthopedic surgery, follow-up exam Z09 2. Arthritis of carpometacarpal (CMC) joint of left thumb M18.12 PLAN: Patient states that she is doing well with decreased erythema and pain. Still having some aching pain in thumb but I believe this is secondary to CMC arthritis. I discussed possible CMC injection butpatient would like to wait at this time. She will follow up as needed. Questions answered in laymen terms at the bedside. The diagnosis, home exercise plan and any ongoing restrictions/ recommendations reviewed. If unable to be reached in office, I recommend evaluation at nearest Emergency Room if any symptoms worsened or new symptoms develop for requiring urgent evaluation. Ramakrishna Rowell DRILLING MANAGER-PATHOLOGY LABORATORY TECHNOLOGIST documented in this encounterBates County Memorial [id number] History of Present illness Narrative* Genna Robledo MD - 09/07/2024 9:00 AM EDT Images from the original note were not included. Karla Rabago is a 74 y.o. female presents with chief complaint of Flank Pain HPI: HPI History of Present Illness The patient presents for evaluation of right hip pain. She reports experiencing pain in her right hip, which occasionally radiates downwards. She has not had any recent trauma to the area. She has a history of a surgical procedure on the same hip. SUBJECTIVE: MEDICATIONS: ALLERGIES Current Outpatient Medications Medication Instructions albuterol HFA 90 mcg/act inhaler 1 puff, Every 6 hours PRN Alpha tocopherol (VITAMIN E) 200 Units, Daily RT Cinnamon 500 mg, Daily coenzyme Q-10 200 mg, Every 24 hours fluticasone (Flonase) 50 MCG/ACT nasal spray 1 spray, Each Nostril, 2 times daily LORazepam (ATIVAN) 0.5 mg, Oral, Every 8 hours PRN Restasis 0.05 % ophthalmic emulsion sertraline (ZOLOFT) 150 mg, Oral, Daily traZODone (DESYREL) 150 mg, Oral, Nightly verapamil (CALAN) 80 mg, Oral, Every morning Allergies Allergen Reactions Lisinopril Cough PAST MEDICAL HISTORY: SOCIAL HISTORY SURGICAL HISTORY: Past Medical History: Diagnosis Date History of hand surgery LT CMC ARTHROPLASTY DR MCDONNEL Hypertension ([facility]) MRSA infection 2011 Osteoporosis ([facility]) Personal history of other medical treatment 2013 Shoulder infection post op Social History Tobacco Use Smoking status: Never Smokeless tobacco: Never Vaping Use Vaping status: Never Used Substance Use Topics Alcohol use: Not Currently Comment: caffeine intake: 1 cup daily Drug use: Never Past Surgical History: Procedure Laterality Date CARPAL TUNNEL RELEASE Bilateral 1980 SECTION, CLASSIC 1984 CHOLECYSTECTOMY 1990 COLONOSCOPY 11/2020 GANGLION CYST EXCISION Left 07/19/2024 THUMB-DR SANDOVAL KNEE SURGERY Right 2006 knee scope ROTATOR CUFF REPAIR Left 2012 TOTAL HIP ARTHROPLASTY Right 10/25/2023 RT WINNIE- DR SANDOVAL TOTAL KNEE ARTHROPLASTY Right 2009 TOTAL KNEE ARTHROPLASTY Left 12/2017 REVIEW OF SYMPTOMS: Review of Systems OBJECTIVE: Vitals: 09/07/24 0851 Pulse: 67 Temp: 97.3 F SpO2: 98% Physical Exam Vitals and nursing note reviewed. Constitutional: Appearance: Normal appearance. Musculoskeletal: Right hip: Tenderness present. No deformity, lacerations, bony tenderness or crepitus. Decreased range of motion. Normal strength. Comments: Decreased external rotation. Tender over piriformis and glut med. Neurological: Mental Status: She is alert. ASSESSMENT AND PLAN: Assessment & Plan 1. Right hip pain. The patient's urine sample reveals the presence of blood and white blood cells, which could potentially indicate an infection or kidney stones. However, given the location of her pain, it is less likely to be a kidney stone. A bladder infection is also a possibility, but again, the pain is not in the typical location for this condition. Additionally, she will be provided with a set of exercises that can be performed at home to alleviate her symptoms. PROCEDURE The patient has a history of a surgical procedure on the right hip. Assessment/Plan Problem List Items Addressed This Visit None Visit Diagnoses Flank pain - Primary Relevant Orders Urine culture (clean catch) POCT urinalysis dipstick manually resulted (Completed) No follow-ups on file. documented in this encounterBates County Memorial [id number] History of Present illness Narrative* Ramakrishna Rowell NP - 09/06/2024 8:00 AM EDT Images from the original note were not included. HISTORY OF PRESENT ILLNESS: POST OP PT Karla Rabago is an 74 y.o. @ female. (EST PT) PO 7 WKS S/P LT THUMB GANGLION EXC @ [facility] 07/19/24. NOTICED A STITCH POPPING UP. HAS A SMALL RED SPOT NEAR AREA. TENDERNESS AROUND THE AREA. DENIES PAIN IN THUMB. NO PAIN MEDS. DENIES N/T. MINIMAL SWELLING. GOOD ROM. DOES NOT WAKE AT HS. DENIES DRAINAGE. REVIEW OF SYSTEMS: General: Denies fever, fatigue or weight loss Lungs: Denies SOB Cardio: Denies chest pain GI: Denies indigestion or abdominal pain Neuro: Denies numbness or tingling, denies new onset paralysis Musculoskeletal: ( see note) PHYSICAL EXAM: Left Hand Exam Comments: Small suture protruding from medial aspect of incision over dorsum of thumb. There is small area of medial aspect of incision that may be another suture piece working its way out of skin. No erythema, drainage or signs of infection. Patient has full ROM of thumb. XR fingers 2+ views left Imaging Result: Multiple views of left thumb showed significant degenerative erosive arthritis to the CMC joint of the left thumb with near complete obliteration of the normal anatomy. There was no acute bony process including but not limited to fracture and/or dislocation. 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 ASSESSMENT: ICD-10-CM 1. Status post orthopedic surgery, follow-up exam Z09 2. Cyst of joint of left hand M25.842 PLAN: Small suture piece was removed from dorsal incision over left thumb. I educated patient that there may be another piece coming out of medial aspect of incision. I recommend she do warm compresses over that area 3x a day. She will follow up in 2 weeks for RCK or sooner if suture piece appears. Patient verbalized understanding. Questions answered in laymen terms at the bedside. The diagnosis, home exercise plan and any ongoing restrictions/ recommendations reviewed. If unable to be reached in office, I recommend evaluation at nearest Emergency Room if any symptoms worsened or new symptoms develop for requiring urgent evaluation. documented in this encounterBates County Memorial HospitalXxdyegnwfh52-48-6682 Telephone encounter Note* Telephone Encounter - Cecily Damon - 08/16/2024 1:45 PM EST Received as voicemail: [place], it is Karla Rabago. And I had gotten a description for anxiety earlier in the week or last week. It does not seem to be helping. I was wondering if my sister takes pox spin R C T I and I was wondering if that would help me. Please give me a call at [phone] will be leaving vacate for vacation this tuesday. Thank you. [facility] [id number] Miscellaneous Notes* Telephone Encounter - Cecily Damon - 08/16/2024 1:45 PM EST Received as voicemail: [place], it is Karla Rabago. And I had gotten a description for anxiety earlier in the week or last week. It does not seem to be helping. I was wondering if my sister takes pox spin R C T I and I was wondering if that would help me. Please give me a call at [phone] will be leaving vacate for vacation this tuesday. Thank you. documented in this encounterBates County Memorial [id number] Telephone encounter Note* Telephone Encounter - Andre Veronica - 08/14/2024 1:25 PM EST Karla called she said she brought up sleeping situation but conversation went to something else . Is there anything she can do or have called in for sleeping issue ? [facility] [id number] Miscellaneous Notes* Telephone Encounter - Andre Veronica - 08/14/2024 1:25 PM EST Karla called she said she brought up sleeping situation but conversation went to something else . Is there anything she can do or have called in for sleeping issue ? [facility] documented in this [facility]03-04-2025 History of Present illness Narrative* Juliette Livingstonenburg, DIGITAL BUSINESS ANALYST - 08/14/2024 1:00 PM EST Images from the original note were not included. Karla Rabago is a 74 y.o. female presents with chief complaint of Anxiety HPI: History of Present Illness The patient presents for evaluation of anxiety. She has been experiencing heightened anxiety levels for the past few months, which have escalated beyond her usual baseline. She is currently on a regimen of Zoloft 100 mg, a dosage that has remainedconsistent over time. Despite this, she reports that the medication has been beneficial in managingher anxiety symptoms. She does not experience any sedative effects from Zoloft. Additionally, she takes trazodone at bedtime to aid with sleep, but it appears to be ineffective as she often wakes up around 4:00 AM and struggles to return to sleep. She typically retires to bed around 11:00 PM. She was prescribed Ativan by Dr. Robledo in June 2024, but she has not been utilizing this medication. She is planning a trip to [place] next week, which is causing her significant stress as it will be her first time traveling without her . She is also dealing with the recent injury of her son, who sustained a knee injury while skiing approximately a week ago. She is unsure if she has enough verapamil for her upcoming trip and will call back if she needs a refill. MEDICATIONS Current: Zoloft, trazodone, verapamil Discontinued: Ativan Over the past 2 weeks, how often have you been bothered by any of the following problems? Little interest or pleasure in doing things: Several days Feeling down, depressed, or hopeless: Several days Trouble falling or staying asleep, or sleeping too much: Nearly every day Feeling tired or having little energy: Several days Poor appetite or overeating: Not at all Feeling bad about yourself - or that you are a failure or have let yourself or your family down: Not at all Trouble concentrating on things, such as reading the newspaper or watching television: Not at all Moving or speaking so slowly that other people could have noticed? Or the opposite - being so fidgety or restless that you have been moving around a lot more than usual.: Not at all Thoughts that you would be better off or hurting yourself in some way: Not at all Patient Health Questionnaire-9 Score: 6 Over the last 2 weeks, how often have you been bothered by any of the following problems? Feeling nervous, anxious, or on edge: Nearly every day Not being able to stop or control worrying: More than half the days Worrying too much about different things: More than half the days Trouble relaxing: Nearly every day Being so restless that it is hard to sit still: More than half the days Becoming easily annoyed or irritable: More than half the days Feeling afraid as if something awful might happen: More than half the days ADAMA-7 Total Score: 16 SUBJECTIVE: MEDICATIONS: ALLERGIES Current Outpatient Medications Medication Instructions albuterol HFA 90 mcg/act inhaler 1 puff, Every 6 hours PRN Alpha tocopherol (VITAMIN E) 200 Units, Daily RT Cinnamon 500 mg, Daily coenzyme Q-10 200 mg, Every 24 hours fluticasone (Flonase) 50 MCG/ACT nasal spray 1 spray, Each Nostril, 2 times daily LORazepam (ATIVAN) 0.5 mg, Oral, Every 8 hours PRN Restasis 0.05 % ophthalmic emulsion sertraline (ZOLOFT) 100 mg, Oral, Daily traZODone (DESYREL) 100 mg, Oral, Nightly verapamil (CALAN) 80 mg, Oral, Every morning Allergies Allergen Reactions Lisinopril Cough PAST MEDICAL HISTORY: SOCIAL HISTORY SURGICAL HISTORY: Past Medical History: Diagnosis Date History of hand surgery LT [facility] ARTHROPLASTY DR [place] Hypertension ([facility]) MRSA infection 2010 Osteoporosis ([facility]) Personal history of other medical treatment 2012 Shoulder infection post op Social History Tobacco Use Smoking status: Never Smokeless tobacco: Never Vaping Use Vaping status: Never Used Substance Use Topics Alcohol use: Not Currently Alcohol/week: 2.0 - 3.0 standard drinks of alcohol Types: 2 - 3 Standard drinks or equivalent per week Comment: caffeine intake: 1 cup daily Drug use: Never Past Surgical History: Procedure Laterality Date CARPAL TUNNEL RELEASE Bilateral 1979 SECTION, CLASSIC 1984 CHOLECYSTECTOMY 1990 COLONOSCOPY 11/2020 GANGLION CYST EXCISION Left 07/19/2024 THUMB-DR SANDOVAL KNEE SURGERY Right 2006 knee scope ROTATOR CUFF REPAIR Left 2012 TOTAL HIP ARTHROPLASTY Right 10/25/2023 RT WINNIE- DR SANDOVAL TOTAL KNEE ARTHROPLASTY Right 2010 TOTAL KNEE ARTHROPLASTY Left 12/2017 REVIEW OF SYMPTOMS: Review of Systems Constitutional: Negative. HENT: Negative. Respiratory: Negative for cough, shortness of breath and wheezing. Cardiovascular: Negative for chest pain. Gastrointestinal: Negative for abdominal pain. Genitourinary: Negative. Musculoskeletal: Negative. Skin: Negative. Neurological: Negative. Psychiatric/Behavioral: The patient is nervous/anxious. OBJECTIVE: Vitals: 08/14/24 1252 BP: 118/76 Pulse: 79 Temp: 96.9 F SpO2: 97% Physical Exam Vitals and nursing note reviewed. Constitutional: Appearance: Normal appearance. HENT: Head: Normocephalic and atraumatic. Right Ear: Tympanic membrane normal. Left Ear: Tympanic membrane normal. Nose: Nose normal. Eyes: Extraocular Movements: Extraocular movements intact. Conjunctiva/sclera: Conjunctivae normal. Pupils: Pupils are equal, round, and reactive to light. Cardiovascular: Rate and Rhythm: Normal rate and regular rhythm. Heart sounds: Normal heart sounds. Pulmonary: Effort: Pulmonary effort is normal. Breath sounds: Normal breath sounds. Musculoskeletal: Cervical back: Normal range of motion and neck supple. Skin: General: Skin is warm and dry. Capillary Refill: Capillary refill takes less than 2 seconds. Neurological: Mental Status: She is alert. ASSESSMENT AND PLAN: Assessment/Plan Diagnoses and all orders for this visit: Generalized anxiety disorder (CMS/HCC) Anxiety - sertraline (Zoloft) 100 MG tablet; Take 1.5 tablets (150 mg) by mouth Daily Benign hypertension (CMS/HCC) Assessment & Plan 1. Anxiety. She reports increased anxiety over the past couple of months, exacerbated by recent life events, including her son's knee injury and an upcoming trip without her . She is currently on Zoloft 100 mg, which has been effective in the past but is no longer sufficient. The dosage of Zoloft will be increased to 150 mg daily. She will start taking 1.5 tablets of her current 100 mg prescription until a new prescription is filled at her pharmacy. If symptoms persist, the addition of BuSpar may beconsidered. 2. Insomnia. She reports difficulty staying asleep, waking up around 4:00 AM and unable to return to sleep. Trazodone taken at bedtime has not been effective. The increased dosage of Zoloft may help alleviate some of her sleep issues. If insomnia persists, further adjustments or additional medications will be co nsidered. 3. Medication management. She mentioned the possibility of needing a refill for verapamil for her upcoming trip. She will confirm the need and call back if a refill is required. No follow-ups on file. documented in this encounterBates County Memorial [id number] History of Present illness Narrative* Ramakrishna Rowell NP - 08/02/2024 9:45 AM EST Images from the original note were not included. HISTORY OF PRESENT ILLNESS: POST OP PT Karla Rabago is an 74 y.o. @ female. 1ST PO 14 DAYS S/P LT THUMB GANGLION EXC @ [facility] 07/19/24. SORENESS IN THUMB. HAS IRRITATION FROM THE TAPE. +TYL PRN. USED ICE INITIALLY. DENIES N/T. MINIMAL SWELLING. ONLY WAKES AT HS IF SHE BUMPS IT. ABLE TO MOVE THUMB. DENIES DRAINAGE. STITCHES INTACT, REMOVED TODAY. INCISION HEALING WELL. REVIEW OF SYSTEMS: General: Denies fever, fatigue or weight loss Lungs: Denies SOB Cardio: Denies chest pain GI: Denies indigestion or abdominal pain Neuro: Denies numbness or tingling, denies new onset paralysis Musculoskeletal: ( see note) PHYSICAL EXAM: Left Hand Exam Tenderness Left hand tenderness location: soreness in base of thumb. Range of Motion Wrist Extension: normal Flexion: normal Pronation: normal Supination: normal Muscle Strength Wrist extension: 5/5 Wrist flexion: 5/5 Library Monitor: 4/5 Other Erythema: absent Scars: present (sutures removed, no signs of dehisence, no drainage or erythema.) Sensation: normal Pulse: present ASSESSMENT: ICD-10-CM 1. Status post orthopedic surgery, follow-up exam Z09 2. Cyst of joint of left hand M25.842 PLAN: 14 days s/p Excision of ganglion cyst of left thumb: Plan: I reviewed Post Op care and instructionswith the patient. No forceful gripping for 4 weeks from the date of surgery. Work on rom of fingers. use for light activities such as eating, keyboarding, writing and phone. Questions answered in laymen terms at the bedside. The diagnosis, home exercise plan and any ongoing restrictions/ recommendations reviewed. If unable to be reached in office, I recommend evaluation at nearest Emergency Room if any symptoms worsened or new symptoms develop for requiring urgent evaluation. She will follow upas needed. Ramakrishna Rowell DRILLING MANAGER-PATHOLOGY LABORATORY TECHNOLOGIST documented in this [facility]02-05-2025 Telephone encounter Note* Telephone Encounter - Ramakrisnha Rowell NP - 07/18/2024 1:00 PM EST Post op pain rx. PDMP reviewed [facility] [id number] Miscellaneous Notes* Telephone Encounter - Ramakrishna Rowell NP - 07/18/2024 1:00 PM EST Post op pain rx. PDMP reviewed documented in this [facility]01-30-2025 Telephone encounter Note* Telephone Encounter - Codie Jack MA - 07/12/2024 9:29 AM EST Patient calling for refills [id number] Miscellaneous Notes* Telephone Encounter - Codie Jack MA - 07/12/2024 9:29 AM EST Patient calling for refills sent to [facility] documented in this [facility]01-23-2025 Telephone encounter Note* Telephone Encounter - Genna Robledo MD - 07/05/2024 9:37 AM EST [facility]. [id number] Miscellaneous Notes* Telephone Encounter - Genna Robledo MD - 07/05/2024 9:37 AM EST Refills sent. documented in this [facility]01-23-2025 Telephone encounter Note* Telephone Encounter - Genna Robledo MD - 07/05/2024 9:04 AM EST Refills sent. [facility] [id number] Miscellaneous Notes* Telephone Encounter - Genna Robledo MD - 07/05/2024 9:04 AM EST Refills sent. documented in this [facility]01-14-2025 History of Present illness Narrative* GUANAKO Carrera - 06/26/2024 3:00 PM EST Images from the original note were not included. GENERAL HISTORY AND PHYSICAL: NAME: Karla Rabago : 1950 HISTORY OF PRESENT ILLNESS: Karla Rabago is an 74 y.o. @ female. Here for surgery instructions (LT) THUMB CMC GANGLION CYST EXC @ [facility] 07/19/2024 PAST MEDICAL HISTORY: Past Medical History: Diagnosis Date History of hand surgery LT CMC ARTHROPLASTY DR [facility]ARP Hypertension ([facility]) MRSA infection 2010 Osteoporosis ([facility]) Personal history of other medical treatment 2013 Shoulder infection post op PAST SURGICAL HISTORY: Past Surgical History: Procedure Laterality Date CARPAL TUNNEL RELEASE Bilateral 1979 SECTION, CLASSIC 1984 CHOLECYSTECTOMY 1990 COLONOSCOPY 11/2020 KNEE SURGERY Right 2006 knee scope ROTATOR CUFF REPAIR Left 2012 TOTAL HIP ARTHROPLASTY Right 10/25/2023 RT [facility]- DR SANDOVAL TOTAL KNEE ARTHROPLASTY Right 2009 TOTAL KNEE ARTHROPLASTY Left 12/2017 SOCIAL HISTORY: Social History Occupational History Not on file Tobacco Use Smoking status: Never Smokeless tobacco: Never Vaping Use Vaping status: Never Used Substance and Sexual Activity Alcohol use: Yes Alcohol/week: 2.0 - 3.0 standard drinks of alcohol Types: 2 - 3 Standard drinks or equivalent per week Comment: caffeine intake: 1 cup daily Drug use: Never Sexual activity: Not on file ALLERGIES: Allergies Allergen Reactions Lisinopril Cough MEDICATIONS: Current Outpatient Medications Medication Instructions albuterol HFA 90 mcg/act inhaler 1 puff, Every 6 hours PRN alendronate (FOSAMAX) 70 mg, Oral, Every 7 days, Take in the morning with a full glass of water, shubham empty stomach, and do not take anything else by mouth or lie down for the next 30 min. Alpha tocopherol (VITAMIN E) 200 Units, Daily RT Cinnamon 500 mg, Daily coenzyme Q-10 200 mg, Every 24 hours Dextromethorphan-Pyrilamine (Kensal DMT) 30-30 MG tablet 1 tablet, Oral, Every 6 hours PRN fluticasone (Flonase) 50 MCG/ACT nasal spray 1 spray, Each Nostril, 2 times daily LORazepam (ATIVAN) 0.5 mg, Oral, Every 8 hours PRN Restasis 0.05 % ophthalmic emulsion sertraline (ZOLOFT) 100 mg, Oral, Daily traZODone (DESYREL) 100 mg, Oral, Nightly verapamil (CALAN) 80 mg, Oral, Every morning REVIEW OF SYSTEMS: Review of Systems Constitutional: Negative for fatigue, fever and unexpected weight change. Eyes: Negative for redness and visual disturbance. Gastrointestinal: Negative for abdominal pain. Denies Indigestion Musculoskeletal: See note: Skin: Negative for color change and rash. Neurological: Negative for light-headedness and numbness. Vitals: There is no height or weight on file to calculate BMI. PHYSICAL EXAM: Physical Exam Constitutional: General: She is not in acute distress. Appearance: Normal appearance. HENT: Head: Normocephalic and atraumatic. Right Ear: External ear normal. Left Ear: External ear normal. Nose: Nose normal. No rhinorrhea. Mouth/Throat: Mouth: Mucous membranes are moist. Pharynx: No posterior oropharyngeal erythema. Eyes: Extraocular Movements: Extraocular movements intact. Conjunctiva/sclera: Conjunctivae normal. Cardiovascular: Rate and Rhythm: Normal rate and regular rhythm. Pulses: Normal pulses. Heart sounds: No murmur heard. Pulmonary: Effort: Pulmonary effort is normal. No respiratory distress. Breath sounds: Normal breath sounds. No wheezing or rhonchi. Abdominal: Palpations: Abdomen is soft. Tenderness: There is no abdominal tenderness. Musculoskeletal: Cervical back: Normal range of motion and neck supple. Lymphadenopathy: Cervical: No cervical adenopathy. Skin: General: Skin is warm and dry. Findings: No erythema or rash. Neurological: General: No focal deficit present. Mental Status: She is alert and oriented to person, place, and time. Psychiatric: Mood and Affect: Mood normal. Behavior: Behavior normal. No orders of the defined types were placed in this encounter. ASSESSMENT: ICD-10-CM 1. Pre-op examination Z01.818 2. Cyst of joint of left hand M25.842 Ambulatory referral to Orthopaedic Surgery PLAN: This patient presents for preadmission testing for upcoming surgery. Complete history with medical, surgery, and current allergy and medication list obtained. Consent for surgery signed and witnessed after verbal consent to perform surgery received. All questions answered and proposed surgeryscheduled. (LT) THUMB CMC GANGLION CYST EXC @ [facility] 07/19/2024 PAT WITH JENY 06/26/2024 NO PRE TESTING NEEDED CPT PENDING- 33028 Follow up for JUL 11 @ 1PM IN [place] WITH JENY, Post-Op. documented in this [facility] [id number] History of Present illness Narrative* Jr. Scot Sandoval, DO - 06/19/2024 9:00 AM EST Images from the original note were not included. HISTORY OF PRESENT ILLNESS: EST PT Karla Rabago is an 74 y.o. @ female. (EST PT W/ JENY) RECHECK (L) THUMB / WRIST CYST ; S/P MDP 05/22/24 (4WKS) NO XRAYS NO MRI S/P MDP 05/22/24 NO CORTISONE INJ NO PHYSICAL THERAPY NO PAIN MGMT PREVIOUS (L) CTR ~20 YRS AG0 LT CMC ARTHROPLASTY-DR SHARP DENIES RELIEF FROM MDP ; STATES CYST IS STILL PRESENT - NEAR CMC JOINT. NOTES TENDERNESS IF BUMPED.NOTES GOOD ROM ; DENIES ANY WEAKNESS WHEN GRIPPING / GRASPING. CYST DOES NOT FLUCTUATE IN SIZE - FEELS SQUISHY / FLUID FILLED. NO PAIN MEDS. ALLERGIES: Allergies Allergen Reactions Lisinopril Cough HOME MEDICATIONS: Current Outpatient Medications Medication Instructions albuterol HFA 90 mcg/act inhaler 1 puff, Every 6 hours PRN alendronate (FOSAMAX) 70 mg, Oral, Every 7 days, Take in the morning with a full glass of water, shubham empty stomach, and do not take anything else by mouth or lie down for the next 30 min. Alpha tocopherol (VITAMIN E) 200 Units, Daily RT Cinnamon 500 mg, Daily coenzyme Q-10 200 mg, Every 24 hours Dextromethorphan-Pyrilamine (Kensal DMT) 30-30 MG tablet 1 tablet, Oral, Every 6 hours PRN fluticasone (Flonase) 50 MCG/ACT nasal spray 1 spray, Each Nostril, 2 times daily LORazepam (ATIVAN) 0.5 mg, Oral, Every 8 hours PRN Restasis 0.05 % ophthalmic emulsion sertraline (ZOLOFT) 100 mg, Oral, Daily traZODone (DESYREL) 100 mg, Oral, Nightly verapamil (CALAN) 80 mg, Oral, Every morning PHYSICAL EXAM: Hand/Wrist Musculoskeletal Exam Inspection Left Left hand/wrist inspection is normal. Erythema: none Ecchymosis: none Edema: none Deformity: mild Deformity comment: + mobile cyst approx 1.5 cm in diameter to base of thumb near CMC joint. Wrist - prior incision: carpal tunnel, dorsal wrist and thumb CMC Incision: well-healed Palpation Left Left hand palpation is normal. Palpation additional comments: DENIES PAIN TO PALPATION OF HAND/ WRIST JOINT, Patient has scar fromprior CMC arthroplasty on the left near the area of the ganglion cyst. Range of Motion Left Hand Left hand range of motion is normal. Range of motion additional comments: ABLE TO MAKE FULL FIST Strength Left Hand Left hand strength is normal. 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 Radial pulse: normal and 2+ Capillary refill: <3 sec General Constitutional: appears stated age Labored breathing: no Neurological: alert and oriented x3 Skin: intact Lymphadenopathy: none Vitals: There is no height or weight on file to calculate BMI. Tobacco Use: Low Risk (06/14/2024) Received from [facility] Patient History Smoking Tobacco Use: Never Smokeless Tobacco Use: Never Passive Exposure: Not on file Alcohol Use: Not At Risk (03/09/2024) AUDIT-C Frequency of Alcohol Consumption: Monthly or less Average Number of Drinks: 1 or 2 Frequency of Binge Drinking: Never IMAGING: XR fingers 2+ views left Imaging Result: Multiple views of left thumb showed significant degenerative erosive arthritis to the CMC joint of the left thumb with near complete obliteration of the normal anatomy. There was no acute bony process including but not limited to fracture and/or dislocation. 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 Mass of soft tissue of hand M79.89 2. Pain of left thumb M79.645 XR fingers 2+ views left PLAN: X-ray today please. Patient had prior CMC arthroplasty with Dr. Taveras years ago. She has ganglion cystlike formation over the CMC joint of the left thumb. We have discussed surgical and nonsurgical treatment options with her and we will proceed with a excision of ganglion. After discussing the risks and benefits at length. We have discussed both surgical and nonsurgical treatment options with the patient at length and the risks and benefits associated with both. The patient is requesting surgical intervention because they have not responded to outpatient treatment options including but not limited to rest ice, and home exercise program. Pain and decreased range of motion are affecting the patient's ability to sleepand activities of daily living and we have recommended surgical intervention. Questions answered in laymen terms at the bedside. The diagnosis, home exercise plan and any ongoing restrictions/ recommendations reviewed. If unable to be reached in office, I recommend evaluation at nearest Emergency Room if any symptoms worsened or new symptoms develop for requiring urgent evaluation. documented in this encounterB[facility] HospitalQjneoyyjqi87-67-1995 History of Present illness Narrative* GUANAKO Joe - 06/14/2024 12:00 PM EST [facility] [address] [place] [address] Patient: Karla Rabago Sex: female : 1950 Age: 74 y.o. PCP: Genna Robledo MD 06/14/2024 Karla Rabago is here for a(n) post procedure follow up 05/25/24 Right L5, S1 with 50% relieffor 1 week and then back to baseline. . . Date of onset of pain: 10/2023 , pain has lasted greater than 3 months. Pain scale before treatment: 8/10 Pre-op pain score: 8/10 Post-op pain score: 8/10 Percentage of relief after and duration: see above Pain scale after treatment: 12/20 Chief Complaint Patient presents with Back Pain Hip Pain HPI: PT after right hip replacement [facility] in [place] Back/Hip 05/25/24 Right L5, S1 with 50% relief for 1 week and then back to baseline. Back Pain The current episode started more than 1 month ago (after right hip replacement October 2023). The problem occurs constantly. The problem has been gradually improving (right hip) since onset. The pain is present in the lumbar spine (right side back and right hip). The quality of the pain is described asaching. Radiates to: right hip lateral to knee then anterior to ankle. The pain is at a severity of7/10 (right hip 8/10, back not bothering right now but can increase to 8/10). The pain is mild. Thepain is The same all the time. Exacerbated by: twisting, transitioning, walking, stairs, bending. Stiffness is present: sitting to standing. Associated symptoms include leg pain (right hip lateral toknee then anterior to ankle) and weakness (RLE). Pertinent negatives include no bladder incontinence, bowel incontinence, fever, numbness or tingling. Risk factors include sedentary lifestyle and lack of exercise. Treatments tried: PT, ice, salonpas, biofreeze, Ibuprofen, tylenol with mild relief. Hip Pain The incident occurred more than 1 week ago. There was no injury mechanism (pain started after righthip replacement october 2023). The pain is present in the right hip and right leg. The quality of the pain is described as aching (constant). The pain is at a severity of 7/10 (can increase with increased activity). The pain is moderate. The pain has been Improving (with activity temporay relief with injection) since onset. Pertinent negatives include no numbness or tingling. She reports no foreign bodies present. The symptoms are aggravated by movement. Treatments tried: PT, ice, salonpas, biofreeze, Ibuprofen, tylenol with mild relief. The treatment provided mild relief. The effect of pain on patient's ADLS: Moderate Impairment. Past Medical History: Diagnosis Date Arthritis DJD right hip Chronic pain disorder HL (hearing loss) Hypertension Low back pain MRSA (methicillin resistant Staphylococcus aureus) Osteoporosis Urinary frequency Visual impairment Past Surgical History: Procedure Laterality Date SECTION COLONOSCOPY COLONOSCOPY N/A 11/24/2020 Performed by Obi Menendez DO at [facility] ESOPHAGOGASTRODUODENOSCOPY N/A 11/24/2020 Performed by Obi Menendez DO at [facility] INJECTION SPINE TRANSFORAMINAL: right L 5,1 Nroot Right 05/25/2024 Performed by Dionicio Ramos MD at [facility] JOINT REPLACEMENT Bilateral knees KNEE SURGERY REPLACEMENT TOTAL JOINT HIP Right 10/25/2023 Performed by Scot Sandoval Jr., DO at [facility] ROTATOR CUFF REPAIR Left Lateral Allergies Allergen Reactions Lisinopril Cough Family History Problem Relation Age of Onset Hypertension Mother Diabetes Mother Hypertension Father Breast cancer Neg Hx Social History Socioeconomic History Marital status: Spouse name: Not on file Number of children: Not on file Years of education: Not on file Highest education level: Not on file Occupational History Not on file Tobacco Use Smoking status: Never Smokeless tobacco: Never Vaping Use Vaping status: Never Used Substance and Sexual Activity Alcohol use: Yes Comment: socially Drug use: No Sexual activity: Defer Partners: Male Other Topics Concern Not on file Social History Narrative Not on file Social Drivers of Health Financial Resource Strain: Patient Declined (03/09/2024) [facility] Overall Financial Resource Strain (CARDIA) Difficulty of Paying Living Expenses: Patient declined Food Insecurity: No Food Insecurity (06/14/2024) Hunger Screening Food Insecurity - Worry: Never True Food Insecurity - Inability: Never True Transportation Needs: No Transportation Needs (03/09/2024) Re[facility] PRAPARE - Transportation Lack of Transportation (Medical): No Lack of Transportation (Non-Medical): No Physical Activity: Patient Declined (03/09/2024) Received from [facility] Exercise Vital Sign Days of Exercise per Week: Patient declined Minutes of Exercise per Session: Patient declined Stress: Stress Concern Present (03/09/2024) Received from [facility] [place] [facility] - Occupational Stress Questionnaire Feeling of Stress : Very much Social Connections: Unknown (03/09/2024) Received from [facility] Social Connection and Isolation Panel [NHANES] Frequency of Communication with Friends and Family: More than three times a week Frequency of Social Gatherings with Friends and Family: Patient declined Attends Shinto Services: Patient declined Active Member of Clubs or Organizations: No Attends Club or Organization Meetings: Never Marital Status: Interpersonal Safety: Not At Risk (10/25/2023) Humiliation, Afraid, Rape, and Kick questionnaire Fear of Current or Ex-Partner: No Emotionally Abused: No Physically Abused: No Sexually Abused: No Housing Instability: Unknown (03/09/2024) Received from [facility] Housing Stability Vital Sign Unable to Pay for Housing in the Last Year: No Number of Times Moved in the Last Year: Not on file Homeless in the Last Year: No Review of Systems Constitutional: Negative. Negative for chills, fatigue and fever. HENT: Negative. Negative for congestion. Eyes: Negative. Respiratory: Positive for cough (tx for URI). Negative for shortness of breath. Cardiovascular: Negative. Gastrointestinal: Negative. Negative for bowel incontinence. Endocrine: Negative. Genitourinary: Negative. Negative for bladder incontinence. Musculoskeletal: Positive for back pain. Negative for gait problem. Skin: Negative. Negative for rash and wound. Allergic/Immunologic: Negative. Neurological: Positive for weakness (RLE). Negative for tingling and numbness. Hematological: Negative. Does not bruise/bleed easily. Psychiatric/Behavioral: Negative. Negative for self-injury and suicidal ideas. Vital Signs: BP 160/88 Pulse 78 Resp 18 Ht 165.1 cm (5' 5 ) Wt 70.8 kg (156 lb) SpO2 100% BMI 25.96 kg/m Physical Exam: GENERAL - Healthy patient that appears stated age. HEENT - Normocephalic / Atraumatic, Extraoccular movements intact, trachea midline, thyroid within normal limits. CV - pulse regular, Warm extremities with appropriate color of nailbeds. RESP - No obvious wheezing, No Shortness of Breath, No overexertion response to exam maneuvers. COORDINATION - remains intact. PSYCH - Alert and Oriented x4, Attentive and appropriate, constitutionally normal, displays normal mood and affect per situation, answered questions appropriately during examination, demonstrated appropriate attention during discussion, demonstrated appropriate cognitive reasoning and understandingof the medical condition by asking appropriate questions regarding the diagnosis and risks/benefits/alternatives of treatment modalities. No obvious deficits in memory, reasoning, or intellect. Lumbar: SKIN - No rashes or bruising in the area of the patient s pain. LYMPH NODES - demonstrate no obvious enlargement. EXTREMITIES - Lower extremities are warm, with minimal edema and palpable pulses. Tenderness to palpation noted in the right lumbar spine and paraspinal musculature. Pain is elicited with flexion, extension, and lateral rotation of the right lumbar spine. Range of motion is diminished with these motions due to pain. Facet palpation is noted to be painful and facet loading maneuvers elicit pain that is concordant with the patient s normal pain complaints. Some muscle spasm is noted in the overlying musculature. STRENGTH - noted to be 5 out of 5 all muscle groups bilateral lower extremities including muscles involving hip flexion and abduction, knee flexion and extension, as well as foot dorsiflexion and plantarflexion. No notable atrophy, fasciculations or spasm. SENSORY - No notable sensory deficits in the bilateral lower extremities to touch or pinprick in all dermatomal distributions. Straight Leg Raise is negative bilaterally. Gait is normal. Assessment/Treatment Plan: Karla was seen today for back pain and hip pain. Diagnoses and all orders for this visit: Lumbosacral spondylosis without myelopathy - Case request operating room: INJECTION BLOCK NERVE MEDIAL BRANCH: right L45 51 Right L4/5, 5/1 Facet Injection/Medial Branch Block - under fluoroscopy It is hopeful that the described procedure will provide symptomatic pain relief. It is felt to be medically necessary noting that the patient has tried and failed more conservative modalities of therapy and this is the next most appropriate step. The procedure was described in detail to the patientas well as the potential benefits of pain reduction alongside risks of the procedure and alternatives. Risks were described as including, but not limited to bleeding, infection, nerve damage, spinal cord injury, paralysis, stroke, dural puncture headache, and medication reaction. The patient expressed understanding regarding the risks and benefits and wishes to proceed. Diagnostic facet injections and medial branch blocks should provide information to confirm that thenoted facet arthropathy is the patient s most significant pain generator. If this provides significant but only temporary pain relief, the patient may in the future be a candidate for radiofrequency denervation of the facet joints to provide pain relief for approximately 1 year. Follow up 2 weeks after procedure The medications I have prescribed have been reviewed for medication interactions/contraindications and/or for upcoming procedures: continue current medication regimen without any changes. DISCUSSION: Treatment options discussed with patient and all questions answered to patient's satisfaction. Discussed the rules and regulations surrounding prescription of opioids and compliance at length. Failure to follow the rules and regulation will result in tapering and discontinuation of medications if applicable. Prescribed medication that requires intensive monitoring for toxicity We do not currently prescribeany controlled substance from this practice. Treatment plans discussed but not opted for at this time: Lumbar RFA. Patient would like to proceed with the current outlined treatment plan before moving forward with any other options. The spine model was demonstrated and MRI was reviewed and used to explain the condition. OARRS: Reviewed. Scribe Statement: Scribed for and in the presence of GUANAKO JOE by Colleen Foley CNA. Provider Statement: I, GUANAKO JOE, personally performed the services described in the documentation, as scribed by Colleen Foley CNA in my presence, and it is both accurate and complete. Colleen Foley CNA 06/14/24 1227 GUANAKO Joe 06/14/24 1338 documented in this encounterSumma Health Wad[facility] - [facility]itt[facility] Centersougou [facility]um[facility] [id number] Instructions* Patient Instructions* Colleen Foley CNA - 06/14/2024 12:00 PM EST Facet Injection / Medial Branch Block (MBB) / Sacroiliac (SI) Joint Injection / Cluneal NB A facet injection and sacroiliac joint injection are injections of local anesthetic and steroid into a joint in the spine. A medial branch block is similar, but the medication is placed outside the joint space near the nerve that supplies the joint called the medial branch (steroid may or may not be used). You may require multiple injections depending upon how many joints are involved. How Long Will This Procedure Last? The extent and duration of pain relief may depend on the amount of inflammation and how many areas are involved. Other coexisting factors may be responsible for your pain. If your pain goes away for a short time, but then returns, you may be a candidate for radiofrequency ablation (RFA). Activity Be active. Attempt activities and movements that typically cause pain to see if it feels better while doing them. We will give you a pain diary. Please fill this out as directed by your nurse in pre-op. This will help your doctor determine the effectiveness of the injection, and how to proceed. Bring the pain diary with you to your follow-up appointment. Medications You should not take your pain medications for 4-6 hours before or after the injection in order to properly diagnose if the injection provides adequate relief. Resume your routine medications after your procedure. You may resume blood thinners per your regular schedule after the procedure. If you received sedation: If you received sedation for your procedure, you may feel sleepy or not yourself for several hours today. For the next 24 hours avoid activities that requires alertness or coordination. This includes: Driving or operating heavy machinery Using power tools Consuming alcohol Do not make important or complex decisions or sign legal documents in the next 24 hours. Other Instructions: If you feel severe pain at the injection site with swelling and redness, increased leg weakness, a fever of 101 or higher, headache (or worsening headache), changes in vision or urinary retention: Please call the office at , or have someone take you to the nearest emergency room. Tellthe emergency room staff that you recently had a spine injection. A doctor must evaluate you for bleeding and injection complications. If you lose control over bowel, bladder, or legs: Go to the nearest emergency room. 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 documented in this encounterB[facility] HospitalNxtsnqjbta36-04-8139 Telephone encounter Note* Telephone Encounter - Juliette Lawson NP - 06/11/2024 6:00 PM EST Let her know I did send in another short term supply, but this is not something we want to keep danna detention because of the negative side effects and addiction potential that can occur ferry terminal supervisor.We can always look into increasing her daily anxiety medication if her anxiety symptoms are not well controlled. [facility] [id number] Telephone encounter Note* Telephone Encounter - Raquel Clayton - 06/11/2024 4:05 PM EST Pt says they are still having symptoms and a cough [facility] [id number] Miscellaneous Notes* Telephone Encounter - Raquel Clayton - 06/11/2024 4:05 PM EST Pt says they are still having symptoms and a cough documented in this encounterB[facility] HospitalOvfalmtyel78-91-4056 Telephone encounter Note* Telephone Encounter - GUANAKO Carrera - 06/11/2024 12:51 PM EST Spoke with pt.. ganglion cyst is getting bigger in her opinion, will hold on oral steroid.. also notes cont hip and leg pain despite pain management injection Pt requesting appt with Dr. Sandoval to recheck right hip and discuss possible excision of ganglioncyst. - Can you please call to get her scheduled [facility] Work Phone: [phone] 732-339612-30-2024 Telephone encounter Note* Telephone Encounter - GUANAKO Carrera - 06/11/2024 12:51 PM EST ----- Message from GUANAKO Rivera sent at 05/22/2024 8:58 AM EST ----- Consider MDP following back injection ( ganglion cyst left thmb) [facility] [id number] Miscellaneous Notes* Telephone Encounter - GUANAKO Carrera - 06/11/2024 12:51 PM EST Spoke with pt.. ganglion cyst is getting bigger in her opinion, will hold on oral steroid.. also notes cont hip and leg pain despite pain management injection Pt requesting appt with Dr. Sandoval to recheck right hip and discuss possible excision of ganglioncyst. - Can you please call to get her scheduled * Telephone Encounter - GUANAKO Carrera - 06/11/2024 12:51 PM EST ----- Message from GUANAKO Rivera sent at 05/22/2024 8:58 AM EST ----- Consider MDP following back injection ( ganglion cyst left thmb) documented in this encounterB[facility] HospitalOhfjlmkgev75-45-8520 Telephone encounter Note* Telephone Encounter - Genna Robledo MD - 06/01/2024 4:05 PM EST Refills sent. [facility] [id number] Miscellaneous Notes* Telephone Encounter - Genna Robledo MD - 06/01/2024 4:05 PM EST Refills sent. documented in this [facility]12-20-2024 History of Present illness Narrative* Aishwarya Burr NP - 06/01/2024 12:41 PM EST Prescription sent documented in this [facility]12-20-2024 Telephone encounter Note* Telephone Encounter - Tammy Zavaleta - 06/01/2024 10:45 AM EST Pt called and left a vm: [place], this is Karla Rabago. And I was supposed to get a cough suppressant yesterday because I have been fighting this cold now for a week. It was not at the pharmacy. If someone can call me at [phone] I would appreciate it. Thank you. I see she did have an antibiotic called in to [facility], by Sheila, but not a cough suppressant. Thank you :) [facility] [id number] Miscellaneous Notes* Telephone Encounter - Tammy Zavaleta - 06/01/2024 10:45 AM EST Pt called and left a vm: Hi, this is Karla Rabago. And I was supposed to get a cough suppressant yesterday because I have been fighting this cold now for a week. It was not at the pharmacy. If someone can call me at [phone] I would appreciate it. Thank you. I see she did have an antibiotic called in to [facility], by Sheila, but not a cough suppressant. Thank you :) documented in this [facility]12-19-2024 History of Present illness Narrative* Juliette Strickland Renny, DIGITAL BUSINESS ANALYST - 05/31/2024 1:00 PM EST Images from the original note were not included. Karla Rabago is a 74 y.o. female presents with chief complaint of URI HPI: HPI Patient presents today for URI. Pt was in a couple of days ago. She states she still isn't better. She is now blowing green stuff out of her nose as well as a headache. History of Present Illness The patient presents for evaluation of an upper respiratory infection. She reports persistent symptoms of an upper respiratory infection, characterized by the production of green nasal discharge. The onset of these symptoms was on Tuesday. She has been self-medicating with nala-zre-qnelqms Tylenol and Mucinex but has not observed any significant improvement. Additionally, she has been using Robitussin to manage her cough; however, it has not been effective in providing relief. Her sleep has been disrupted due to the severity of her symptoms. ALLERGIES The patient has no known allergies. MEDICATIONS Current: Tylenol, Mucinex, Robitussin SUBJECTIVE: MEDICATIONS: Current Outpatient Medications Medication Instructions albuterol HFA 90 mcg/act inhaler 1 puff, Every 6 hours PRN alendronate (FOSAMAX) 70 mg, Oral, Every 7 days, Take in the morning with a full glass of water, shubham empty stomach, and do not take anything else by mouth or lie down for the next 30 min. Alpha tocopherol (VITAMIN E) 200 Units, Daily RT Cinnamon 500 mg, Daily coenzyme Q-10 200 mg, Every 24 hours fluticasone (Flonase) 50 MCG/ACT nasal spray 1 spray, 2 times daily LORazepam (ATIVAN) 0.5 mg, Oral, Every 8 hours PRN Restasis 0.05 % ophthalmic emulsion sertraline (ZOLOFT) 100 mg, Oral, Daily traZODone (DESYREL) 100 mg, Oral, Nightly verapamil (CALAN) 80 mg, Oral, Every morning I have reviewed and reconciled the history and medication list with the patient today. REVIEW OF SYMPTOMS: Review of Systems OBJECTIVE: Visit Vitals BP 128/84 Pulse 86 Ht 5' 2 Wt 160 lb SpO2 97% BMI 29.26 kg/m Smoking Status Never BSA 1.78 m Physical Exam Vitals and nursing note reviewed. Constitutional: Appearance: Normal appearance. HENT: Head: Normocephalic and atraumatic. Right Ear: A middle ear effusion is present. Left Ear: A middle ear effusion is present. Nose: Congestion present. Right Turbinates: Swollen. Left Turbinates: Swollen. Right Sinus: Maxillary sinus tenderness present. Left Sinus: Maxillary sinus tenderness present. Mouth/Throat: Pharynx: Uvula midline. Posterior oropharyngeal erythema present. Eyes: Extraocular Movements: Extraocular movements intact. Pupils: Pupils are equal, round, and reactive to light. Cardiovascular: Rate and Rhythm: Normal rate and regular rhythm. Heart sounds: Normal heart sounds, S1 normal and S2 normal. Pulmonary: Effort: Pulmonary effort is normal. Breath sounds: Normal breath sounds. Musculoskeletal: Cervical back: Normal range of motion. Lymphadenopathy: Cervical: No cervical adenopathy. Skin: General: Skin is warm and dry. Capillary Refill: Capillary refill takes less than 2 seconds. Neurological: Mental Status: She is alert. ASSESSMENT AND PLAN: Assessment/Plan Diagnoses and all orders for this visit: Acute non-recurrent pansinusitis - amoxicillin-clavulanate (Augmentin) 500-125 MG tablet; Take 1 tablet (500 mg) by mouth in the morning and 1 tablet (500 mg) before bedtime. Do all this for 7 days. Take antibiotics as prescribed, do not stop early. May take tylenol/motrin OTC prn for pain/fever. Increase oral intake of fluids to thin secretions. Saline nasal spray. May use throat lozenges and warm salt water gargles to alleviate sore throat. Humidified air. If symptoms do not improve in 48 hrs after starting antibiotics instructed patient to come to office for further evaluation. Grief ([facility]) Her in February. [facility] children are coming home for waldron. documented in this encounterBates [facility] [id number] History of Present illness Narrative* Juliette Lawson NP - 05/28/2024 7:00 PM EST Images from the original note were not included. Karla Rabago is a 74 y.o. female presents with chief complaint of No chief complaint on file. HPI: URI The current episode started in the past 7 days. There has been no fever. Associated symptoms include congestion, coughing, rhinorrhea, sinus pain and a sore throat. Pertinent negatives include no abdominal pain, chest pain, diarrhea, nausea, vomiting or wheezing. She has tried acetaminophen for the symptoms. SUBJECTIVE: MEDICATIONS: ALLERGIES Current Outpatient Medications Medication Instructions albuterol HFA 90 mcg/act inhaler 1 puff, Every 6 hours PRN alendronate (FOSAMAX) 70 mg, Oral, Every 7 days, Take in the morning with a full glass of water, shubham empty stomach, and do not take anything else by mouth or lie down for the next 30 min. Alpha tocopherol (VITAMIN E) 200 Units, Daily RT Cinnamon 500 mg, Daily coenzyme Q-10 200 mg, Every 24 hours fluticasone (Flonase) 50 MCG/ACT nasal spray 1 spray, 2 times daily LORazepam (ATIVAN) 0.5 mg, Oral, Every 8 hours PRN Restasis 0.05 % ophthalmic emulsion sertraline (ZOLOFT) 100 mg, Oral, Daily traZODone (DESYREL) 100 mg, Oral, Nightly verapamil (CALAN) 80 mg, Oral, Every morning Allergies Allergen Reactions Lisinopril Cough PAST MEDICAL HISTORY: SOCIAL HISTORY SURGICAL HISTORY: Past Medical History: Diagnosis Date Hypertension ([facility]) MRSA infection 2010 Osteoporosis ([facility]) Personal history of other medical treatment 2013 Shoulder infection post op Social History Tobacco Use Smoking status: Never Smokeless tobacco: Never Vaping Use Vaping status: Never Used Substance Use Topics Alcohol use: Yes Alcohol/week: 2.0 - 3.0 standard drinks of alcohol Types: 2 - 3 Standard drinks or equivalent per week Comment: caffeine intake: 1 cup daily Drug use: Never Past Surgical History: Procedure Laterality Date CARPAL TUNNEL RELEASE Bilateral 1979 SECTION, CLASSIC 1984 CHOLECYSTECTOMY 1989 COLONOSCOPY 11/2020 KNEE SURGERY Right 2006 knee scope ROTATOR CUFF REPAIR Left 2012 TOTAL HIP ARTHROPLASTY Right 10/25/2023 RT [facility]- DR SANDOVAL TOTAL KNEE ARTHROPLASTY Right 2009 TOTAL KNEE ARTHROPLASTY Left 12/2017 REVIEW OF SYMPTOMS: Review of Systems Constitutional: Positive for fatigue. Negative for fever. HENT: Positive for congestion, rhinorrhea, sinus pain and sore throat. Respiratory: Positive for cough and shortness of breath. Negative for wheezing. Cardiovascular: Negative for chest pain, palpitations and leg swelling. Gastrointestinal: Negative for abdominal pain, diarrhea, nausea and vomiting. OBJECTIVE: Vitals: 05/28/24 1854 BP: 134/80 Pulse: 78 Resp: 18 SpO2: 98% Physical Exam Vitals and nursing note reviewed. Constitutional: Appearance: Normal appearance. HENT: Head: Normocephalic and atraumatic. Right Ear: Tympanic membrane normal. Left Ear: Tympanic membrane normal. Nose: Congestion present. Right Sinus: Frontal sinus tenderness present. Left Sinus: Frontal sinus tenderness present. Mouth/Throat: Mouth: Mucous membranes are moist. Pharynx: Posterior oropharyngeal erythema present. Tonsils: No tonsillar exudate. Cardiovascular: Rate and Rhythm: Normal rate and regular rhythm. Pulses: Normal pulses. Heart sounds: Normal heart sounds. Pulmonary: Effort: Pulmonary effort is normal. Breath sounds: Normal breath sounds. Musculoskeletal: Cervical back: Normal range of motion and neck supple. Skin: General: Skin is warm and dry. Neurological: Mental Status: She is alert. ASSESSMENT AND PLAN: Assessment/Plan Diagnoses and all orders for this visit: Viral URI Most likely viral in nature, will need to run its course. Educated patient viral infections such ascolds/flus do not respond to abx and typically do not begin to improve until 7-10 days into the illness. Discussed symptomatic treatment with patient. Humidifier at bedside to moisten area. Push fluids. Rest. Good handwashing. Follow up if symptoms do not improve. To ER for markedly worsening symptoms. Cough, unspecified type - STATUS COVID-19/FLU No follow-ups on file. documented in this encounterBates County [facility] [id number] Telephone encounter Note* Telephone Encounter - Genna Robledo MD - 05/22/2024 8:09 PM EST Approving, but needs appt for additional refills. [facility] [id number] Miscellaneous Notes* Telephone Encounter - Genna Robledo MD - 05/22/2024 8:09 PM EST Approving, but needs appt for additional refills. documented in this encounterBates County Memorial [id number] History of Present illness Narrative* GUANAKO Carrera - 05/22/2024 8:30 AM EST HISTORY OF PRESENT ILLNESS: EST PT Karla Rabago is an 74 y.o. @ female. EST PT NEW PROBLEM: LT THUMB CYST x END OF MAR ([address] ROBLEDO REFERRAL PCP 05/08/24 HX LT CTR OVER 20 YRS AGO. CYST NEAR CMC JOINT, TENDER WHEN PRESSURE IS APPLIED. WHEN SHE PUSHES ON IT, STATES IT FEELS SQUISHY. THINKS IT HAS GOTTEN BIGGER IN SIZE. NO PAIN MEDS. USING BIOFREEZE. DENIES N/T, SWELLING. GOOD ROM. FEELS A PULL WITH THUMB MOVEMENTS. DOES NOT WAKE AT HS. DENIES ISSUES GRIPPING. RT HANDED. ALLERGIES: Allergies Allergen Reactions Lisinopril Cough HOME MEDICATIONS: Current Outpatient Medications Medication Instructions albuterol HFA 90 mcg/act inhaler 1 puff, Every 6 hours PRN alendronate (FOSAMAX) 70 mg, Oral, Every 7 days, Take in the morning with a full glass of water, shubham empty stomach, and do not take anything else by mouth or lie down for the next 30 min. Alpha tocopherol (VITAMIN E) 200 Units, Daily RT Cinnamon 500 mg, Daily coenzyme Q-10 200 mg, Every 24 hours fluticasone (Flonase) 50 MCG/ACT nasal spray 1 spray, 2 times daily LORazepam (ATIVAN) 0.5 mg, Oral, Every 8 hours PRN Restasis 0.05 % ophthalmic emulsion sertraline (ZOLOFT) 100 mg, Oral, Daily traZODone (DESYREL) 100 mg, Oral, Nightly verapamil (CALAN) 80 mg, Oral, Every morning PHYSICAL EXAM: Hand/Wrist Musculoskeletal Exam Inspection Left Left hand/wrist inspection is normal. Erythema: none Ecchymosis: none Edema: none Deformity: mild Deformity comment: + mobile cyst approx 1.5 cm in diameter to base of thumb near CMC joint. Wrist - prior incision: carpal tunnel and dorsal wrist Incision: well-healed Palpation Left Left hand palpation is normal. Palpation additional comments: DENIES PAIN TO PALPATION OF HAND/ WRIST JOINT Range of Motion Left Hand Left hand range of motion is normal. Range of motion additional comments: ABLE TO MAKE FULL FIST Strength Left Hand Left hand strength is normal. 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 Radial pulse: normal and 2+ Capillary refill: <3 sec General Constitutional: appears stated age Labored breathing: no Neurological: alert and oriented x3 Skin: intact Lymphadenopathy: none Vitals: There is no height or weight on file to calculate BMI. Tobacco Use: Low Risk (05/22/2024) Patient History Smoking Tobacco Use: Never Smokeless Tobacco Use: Never Passive Exposure: Not on file Alcohol Use: Not At Risk (03/09/2024) AUDIT-C Frequency of Alcohol Consumption: Monthly or less Average Number of Drinks: 1 or 2 Frequency of Binge Drinking: Never IMAGING: Procedures No orders of the defined types were placed in this encounter. ASSESSMENT: ICD-10-CM 1. Pain of left thumb M79.645 Ambulatory referral to Pain Medicine 2. Mass of soft tissue of hand M79.89 Assessment & Plan 1. Left hand swelling, likely ganglion cyst at the base of the thumb CMC joint. The patient has had prior surgeries on that wrist and is aware that the cyst could recur even if removal was obtained. Both surgical and nonsurgical treatment options were discussed. She is scheduledto receive a cortisone injection in her back this Tuesday with pain management. Given this, oral ster oids will be held off for now. Symptoms will be rechecked in 2 weeks via phone call. If symptoms persist, a Medrol Dosepak may be considered. An MRI would be considered if the cysts were to enlarge significantly in a short period of time. Follow-up The patient will follow up in 2 weeks via phone call. Questions answered in laymen terms at the bedside. The diagnosis, home exercise plan and any ongoing restrictions/ recommendations reviewed. If unable to be reached in office, I recommend evaluation at nearest Emergency Room if any symptoms worsened or new symptoms develop for requiring urgent evaluation. documented in this encounterBates County Memorial [id number] History of Present illness Narrative* Genna Robledo MD - 05/08/2024 2:30 PM EST Images from the original note were not included. Karla Rabago is a 74 y.o. female presents with chief complaint of left thumb, bone protrusion. HPI: HPI History of Present Illness The patient presents for evaluation of a cyst. She has been experiencing issues with a bone cyst, which she first noticed about a month ago. The cyst is painful when pressure is applied to it. Additionally, she mentions that she is scheduled to receive an injection in her hip on 06/27/2024. She continues to struggle with anxiety, which is not uncommon for her. Her sleep has improved, although she tends to wake up early, around 4:30 am, and finds it difficult to fall back asleep. She allows herself to nap during the day if needed. She experienced a headache today, which she attributes to the stress of returning to work. SUBJECTIVE: MEDICATIONS: Current Outpatient Medications Medication Instructions albuterol HFA 90 mcg/act inhaler 1 puff, Every 6 hours PRN alendronate (FOSAMAX) 70 mg, Oral, Every 7 days, Take in the morning with a full glass of water, shubham empty stomach, and do not take anything else by mouth or lie down for the next 30 min. Alpha tocopherol (VITAMIN E) 200 Units, Daily RT Cinnamon 500 mg, Daily coenzyme Q-10 200 mg, Every 24 hours fluticasone (Flonase) 50 MCG/ACT nasal spray 1 spray, 2 times daily LORazepam (ATIVAN) 0.5 mg, Oral, Every 8 hours PRN Restasis 0.05 % ophthalmic emulsion sertraline (ZOLOFT) 100 mg, Oral, Daily traZODone (DESYREL) 100 mg, Oral, Nightly verapamil (CALAN) 80 mg, Oral, Every morning I have reviewed and reconciled the history and medication list with the patient today. REVIEW OF SYMPTOMS: Review of Systems OBJECTIVE: Visit Vitals BP 138/84 Pulse 74 Ht 5' 2 Wt 161 lb 6.4 oz SpO2 94% BMI 29.52 kg/m Smoking Status Never BSA 1.79 m Physical Exam Vitals and nursing note reviewed. Constitutional: Appearance: Normal appearance. Musculoskeletal: Left hand: Swelling present. Comments: Round soft mobile cyst near CMC joint. Neurological: Mental Status: She is alert. ASSESSMENT AND PLAN: Assessment/Plan Problem List Items Addressed This Visit None Visit Diagnoses Cyst of joint of left hand - Primary Relevant Orders Ambulatory referral to Orthopaedic Surgery documented in this encounterBates County Memorial [id number] History of Present illness Narrative* Genna Robledo MD - 04/19/2024 1:30 PM EST Images from the original note were not included. prev Karla Rabago is a 74 y.o. female presents with chief complaint of No chief complaint on file. HPI: Over the past 2 weeks, how often have you been bothered by any of the following problems? Little interest or pleasure in doing things: Not at all Feeling down, depressed, or hopeless: More than half the days Patient Health Questionnaire-2 Score: 2 Over the past 2 weeks, how often have you been bothered by any of the following problems? Trouble falling or staying asleep, or sleeping too much: Nearly every day Feeling tired or having little energy: Not at all Poor appetite or overeating: Not at all Feeling bad about yourself - or that you are a failure or have let yourself or your family down: Not at all Trouble concentrating on things, such as reading the newspaper or watching television: Several days Moving or speaking so slowly that other people could have noticed? Or the opposite - being so fidgety or restless that you have been moving around a lot more than usual.: Not at all Thoughts that you would be better off or hurting yourself in some way: Not at all Patient Health Questionnaire-9 Score: 6 Marroquin Fall Risk History of Falling, Immediate or Within 3 Months: No Secondary Diagnosis: No Ambulatory Aid: Walks without aid/bedrest/nurse assist Intravenous Therapy/Heparin Lock: No Gait/Transferring: Normal/bedrest/immobile Mental Status: Oriented to own ability Marroquin Fall Risk Score: 0 Health Risk Assessment Form Do you need help eating, bathing, using the toilet, dressing, or getting around your home?: No Can you prepare your own meals?: Yes Can you do your own housework without help?: Yes Can you shop for groceries or clothes without help?: Yes Do you exercise for about 20 minutes 3 or more days a week?: Yes How confident are you that you can control and manage most of your health problems?: Very confident Can you mange your money, credit cards and accounts, pay bills and taxes?: Yes Vision Screening: Yes, 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 She is experiencing back and hip pain and has consulted with Dr. Ge. She is scheduled for anothertest in the coming weeks. She reports significant anxiety and sleep disturbances. She is currently on Zoloft 50 mg and trazodone, both of which she tolerates well without any side effects. Her headaches are well-managed. She has received her influenza vaccine. Her last colonoscopy was performed in [address] Menendez, and she recently underwent a mammogram. She has no history of smoking. Her son, who resides in [place], visits her frequently, and her daughter assists with grocery shopping. She is considering appointing her daughter as her power of chili powder mixer for healthcare. SUBJECTIVE: MEDICATIONS: Current Outpatient Medications Medication Instructions albuterol HFA 90 mcg/act inhaler 1 puff, Every 6 hours PRN alendronate (FOSAMAX) 70 mg, Oral, Every 7 days, Take in the morning with a full glass of water, shubham empty stomach, and do not take anything else by mouth or lie down for the next 30 min. Alpha tocopherol (VITAMIN E) 200 Units, Daily RT Cinnamon 500 mg, Daily coenzyme Q-10 200 mg, Every 24 hours fluticasone (Flonase) 50 MCG/ACT nasal spray 1 spray, 2 times daily LORazepam (ATIVAN) 0.5 mg, Oral, Every 8 hours PRN Restasis 0.05 % ophthalmic emulsion sertraline (ZOLOFT) 50 mg, Oral, Daily traZODone (DESYREL) 50 mg, Oral, Nightly verapamil (CALAN) 80 mg, Oral, Every morning I have reviewed and reconciled the history and medication list with the patient today. REVIEW OF SYMPTOMS: Review of Systems OBJECTIVE: Visit Vitals BP 140/76 Pulse 70 Ht 5' 2 Wt 162 lb SpO2 98% BMI 29.63 kg/m Smoking Status Never BSA 1.79 m Physical Exam Vitals and nursing note reviewed. Constitutional: Appearance: Normal appearance. HENT: Head: Normocephalic and atraumatic. Right Ear: Tympanic membrane normal. Left Ear: Tympanic membrane normal. Nose: Nose normal. Mouth/Throat: Mouth: Mucous membranes are moist. Pharynx: Oropharynx is clear. Cardiovascular: Rate and Rhythm: Normal rate and regular rhythm. Pulses: Normal pulses. Pulmonary: Effort: Pulmonary effort is normal. Breath sounds: Normal breath sounds. Abdominal: General: Abdomen is flat. Bowel sounds are normal. Palpations: Abdomen is soft. Musculoskeletal: Cervical back: Normal range of motion and neck supple. Skin: General: Skin is warm and dry. Neurological: General: No focal deficit present. Mental Status: She is alert. Psychiatric: Mood and Affect: Affect is tearful. ASSESSMENT AND PLAN: Assessment & Plan 1. Anxiety. She reports ongoing anxiety and difficulty sleeping. The dosage of sertraline will be increased from 50 mg to 100 mg to help manage her anxiety. The dosage of trazodone will also be doubled to improve her sleep. She has not experienced any side effects from these medications. The potential side effects and the non- addictive nature of these medications were discussed. 2. Insomnia. Her insomnia is related to her anxiety. The dosage of trazodone will be increased to help with sleep. She has not experienced any side effects from trazodone. The potential side effects and the non-addictive nature of these medications were discussed. 3. Health Maintenance. She received her flu shot and has had two pneumonia shots (Prevnar 13 and 23). She is eligible for the Prevnar 20 vaccine since it has been more than 5 years since her last pneumonia shot. She will receive the Prevnar 20 vaccine today. A COVID-19 booster is recommended and can be obtained at the pharmacy. Her last colonoscopy in 2020 was normal, and her next mammogram is due in March 2025. Blood work, including cholesterol and metabolic panel, will be conducted today. Assessment/Plan Problem List Items Addressed This Visit Anxiety Will increase the zoloft and trazodone. Chronic tension-type headache, not intractable Controlled on the calcium channel quinton. History of total left knee replacement History of total right knee replacement Status post right hip replacement Other Visit Diagnoses Wellness examination - Primary Relevant Orders Lipid panel Comprehensive metabolic panel Discussed height, weight and BMI. Encouraged healthy diet and regular exercise. Discussed vaccines and encouraged yearly flu shot. Annual eye and dental exam. Vaccines and cancer screens reviewed forcompleteness. Screen labs as needed. Assessed needs for tools in the home for independence. Living will and durable power of chili powder mixer reviewed. Updated patient problem list and reviewed all current medications with patient. Given time to ask questions. Encounter for immunization Relevant Orders Pneumococcal conjugate vaccine 20-valent IM (Completed) Benign hypertension (CMS/HCC) Relevant Orders Lipid panel Comprehensive metabolic panel Insomnia, unspecified type Increase trazodone. documented in this encounterBates County Memorial [id number] History of Present illness Narrative* GUANAKO Carrera - 04/13/2024 10:30 AM EDT Images from the original note were not included. HISTORY OF PRESENT ILLNESS: EST PT Karla Rabago is an 74 y.o. @ female. EST PT S/P (R) WINNIE 10/25/23 (~6MO) - HERE FOR MRI L-SPINE RESULTS 03/15/24 EPIC PT IS EMOTIONAL TODAY; SHE LOST HER 02/2024 MRI L-SPINE 04/12/24 EPIC XRAY RT HIP/LUMBAR SPINE 04/03/24 XRAYS, 12/06/23 IN EPIC MDP 02/09/2024, 02/15/24 FINISHED PHYSICAL THERAPY @ [facility] SYMPTOMS UNCHANGED- DESCRIBES IT A PULLING SENSATION IN BUTTOCKS REGION- DISCOMFORT BUTTOCK/LATERAL HIP- PT NOTES SOME INSTABILITY WHEN SHE GOES FROM SITTING TO STANDING-FEELS LIKE HER LEG WON'T BE ABLE TO HOLD HER- SOME LIMPING- INCREASE PAIN WITH AMBULATING- DIFFICULTY WITH STAIRS- +TYLENOL/ICE HOT ALLERGIES: Allergies Allergen Reactions Lisinopril Cough HOME MEDICATIONS: Current Outpatient Medications Medication Instructions albuterol HFA 90 mcg/act inhaler 1 puff, Inhalation, Every 6 hours PRN alendronate (FOSAMAX) 70 mg, Oral, Every 7 days, Take in the morning with a full glass of water, shubham empty stomach, and do not take anything else by mouth or lie down for the next 30 min. Alpha tocopherol (VITAMIN E) 200 Units, Oral, Daily RT Cinnamon 500 mg, Oral, Daily coenzyme Q-10 200 mg, Oral, Every 24 hours estradiol (ESTRACE) 1 g, Vaginal, Daily fluticasone (Flonase) 50 MCG/ACT nasal spray 1 spray, Each Nostril, 2 times daily LORazepam (ATIVAN) 0.5 mg, Oral, Every 8 hours PRN Restasis 0.05 % ophthalmic emulsion sertraline (ZOLOFT) 50 mg, Oral, Daily traZODone (DESYREL) 50 mg, Oral, Nightly verapamil (CALAN) 80 mg, Oral, Every morning PHYSICAL EXAM: Hip Musculoskeletal Exam Gait Gait is normal. Inspection Leg length disparity: no discrepancy Right Erythema: none Ecchymosis: none Edema: none Deformity: none Previous incision: anterolateral Incision: well-healed Palpation Right Right hip palpation is normal. Increased warmth: none Tenderness: present Greater trochanteric region pain: mild Lower lumbar region pain: mild Palpation additional comments: Pt reports pain that will shoot from right lower back/ lateral hip down leg , lateral aspect of cheney, concerning for L5 radiculopathy.. happens all the time with standing per pt . Range of Motion Right Right hip range of motion is within functional limits. Active ROM: normal. Passive ROM: normal. Strength Right Right hip strength is normal. Extension: 5/5. Flexion: 5/5. Internal rotation: 5/5. External rotation: 5/5. Adduction: 5/5. Abduction: 5/5. Neurovascular Right Right hip neurovascular exam is normal. Pulses - PT: normal Posterior tibial: 2+ Special Tests Special tests additional comments: Reflexes 2+ symmetric patella and achilles. Neg clonus. General Constitutional: appears stated age Labored breathing: no Psychiatric: normal mood and affect Neurological: alert and oriented x3 Skin: intact Lymphadenopathy: none Vitals: There is no height or weight on file to calculate BMI. Tobacco Use: Low Risk (04/03/2024) Patient History Smoking Tobacco Use: Never Smokeless Tobacco Use: Never Passive Exposure: Not on file Alcohol Use: Not At Risk (03/09/2024) AUDIT-C Frequency of Alcohol Consumption: Monthly or less Average Number of Drinks: 1 or 2 Frequency of Binge Drinking: Never IMAGING: Procedures No orders of the defined types were placed in this encounter. ASSESSMENT: ICD-10-CM 1. Lumbar radiculopathy, right M54.16 PLAN: Discussed MRI.. pt has recurrent hip bursisits, but more concerning L5 radicular pain with standing.. mri reviewed at bedside.. recommend referral to pain management for possible injection.. Pt agreeable F/U Dr. Sandoval in 8 wks, would repeat xray of hip if not improved. Questions answered in laymen terms at the bedside. The diagnosis, home exercise plan and any ongoing restrictions/ recommendations reviewed. If unable to be reached in office, I recommend evaluation at nearest Emergency Room if any symptoms worsened or new symptoms develop for requiring urgent evaluation. documented in this encounterBates County Memorial HospitalAionequktc74-80-2272 Telephone encounter Note* Telephone Encounter - Britney Nolasco - 04/12/2024 1:26 PM EDT Patient scheduled. [facility] [id number] Miscellaneous Notes* Telephone Encounter - Britney Nolasco - 04/12/2024 1:26 PM EDT Patient scheduled. * Telephone Encounter - GUANAKO Carrera - 04/12/2024 12:27 PM EDT Reviewed MRI, Please see if pt can come in tomorrow for re-eval on symptoms and to discuss MRI results. 8:00am before work would be ok if needed documented in this encounterBates County Memorial HospitalMpsieqwxzm13-07-2279 Telephone encounter Note* Telephone Encounter - GUANAKO Carrera - 04/12/2024 12:27 PM EDT Reviewed MRI, Please see if pt can come in tomorrow for re-eval on symptoms and to discuss MRI results. 8:00am before work would be ok if needed [facility] Work Phone: [phone]) 886-127510-22-2024 History of Present illness Narrative* GUANAKO Carrera - 04/03/2024 9:30 AM EDTAssociated Order(s): L Inj/Asp: R greater trochanteric bursa Post-Procedure Diagnose(s): Trochanteric bursitis of right hip Images from the original note were not included. HISTORY OF PRESENT ILLNESS: EST PT Karla Rabago is an 73 y.o. @ female. (EST PT W/RAMAKRISHNA) S/P (R) WINNIE 10/25/23 (~5MO) - S/P MDP 02/15/24; RELIEF WHILE TAKING XRAY RT HIP/LUMBAR SPINE 04/03/24 XRAYS, 12/06/23 IN EPIC MDP 02/09/2024, 02/15/24 FINISHED PHYSICAL THERAPY @ [facility] DESCRIBES IT A PULLING SENSATION IN BUTTOCKS REGION- DISCOMFORT BUTTOCK/LATERAL HIP- PT NOTES SOME INSTABILITY WHEN SHE GOES FROM SITTING TO STANDING-FEELS LIKE HER LEG WON'T BE ABLE TO HOLD HER- SOME LIMPING- INCREASE PAIN WITH AMBULATING- DIFFICULTY WITH STAIRS- +TYLENOL/ICE HOT ALLERGIES: Allergies Allergen Reactions Lisinopril Cough HOME MEDICATIONS: Current Outpatient Medications Medication Instructions albuterol HFA 90 mcg/act inhaler 1 puff, Inhalation, Every 6 hours PRN alendronate (Fosamax) 70 MG tablet take 1 tablet by mouth every week 30 MINUTES before breakfast with PLAIN WATER Alpha tocopherol (VITAMIN E) 200 Units, Oral, Daily RT Cinnamon 500 mg, Oral, Daily coenzyme Q-10 200 mg, Oral, Every 24 hours estradiol (ESTRACE) 1 g, Vaginal, Daily fluticasone (Flonase) 50 MCG/ACT nasal spray 1 spray, Each Nostril, 2 times daily LORazepam (ATIVAN) 0.5 mg, Oral, Every 8 hours PRN Restasis 0.05 % ophthalmic emulsion sertraline (ZOLOFT) 50 mg, Oral, Daily traZODone (DESYREL) 50 mg, Oral, Nightly verapamil (CALAN) 80 mg, Oral, Every morning PHYSICAL EXAM: Hip Musculoskeletal Exam Gait Antalgic: right Limp: right Trendelenburg: right Trendelenburg comment: mild Inspection Leg length disparity: no discrepancy Right Erythema: none Ecchymosis: none Edema: none Deformity: none Previous incision: anterolateral Incision: well-healed Palpation Right Right hip palpation is normal. Increased warmth: none Tenderness: present Greater trochanteric region pain: moderate Pubic rami pain: none Lower lumbar region pain: mild Range of Motion Right Right hip range of motion is within functional limits. Active ROM: normal. Passive ROM: normal. Range of motion additional comments: Full rom, + pain on end rom. Strength Right Right hip strength is normal. Extension: 5/5. Flexion: 5/5. Internal rotation: 5/5. External rotation: 5/5. Adduction: 5/5. Abduction: 5/5. Abduction is affected by pain. Neurovascular Right Right hip neurovascular exam is normal. Pulses - PT: normal Posterior tibial: 2+ Special Tests Right Log roll test: negative Special tests additional comments: + pain right leg lateral anterior thigh with forward flexion of back , Back extension with pain in right lower back. Reflexes symmetric patella and achilles. 2+ neg clonus. General Constitutional: appears stated age Labored breathing: no Psychiatric: normal mood and affect Neurological: alert and oriented x3 Skin: intact Lymphadenopathy: none Vitals: There is no height or weight on file to calculate BMI. Tobacco Use: Low Risk (04/03/2024) Patient History Smoking Tobacco Use: Never Smokeless Tobacco Use: Never Passive Exposure: Not on file Alcohol Use: Not At Risk (03/09/2024) AUDIT-C Frequency of Alcohol Consumption: Monthly or less Average Number of Drinks: 1 or 2 Frequency of Binge Drinking: Never IMAGING: L Inj/Asp: R greater trochanteric bursa on 04/03/2024 11:59 AM Indications: pain Details: 21 G needle, lateral approach Medications: 40 mg methylPREDNISolone acetate 40 MG/ML Outcome: tolerated well, no immediate complications UTILIZING ASEPTIC TECHNIQUE PT GIVEN INJECTION IN RIGHT HIP BURSA NEUROVASC INTACT S/P INJ, TOLERATED WELL Procedure, treatment alternatives, risks and benefits explained, specific risks discussed. Consent was given by the patient. Patient was prepped and draped in the usual sterile fashion. Orders Placed This Encounter Procedures L Inj/Asp This order was created via procedure documentation XR hip right 2 or 3 views Order Specific Question: Reason for exam: Answer: PAIN XR lumbar spine 2 or 3 views Order Specific Question: Reason for exam: Answer: PAIN ASSESSMENT: ICD-10-CM 1. S/P total right hip arthroplasty Z96.641 2. Acute right hip pain M25.551 XR hip right 2 or 3 views 3. Lumbar radiculopathy, right M54.16 XR lumbar spine 2 or 3 views PLAN: Pt with pain to right lateral hip and weakness and shooting pain into right leg.. recommend MRI given recurrent of right low back/ buttock pain that radiated to lateral thigh and sometimes anterior cheney. ? L5 radiculopathy.. pt notes transient weakness. Discussed xray Hip and L/s spine.. feel Hip bursitis symptoms are cause and effect with radicular pain/ limp.. pt agreeable to MRI, consider Injections to spine... ( transient relief with MDP ) pt thankful. Recheck in 3wks .. Risk and benefits of injection discussed.. pt did well on her [place] trip, but did use MDP during travels. Questions answered in laymen terms at the bedside. The diagnosis, home exercise plan and any ongoing restrictions/ recommendations reviewed. If unable to be reached in office, I recommend evaluation at nearest Emergency Room if any symptoms worsened or new symptoms develop for requiring urgent evaluation. documented in this encounterBates County Memorial [id number] Telephone encounter Note* Telephone Encounter - Luciana Bella - 03/30/2024 4:42 PM EDT Patient called and said you referred her to Dr. Sandy Heller in [place] and she does not want to drive to [place], she wants a doctor closer to [place]. I could not find a referral to this doctor.Please call her at [phone]. Ty [facility] [id number] Miscellaneous Notes* Telephone Encounter - Luciana Bella - 03/30/2024 4:42 PM EDT Patient called and said you referred her to Dr. Sandy Heller in [place] and she does not want to drive to [place], she wants a doctor closer to [place]. I could not find a referral to this doctor.Please call her at [phone]. Ty * Telephone Encounter - Genna Robledo MD - 03/30/2024 12:40 PM EDT Approving, but needs appt for additional refills. documented in this encounterBates County Memorial HospitalGyobnjwkfw41-31-8892 Telephone encounter Note* Telephone Encounter - Genna Robledo MD - 03/30/2024 12:40 PM EDT Approving, but needs appt for additional refills. [facility] HospitalBlgquxtsfr56-35-8360 Telephone encounter Note* Telephone Encounter - Ines Sandoval - 03/22/2024 9:52 AM EDT Pt calling to report she feels the medications she's taking are not helping her. She asked if she'susing correctly, she said she's taking 1 pill of each of the 3 meds at night. Lorazepam instructions read she can take 1 every 8 hours- I asked if she's taking more than one as needed --she said no..but she asked I still inform you its not working.. she also said counseling office didn't contact her so I gave her the name and number to reach out to them and told her to contact us if any issues or if she feels she needs to talk to someone or see someone before you are back next week. Pt agreeable. [facility] HospitalWsuacqbfly21-13-6587 Miscellaneous Notes* Telephone Encounter - Ines Sandoval - 03/22/2024 9:52 AM EDT Pt calling to report she feels the medications she's taking are not helping her. She asked if she'susing correctly, she said she's taking 1 pill of each of the 3 meds at night. Lorazepam instructions read she can take 1 every 8 hours- I asked if she's taking more than one as needed --she said no..but she asked I still inform you its not working.. she also said counseling office didn't contact her so I gave her the name and number to reach out to them and told her to contact us if any issues or if she feels she needs to talk to someone or see someone before you are back next week. Pt agreeable. * Telephone Encounter - Ines Sandoval - 03/14/2024 10:20 AM EDT Called pt and gave your message, she will continue taking and if it becomes too much she will call us back. * Telephone Encounter - Ines Sandoval - 03/14/2024 9:32 AM EDT Pt started 2 new meds after appt yesterday with Dr Robledo, zoloft and trazadone- she's woke up feeling jittery and asking if that's a side effect to either of these meds? She states no other sx just jittery feeling. documented in this encounterBates County Memorial HospitalEpudggizri81-89-2389 Telephone encounter Note* Telephone Encounter - Ines Sandoval - 03/14/2024 10:20 AM EDT Called pt and gave your message, she will continue taking and if it becomes too much she will call us back. [facility] HospitalDmvxnuqeem12-40-0518 Telephone encounter Note* Telephone Encounter - Ines Sandoval - 03/14/2024 9:32 AM EDT Pt started 2 new meds after appt yesterday with Dr Robledo, zoloft and trazadone- she's woke up feeling jittery and asking if that's a side effect to either of these meds? She states no other sx just jittery feeling. [facility] [id number] History of Present illness Narrative* Genna Robledo MD - 03/13/2024 3:30 PM EDT Images from the original note were not included. Karla Rabago is a 73 y.o. female presents with chief complaint of Establish Care HPI: Patient is here for sx of depression and sleep issues due to passing. History of Present Illness The patient presents for evaluation of multiple medical concerns. She is accompanied by her sister. She reports that her current medications are not effective in managing her symptoms, which include insomnia. Despite taking two medications simultaneously, she has not experienced any improvement in her sleep patterns. She has not previously used any sleep aids. She also mentions experiencing loosestools, but denies the presence of blood or mucus in her stool. She does not report any pain or burning sensation during urination. SUBJECTIVE: MEDICATIONS: ALLERGIES Current Outpatient Medications Medication Instructions albuterol HFA 90 mcg/act inhaler 1 puff, Inhalation, Every 6 hours PRN alendronate (Fosamax) 70 MG tablet take 1 tablet by mouth every week 30 MINUTES before breakfast with PLAIN WATER Alpha tocopherol (VITAMIN E) 200 Units, Oral, Daily RT Cinnamon 500 mg, Oral, Daily coenzyme Q-10 200 mg, Oral, Every 24 hours estradiol (ESTRACE) 1 g, Vaginal, Daily fluticasone (Flonase) 50 MCG/ACT nasal spray 1 spray, Each Nostril, 2 times daily LORazepam (ATIVAN) 0.5 mg, Oral, Every 8 hours PRN Restasis 0.05 % ophthalmic emulsion verapamil (CALAN) 80 mg, Oral, Every morning Allergies Allergen Reactions Lisinopril Cough PAST MEDICAL HISTORY: SOCIAL HISTORY SURGICAL HISTORY: Past Medical History: Diagnosis Date Hypertension ([facility]) MRSA infection 2010 Osteoporosis ([facility]) Personal history of other medical treatment 2013 Shoulder infection post op Social History Tobacco Use Smoking status: Never Smokeless tobacco: Never Vaping Use Vaping status: Never Used Substance Use Topics Alcohol use: Yes Alcohol/week: 2.0 - 3.0 standard drinks of alcohol Types: 2 - 3 Standard drinks or equivalent per week Comment: caffeine intake: 1 cup daily Drug use: Never Past Surgical History: Procedure Laterality Date CARPAL TUNNEL RELEASE Bilateral 1979 SECTION, CLASSIC 1984 CHOLECYSTECTOMY 1990 COLONOSCOPY 11/2020 KNEE SURGERY Right 2006 knee scope ROTATOR CUFF REPAIR Left 2012 TOTAL HIP ARTHROPLASTY Right 10/25/2023 RT WINNIE- DR SANDOVAL TOTAL KNEE ARTHROPLASTY Right 2009 TOTAL KNEE ARTHROPLASTY Left 12/2017 REVIEW OF SYMPTOMS: Review of Systems All other systems reviewed and are negative. OBJECTIVE: Vitals: 03/13/24 1531 BP: 142/86 Pulse: 83 Temp: 97.1 F SpO2: 99% Physical Exam Vitals and nursing note reviewed. Constitutional: Appearance: Normal appearance. Cardiovascular: Rate and Rhythm: Normal rate and regular rhythm. Pulses: Normal pulses. Pulmonary: Effort: Pulmonary effort is normal. Breath sounds: Normal breath sounds. Abdominal: General: Abdomen is flat. Bowel sounds are normal. Palpations: Abdomen is soft. Musculoskeletal: Cervical back: Normal range of motion and neck supple. Neurological: General: No focal deficit present. Mental Status: She is alert. Psychiatric: Mood and Affect: Affect is tearful. ASSESSMENT AND PLAN: Assessment & Plan 1. Depression. A prescription for Zoloft 50 mg tablets will be provided, with instructions to take half a tablet (25 mg) for the first few nights to minimize potential nausea or stomach upset. The dosage can be increased to 50 mg once acclimated. It was explained that Zoloft may take 4 to 6 weeks to reach a steady state in the body. If necessary, the Zoloft dosage can be increased up to 200 mg. 2. Anxiety and Stress. Ativan can be used as needed during the day but should not be taken concurrently with trazodone. A referral for grief counseling will also be arranged. 3. Insomnia. A low dose of trazodone will be initiated to aid with sleep. If the initial dose of trazodone proves ineffective, the dosage will be increased. 4. Loose stools. It was recommended to monitor the condition without immediate intervention, as it may be stress-related. There is no blood or mucus in the stool, and no pain or burning during urination. 5. Health Maintenance. An influenza vaccine will be administered today. Follow-up Return in 4 to 6 weeks for a Medicare wellness checkup and to assess the effectiveness of Zoloft. Assessment/Plan Problem List Items Addressed This Visit Anxiety Relevant Medications traZODone (Desyrel) 50 MG tablet sertraline (Zoloft) 50 MG tablet Other Visit Diagnoses Encounter for immunization - Primary Relevant Orders Flu vaccine, high dose seasonal, PF ([id number]) (Fluzone High Dose) (Completed) Grief ([facility]) No follow-ups on file. documented in this [facility]09-25-2024 Telephone encounter Note* Telephone Encounter - Andre Veronica - 03/07/2024 8:53 AM EDT Karla would like an order in for her mammogram. Wellness is on the 4th- [facility] [id number] Miscellaneous Notes* Telephone Encounter - Andre Veronica - 03/07/2024 8:53 AM EDT Karla would like an order in for her mammogram. Wellness is on the 4th- documented in this [facility]09-24-2024 Telephone encounter Note* Telephone Encounter - Andre Veronica - 03/06/2024 9:56 AM EDT Karla is asking for her Ativan to be increased. She is having a hard time w her husbands - very anxious , also said she is getting stomach aches and wonder if ir could be her nerves or do you think it could be the Ativan ? If so she is ok with switching to something else . [facility] HospitalSxgxseewgz14-20-0560 Miscellaneous Notes* Telephone Encounter - Andre Veronica - 03/06/2024 9:56 AM EDT Karla is asking for her Ativan to be increased. She is having a hard time w her husbands - very anxious , also said she is getting stomach aches and wonder if ir could be her nerves or do you think it could be the Ativan ? If so she is ok with switching to something else . [facility] documented in this encounterBates County Memorial HospitalAdbkdvkjxi42-65-9080 Telephone encounter Note* Telephone Encounter - Cindy Elias NP - 03/02/2024 10:36 AM EDT Lets increase to TID first. [facility] to pharmacy [facility] HospitalAkevifeirv71-25-0460 Miscellaneous Notes* Telephone Encounter - Cindy Elias NP - 03/02/2024 10:36 AM EDT Lets increase to TID first. New script sent to pharmacy * Telephone Encounter - Luciana Bella - 03/02/2024 9:48 AM EDT Would like a stronger prescription if possible. [facility] [place]. documented in this encounterBates County Memorial [id number] Telephone encounter Note* Telephone Encounter - Luciana Bella - 03/02/2024 9:48 AM EDT Would like a stronger prescription if possible. [facility] [id number] Telephone encounter Note* Telephone Encounter - Sophia Cottrell - 02/27/2024 10:33 AM EDT Pt returned from [place] yesterday and he this morning. No complaints of anything, he awoke at 3am that he couldn't breathe, called EMS, and they tried to stabilize him and then he was transported, Is there something she can take for the anxiety. YADI She needs something to calm her down [facility] [id number] Miscellaneous Notes* Telephone Encounter - Sophia Cottrell - 02/27/2024 10:33 AM EDT Pt returned from [place] yesterday and he this morning. No complaints of anything, he awoke at 3am that he couldn't breathe, called EMS, and they tried to stabilize him and then he was transported, Is there something she can take for the anxiety. YADI She needs something to calm her down documented in this encounterB[facility] [id number] History of Present illness Narrative* Ramakrishna Rowell NP - 02/15/2024 9:45 AM EDT Images from the original note were not included. Chief Complaint Patient presents with Right Hip - Follow-up HISTORY OF PRESENT ILLNESS: Karla Rabago is an 73 y.o. @ female. (EST PT W/JENY) S/P (R) WINNIE 10/25/23 (3 MTHS 3 WKS) - GIVEN MDP BY JENY 02/08 XRAYS, 12/06/23 IN [facility] MDP 01/2024 FINISHED PHYSICAL THERAPY @ [facility] TOOK LAST PILL THIS AM FOR MDP. NOTES RELIEF IN SHOULDER. STATES HIP IS STILL BOTHERING HER. PAIN LATERAL HIP. RADIATES SOME INTO THIGH. FAVORING RT SIDE WHEN WALKING. TAKING TYL OR MOTRIN. USING ICYHOT OR BIOFREEZE. DENIES N/T. HIP FEELS STABLE. DOES NOT WAKE AT HS. DOING HEP. PAIN IS 5-6/10, GOES TO 7-8/10 WHEN IT GETS BAD. ALLERGIES: Allergies Allergen Reactions Lisinopril Cough HOME MEDICATIONS: Current Outpatient Medications Medication Instructions albuterol HFA 90 mcg/act inhaler 1 puff, Inhalation, Every 6 hours PRN alendronate (Fosamax) 70 MG tablet take 1 tablet by mouth every week 30 MINUTES before breakfast with PLAIN WATER Alpha tocopherol (VITAMIN E) 200 Units, Oral, Daily RT Cinnamon 500 mg, Oral, Daily coenzyme Q-10 200 mg, Oral, Every 24 hours estradiol (ESTRACE) 1 g, Vaginal, Daily fluticasone (Flonase) 50 MCG/ACT nasal spray 1 spray, Each Nostril, 2 times daily methylPREDNISolone (Medrol Dospak) 4 MG tablets Follow schedule on package instructions omeprazole (PRILOSEC) 40 mg, Oral, 2 times daily before meals Restasis 0.05 % ophthalmic emulsion verapamil (CALAN) 80 mg, Oral, Every morning REVIEW OF SYSTEMS: General: Denies fever, fatigue or weight loss Skin: Denies rash, sores or skin changes Eyes: Denies visual disturbance or pain GI: Denies indigestion or abdominal pain Neuro: Denies numbness or tingling, denies new onset paralysis Musculoskeletal: ( see note) PHYSICAL EXAM: Right Hip Exam Tenderness The patient is experiencing tenderness in the lateral. Muscle Strength Abduction: 5/5 Adduction: 5/5 Flexion: 5/5 Other Erythema: absent Scars: present Sensation: normal Pulse: present Vitals: There is no height or weight on file to calculate BMI. IMAGING: ASSESSMENT: ICD-10-CM 1. Trochanteric bursitis of right hip M70.61 2. S/P total right hip arthroplasty Z96.641 methylPREDNISolone (Medrol Dospak) 4 MG tablets Procedures PLAN: Patient states that her shoulder and knee pain improved with MDP but still having lateral hip pain.I educated patient that we can repeat MDP but that she may need some PT for her lateral hip pain. Questions answered in laymen terms at the bedside. The diagnosis, home exercise plan and any ongoing restrictions/ recommendations reviewed. If unable to be reached in office, I recommend evaluation at nearest Emergency Room if any symptoms worsened or new symptoms develop for requiring urgent evaluation. Ramakrishna Rowell APRN-PATHOLOGY LABORATORY TECHNOLOGIST documented in this encounterB[facility] [id number] History of Present illness Narrative* GUANAKO Carrera - 02/09/2024 10:45 AM EDT Images from the original note were not included. HISTORY OF PRESENT ILLNESS: POST OP PT Karla Rabago is an 73 y.o. @ female. (EST PT) S/P (R) WINNIE 10/25/23 (15WKS 2DAYS) XRAYS, 12/06/23 IN [facility] FINISHED PHYSICAL THERAPY @ [facility]LL - NOTES SOME INCREASED SORENESS WITHIN THE PAST WEEK ; LATERAL ASPECT. CONTINUES HEP - NOTES GOOD ROM ; DENIES ANY WEAKNESS. TAKING TYLENOL PRN - SOME RELIEF. REVIEW OF SYSTEMS: General: Denies fever, fatigue or weight loss Lungs: Denies SOB Cardio: Denies chest pain GI: Denies indigestion or abdominal pain Neuro: Denies numbness or tingling, denies new onset paralysis Musculoskeletal: ( see note) PHYSICAL EXAM: Hip Musculoskeletal Exam Gait Gait is normal. Inspection Leg length disparity: no discrepancy Right Erythema: none Ecchymosis: none Edema: none Deformity: none Previous incision: anterolateral Incision: well-healed Palpation Right Right hip palpation is normal. Increased warmth: none Tenderness: none Palpation additional comments: Mild soreness medial knee and AC joint right shoulder.. Range of Motion Right Right hip range of motion is within functional limits. Active ROM: normal. Passive ROM: normal. Strength Right Right hip strength is normal. Extension: 5/5. Flexion: 5/5. Internal rotation: 5/5. External rotation: 5/5. Adduction: 5/5. Abduction: 5/5. Neurovascular Right Right hip neurovascular exam is normal. Pulses - PT: normal Posterior tibial: 2+ General Constitutional: appears stated age Labored breathing: no Psychiatric: normal mood and affect Neurological: alert and oriented x3 Skin: intact Lymphadenopathy: none XR hip right 2 or 3 views Imaging Result: AP and lateral of right hip showed acceptable position and alignment of right total hip arthroplasty. There was no evidence of loosening of the acetabular cup or femoral stem. Femoral head was well centered in the acetabular liner without evidence of asymmetric or accelerated wear. There was no gross evidence of fracture and/or dislocation. Impression: Unremarkable right total hip arthroplasty. Procedures No orders of the defined types were placed in this encounter. ASSESSMENT: ICD-10-CM 1. S/P total right hip arthroplasty Z96.641 methylPREDNISolone (Medrol Dospak) 4 MG tablets PLAN: Pt leaving for trip to [place] next , f/U Wed with Ramakrishna, consider Xray of right shoulder vsright knee.. consider rx for MDP when on vacation prn. Pt noting pain to right shoulder. Medial knee and lateral hip. Mild aching, intermittent motrin, occ tylenol. Not severe, but notable. Denies fever or illness.. benign exam today.. pt notes back/ buttock pain from before right hip surgery is now gone.. walking improved.. recommend MDP for inflammation, tylenol only,, recheck next wk before travels.. pt denies focal weakness, chest pain or sob. Questions answered in laymen terms at the bedside. The diagnosis, home exercise plan and any ongoing restrictions/ recommendations reviewed. If unable to be reached in office, I recommend evaluation at nearest Emergency Room if any symptoms worsened or new symptoms develop for requiring urgent evaluation. documented in this [facility]02-13-2024 History of Present illness Narrative* Genna Robledo MD - 07/26/2023 11:30 AM EST Karla Rabago is a 73 y.o. female presents with chief complaint of Pre-op Exam HPI: HPI Patient presents today for pre op clearance for right hip replacement scheduled for 08/05/23 with . Had PAT done No CP. No shortness of breath. She can work out at home and do all her own housework without any difficulty. SUBJECTIVE: MEDICATIONS: Current Outpatient Medications Medication Instructions albuterol HFA 90 mcg/act inhaler 1 puff, Inhalation, Every 6 hours PRN alendronate (Fosamax) 70 MG tablet take 1 tablet every week TAKE 30 MINUTES BEFORE THE FIRST MEAL, OR MEDICINE OF THE DAY WITH PLAIN WATER Alpha tocopherol (VITAMIN E) 200 Units, Oral, Daily RT Cinnamon 500 mg, Oral, Daily coenzyme Q-10 200 mg, Oral, Every 24 hours estradiol (ESTRACE) 1 g, Vaginal, Daily fluticasone (Flonase) 50 MCG/ACT nasal spray 1 spray, Each Nostril, 2 times daily Iron Polysacch [id number] (Poly-Iron 150 Forte) 150-0.025-1 MG capsule 1 tablet, Oral, Daily omeprazole (PRILOSEC) 40 mg, Oral, 2 times daily before meals Restasis 0.05 % ophthalmic emulsion verapamil (CALAN) 80 mg, Oral, Daily REVIEW OF SYMPTOMS: Review of Systems OBJECTIVE: Visit Vitals BP 128/80 Pulse 80 Ht 5' 2.5 Wt 162 lb 6.4 oz SpO2 95% BMI 29.23 kg/m Smoking Status Never BSA 1.8 m Physical Exam Vitals and nursing note reviewed. Constitutional: General: She is not in acute distress. Appearance: Normal appearance. HENT: Head: Normocephalic and atraumatic. Right Ear: Tympanic membrane normal. Left Ear: Tympanic membrane normal. Nose: Nose normal. Mouth/Throat: Mouth: Mucous membranes are moist. Pharynx: Oropharynx is clear. Eyes: Extraocular Movements: Extraocular movements intact. Cardiovascular: Rate and Rhythm: Normal rate and regular rhythm. Pulses: Normal pulses. Heart sounds: Normal heart sounds. Pulmonary: Effort: Pulmonary effort is normal. Breath sounds: Normal breath sounds. Musculoskeletal: Cervical back: Normal range of motion and neck supple. Skin: General: Skin is warm and dry. Neurological: General: No focal deficit present. Mental Status: She is alert. Psychiatric: Mood and Affect: Mood normal. ASSESSMENT AND PLAN: Assessment/Plan Problem List Items Addressed This Visit None Visit Diagnoses Primary osteoarthritis of right hip - Primary To OR per Dr Sandoval. Abnormal EKG Relevant Orders Stress test with myocardial perfusion Preoperative clearance Unfortunately, her EKG is being read as old infarct. Not sure I agree with this, but will have to get stress test prior to clearance for surgery. documented in this encounterB[facility] [id number] Evaluation note* Encounter Date Diagnosis Assessment Notes Treatment Notes Treatment Clinical Notes May, Flank pain (ICD-10 - R10.9) KUB: COMPARISON: 09/20/2018 CLINICAL DATA: Low back pain and urinary tract symptoms. Supine view of the abdomen and pelvis was obtained. There is air within the stomach. There is air and stool within the colon. No dilated small bowel is identified. The kidneys are partially obscured. There are no obvious radiopaque renal or ureteral stones. There are stable pelvic calcifications, possibly vascular. There are degenerative changes at the spine, SI joints and hips. IMPRESSION: NO ACUTE FINDINGS. May,Low back pain, unspecified (ICD-10 - M54.50) urine dip is low suspicion for UTI at this time. discussed higher suspicion of musculoskeletal hip/SI joint tenderness. KUB XR report discussed c pt, cannot definitively R/O kidney stones, however I am more suspicious of musculoskeletal origin. toradol inj given in clinic, pt tolerated well and reports improvement in symptoms. encouraged pt to continue with otc pain relievers, hot/cold compressesfor comfort. push fluids. practice good genital hygiene. urine cx obtained, we will contact pt withresults and initiate tx plans as indicated. pt states she did make an appoint with urology on Tuesday, she should f/u if symptoms are still present or she develops any new urinary symptoms. seek immedi ate eval if warning symptoms of intractable pain, fevers, or other emergent symptoms. [email or web address] Other 11-06-2023 Hospital Discharge instructions Patient Education 04/18/2023 10:04:23 Urinary Tract Infection, Adult, Prqg-vj-Nivq Urinary Tract Infection, Adult A urinary tract infection (UTI) is an infection of any part of the urinary tract. The urinary tractincludes: The kidneys. The ureters. The bladder. The urethra. These organs make, store, and get rid of pee (urine) in the body. What are the causes? This infection is caused by germs (bacteria) in your genital area. These germs grow and cause swelling (inflammation) of your urinary tract. What increases the risk? The following factors may make you more likely to develop this condition: Using a small, thin tube (catheter) to drain pee. Not being able to control when you pee or poop (incontinence). Being female. If you are female, these things can increase the risk: ?Using these methods to prevent : ?A medicine that kills sperm (spermicide). ?A device that blocks sperm (diaphragm). ?Having low levels of a female hormone (estrogen). ?Being . You are more likely to develop this condition if: You have genes that add to your risk. You are sexually active. You take antibiotic medicines. You have trouble peeing because of: ?A prostate that is bigger than normal, if you are male. ?A blockage in the part of your body that drains pee from the bladder. ?A kidney stone. ?A nerve condition that affects your bladder. ?Not getting enough to drink. ?Not peeing often enough. You have other conditions, such as: ?Diabetes. ?A weak disease-fighting system (immune system). ?Sickle cell disease. ?Gout. ?Injury of the spine. What are the signs or symptoms? Symptoms of this condition include: Needing to pee right away. Peeing small amounts often. Pain or burning when peeing. Blood in the pee. Pee that smells bad or not like normal. Trouble peeing. Pee that is cloudy. Fluid coming from the vagina, if you are female. Pain in the belly or lower back. Other symptoms include: Vomiting. Not feeling hungry. Feeling mixed up (confused). This may be the first symptom in older adults. Being tired and grouchy (irritable). A fever. Watery poop (diarrhea). How is this treated? Taking antibiotic medicine. Taking other medicines. Drinking enough water. In some cases, you may need to see a specialist. Follow these instructions at home: Medicines Take wpkt-poy-wjxixoc and prescription medicines only as told by your doctor. If you were prescribed an antibiotic medicine, take it as told by your doctor. Do not stop taking it even if you start to feel better. General instructions Make sure you: ?Pee until your bladder is empty. ?Do not hold pee for a long time. ?Empty your bladder after sex. ?Wipe from front to back after peeing or pooping if you are a female. Use each tissue one time whenyou wipe. Drink enough fluid to keep your pee pale yellow. Keep all follow-up visits. Contact a doctor if: You do not get better after 1 2 days. Your symptoms go away and then come back. Get help right away if: You have very bad back pain. You have very bad pain in your lower belly. You have a fever. You have chills. You feeling like you will vomit or you vomit. Summary A urinary tract infection (UTI) is an infection of any part of the urinary tract. This condition is caused by germs in your genital area. There are many risk factors for a UTI. Treatment includes antibiotic medicines. Drink enough fluid to keep your pee pale yellow. This information is not intended to replace advice given to you by your health care provider. Make sure you discuss any questions you have with your health care provider. Document Revised: 01/09/2021 Document Reviewed: 01/09/2021 [employer] Patient Education 2022 [employer]IQ. Follow Up Care 04/16/2022 09:21:41 With:ITALO RENTERIA, NIKOLAS Kelly Address: [facility] [address] , [place] [address]- When:Within 2 Year(s) [facility] 11-04-2022 Hospital Discharge instructions Patient Education 04/16/2022 09:19:52 Urinary Tract Infection, Adult Urinary Tract Infection, Adult A urinary tract infection (UTI) is an infection of any part of the urinary tract. The urinary tractincludes the kidneys, ureters, bladder, and urethra. These organs make, store, and get rid of urinein the body. Your health care provider may use other names to describe the infection. An upper UTI affects the ureters and kidneys (pyelonephritis). A lower UTI affects the bladder (cystitis) and urethra (urethritis). What are the causes? Most urinary tract infections are caused by bacteria in your genital area, around the entrance to your urinary tract (urethra). These bacteria grow and cause inflammation of your urinary tract. What increases the risk? You are more likely to develop this condition if: You have a urinary catheter that stays in place (indwelling). You are not able to control when you urinate or have a bowel movement (you have incontinence). You are female and you: ?Use a spermicide or diaphragm for control. ?Have low estrogen levels. ?Are . You have certain genes that increase your risk (genetics). You are sexually active. You take antibiotic medicines. You have a condition that causes your flow of urine to slow down, such as: ?An enlarged prostate, if you are male. ?Blockage in your urethra (stricture). ?A kidney stone. ?A nerve condition that affects your bladder control (neurogenic bladder). ?Not getting enough to drink, or not urinating often. You have certain medical conditions, such as: ?Diabetes. ?A weak disease-fighting system (immunesystem). ?Sickle cell disease. ?Gout. ?Spinal cord injury. What are the signs or symptoms? Symptoms of this condition include: Needing to urinate right away (urgently). Frequent urination or passing small amounts of urine frequently. Pain or burning with urination. Blood in the urine. Urine that smells bad or unusual. Trouble urinating. Cloudy urine. Vaginal discharge, if you are female. Pain in the abdomen or the lower back. You may also have: Vomiting or a decreased appetite. Confusion. Irritability or tiredness. A fever. Diarrhea. The first symptom in older adults may be confusion. In some cases, they may not have any symptoms until the infection has worsened. How is this diagnosed? This condition is diagnosed based on your medical history and a physical exam. You may also have other tests, including: Urine tests. Blood tests. Tests for sexually transmitted infections (STIs). If you have had more than one UTI, a cystoscopy or imaging studies may be done to determine the cause of the infections. How is this treated? Treatment for this condition includes: Antibiotic medicine. Kksi-hzt-yvvgyme medicines to treat discomfort. Drinking enough water to stay hydrated. If you have frequent infections or have other conditions such as a kidney stone, you may need to see a health care provider who specializes in the urinary tract (urologist). In rare cases, urinary tract infections can cause sepsis. Sepsis is a life- threatening condition that occurs when the body responds to an infection. Sepsis is treated in the hospital with IV antibiotics, fluids, and other medicines. Follow these instructions at home: Medicines Take rnmt-src-vuafmsj and prescription medicines only as told by your health care provider. If you were prescribed an antibiotic medicine, take it as told by your health care provider. Do notstop using the antibiotic even if you start to feel better. General instructions Make sure you: ?Empty your bladder often and completely. Do not hold urine for long periods of time. ?Empty your bladder after sex. ?Wipe from front to back after a bowel movement if you are female. Use each tissue one time when you wipe. Drink enough fluid to keep your urine pale yellow. Keep all follow-up visits as told by your health care provider. This is important. Contact a health care provider if: Your symptoms do not get better after 1 2 days. Your symptoms go away and then return. Get help right away if you have: Severe pain in your back or your lower abdomen. A fever. Nausea or vomiting. Summary A urinary tract infection (UTI) is an infection of any part of the urinary tract, which includes the kidneys, ureters, bladder, and urethra. Most urinary tract infections are caused by bacteria in your genital area, around the entrance to your urinary tract (urethra). Treatment for this condition often includes antibiotic medicines. If you were prescribed an antibiotic medicine, take it as told by your health care provider. Do notstop using the antibiotic even if you start to feel better. Keep all follow-up visits as told by your health care provider. This is important. This information is not intended to replace advice given to you by your health care provider. Make sure you discuss any questions you have with your health care provider. Document Released: 03/09/2006 Document Revised: 05/17/2019 Document Reviewed: 12/07/2018 [employer] Patient Education 2020 vidIQ. Follow Up Care 03/30/2021 10:34:26 With:ITALO RENTERIA, Regino Driscoll, URL Address: [address] [place] [address]- When: Unknown [facility] 10-19-2022 NotePROCEDURE: yuilop SLpeCometa VCT 64, 5 mm slice axial images were acquired with coronal reconstruction through the pelvis with and without contrast. HISTORY: Pelvic pain FINDINGS: Large volume of colon stool, no inflammatory changes, mass, or pelvic fluid. Unremarkable visualized small bowel. Normal appendix. No significant inguinal/abdominal wall hernia. Very small fat containing umbilical hernia. Normal uterine size. Left pelvic sidewall peripherally calcified 1.0 x 1.3 cm nodule, non-aggressive, likely incidental finding. No surrounding inflammation. Normal bladder and distal ureters. Right anterior mid pole subcentimeter benign cysts. No stone formation, inflammatino or obstruction. No bladder air collection or mass. Mild bilateral hip arthritis, superior joint space loss, mild osteophyte formation. No fracture or evidence of osteonecrosis. IMPRESSION: 1. Large volume of colon stool, no inflammation, mass or obstruction. 2. No pelvic fluid or significant pelvic mass. Report reported and signed by Marcus Sheth on 03/31/2022 114[address] [id number] Evaluation note* Encounter Date Diagnosis Assessment Notes Treatment Notes Treatment Clinical Notes Jul, Constipation (ICD-10 - K59.00) MAY USE MIRALAX NEEDED-OK TO ADJUST DOSAGE PRN [email or web address] Other Evaluation + Plan note Future Appointments Appointment Date:04/18/2023 09:15:00 AM Scheduled Provider:Regino PUCKETT MD Location:[facility] Appointment Type:URO Office Visit [facility] evaluation noteNo assessment information available [facility] Work Phone: Evaluation note* Diagnosis Primary osteoarthritis of right hip- Primary Abnormal EKG Nonspecific abnormal electrocardiogram (ECG) (EKG) Preoperative clearance Unspecified pre-operative examination [facility] Encounter for immunization- Primary Anxiety Anxiety state, unspecified Grief (CMS/HCC) Adjustment disorder with depressed mood [facility] Diagnosis Anxiety Anxiety state, unspecified Grief (CMS/HCC) Adjustment disorder with depressed mood [facility] Diagnosis S/P total right hip arthroplasty- Primary Acute right hip pain Lumbar radiculopathy, right Trochanteric bursitis of right hip [facility]* Diagnosis Benign essential HTN (CMS/HCC) [facility]* Diagnosis Lumbar radiculopathy, right- Primary [facility] Diagnosis Wellness examination- Primary Encounter for immunization Chronic tension-type headache, not intractable Chronic tension type headache Benign hypertension (CMS/HCC) Essential hypertension, benign Anxiety Anxiety state, unspecified History of total left knee replacement History of total right knee replacement Status post right hip replacement Insomnia, unspecified type [facility] Diagnosis Cyst of joint of left hand- Primary [facility]* Diagnosis Pain of left thumb- Primary Mass of soft tissue of hand [facility] Diagnosis Viral URI- Primary Acute upper respiratory infections of unspecified site Cough, unspecified type [facility] HealthcareEvaluation note* Diagnosis Insomnia, unspecified type documented [facility] this encounter [facility]* Diagnosis S/P total right hip arthroplasty- Primary [facility] this encounter [facility]* Diagnosis Trochanteric bursitis of right hip- Primary S/P total right hip arthroplasty documented [facility] this [facility]* Diagnosis Anxiety Anxiety state, unspecified Grief ([facility]) Adjustment disorder with depressed mood documented in this encounter [facility]* Diagnosis Anxiety Anxiety state, unspecified Grief ([facility]) Adjustment disorder with depressed mood documented in this encounter [facility]* Diagnosis Acute non-recurrent pansinusitis- Primary Grief ([facility]) Adjustment disorder with depressed mood documented in [facility]* Diagnosis Acute cough- Primary documented in this encounter [facility]* Diagnosis Nasal congestion- Primary Other diseases of nasal cavity and sinuses documented in this [facility]* Diagnosis Cough, unspecified type- Primary documented in this encounter [facility]* Diagnosis Anxiety Anxiety state, unspecified Grief ([facility]) Adjustment disorder with depressed mood documented in this [facility]* Diagnosis Lumbosacral spondylosis without myelopathy- Primary Lumbosacral spondylosis without myelopathy- Primary Lumbosacral spondylosis without myelopathy [facility] Diagnosis Mass of soft tissue of hand- Primary Pain of left thumb documented in this encounter [facility]* Diagnosis Pre-op examination- Primary Cyst of joint of left hand documented in this [facility]* Diagnosis Insomnia, unspecified type Anxiety Anxiety state, unspecified documented in this [facility]* Diagnosis Anxiety Anxiety state, unspecified documented in this [facility]* Diagnosis Osteoporosis of lumbar spine ([facility]/HCC) documented [facility]* Diagnosis Cyst of joint of left hand- Primary documented in this encounter [facility]* Diagnosis Status post orthopedic surgery, follow-up exam- Primary Cyst of joint of left hand documented in this encounter [facility]* Diagnosis Generalized anxiety disorder (CMS/HCC)- Primary Generalized anxiety disorder Anxiety Anxiety state, unspecified Benign hypertension (CMS/HCC) Essential hypertension, benign documented in this [facility]* Diagnosis Status post orthopedic surgery, follow-up exam- Primary Cyst of joint of left hand documented in this encounter [facility]* Diagnosis Flank pain- Primary Abdominal pain, unspecified site documented in this encounter [facility]* Diagnosis Status post orthopedic surgery, follow-up exam- Primary Arthritis of carpometacarpal (CMC) joint of left thumb documented in this [facility]* Diagnosis History of total hip replacement, right- Primary Right hip pain Pain in joint, pelvic region and thigh Iliotibial band syndrome of right side documented in this [facility]* Diagnosis Anxiety Anxiety state, unspecified Grief (CMS/HCC) Adjustment disorder with depressed mood documented in this [facility]* Diagnosis Anxiety- Primary Anxiety state, unspecified Grief (CMS/HCC) Adjustment disorder with depressed mood documented in this encounter [facility]* Diagnosis Anxiety Anxiety state, unspecified Insomnia, unspecified type Grief (CMS/HCC) Adjustment disorder with depressed mood documented in this [facility]* Diagnosis History of total hip replacement, right- Primary Right hip pain Pain in joint, pelvic region and thigh documented in this [facility]* Diagnosis Lumbar radiculopathy, right- Primary documented in this [facility]* Diagnosis Lumbosacral spondylosis without myelopathy- Primary Lumbosacral spondylosis without myelopathy- Primary Lumbosacral spondylosis without myelopathy documented [facility] encounter [facility]* Diagnosis Seborrheic keratosis- Primary Lentigines Milia Sebaceous cyst Angioma of skin Actinic keratosis Inflammatory papule documented in this [facility]* Diagnosis Hot flashes- Primary documented in this [facility]* Diagnosis Lumbosacral spondylosis without myelopathy- Primary Lumbosacral spondylosis without myelopathy- Primary Lumbosacral spondylosis without myelopathy [facility] Diagnosis Sensorineural hearing loss (SNHL) of both ears- Primary Tinnitus, right Unspecified tinnitus [facility]* Diagnosis Right hip pain- Primary Pain in joint, pelvic region and thigh documented in this [facility]* Diagnosis Sensorineural hearing loss (SNHL) of both ears- Primary documented in this [facility]* Diagnosis Disorder of sacrum- Primary Disorders of sacrum Disorder of sacrum- Primary Disorders of sacrum Disorder of sacrum Disorders of sacrum [facility] Diagnosis Iliotibial band syndrome of right side- Primary documented in this [facility]* Diagnosis Sensorineural hearing loss (SNHL) of both ears- Primary documented in this [facility]* Diagnosis Bronchitis- Primary Bronchitis, not specified as acute or chronic Wheezing documented in this encounter [facility] HealthcareEvaluation note* Diagnosis Osteoporosis of lumbar spine documented in this encounter [facility] HealthcareEvaluation note* Diagnosis Bronchitis Bronchitis, not specified as acute or chronic documented in this encounter [facility] HealthcareEvaluation note* Diagnosis Sensorineural hearing loss (SNHL) of both ears- Primary [facility] encounter [facility] general Narrative - Reported* Type Description Date Medical History osteoperosis Medical HistoryarthritisSurgical Historybilateral knee replacementsSurgical Historyleft rotator cuffSurgical Historyc sectionSurgical Historycarple tunnel Hospitalization Historysee above [email or web address] Other Hospital course Narrative No data available for this section [facility] Hospital Discharge instructions No data available for this section [facility] InstructionsNot on filedocumented in this encounter [facility] Timeet SystemInstructionsNot on filedocumented in this encounter [facility] No data available for this section [facility] reason for referral (narrative)* Consultation (Routine) - Pending ReviewSpecialtyDiagnoses / ProceduresReferred By ContactReferred To ContactBehavioral Health Diagnoses Grief ([facility]/HCC) Procedures RI OFFICE/OUTPATIENT [facility] 60 MINUTES Genna Robledo MD [address] [place] [address] Terrie Cui MD [address] [place] [address] Referral IDStatusReasonStart DateExpiration DateVisits RequestedVisits [id number] Review Specialty Services Required / MAYO Agosto for visit NarrativePT HERE AT REQUEST OF GENNA ROBLEDO FOR EVALUATION AND TREATMENT OF CONSTIPATION, REFERRAL NOTE [email or web address] Other Summary Purpose Family History No Family History Records FoundUnknown Family Member Name Dates Details Family history of hypertensi on(V17.49, Z82.49) Comments:Multiple Family Members Status:ActiveFamily history of diabetes mellitus(V18.0, Z83.3) Comments:Multiple Family Members Status:Active Unknown Family Member Name Dates Details Family history of hypertensi on(V17.49, Z82.49) Comments:Multiple Family Members Status:ActiveFamily history of diabetes mellitus(V18.0, Z83.3) Comments:Multiple Family Members Status:Active Unknown Family Member Name Dates Details Family history of hypertensi on: Multiple Family Members(V17.49, Z82.49) Status:ActiveFamily history of diabetes mellitus: Multiple Family Members(V18.0, Z83.3) Status:Active Unknown Family Member Name Dates Details Family history of hypertensi on: Multiple Family Members(V17.49, Z82.49) Status:ActiveFamily history of diabetes mellitus: Multiple Family Members(V18.0, Z83.3) Status:Active Unknown Family Member Name Dates Details Family history of hypertensi on: Multiple Family Members(V17.49, Z82.49) Status:ActiveFamily history of diabetes mellitus: Multiple Family Members(V18.0, Z83.3) Status:Active Unknown Family Member Name Dates Details Family history of hypertensi on: Multiple Family Members(V17.49, Z82.49) Status:ActiveFamily history of diabetes mellitus: Multiple Family Members(V18.0, Z83.3) Status:Active Unknown Family Member Name Dates Details Family history of hypertensi on: Multiple Family Members(V17.49, Z82.49) Status:ActiveFamily history of diabetes mellitus: Multiple Family Members(V18.0, Z83.3) Status:Active Unknown Family Member Name Dates Details Family history of hypertensi on: Multiple Family Members(V17.49, Z82.49) Status:ActiveFamily history of diabetes mellitus: Multiple Family Members(V18.0, Z83.3) Status:Active Relationship Condition Age at Onset Recorded Date/T wilfredo father Unknown Heart diseaseUnknownDiabetes mellitusUnknownmotherDeceasedUnknown Advance Directives No Advanced Directives Records Found Advance Directive Response Recorded Date/ Time Advance Directives No September 22 12:28pm Date ActivatedDate InactivatedComments10/25/2023 2:41 PM10/26/2023 12:55 PMDate ActivatedDate InactivatedComments10/25/2023 2:41 PM10/26/2023 12:55 PM Chief Complaint and Reason for Visit Chief Complaint Flank pain Reason for Referral SpecialtyDiagnoses / ProceduresReferred By ContactReferred To Contact Diagnoses Abnormal EKG Procedures Stress test with myocardial perfusion Genna Robledo MD [address] [place] [address] Referral IDStatusReasonStart DateExpiration DateVisits RequestedVisits [id number] Review/ Additional Source Comments INFORMATION SOURCE (unrecogn ized section and content) DATE CREATED AUTHOR 12/07/2017 [facility] DATE CREATED AUTHOR AUTHOR'S ORGANIZ ATION 11/12/2021 [facility] DATE CREATED AUTHOR AUTHOR'S ORGANIZ ATION 02/05/2022 [facility] DATE CREATED AUTHOR AUTHOR'S ORGANIZ ATION 04/04/2022 [facility] DATE CREATED AUTHOR AUTHOR'S ORGANIZ ATION 04/05/2022 [facility] DATE CREATED AUTHOR AUTHOR'S ORGANIZ ATION 07/30/2024 [facility] DATE CREATED AUTHOR AUTHOR'S ORGANIZ ATION 03/31/2025 [facility] DATE CREATED AUTHOR AUTHOR'S ORGANIZ ATION 04/17/2025 [facility] DATE CREATED AUTHOR AUTHOR'S ORGANIZ ATION 04/19/2025 [facility] EPIC Patient Care team informatio n (unrecognized section and content) Team Status: Inactive Member Role Status Dates Wanda Pierre NP Attending Provider Active Team Status: Active Member Role Status Dates Wanda Pierre NP Attending Provider Active Team MemberRelationshipSpecialtyStart DateEnd Date Genna Robledo MD [address] [place] [address] [facility]22 Genna Robledo MD [address] [place] [address] PCP - [facility] [employer]11/11/22 Juliette Lawson NP [address] [place] [address] Nurse PractitionerStill[facility]irm[facility] Medicine11/11/22Team MemberRelationshipSpecialtyStart DateEnd Date Genna Robledo MD [address] [place] [address] [facility]/11/22 Genna Robledo MD [address] [place] [address] PCP - [facility] [employer]11/11/22 Juliette Lawson NP [address] [place] [address] [facility]11/11/22Team MemberRelationshipSpecialtyStart DateEnd Date Genna Robledo MD [address] [place] [address] PCP - [facility] Medicine11/11/22 Genna Robledo MD [address] [place] [address] PCP - [facility] [employer]11/11/22 Juliette Lawson NP [address] [place] [address] [facility]11/11/22Te MemberRelationshipSpecialtyStart DateEnd Genna Robledo MD [address] [place] [address] PCP - [facility] Medicine11/11/22 Genna Robledo MD [address] [place] [address] PCP - [facility] [employer]06/13/1611 Juliette Lawson NP [address] [place] [address] [facility]11/11/22Te MemberRelationshipSpecialtyStart DateEnd Date Genna Robledo MD [address] [place] [address] PCP - [facility] Medicine11/11/22 Genna Robledo MD [address] [place] [address] PCP - [facility] [employer]06/13/1611 Juliette Lawson NP [address] [place] [address] Nurse PractitionerFamily Medicine11/11/22Te MemberRelationshipSpecialtyStart End Genna Robledo MD [address] [place] [address] PCP - GeneralFamily Medicine11/11/22 Genna Robledo MD [address] [place] [address] PCP - [facility] [employer]06/13/1611 Juliette Lawson NP [address] [place] [address] [facility]11/11/22Te MemberRelationshipSpecialtyStart End Genna Robledo MD [address] [place] [address] PCP - GeneralFamily Medicine11/11/22 Genna Robledo MD [address] [place] [address] PCP - [facility] [employer]06/13/1611 Juliette Lawson NP [address] [place] [address] Nurse PractitionerFamtly Medicine11/11/22Te MemberRelationshipSpecialtyStart End Genna Robledo MD [address] [place] [address] [facility]/11/22 Genna Robledo MD [address] [place] [address] PCP - [facility] [employer]06/13/1611 [facility] [place]Juliette moreau DIGITAL BUSINESS ANALYST [address] [place] [address] Nurse Pract[facility]Still[facility] Medicine11/11/22Te MemberRelationshipSpecialtyStart End Genna Robledo MD [address] [place] [address] PCP - [facility] Medicine11/11/22 Genna Robledo MD [address] [place] [address] PCP - [facility] [employer]06/13/1611 Juliette Lawson DIGITAL BUSINESS ANALYST [address] [place] [address] Nurse Pract[facility]erChatuge [facility]11/11/22Te MemberRelationshipSpecialtyStart End Genna Robledo MD [address] [place] [address] PCP - [facility] Medicine11/11/22 Genna Robledo MD [address] [place] [address] PCP - [facility] [employer]06/13/[address] [facility] [address] [place] [address] Nurse Pract[facility]11/11/22Te MemberRelationshipSpecialtyStart DateEnd Genna Robledo MD [address] [place] [address] [facility]11/11/22 Genna Robledo MD [address] [place] [address] PCP - [facility] [employer]/ [facility]ikiun[facility] rehabilitation & orthopaedic instituteJuliette NP [address] [place] [address] Nurse [facility]11/11/22Te MemberRelationshipSpecialtyStart End Genna Robledo MD [address] [place] [address] PCP - [facility] Medicine11/11/22 Genna Robledo MD [address] [place] [address] PCP - [facility] [employer]/ MikiJuliette moreau NP [address] [place] [address] [facility]11/11/22Te MemberRelationshipSpecialtyStart End Genna Robledo MD [address] [place] [address] PCP - GeneralFamily Medicine11/11/22 Genna Robledo MD [address] [place] [address] PCP - [facility] [employer]06/13/1611 Juliette Lawson NP [address] [place] [address] [facility]11/11/22Te MemberRelationshipSpecialtyStart DateEnd Genna Robledo MD [address] [place] [address] PCP - [facility]11/11/22 Genna Robledo MD [address] [place] [address] PCP - [facility] [employer]06/13/1611 Juliette Lawson NP [address] [place] [address] Nurse [facility]11/11/22Te MemberRelationshipSpecialtyStart DateEnd Date Genna Robledo MD [address] [place] [address] [facility] - [facility]11/11/22 Genna Robledo MD [address] [place] [address] PCP - [facility] [employer]06/13/1611 Juliette Lawson NP [address] [place] [address] Nurse PractitionerFamily Medicine11/11/22Te MemberRelationshipSpecialtyStart Genna Robledo MD [address] [place] [address] [facility]/11/22 Genna Robledo MD [address] [place] [address] PCP - [facility] [employer]06/13/1611 Juliette Lawson NP [address] [place] [address] [facility]11/11/22Te MemberRelationshipSpecialtyStart Genna Robledo MD [address] [place] [address] PCP - [facility]11/11/22 Genna Robledo MD [address] [place] [address] PCP - [facility] [employer]06/13/1611 Juliette Lawson NP [address] [place] [address] [facility]11/11/22Te MemberRelationshipSpecialtyStart End Genna Robledo MD [address] [place] [address] PCP - [facility] Medicine11/11/22 Genna Robledo MD [address] [place] [address] PCP - [facility] [employer]06/13/1611 Juliette Lawson NP [address] [place] [address] Nurse [facility]11/11/22Team MemberRelationshipSpecialtyStart DateEnd Date Genna Robledo MD [address] [place] [address] PCP - [facility] Medicine11/11/22 Genna Robledo MD [address] [place] [address] PCP - [facility] [employer]06/13/1611 Juliette Lawson NP [address] [place] [address] Nurse Pract[facility]erChatuge [facility]11/11/22Te MemberRelationshipSpecialtyStart DateEnd Date Genna Robledo MD [address] [place] [address] PCP - [facility] Medicine11/11/22 Genna Robledo MD [address] [place] [address] PCP - [facility] [employer]06/13/1611 Juliette Lawson NP [address] [place] [address] Nurse PractitionerFamily Medicine11/11/22 Ginette Felipe LPN Licensed Practical NurseFamily Dpjkyjzb84/19/24Team MemberRelationshipSpecialty Start DateEnd Genna Robledo MD [address] [place] [address] PCP - GeneralFamily Medicine11/11/22 Genna Robledo MD [address] [place] [address] PCP - [facility] [employer]06/13/1611 Juliette Lawson NP [address] [place] [address] Nurse PractitionerFamily Medicine11/11/22 Ginette Felipe LPN Licensed Practical NurseFamily Cnovfnon42/19/24Team MemberRelationshipSpecialty Start DateEnd Genna Robledo MD [address] [place] [address] PCP - GeneralFamily Medicine11/11/22 Genna Robledo MD [address] [place] [address] PCP - [facility] [employer]06/13/1611 Juliette Lawson NP [address] [place] [address] Nurse PractitionerFamily Medicine11/11/22 Ginette Felipe LPN Licensed Practical NurseFamily Tptqapls63/19/24Team MemberRelationshipSpecialty Start DateEnd Date Genna Robledo MD [address] [place] [address] [facility] - [facility]11/11/22 Genna Robledo MD [address] [place] [address] PCP - [facility] [employer]06/13/1611 Juliette Lawson NP [address] [place] [address] Nurse Pract[facility]Still[facility] Medicine11/11/22 Ginette Felipe LPN Licensed Practical NurseStillman Infirmary Ltzxsqwt45/19/24 MemberRelationshipSpecialty Start DateEnd Date Genna Robledo MD [address] [place] [address] PCP - [facility] Medicine11/11/22 Genna Robledo MD [address] [place] [address] PCP - [facility] [employer]06/13/1611 Juliette Lawson NP [address] [place] [address] Nurse Pract[facility]11/11/22 Ginette Felipe LPN Licensed Practical NurseStillman Infirmary Dbadzfmb09/19/24Te MemberRelationshipSpecialty Start DateEnd Date Genna Robledo MD [address] [place] [address] PCP - GeneralFamily Medicine11/11/22 Genna Robledo MD [address] [place] [address] PCP - [facility] [employer]06/13/1611 MikiJuliette moreau, MIK [address] [place] [address] Nurse PractitionerFamily Medicine11/11/22 Ginette Felipe LPN Licensed Practical NurseFamily Hifnrezo23/19/24Team MemberRelationshipSpecialty Start DateEnd Date Genna Robledo MD [address] [place] [address] PCP - GeneralFamily Medicine11/11/22 Genna Robledo MD [address] [place] [address] PCP - [facility] [employer]06/13/1611 [facility] [place]ioJuliette moreau NP [address] [place] [address] Nurse PractitionerFamily Medicine11/11/22 Ginette Felipe LPN Licensed Practical NurseSelect Specialty Hospital-[facility] Citiesly Rigthgjs03/19/24Team MemberRelationshipSpecialty Start DateEnd Date Genna Robledo MD [address] [place] [address] PCP - GeneralFamily Medicine11/11/22 Genna Robledo MD [address] [place] [address] PCP - [facility] [employer]06/13/1611 Juliette Lawson NP [address] [place] [address] Nurse PractitionerFamily Medicine11/11/22 Ginette Felipe LPN Licensed Practical NurseFamily Cimkoorl76/19/24Team MemberRelationshipSpecialty Start DateEnd Date Genna Robledo MD [address] [place] [address] PCP - GeneralFamily Medicine02/12/22 MemberRelationshipSpecialtyStart DateEnd Date Genna Robledo MD [address] [place] [address] PCP - GeneralFamily Medicine11/11/22 Genna Robledo MD [address] [place] [address] PCP - [facility] [employer]06/13/1611 Juliette Lawson NP [address] [place] [address] Nurse PractitionerFamily Medicine11/11/22 Ginette Felipe LPN Licensed Practical NurseFamily Yhrjgoya80/19/24Team MemberRelationshipSpecialty Start DateEnd Date Genna Robledo MD [address] [place] [address] PCP - GeneralFamily Medicine11/11/22 Genna Robledo MD [address] [place] [address] PCP - [facility] [employer]06/13/1611 Juliette Lawson NP [address] [place] [address] Nurse PractitionerFamily Medicine11/11/22 Ginette Felipe LPN Licensed Practical NurseSelect Specialty Hospital[facility]ly Xehxknxe56/19/24 Team Status: Inactive Member Role Status Dates Scot Sandoval Jr, DO Attending Provider Active Start: July 19, 2024 End: July 19, 2024Team MemberRelationshipSpecialtyStart DateEnd Date Genna Robledo MD [address] [place] [address] PCP - [facility]Select [facility] Medicine11/11/22 Genna Robledo MD [address] [place] [address] PCP - [facility] [employer]06/13/1611 Juliette Lawson NP [address] [place] [address] Nurse PractitionerSelect Specialty Hospital-[facility] Citiesly Medicine11/11/22 Ginette Feliep LPN Licensed Practical NurseStillman Infirmary Wpynyjhc17/19/24Team MemberRelationshipSpecialty Start DateEnd Date Genna Robledo MD [address] [place] [address] PCP - GeneralFamily Medicine11/11/22 Genna Robledo MD [address] [place] [address] PCP - [facility] [employer]06/13/1611 Juliette Lawson NP [address] [place] [address] Nurse PractitionerFamily Medicine11/11/22 Ginette Felipe SUBSURFACE AUGMENTEE ELINT OPERATOR Licensed Practical NurseFamily Eyqndweg42/19/24Team MemberRelationshipSpecialty Start DateEnd Date Genna Robledo MD [address] [place] [address] PCP - [facility] Medicine11/11/22 Genna Robledo MD [address] [place] [address] PCP - Medical [employer] [employer]06/13/1611 Juliette Lawson NP [address] [place] [address] Nurse Pract[facility]erStill[facility] Medicine11/11/22 Ginette Felipe, [employer] Licensed Practical NurseFamily Gfwjasgw69/19/24Team MemberRelationshipSpecialty Start DateEnd Date Genna Robledo MD [address] [place] [address] PCP - GeneralFamily Medicine11/11/22 Genna Robledo MD [address] [place] [address] PCP - Medical [employer] [employer]06/13/1611 Juliette Lawson NP [address] [place] [address] Nurse PractitionerFamily Medicine11/11/22 Ginette Felipe LPN Licensed Practical NurseFamily Zpioowfk44/19/24Team MemberRelationshipSpecialty Start DateEnd Date Genna Robledo MD [address] [place] [address] PCP - GeneralFamily Medicine11/11/22 Genna Robledo MD [address] [place] [address] PCP - Medical [place] [employer]06/13/1611 Juliette Lawson NP [address] [place] [address] Nurse PractitionerFamtly Medicine11/11/22 Ginette Felipe LPN Licensed Practical NurseStillman Infirmary Owmdeavc19/19/24Team MemberRelationshipSpecialty Start DateEnd Genna Robledo MD [address] [place] [address] PCP - GeneralFamily Medicine11/11/22 Genna Robledo MD [address] [place] [address] PCP - Medical [employer] [employer]06/13/1611 Juliette Lawson NP [address] [place] [address] Nurse PractitionerFamily Medicine11/11/22 Ginette Felipe LPN Licensed Practical NurseFamily Wtnrsrbi63/19/24Team MemberRelationshipSpecialty Start DateEnd Date Genna Robledo MD [address] [place] [address] PCP - GeneralFamily Medicine02/12/22Team MemberRelationshipSpecialtyStart DateEnd Date Genna Robledo MD [address] [place] [address] PCP - GeneralFamily Medicine11/11/22 Genna Robledo MD [address] [place] [address] PCP - Medical [employer] [employer]06/13/1611 Juliette Lawson NP [address] [place] [address] Nurse PractitionerFamily Medicine11/11/22 Ginette Felipe, AISHA Licensed Practical NurseFamily Elwoojas57/19/24Team MemberRelationshipSpecialty Start DateEnd Date Genna Robledo MD [address] [place] [address] PCP - GeneralFamily Medicine11/11/22 Genna Robledo MD [address] [place] [address] PCP - Medical [employer] [employer]06/13/1611 Juliette Lawson NP [address] [place] [address] Nurse PractitionerFamily Medicine11/11/22 BureGinette broussard LPN Licensed Practical NurseFamily Rwkbhhfm68/19/24Team MemberRelationshipSpecialty Start DateEnd Date Genna Robledo MD [address] [place] [address] PCP - GeneralFamily Medicine11/11/22 Genna Robledo MD [address] [place] [address] PCP - Medical [place] [employer]06/13/1611 Juliette Lawson NP [address] [place] [address] Nurse PractitionerSelect [facility]ly Medicine11/11/22 Ginette Felipe LPN Licensed Practical NurseFamily Hpgcuxtb91/19/24 MemberRelationshipSpecialty Start DateEnd Date Genna Robledo MD [address] [place] [address] PCP - Generalmily Medicine11/11/22 Genna Robledo MD [address] [place] [address] PCP - Medical [place] [employer]06/13/1611 Juliette Lawson NP [address] [place] [address] Nurse PractitionerFamily Medicine11/11/22 Ginette Felipe LPN Licensed Practical NurseFamily Cfvbgxqo30/19/24Te MemberRelationshipSpecialty Start DateEnd Date Genna Robledo MD [address] [place] [address] PCP - GeneralFamily Medicine02/12/22Team MemberRelationshipSpecialtyStart End Genna Robledo MD [address] [place] [address] PCP - GeneralFamily Medicine02/12/22Team MemberRelationshipSpecialtyStart DateEnd Genna Robledo MD [address] [place] [address] PCP - GeneralFamily Medicine11/11/22 Genna Robledo MD [address] [place] [address] PCP - Medical [place] [employer]06/13/1611 Juliette Lawson NP [address] [place] [address] Nurse PractitionerFamily Medicine11/11/22 Ginette Felipe SU[employer]FACE [employer] OPERATOR Licensed Practical NurseFamily Rekydnik11/19/24Team MemberRelationshipSpecialty Start End Genna Robledo MD [address] [place] [address] PCP - GeneralFamily Medicine11/11/22 Genna Robledo MD [address] [place] [address] PCP - Medical [place] [employer]06/13/1611 Juliette Lawson NP [address] [place] [address] Nurse PractitionerFamily Medicine11/11/22 Ginette Felipe, [facility] Licensed Practical NurseFamily Lghkhmwa03/19/24Team MemberRelationshipSpecialty Start DateEnd Genna Robledo MD [address] [place] [address] PCP - GeneralFamily Medicine11/11/22 Genna Robledo MD [address] [place] [address] PCP - Medical [place] [employer]06/13/1611 Juliette Lawson NP [address] [place] [address] Nurse PractitionerFamily Medicine11/11/22 Ginette Felipe [employer] OPERATOR Licensed Practical NurseFamily Jtnjanfa09/19/24Team MemberRelationshipSpecialty Start DateEnd Date Genna Robledo MD [address] [place] [address] PCP - GeneralFamily Medicine02/12/22Team MemberRelationshipSpecialtyStart DateEnd Genna Robledo MD [address] [place] [address] PCP - GeneralFamily Medicine11/11/22 Genna Robledo MD [address] [place] [address] PCP - Medical [place] [employer]06/13/1611 Juliette Lawson NP [address] [place] [address] Nurse PractitionerFamily Medicine11/11/22 Ginette Felipe LPN Licensed Practical NurseFamily Xxzntnbd89/19/24Team MemberRelationshipSpecialty Start DateEnd Date Genna Robledo MD [address] [place] [address] PCP - GeneralFamily Medicine11/11/22 Genna Robledo MD [address] [place] [address] PCP - Medical [place] [employer]06/13/1611 Juliette Lawson NP [address] [place] [address] Nurse PractitionerFamily Medicine11/11/22 Ginette Felipe LPN Licensed Practical NurseFamily Dxrgcmuf13/19/24Team MemberRelationshipSpecialty Start DateEnd Date Genna Robledo MD [address] [place] [address] PCP - GeneralSelect [facility] Medicine11/11/22 Genna Robledo MD [address] [place] [address] PCP - Medical [place] [employer]06/13/1611 Juliette Lawson NP [address] [place] [address] Nurse Practitionermily Medicine11/11/22 Ginette Felipe LPN Licensed Practical NurseFamily Vvosglrq50/19/24Te MemberRelationshipSpecialty Start DateEnd Date Genna Robledo MD [address] [place] [address] PCP - GeneralFamily Medicine11/11/22 Genna Robledo MD [address] [place] [address] PCP - Medical [place] [employer]06/13/1611 Juliette Lawson NP [address] [place] [address] Nurse Practitionermily Medicine11/11/22 Ginette Felipe LPN Licensed Practical NurseFamily Mbvijlyt55/19/24Team MemberRelationshipSpecialty Start DateEnd Date Genna Robledo MD [address] [place] [address] PCP - GeneralFamily Medicine11/11/22 Genna Robledo MD [address] [place] [address] PCP - Medical [place] [employer]06/13/1611 Juliette Lawson NP [address] [place] [address] Nurse Practitionermily Medicine11/11/22 Ginette Felipe LPN Licensed Practical NurseFamtly Levyipls73/19/24Team MemberRelationshipSpecialty Start DateEnd Date Genna Robledo MD [address] [place] [address] PCP - GeneralFamily Medicine11/11/22 Genna Robledo MD [address] [place] [address] PCP - Medical [place] [employer]06/13/1611 Juliette Lawson NP [address] [place] [address] Nurse PractitionerFamily Medicine11/11/22 Ginette Felipe, [employer] OPERATOR Licensed Practical NurseFamily Hxxudetr83/19/24Team MemberRelationshipSpecialty Start DateEnd Date Genna Robledo MD [address] [place] [address] PCP - GeneralFamily Medicine11/11/22 Genna Robledo MD [address] [place] [address] PCP - Medical [place] [employer]06/13/1611 Juliette Lawson NP [address] [place] [address] Nurse PractitionerFamily Medicine11/11/22 Ginette Felipe, [employer] OPERATOR Licensed Practical NurseFamily Ruyamdws61/19/24Team MemberRelationshipSpecialty Start DateEnd Date Genna Robledo MD [address] [place] [address] PCP - GeneralFamily Medicine11/11/22 Genna Robledo MD [address] [place] [address] PCP - Medical [place] [employer]06/13/1611 Juliette Lawson NP [address] [place] [address] Nurse PractitionerFamily Medicine11/11/22 Ginette Felipe LPN Licensed Practical NurseSelect Specialty Hospital-[facility]ly Cqpsqwaf98/19/24Team MemberRelationshipSpecialty Start DateEnd Date Genna Robledo MD [address] [place] [address] PCP - Generalmily Medicine11/11/22 Genna Robledo MD [address] [place] [address] PCP - Medical [place] [employer]06/13/1611 Juliette Lawson NP [address] [place] [address] Nurse PractitionerStillman [facility]irm[facility] Medicine11/11/22 Ginette Felipe LPN Licensed Practical NurseSelect Specialty Hospital-[facility] Moxrsihm62/19/24Team MemberRelationshipSpecialty Start DateEnd Date Genna Robledo MD [address] [place] [address] PCP - [facility] Medicine11/11/22 Genna Robledo MD [address] [place] [address] PCP - Medical [place] [employer]06/13/1611 Juliette Lawson NP [address] [place] [address] Nurse PractitionerStillman [facility]irm[facility] Medicine11/11/22 Ginette Felipe LPN Licensed Practical NurseChatuge [facility]05/31/24 Goals (unrecognized section and content) Goals may be documented in a n alternate section REASON FOR VISIT (unrecogniz ed section and content) ReasonCommentsPre-op ExamReasonCommentsEstablish CareReasonOnset DateCommentsMed Yuifzu7803/30/2024easonOnset DateCommentsMed Pvpyit4804/06/2024easonCommentsPain SpecialtyDiagnoses / ProceduresReferred By ContactReferred To ContactPain Medicine Diagnoses Lumbar radiculopathy, right Procedures RI OFFICE/OUTPATIENT NEW HIGH MDM 60 MINUTES Cathy Mora PA [address] [place] [address] Phone: tel: fax: Dionicio Ramos MD [address] [place] [address] Phone: tel: fax: Referral IDStatusReasonStart DateExpiration DateVisits RequestedVisits [id number] Specialty [facility] Required [id number]-ypHtjqkaXarvmnoaAimezg-myRdlrrwRdmddobt URIReasonCommentsBack PainHip PainReasonCommentsPre-op ExamSpecialtyDiagnoses / ProceduresReferred By ContactReferred To ContactOrthopaedic Surgery Diagnoses Cyst of joint of left hand Genna Robledo MD [address] [place] [address] Phone: tel: fax: Jr. Scot Sandoval, DO [address] [place] [address] Phone: tel: fax: Referral IDStatusReasonStart DateExpiration DateVisits RequestedVisits [id number] Specialty Services Required 1ReasonOnset DateCommentsMed Ilxzdl8707/04/2024ReasonOnset DateCommentsMed Sivffr9607/12/2024ReasonCommentsAnxietyReasonCommentsFlank Pain ReasonOnset JnluTdacovbkKetbsudy46/13/2025ReasonCommentsBack PainReasonComments Skin CheckReasonCommentsHot FlashesReasonCommentsSore ThroatReasonCommentsCough FOR RECORDS PERTAINING TO PATIENTS WHO ARE OR HAVE BEEN ENROLLED IN A CHEMICAL DEPENDENCY/SUBSTANCEABUSE PROGRAM, SOME INFORMATION MAY BE OMITTED. This clinical summary was aggregated from multiple sources. Caution should be exercised in using it in the provision of clinical care. This summary normalizes information from multiple sources, and as a consequence, information in this document may materially change the coding, format and clinical context of patient data. In addition, data may be omitted in some cases. CLINICAL DECISIONS SHOULD BE BASED ON THE PRIMARY CLINICAL RECORDS. [facility] [facility] provides no warranty or guarantee of the accuracy or completeness of information in this document.
--- NOTE | 2025-04-19 09:02 | US_ITS ---
The [address] [address] Patient Name: NELL RABAGO MRN: [id number] date: 1950 Sex: F Assigned Patient Location: US Current Patient Location: US Accession/Order Number: [id number] Exam Date: 04/19/2025 09:03 Report Date: 04/19/2025 09:43 At the request of: EARNESTINE PUCKETT MD Procedure: US renal BI BILATERAL RENAL AND BLADDER ULTRASOUND CLINICAL HISTORY: Asymptomatic Microscopic Hematuria COMPARISON: None Estimation of renal size is approximately 10.2 cm on the right and 11.0 cm on the left. No shadowing calculi or hydronephrosis are identified. No renal mass lesions were imaged. There is no perinephric fluid. The urinary bladder is poorly distended with a volume of 16 mL. This limits evaluation. US/US renal BI IMPRESSION: NO OBSTRUCTIVE UROPATHY. Impression dictated by: Rosalva Zuniga M.D. 04/19/2025 9:43 AM Dictation Location: [place] [address] Electronically authenticated by: [id number] Y Date: 04/19/2025 09:43
== END 2025-04-19 08:55 | disposition home or self-care (01) ==
LOC: US 08:54
PROVIDERS: PCP Family Medicine; Visit Provider Urology
DX: R31.21 Asymptomatic microscopic hematuria (principal)
CPT/HCPCS: 76775